=== PATIENT | male | born 1955 | race American Indian/Alaskan Native ===

== ENCOUNTER 2016-11-17 08:31 | Inpatient (IN) | payer OTHER ==
[2016-11-17 09:08] LABS: Basophils % (Auto) 0.5 % (0.0-1.8); Eosinophils % (Auto) 1.9 % (0.0-4.3); Mean Corpuscular HGB Conc 31 % (32-34); Mean Corpuscular Hemoglobin 26 pg (28-32); Mean Corpuscular Volume 85 fl (84-94); Platelet Count 153 K/mm3 (140-440); Red Blood Count 5.27 M/mm3 (3.65-5.03); Red Cell Distribution Width 13.5 % (13.2-15.2); White Blood Count 7.1 K/mm3 (4.5-11.0)
[2016-11-17 09:17] LABS: Anion Gap 19 mmol/L; BUN/Creatinine Ratio 13.33; Blood Urea Nitrogen 8 mg/dL (9-20); Calcium 9.2 mg/dL (8.4-10.2); Carbon Dioxide 21 mmol/L (22-30); Chloride 98.5 mmol/L (98-107); Glucose 400 mg/dL (75-100); Potassium 4.4 mmol/L (3.6-5.0); Sodium 134 mmol/L (137-145)
[2016-11-17 09:28] LABS: Hematocrit 44.8 % (35.5-45.6); Hemoglobin 13.9 gm/dl (11.8-15.2)
[2016-11-17 10:39] LABS: Bilirubin,Urine NEG (Negative); Blood,Urine NEG (Negative); Ketones,Urine NEG (Negative); Leukocyte Esterase,Urine NEG (Negative); Nitrite,Urine NEG (Negative); Protein,Urine <15 mg/dL mg/dL (Negative); Urobilinogen,Urine < 2.0 mg/dL (<2.0)
[2016-11-17] MEDS ORDERED: NACL 0.9% 1000 ML 1,000 ML IV ONE (17:30)
--- NOTE | 2016-11-17 17:34 | Emergency Department Report ---
ED Headache HPI - General Chief Complaint: Headache Stated Complaint: HEADACHE Time Seen by Provider: 11/17/16 15:53 Source: patient - History of Present Illness Initial Comments: Pt is a 61 yr old male with a h/o DM who presents to the ED with a headache. Pt reports the headache is all over but worse at the R [place] and R side of his head. Pt has had this headache for 7 days and has tried OTC analgesics, goody powders with minor relief. Associated photophobia. Headache has been gradually worsening over the week, not thunderclap in nature. Pt reports he has no history of migraines. Otherwise no fevesr, chills, dizziness, double vision, hearing changes, gait issues, SOB, CP, NVD, abd pain, travel, or sick contacts. Allergies/Adverse Reactions: Allergies No Known Allergies Allergy (Unverified 11/17/16 08:36) ED Review of Systems ROS: Stated complaint: HEADACHE Other details as noted in HPI Comment: All other systems reviewed and negative ED Past Medical Hx - Past Medical History Previous Medical History?: Yes Hx Diabetes: Yes - Surgical History Past Surgical History?: No - Social History Smoking Status: Current Every Day Smoker Substance Use Type: Non Opiate Pain ED Physical Exam - General Limitations: No Limitations General appearance: alert, in no apparent distress - Head Head exam: Present: atraumatic, normocephalic - Eye Eye exam: Present: normal appearance, PERRL, EOMI. Absent: scleral icterus, nystagmus Pupils: Present: normal accommodation. Absent: irregular, unequal - ENT ENT exam: Present: normal exam, mucous membranes moist - Neck Neck exam: Present: normal inspection, full ROM. Absent: tenderness, meningismus, lymphadenopathy - Respiratory Respiratory exam: Present: normal lung sounds bilaterally. Absent: respiratory distress, wheezes, rales, rhonchi, stridor - Cardiovascular Cardiovascular Exam: Present: regular rate, normal rhythm. Absent: systolic murmur, diastolic murmur, rubs, gallop - GI/Abdominal GI/Abdominal exam: Present: soft, normal bowel sounds. Absent: distended, tenderness, guarding, rebound, rigid - Rectal Rectal exam: Present: deferred - Extremities Exam Extremities exam: Present: normal inspection - Back Exam Back exam: Present: normal inspection - Neurological Exam Neurological exam: Present: alert, oriented X3, CN II-XII intact, normal gait, other (Strength 5/5 upper and lower bilaterally, sensation intact bilaterally). Absent: motor sensory deficit - Psychiatric Psychiatric exam: Present: normal affect, normal mood - Skin Skin exam: Present: warm, dry, intact, normal color. Absent: rash ED Course Vital Signs 11/17/16 11/17/16 11/17/16 08:36 17:07 17:09 Temperature 98.4 F 100.3 F H Pulse Rate 74 97 H Respiratory 20 18 Rate Blood Pressure 120/76 Blood Pressure 112/76 [Right] O2 Sat by Pulse 100 98 98 Oximetry ED Medical Decision Making - Lab Data Result diagrams: 11/17/16 08:51 11/17/16 08:51 - Radiology Data Radiology results: report reviewed, image reviewed Case discussed with radiologist at [address] Subacute vs chronic vs mass on the R side of the brain. Pt to be admitted, MRI recs passed to hospitalist - Medical Decision Making After initial evaluation, this has been a 7 day long course of ROPER's. Placed patient on 6L NC to see if this will give him some relief. Critical care attestation.: If time is entered above; I have spent that time in minutes in the direct care of this critically ill patient, excluding procedure time. ED Disposition Clinical Impression: Headache, CVA (cerebral vascular accident) Disposition: OP ADMIT IP TO THIS HOSP Is pt being admited?: Yes Condition: Stable
--- NOTE | 2016-11-17 18:41 | Cat Scan Report ---
FINAL REPORT PROCEDURE: CT HEAD/BRAIN WO CON TECHNIQUE: Computerized tomography of the head was performed without contrast material. HISTORY: headache COMPARISON: No prior studies are available for comparison. FINDINGS: There is low-attenuation in the medial superior right occipital lobe, suggesting ischemia of uncertain chronicity. No evidence of acute intracranial hemorrhage or obvious mass. No evidence of hydrocephalus. Intracranial arteries are symmetric in density. Calvarium is intact. There is trace bilateral ethmoid sinus mucosal thickening. IMPRESSION: Findings suggest ischemic changes in the superior medial right occipital lobe, which may be subacute to chronic. Recommend further evaluation with MRI to evaluate chronicity and exclude any underlying parenchymal lesions. Findings were discussed with Dr. Dill by telephone at 5:33 p.m. central standard time on 11/17/2016.
[2016-11-17] MEDS ORDERED: REGLAN IV ONE (18:42)
[2016-11-17] MEDS ORDERED: BENADRYL IV ONE (18:42)
[2016-11-17] MEDS ORDERED: MORPHINE IV ONE (18:42)
--- NOTE | 2016-11-17 18:48 | History and Physical Report ---
History of Present Illness Chief complaint: My head hurts, Im dizzy History of present illness: 61 YO Male with DM, Nicotine Dependence presents to ED for evaluation. Pt states that he has experienced a severe right sided headache for the past week. Pain is 10/10, and is associated with blurred vision. Pt has tried OTC analgesics, goody powders with minor relief. Pt headache has been gradually worsening over the week. Pt denies fever, chills, CP, palpitations, NVD, syncope , dizziness, double vision, hearing changes, gait instability, SOB, recent foreign travel, or sick contacts. Past History Past Medical History: diabetes, hypertension Past Surgical History: No surgical history, Other (reviewed) Social history: , smoking. denies: alcohol abuse, prescription drug abuse Family history: hypertension Medications and Allergies Allergies Allergy/AdvReac Type Severity Reaction Status Date / Time No Known Allergies Allergy Unverified 11/17/16 08:36 Review of Systems All systems: negative Constitutional: other (headache) Exam - Constitutional Vitals: Temp Pulse Resp BP Pulse Ox 100.3 F H 97 H 18 112/76 98 11/17/16 17:07 11/17/16 17:07 11/17/16 17:07 11/17/16 17:07 11/17/16 17:09 General appearance: Present: mild distress - EENT Eyes: Present: PERRL ENT: hearing intact, clear oral mucosa - Neck Neck: Present: supple, normal ROM - Respiratory Respiratory effort: normal Respiratory: bilateral: CTA - Cardiovascular Heart Sounds: Present: S1 & S2. Absent: rub, click - Extremities Extremities: pulses symmetrical, No edema Peripheral Pulses: within normal limits - Abdominal General gastrointestinal: Present: soft, non-tender, non-distended, normal bowel sounds Male genitourinary: Present: normal - Integumentary Integumentary: Present: clear, warm, dry - Musculoskeletal Musculoskeletal: gait normal, strength equal bilaterally - Psychiatric Psychiatric: appropriate mood/affect, intact judgment & insight - Neurologic Neurologic: CNII-XII intact, moves all extremities, no gait normal Results - Labs CBC & Chem 7: 11/17/16 08:51 11/17/16 08:51 Labs: Abnormal lab results 11/17/16 11/17/16 11/17/16 Range/Units 08:39 08:51 08:51 RBC 5.27 H (3.65-5.03) M/mm3 MCH 26 L (28-32) pg MCHC 31 L (32-34) % [place] % (Auto) 7.5 H (0.0-7.3) % VBG pH (7.320-7.420) Sodium 134 L (137-145) mmol/L Carbon Dioxide 21 L (22-30) mmol/L BUN 8 L (9-20) mg/dL Creatinine 0.6 L (0.8-1.5) mg/dL Glucose 400 H (75-100) mg/dL POC Glucose 360 H (70-105) /11/28 Range/Units 08:51 RBC (3.65-5.03) M/mm3 MCH (28-32) pg MCHC (32-34) % [place] % (Auto) (0.0-7.3) % VBG pH 7.301 L (7.320-7.420) Sodium (137-145) mmol/L Carbon Dioxide (22-30) mmol/L BUN (9-20) mg/dL Creatinine (0.8-1.5) mg/dL Glucose (75-100) mg/dL POC Glucose (70-105) Assessment and Plan - Patient Problems (1) CVA (cerebral vascular accident) Current Visit: Yes Status: Acute Qualifiers: CVA mechanism: C Precerebral and cerebral artery: P Laterality of affected vessel: L Plan to address problem: R MCA CVA: Stroke protocol, MRI, MRA, Anitplatelet therapy, supportive care. (2) Diabetes Current Visit: Yes Status: Acute Qualifiers: Diabetes mellitus type: D Diabetes mellitus complication status: D Diabetes mellitus complication detail: D Diabetic retinopathy severity: D Proliferative retinopathy type: P Diabetes mellitus macular edema: D Diabetes mellitus intermediate insulin use: D Laterality: L Chronic kidney disease stage: C Plan to address problem: ADA diet, insulin, Accuc check (3) Nicotine dependence with withdrawal Current Visit: Yes Status: Acute Qualifiers: Nicotine product type: N Plan to address problem: Continue current care, Pt declines to pick quit date. (4) Metabolic acidosis Current Visit: Yes Status: Acute Plan to address problem: IVF, supportive care, repeat bmp in am. (5) DVT prophylaxis Current Visit: Yes Status: Acute
[2016-11-17] MEDS ORDERED: SODIUM CHLORIDE FLUSH SYRINGE 10 ML IV PRN (18:54)
[2016-11-17] MEDS ORDERED: ZOFRAN IV PRN (18:54)
[2016-11-17] MEDS ORDERED: REGLAN PO PRN (18:54)
[2016-11-17] MEDS ORDERED: MILK OF MAGNESIA PO PRN (18:54)
[2016-11-17] MEDS ORDERED: PHENERGAN PR PRN (18:54)
[2016-11-17] MEDS ORDERED: DULCOLAX PR PRN (18:54)
--- NOTE | 2016-11-17 18:55 | Admit Criteria Form ---
Admission Criteria Documentation: HEADACHES Clinical Indications for Admission to Inpatient Care (Place 'X' for any and all applicable criteria): Admission is indicated for ANY ONE of the following(1)(2)(3)(4): [X ]I. Inpatient admission required rather than observational care (Also use Headaches: Observation Care as appropriate) because of ANY ONE of the following: [ ]a) Severe pain requiring acute inpatient management [ ]b) Altered mental status that is severe or persistent [ ]c) Vomiting or dehydration that is severe or persistent [ ]d) New-onset focal neurologic deficit that is severe or persistent [ ]e) Hypertension requiring inpatient treatment [ X]f) Severe (new) neurologic findings requiring inpatient care as indicated by ANY ONE of following(9)(10): [ ]1) Papilledema [ ]2) Cerebral edema [ ]3) Mass effect on CT scan [ X]4) Cerebral bleeding, ischemia, or vasospasm(16) [ ]5) Hydrocephalus(17) [ ]6) Uncontrolled seizures [ ]g) IV infusion of anticoagulation, platelet inhibitors vasoactive, or antiarrhythmic medication. [ ]h) Cerebral bleeding, hydrocephalus, or vasospasm monitoring (16) [ ]i) Increased intracranial pressure or cerebral edema monitoring (17) [ ]j) Other condition, treatment or monitoring requiring inpatient admission [ ]II. Unruptured but threatening aneurysm or vascular malformation [ ]III. Venous sinus thrombosis [ ]IV. Increased intracranial pressure [ ]V. Cerebral spinal fluid leak with decreased intracranial pressure [ ]. Medication-overuse headache that has failed all outpatient management options [ ]VII. Vasculitis (eg, giant cell (temporal) arteritis, central nervous system vasculitis) requiring IV corticosteroids, IV antithrombotic therapy, or inpatient monitoring (eg, visual symptoms or findings, other ischemic manifestations)[A](10)(11) Extended stay beyond goal length of stay may be needed for (27): [ ]a) Intractable migraine [ ]b) Subarachnoid or intracranial hemorrhage [ ]c) Malignant hypertension [ ]d) Detoxification from drug withdrawal in medication-overuse headache (29) The original [facility] content created by [employer] has been revised. The portions of the content which have been revised are identified through the use of italic text or in bold, and [employer] has neither reviewed nor approved the modified material.All other unmodified content is copyright [facility]. Please see references footnoted in the original [facility] edition 2016 Admission Criteria Met: Yes
[2016-11-17 20:45] LABS: HIV-1 Antigen p24 Non React (Non React); HIVR-1/2 Ab Non React (Non React)
[2016-11-17] MEDS ORDERED: ZOCOR PO SCH (22:00)
[2016-11-17] MEDS: NACL 0.45% 500 ML IV SCH (23:49)
[2016-11-18] MEDS: PERCOCET 5/325 PO PRN ×2 (01:30→21:37)
[2016-11-18] MEDS: ASPIRIN PO SCH (10:08)
[2016-11-18] MEDS: TYLENOL PO PRN ×2 (10:08→17:15)
--- NOTE | 2016-11-18 11:37 | Progress Note ---
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] Not a candidate for TPA, , Continue aspirin, statin CT head and MRI findings noted and reviewed, Check carotid Doppler, echocardiogram, Physical therapy occupational therapy, acute rehabilitation eval per stroke protocol Neuro consultation , closely monitor the patient and adjust management as needed --Type 2 diabetes mellitus[probably new onset] Accu-Chek sliding scale coverage and ADA diet and add long-acting insulin Novolin 10 units subcutaneous twice a day Check hemoglobin A1c, diabetic education, nutrition consult --Hypertension; Closely monitor blood pressures, permissive hypertension per stroke protocol When necessary hydralazine --Dyslipidemia; patient is started on Lipitor, low-cholesterol diet --Ongoing tobacco use; Smoking cessation counseling done, strongly advised to quit tobacco use, descendent complications of Long-term tobacco use discussed with the patient verbalized understanding, advised nicotine patch Spent 10 minutes counseling the patient --DVT prophylaxis with Lovenox -- physical therapy, occupational therapy, acute rehabilitation eval, possible home with home health and stable --DC planning to case management Patient's condition treatment plan discussed in detail with the patient and at the bedside I also discussed this extensively with daughter Ms Jyothi Mariano, all her questions and concerns were explained She will verbalized understanding Follow neurology consultation and recommendations History Interval history: Patient seen and evaluated in his room this morning medical records reviewed Patient's is at the bedside Patient complaints of headache, denies nausea vomiting Admitted with acute CVA, neuro workup is in progress Alert awake oriented 3 in mild distress secondary to headache Vital signs reviewed . Hospitalist Physical - Constitutional Vitals: Temp Pulse Resp BP Pulse Ox 98.7 F 72 18 129/64 98 11/18/16 07:10 11/18/16 11:12 11/18/16 11:12 11/18/16 07:10 11/18/16 11:12 General appearance: Present: mild distress (secondary to headache), well- nourished - EENT Eyes: Present: PERRL, EOM intact - Neck Neck: Present: supple, normal ROM - Respiratory Respiratory effort: normal Respiratory: negative: rales, rhonchi, wheezing - Cardiovascular Rhythm: regular Heart Sounds: Present: S1 & S2 - Extremities Extremities: no ischemia, pulses intact, pulses symmetrical Peripheral Pulses: within normal limits - Abdominal General gastrointestinal: soft, non-tender, non-distended, normal bowel sounds - Integumentary Integumentary: Present: clear, warm - Psychiatric Psychiatric: appropriate mood/affect, cooperative - Neurologic Neurologic: CNII-XII intact, moves all extremities Results - Labs CBC & Chem 7: 11/17/16 08:51 11/17/16 08:51 Labs: Laboratory Last Values WBC 7.1 K/mm3 (4.5-11.0) 11/17/16 08:51 RBC 5.27 M/mm3 (3.65-5.03) H 11/17/16 08:51 Hgb 13.9 gm/dl (11.8-15.2) 11/17/16 08:51 Hct 44.8 % (35.5-45.6) 11/17/16 08:51 MCV 85 fl (84-94) 11/17/16 08:51 MCH 26 pg (28-32) L 11/17/16 08:51 MCHC 31 % (32-34) L 11/17/16 08:51 RDW 13.5 % (13.2-15.2) 11/17/16 08:51 Plt Count 153 K/mm3 (140-440) 11/17/16 08:51 Lymph % (Auto) 30.0 % (13.4-35.0) 11/17/16 08:51 [place] % (Auto) 7.5 % (0.0-7.3) H 11/17/16 08:51 Eos % (Auto) 1.9 % (0.0-4.3) 11/17/16 08:51 Baso % (Auto) 0.5 % (0.0-1.8) 11/17/16 08:51 Lymph # 2.1 K/mm3 (1.2-5.4) 11/17/16 08:51 [place] # 0.5 K/mm3 (0.0-0.8) 11/17/16 08:51 Eos # 0.1 K/mm3 (0.0-0.4) 11/17/16 08:51 Baso # 0.0 K/mm3 (0.0-0.1) 11/17/16 08:51 Seg Neutrophils % 60.1 % (40.0-70.0) 11/17/16 08:51 Seg Neutrophils # 4.3 K/mm3 (1.8-7.7) 11/17/16 08:51 VBG pH 7.301 (7.320-7.420) L 11/17/16 08:51 Sodium 134 mmol/L (137-145) L 11/17/16 08:51 Potassium 4.4 mmol/L (3.6-5.0) 11/17/16 08:51 Chloride 98.5 mmol/L (98-107) 11/17/16 08:51 Carbon Dioxide 21 mmol/L (22-30) L 11/17/16 08:51 Anion Gap 19 mmol/L 11/17/16 08:51 BUN 8 mg/dL (9-20) L 11/17/16 08:51 Creatinine 0.6 mg/dL (0.8-1.5) L 11/17/16 08:51 Estimated GFR > 60 ml/min 11/17/16 08:51 BUN/Creatinine Ratio 13.33 % 11/17/16 08:51 Glucose 400 mg/dL (75-100) H 11/17/16 08:51 POC Glucose 360 (70-105) H 11/17/16 08:39 Calcium 9.2 mg/dL (8.4-10.2) 11/17/16 08:51 Triglycerides 280 mg/dL (2-149) H 11/18/16 06:10 Cholesterol 208 mg/dL (50-199) H 11/18/16 06:10 LDL Cholesterol Direct 128 mg/dL (50-130) 11/18/16 06:10 HDL Cholesterol 24 mg/dL (40-59) L 11/18/16 06:10 Cholesterol/HDL Ratio 8.66 % 11/18/16 06:10 Urine Color Yellow (Yellow) 11/17/16 Unknown Urine Turbidity Clear (Clear) 11/17/16 Unknown Urine pH 6.0 (5.0-7.0) 11/17/16 Unknown Ur Specific [place] 1.029 (1.003-1.030) 11/17/16 Unknown Urine Protein <15 mg/dl mg/dL (Negative) 11/17/16 Unknown Urine Glucose (UA) >=500 mg/dL (Negative) 11/17/16 Unknown Urine Ketones Neg mg/dL (Negative) 11/17/16 Unknown Urine Blood Neg (Negative) 11/17/16 Unknown Urine Nitrite Neg (Negative) 11/17/16 Unknown Urine Bilirubin Neg (Negative) 11/17/16 Unknown Urine Urobilinogen < 2.0 mg/dL (<2.0) 11/17/16 Unknown Ur Leukocyte Esterase Neg (Negative) 11/17/16 Unknown Urine WBC (Auto) 1.0 /HPF (0.0-6.0) 11/17/16 Unknown Urine RBC (Auto) 3.0 /HPF (0.0-6.0) 11/17/16 Unknown HIV 1&2 Antibody Rapid Non react (Non React) 11/17/16 19:17 HIV P24 Antigen Non react (Non React) 11/17/16 19:17
--- NOTE | 2016-11-18 11:57 | Magnetic Resonance Report ---
MRI of the brain without contrast. History: Stroke. Procedure: Routine brain protocol without contrast. Findings: There are several areas of restricted diffusion in the right occipital lobe the most prominent of which is superior in location. There is associated edema/hyperintense T2 signal in these regions. There is no mass effect. No additional areas of restricted diffusion are seen. The ventricles are normal in size and contour. There are no masses or extra-axial collections. There are areas of hyperintense T2 signal in the periventricular white matter and in the chiang radiata. The pituitary gland appears normal. The remaining visualized extra cranial structures are unremarkable. Impression: Acute infarcts in the right occipital lobe. Chronic microangiopathic ischemic changes are also described.
--- NOTE | 2016-11-18 12:31 | Magnetic Resonance Report ---
MRA of the [place]. History: Stroke. Procedure: 3-D [id number] technique. Findings: The distal internal carotid arteries appear normal. The anterior and middle cerebral arteries appear normal. The vertebral and basilar arteries are normal. Posterior circulation is unremarkable. Impression: Normal study.
--- NOTE | 2016-11-18 15:05 | Consultation ---
History of Present Illness - Reason for Consult Consult date: 11/18/16 Evaluate for Acute IRU - History of Present Illness 61 y.o. male who presented to [facility] ED secondary to intermittent headaches, altered mental status, dizziness, blurry vision. CT Brain showed subacute to chronic ischemic changes in the right occipital lobe. Brain MRI notes acute infarcts in right occipital lobe. On today, pt reports improved headache and blurry vision; no complaint of weakness. Consult requested for post acute placement recommendations. Past History Past Medical History: diabetes, hypertension Past Surgical History: No surgical history (pt denies) Social history: , smoking. denies: alcohol abuse Family history: diabetes, hypertension, stroke Medications and Allergies Allergies Allergy/AdvReac Type Severity Reaction Status Date / Time No Known Allergies Allergy Unverified 11/17/16 08:36 Home Medications Medication Instructions Recorded Confirmed Last Taken Type No Known Home Medications [No 11/17/16 11/17/16 Unknown History Reported Home Medications] Active Meds: Active Medications Acetaminophen (Tylenol) 650 mg PO Q4H PRN PRN Reason: Pain, Mild (1-3) Last Admin: 11/18/16 10:08 Dose: 650 mg Aspirin (Aspirin) 325 mg PO QDAY GRACIE Last Admin: 11/18/16 10:08 Dose: 325 mg Atorvastatin Calcium (Lipitor) 40 mg PO QHS GRACIE Bisacodyl (Dulcolax) 10 mg FL QDAY PRN PRN Reason: Constipation Sodium Chloride (Nacl 0.45%) 500 mls @ 50 mls/hr IV DIRECT GRACIE Last Admin: 11/17/16 23:49 Dose: 50 mls/hr Insulin Aspart (Novolog) 0 units SUB-Q ACHS GRACIE PRN Reason: Protocol Insulin Human Isoph/Insulin Regular (Novolin 70/30) 10 unit SUB-Q BIDDIAB GRACIE Magnesium Hydroxide (Milk Of Magnesia) 30 ml PO Q4H PRN PRN Reason: Constipation Metoclopramide HCl (Reglan) 10 mg PO Q6H PRN PRN Reason: Nausea And Vomiting Nicotine (Habitrol) 14 mg TD QDAY GRACIE Ondansetron HCl (Zofran) 4 mg IV Q8H PRN PRN Reason: N/V unrelieved by Reglan Oxycodone/Acetaminophen (Percocet 5/325) 1 tab PO Q6H PRN PRN Reason: Pain, Moderate (4-6) Last Admin: 11/18/16 01:30 Dose: 1 tab Promethazine HCl (Phenergan) 25 mg FL Q6H PRN PRN Reason: Nausea And Vomiting Sodium Chloride (Sodium Chloride Flush Syringe 10 Ml) 10 ml IV PRN PRN PRN Reason: LINE FLUSH Review of Systems All systems: negative Ears, nose, mouth and throat: no dysphagia, no headache (currently resolved) Exam - Constitutional Vitals: Vital Signs - 12hr 11/18/16 11/18/16 11/18/16 04:00 07:10 11:12 Temperature 98.2 F 98.7 F Pulse Rate Pulse Rate [ 72 72 72 Right Radial] Respiratory 20 16 18 Rate Blood Pressure 123/82 129/64 [Right Radial Artery] O2 Sat by Pulse 98 98 98 Oximetry 11/18/16 11/18/16 11:39 14:40 Temperature 98.7 F Pulse Rate 76 Pulse Rate [ 70 Right Radial] Respiratory Rate Blood Pressure 121/78 [Right Radial Artery] O2 Sat by Pulse Oximetry General appearance: no acute distress, other (sitting up on edge of bed) - EENT Eyes: EOM intact ENT: hearing intact - Neck Neck: supple, normal ROM - Respiratory Respiratory effort: normal Respiratory: bilateral: CTA - Cardiovascular Rhythm: regular Heart Sounds: Present: S1 & S2 - Extremities Extremities: No edema - Integumentary Integumentary: Present: clear - Musculoskeletal Musculoskeletal: strength equal bilaterally - Neurologic Neurologic: CNII-XII intact, moves all extremities - Psychiatric Psychiatric: appropriate mood/affect, intact judgment & insight, memory intact, cooperative - Allied health notes Allied health notes reviewed: PT (Yashira for bed mobility, transfers; independent with gait), OT (Independent to s/u for ADLs) - Labs CBC & Chem 7: 11/17/16 08:51 11/17/16 08:51 Labs: Laboratory Results - last 72 hr 11/17/16 11/17/16 11/18/16 19:17 Unknown 06:10 Triglycerides 280 H Cholesterol 208 H LDL Cholesterol Direct 128 HDL Cholesterol 24 L Cholesterol/HDL Ratio 8.66 Urine Color Yellow Urine Turbidity Clear Urine pH 6.0 Ur Specific [place] 1.029 Urine Protein <15 mg/dl Urine Glucose (UA) >=500 Urine Ketones Neg Urine Blood Neg Urine Nitrite Neg Urine Bilirubin Neg Urine Urobilinogen < 2.0 Ur Leukocyte Esterase Neg Urine WBC (Auto) 1.0 Urine RBC (Auto) 3.0 HIV 1&2 Antibody Rapid Non react HIV P24 Antigen Non react Assessment and Plan Patient was assessed and evaluated for Acute Inpatient Rehab Unit. 61 y.o. male with acute right occipital CVA; no weakness or functional deficits noted on therapy evaluations. Pt educated on need to seek F/U with PCP after discharge for management of HTN, DM; will not require therapies after discharge. Will sign off as pt has no rehab needs. Thank you for consultation. - Patient Problems (1) CVA (cerebral vascular accident) Current Visit: Yes Status: Acute Qualifiers: CVA mechanism: C Precerebral and cerebral artery: P Laterality of affected vessel: L (2) Hypertension Current Visit: Yes Status: Acute Qualifiers: Hypertension type: H (3) Diabetes Current Visit: Yes Status: Acute Qualifiers: Diabetes mellitus type: type 2 Diabetes mellitus complication status: with hyperglycemia Diabetes mellitus complication detail: D Diabetic retinopathy severity: D Proliferative retinopathy type: P Diabetes mellitus macular edema: D Diabetes mellitus watermaster insulin use: without mcfp use Laterality: L Chronic kidney disease stage: C Qualified Code(s): E11.65 - Type 2 diabetes mellitus with hyperglycemia
[2016-11-18] MEDS: NOVOLOG SUB-Q SCH ×2 (16:34→23:05)
[2016-11-18] MEDS: NACL 0.45% 500 ML IV SCH (16:47)
[2016-11-19] MEDS: TYLENOL PO PRN (04:07)
[2016-11-19] MEDS: NACL 0.45% 500 ML IV SCH (04:10)
[2016-11-19 07:11] LABS: Basophils % (Auto) 0.6 % (0.0-1.8); Eosinophils % (Auto) 3.2 % (0.0-4.3); Hematocrit 39.3 % (35.5-45.6); Hemoglobin 12.7 gm/dl (11.8-15.2); Mean Corpuscular HGB Conc 32 % (32-34); Mean Corpuscular Hemoglobin 26 pg (28-32); Mean Corpuscular Volume 81 fl (84-94); Platelet Count 155 K/mm3 (140-440); Red Blood Count 4.83 M/mm3 (3.65-5.03); Red Cell Distribution Width 12.8 % (13.2-15.2)
[2016-11-19 07:28] LABS: Anion Gap 17 mmol/L; Blood Urea Nitrogen 9 mg/dL (9-20); Calcium 8.8 mg/dL (8.4-10.2); Carbon Dioxide 25 mmol/L (22-30); Chloride 96.2 mmol/L (98-107); Glucose 210 mg/dL (75-100); Potassium 3.6 mmol/L (3.6-5.0); Sodium 135 mmol/L (137-145)
[2016-11-19] MEDS: NOVOLOG SUB-Q SCH ×4 (07:30→22:45)
[2016-11-19] MEDS: PERCOCET 5/325 PO PRN ×3 (08:28→23:11)
[2016-11-19] MEDS ORDERED: MAGNESIUM SULFATE 2GM/50ML 2 GM/50 ML BAG IV ONE (10:00)
--- NOTE | 2016-11-19 11:38 | Consultation ---
History of Present Illness Consult date: 11/19/16 Requesting physician: PHANI ROSARIO Reason for Consult: stroke Chief complaint: headache and vision change History of present illness: 61 YO M Hx HTN/DM2/Tob abuse p/w 8-9 days of bifrontal headache and some vague vision change described as blurriness but not clearly worse in any field. Sx are constant. There are no clear aggravating, relieving or temporal factors. Severity was enough to cause inability to effectively read. Past History Past Medical History: diabetes, hypertension Past Surgical History: No surgical history (pt denies) Social history: , smoking. denies: alcohol abuse Family history: diabetes, hypertension, stroke Medications and Allergies Allergies Allergy/AdvReac Type Severity Reaction Status Date / Time No Known Allergies Allergy Unverified 11/17/16 08:36 Home Medications Medication Instructions Recorded Confirmed Last Taken Type No Known Home Medications [No 11/17/16 11/17/16 Unknown History Reported Home Medications] Active Meds: Active Medications Acetaminophen (Tylenol) 650 mg PO Q4H PRN PRN Reason: Pain, Mild (1-3) Last Admin: 11/19/16 04:07 Dose: 650 mg Aspirin (Aspirin) 325 mg PO QDAY [facility] Last Admin: 11/18/16 10:08 Dose: 325 mg Atorvastatin Calcium (Lipitor) 40 mg PO QHS [facility] Last Admin: 11/18/16 21:36 Dose: 40 mg Bisacodyl (Dulcolax) 10 mg WV QDAY PRN PRN Reason: Constipation Sodium Chloride (Nacl 0.45%) 500 mls @ 50 mls/hr IV DIRECT [facility] Last Admin: 11/19/16 04:10 Dose: 50 mls/hr Magnesium Sulfate (Magnesium Sulfate 2gm/50ml) 2 gm in 50 mls @ 25 mls/hr IV ONCE ONE Stop: 11/19/16 11:59 Insulin Aspart (Novolog) 0 units SUB-Q ACHS GRACIE PRN Reason: Protocol Last Admin: 11/18/16 23:05 Dose: 3 units Insulin Human Isoph/Insulin Regular (Novolin 70/30) 10 unit SUB-Q BIDDIAB [facility] Last Admin: 11/18/16 18:40 Dose: 10 unit Magnesium Hydroxide (Milk Of Magnesia) 30 ml PO Q4H PRN PRN Reason: Constipation Metoclopramide HCl (Reglan) 10 mg PO Q6H PRN PRN Reason: Nausea And Vomiting Nicotine (Habitrol) 14 mg TD QDAY GRACIE Ondansetron HCl (Zofran) 4 mg IV Q8H PRN PRN Reason: N/V unrelieved by Reglan Oxycodone/Acetaminophen (Percocet 5/325) 1 tab PO Q6H PRN PRN Reason: Pain, Moderate (4-6) Last Admin: 11/19/16 08:28 Dose: 1 tab Promethazine HCl (Phenergan) 25 mg WV Q6H PRN PRN Reason: Nausea And Vomiting Sodium Chloride (Sodium Chloride Flush Syringe 10 Ml) 10 ml IV PRN PRN PRN Reason: LINE FLUSH Review of Systems All systems: negative Constitutional: fatigue Neurological: headaches, loss of vision, no weakness, no parathesias, no numbness, no tingling, no gait dysfunction, no motor disturbance, no sensory deficit, no double vision Physical Examination - Vital Signs Vital Signs: Vital Signs Temp Pulse Resp BP Pulse Ox 98.4 F 74 20 120/76 100 11/17/16 08:36 11/17/16 08:36 11/17/16 08:36 11/17/16 08:36 11/17/16 08:36 - Constitutional General appearance: comfortable - EENT EENT: Present: ATNC, PERRL, mucous membranes moist, hearing intact, vision intact - Respiratory Respiratory: Present: chest non-tender, normal breath sounds, no respiratory distress - Cardiovascular Cardiovascular: Present: regular rate Extremities: Present: no peripheral edema bilatateraly, no clubbing, cyanosis, no inflammation, no ischemia or petechiae - Gastrointestinal Gastrointestinal: Present: normoactive bowel sounds, soft, non-distended - Integumentary Integumentary: Present: normal - Neurologic Cranial nerve examination: PERRL, EOMI, V1/V2/V3 grossly intact, face symmetric , tongue midline, intact, Intact Vestibulo-ocular r, intact corneal reflex, normal palatal elevation, other (L inferior quadrantopsia) Speech examination: intact Sensorimotor examination: intact Detailed motor examination: full strength in all ulisses Motor examination - right side: 5/5: biceps, triceps, wrist flexion, wrist extension, product blending supervisor, hip flexors, knee extensors, dorsiflexion, toe extension (EHL) , plantarflexion Motor examination - left side: 5/5: biceps, triceps, wrist flexion, wrist extension, product blending supervisor, hip flexors, knee extensors, dorsiflexion, toe extension (EHL) , plantarflexion Detailed sensory examination: intact, light touch, temperature Reflex and gait examination: intact Reflexes: 0: ankle, 2+: bicep, knee, tricep - Musculoskeletal Musculoskeletal: Present: no fluid collection, no pain, normal range of motion - Psychiatric Psychiatric: Present: mood/affect appropriate, cooperative Results - Laboratory Findings CBC and BMP: 11/19/16 06:26 11/19/16 06:26 Abnormal Lab Findings: Abnormal Labs 11/18/16 11/18/16 11/18/16 06:10 07:57 12:03 MCV MCH RDW Lymph % (Auto) [place] % (Auto) Sodium Chloride Creatinine Glucose POC Glucose 277 H 276 H Hemoglobin A1c Magnesium Triglycerides 280 H Cholesterol 208 H HDL Cholesterol 24 L 11/18/16 11/18/16 11/18/16 16:17 16:20 22:02 MCV MCH RDW Lymph % (Auto) [place] % (Auto) Sodium Chloride Creatinine Glucose POC Glucose > 500 H > 500 H 185 H Hemoglobin A1c Magnesium Triglycerides Cholesterol HDL Cholesterol 11/19/16 11/19/16 11/19/16 06:26 06:26 06:26 MCV 81 L D MCH 26 L RDW 12.8 L Lymph % (Auto) 37.1 H [place] % (Auto) 9.1 H Sodium 135 L Chloride 96.2 L Creatinine 0.5 L Glucose 210 H POC Glucose Hemoglobin A1c 14.4 H Magnesium 1.50 L Triglycerides Cholesterol HDL Cholesterol 11/19/16 07:42 MCV MCH RDW Lymph % (Auto) [place] % (Auto) Sodium Chloride Creatinine Glucose POC Glucose 254 H Hemoglobin A1c Magnesium Triglycerides Cholesterol HDL Cholesterol Assessment and Plan 61 YO M Hx HTN/DM2/Tob abuse p/w 8-9 days of bifrontal headache vaguely described vision change. On exam there is L inferior quadrantopsia. 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 MRA Head neg. LDL 128. CDs neg. Plan and Recommendation: 1. No indication for pharmacologic thrombolysis with IV tPA or mechanical thrombectomy due to last known normal > 6 hrs from presentation. Current NIHSS 1. 2. Telemetry bed w/ Q4 hour neuro checks 3. TTE to eval for possible cardiac source of embolism 4. Autoregulate SBP to goal 120-160 as pt is outside permissive HTN window. 5. Secondary stroke prevention: ASA 325mg Daily x 1 then 81mg QDay & upgrade to full dose statin therapy (Crestor 20mg or 40mg OR Lipitor 40mg or 80mg Daily OR Zocor 40mg QDay) for goal LDL < 70. No firm indication at this point for therapeutic anticoagulation as pt has not had AFib captured on telemetry monitoring. 6. F/E/N: isotonic IVF prn, prn replete, bedside speech/swallow eval prior to PO intake. 7. DVT Prophylaxis 8. Stroke education, PT/OT/Speech Therapy consults, CM evaluation 9. For any changes in neurologic status, pls obtain STAT CTH w/o contrast and call neurology 10. If pt remains stable and TTE w/o thrombus, no neurologic contraindication to discharge w/ outpt neuro follow up.
[2016-11-19] MEDS: HABITROL TD SCH (12:15)
[2016-11-19] MEDS: ASPIRIN PO SCH (12:15)
--- NOTE | 2016-11-19 15:46 | Progress Note ---
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];Not a candidate for TPA, , Continue aspirin, statin Residual visual symptoms, neuro evaluation noted and appreciated Neuro workup is reviewed, follow echocardiogram --Type 2 diabetes mellitus[probably new onset]; Accu-Chek sliding scale coverage and ADA diet and add long-acting insulin Novolin 10 units subcutaneous twice a day, A1c 14.4 --Hypertension; When necessary hydralazine --Dyslipidemia; on Lipitor, low-cholesterol diet --Ongoing tobacco use; Smoking cessation counseling done, strongly advised to quit tobacco use, descendent complications of --DVT prophylaxis with Lovenox -- physical therapy, occupational therapy, --DC planning to case management Possible discharge home tomorrow with outpatient physical therapy History Interval history: Patient seen and evaluated medical records reviewed Patient frequently leaves the floor Neuro evaluation and recommendations noted Neuro workup reviewed Vital Signs stable Hospitalist Physical - Constitutional Vitals: Temp Pulse Resp BP Pulse Ox 98.1 F 65 20 126/76 98 11/19/16 04:00 11/19/16 04:00 11/19/16 04:00 11/19/16 04:00 11/19/16 04:00 General appearance: Present: no acute distress, well-nourished, other (sitting up on edge of bed) - EENT Eyes: Present: PERRL, EOM intact - Neck Neck: Present: supple, normal ROM - Respiratory Respiratory effort: normal Respiratory: negative: rales, rhonchi, wheezing - Cardiovascular Rhythm: regular Heart Sounds: Present: S1 & S2 - Extremities Extremities: no ischemia, pulses intact, pulses symmetrical Peripheral Pulses: within normal limits - Abdominal General gastrointestinal: soft, non-tender, non-distended, normal bowel sounds - Integumentary Integumentary: Present: clear, warm - Psychiatric Psychiatric: appropriate mood/affect - Neurologic Neurologic: CNII-XII intact, moves all extremities Results - Labs CBC & Chem 7: 11/19/16 06:26 11/19/16 06:26 Labs: Laboratory Last Values WBC 6.0 K/mm3 (4.5-11.0) 11/19/16 06:26 RBC 4.83 M/mm3 (3.65-5.03) 11/19/16 06:26 Hgb 12.7 gm/dl (11.8-15.2) 11/19/16 06:26 Hct 39.3 % (35.5-45.6) 11/19/16 06:26 MCV 81 fl (84-94) L D 11/19/16 06:26 MCH 26 pg (28-32) L 11/19/16 06:26 MCHC 32 % (32-34) 11/19/16 06:26 RDW 12.8 % (13.2-15.2) L 11/19/16 06:26 Plt Count 155 K/mm3 (140-440) 11/19/16 06:26 Lymph % (Auto) 37.1 % (13.4-35.0) H 11/19/16 06:26 [place] % (Auto) 9.1 % (0.0-7.3) H 11/19/16 06:26 Eos % (Auto) 3.2 % (0.0-4.3) 11/19/16 06:26 Baso % (Auto) 0.6 % (0.0-1.8) 11/19/16 06:26 Lymph # 2.2 K/mm3 (1.2-5.4) 11/19/16 06:26 [place] # 0.6 K/mm3 (0.0-0.8) 11/19/16 06:26 Eos # 0.2 K/mm3 (0.0-0.4) 11/19/16 06:26 Baso # 0.0 K/mm3 (0.0-0.1) 11/19/16 06:26 Seg Neutrophils % 50.0 % (40.0-70.0) 11/19/16 06:26 Seg Neutrophils # 3.0 K/mm3 (1.8-7.7) 11/19/16 06:26 VBG pH 7.301 (7.320-7.420) L 11/17/16 08:51 Sodium 135 mmol/L (137-145) L 11/19/16 06:26 Potassium 3.6 mmol/L (3.6-5.0) 11/19/16 06:26 Chloride 96.2 mmol/L (98-107) L 11/19/16 06:26 Carbon Dioxide 25 mmol/L (22-30) 11/19/16 06:26 Anion Gap 17 mmol/L 11/19/16 06:26 BUN 9 mg/dL (9-20) 11/19/16 06:26 Creatinine 0.5 mg/dL (0.8-1.5) L 11/19/16 06:26 Estimated GFR > 60 ml/min 11/19/16 06:26 BUN/Creatinine Ratio 18.00 % 11/19/16 06:26 Glucose 210 mg/dL (75-100) H 11/19/16 06:26 POC Glucose 281 (70-105) H 11/19/16 12:02 Hemoglobin A1c 14.4 % (4-6) H 11/19/16 06:26 Calcium 8.8 mg/dL (8.4-10.2) 11/19/16 06:26 Magnesium 1.50 mg/dL (1.7-2.3) L 11/19/16 06:26 Triglycerides 280 mg/dL (2-149) H 11/18/16 06:10 Cholesterol 208 mg/dL (50-199) H 11/18/16 06:10 LDL Cholesterol Direct 128 mg/dL (50-130) 11/18/16 06:10 HDL Cholesterol 24 mg/dL (40-59) L 11/18/16 06:10 Cholesterol/HDL Ratio 8.66 % 11/18/16 06:10 Urine Color Yellow (Yellow) 11/17/16 Unknown Urine Turbidity Clear (Clear) 11/17/16 Unknown Urine pH 6.0 (5.0-7.0) 11/17/16 Unknown Ur Specific [place]auer 1.029 (1.003-1.030) 11/17/16 Unknown Urine Protein <15 mg/dl mg/dL (Negative) 11/17/16 Unknown Urine Glucose (UA) >=500 mg/dL (Negative) 11/17/16 Unknown Urine Ketones Neg mg/dL (Negative) 11/17/16 Unknown Urine Blood Neg (Negative) 11/17/16 Unknown Urine Nitrite Neg (Negative) 11/17/16 Unknown Urine Bilirubin Neg (Negative) 11/17/16 Unknown Urine Urobilinogen < 2.0 mg/dL (<2.0) 11/17/16 Unknown Ur Leukocyte Esterase Neg (Negative) 11/17/16 Unknown Urine WBC (Auto) 1.0 /HPF (0.0-6.0) 11/17/16 Unknown Urine RBC (Auto) 3.0 /HPF (0.0-6.0) 11/17/16 Unknown HIV 1&2 Antibody Rapid Non react (Non React) 11/17/16 19:17 HIV P24 Antigen Non react (Non React) 11/17/16 19:17
[2016-11-20] MEDS: PERCOCET 5/325 PO PRN ×2 (06:09→13:15)
[2016-11-20] MEDS: NOVOLOG SUB-Q SCH ×2 (09:02→12:17)
[2016-11-20 09:17] VITALS: BP 111/71
[2016-11-20] MEDS: HABITROL TD SCH (10:30)
[2016-11-20] MEDS: ASPIRIN PO SCH (10:30)
--- NOTE | 2016-11-20 11:08 | Discharge Summary ---
Providers - Providers Date of Admission: 11/17/16 18:54 Date of discharge: 11/20/16 Attending physician: DEMETRIA LOWE 11/18/16 13:45 Consult to Physician [CONS] Routine Consulting Provider: MARTIN GARCIA Reason For Exam: acute CVA Place consult to:: Dr. Garcia Notified:: Heather VALIENTE Phone number called:: [phone] Was contact made?: Yes If yes, spoke with:: voicemail with consult info left for Delphine Bravo Time called:: 14:20 11/18/16 13:47 Consult Acute Rehabilitation [CONS] Routine Consulting Provider: RALEIGH DAVEY Reason For Exam: acute CVA Primary care physician: GRAVURE PRESS SET UP OPERATOR Hospitalization Condition: Stable Disposition: DC-01 TO HOME OR SELFCARE Core Measure Documentation - Palliative Care Palliative Care/ Comfort Measures: Not Applicable - Core Measures Any of the following diagnoses?: stroke - Stroke Discharge Requirements Statin for LDL = or >70 mg/dl on DC: Yes Anticoag for atrial fib/atrial flutter: Not Applicable (No fib/flutter) Antithrombotic for ischemic stroke: Yes Exam - Constitutional Vitals: Temp Pulse Resp BP Pulse Ox 98.3 F 76 20 111/71 97 11/20/16 08:00 11/20/16 09:49 11/20/16 08:00 11/20/16 08:00 11/20/16 08:00 General appearance: Present: no acute distress, well-nourished - EENT Eyes: Present: PERRL, EOM intact - Neck Neck: Present: supple, normal ROM - Respiratory Respiratory effort: normal Respiratory: negative: rales, rhonchi, wheezing - Cardiovascular Rhythm: regular Heart Sounds: Present: S1 & S2 - Extremities Extremities: no ischemia, pulses intact Peripheral Pulses: within normal limits - Abdominal General gastrointestinal: Present: soft, non-tender, non-distended, normal bowel sounds - Integumentary Integumentary: Present: clear, warm - Musculoskeletal Musculoskeletal: strength equal bilaterally - Psychiatric Psychiatric: appropriate mood/affect, cooperative - Neurologic Neurologic: CNII-XII intact, moves all extremities Plan Activity: no restrictions Diet: low cholesterol, low salt, diabetic Special Instructions: smoking cessation Additional Instructions: advised to comply with medications and diet. smoking cessation Follow up with: PRIMARY CARE,MD [Primary Care Provider] - 7 Days ESTHER MTZ MD [Staff Physician] - 7 Days Prescriptions: Aspirin [Aspirin TAB] 325 mg PO QDAY #30 tablet AtorvaSTATin [Lipitor] 40 mg PO QHS #30 tablet Insulin NPH/Regular [NovoLIN 70/30] 20 unit SUB-Q BIDDIAB 30 Days Nicotine [Habitrol] 14 mg TD QDAY #30 patch oxyCODONE /ACETAMINOPHEN [Percocet 5/325 mg] 1 tab PO BID PRN #20 tablet PRN Reason: Pain, Moderate (4-6)
--- NOTE | 2016-11-23 07:42 | Vascular Lab Report ---
CAROTID DUPLEX STUDY: RIGHT PSVEDV CCA PROX: [id number] CCA DIST: 7420 ICA PROX: 7720 ICA MID:[id number] ICA DIST: 7520 ECA: 62 9 VERT: 71 26 LEFT PSVEDV CCA PROX:[id number] CCA DIST:[id number] ICA PROX: 7216 ICA MID: 7728 ICA DIST: 7928 ECA: 6611 VERT: 58 19 REASON FOR EXAM: CVA. COMMENTS ON THE RIGHT: Doppler frequency analysis is consistent with 16 to 49 percent diameter reduction of the internal carotid artery. Minimal amount of plaque is seen. The common carotid artery is patent. The external carotid artery is patent. The vertebral artery has antegrade flow. COMMENTS ON THE LEFT: Doppler frequency analysis is consistent with 16 to 49 percent diameter reduction of the internal carotid artery. Minimal amount of plaque is seen. The common carotid artery is patent. The external carotid artery is patent. The vertebral artery has antegrade flow. IMPRESSION: Less than 50% diameter reduction in the internal carotid arteries bilaterally. Consider repeat carotid artery duplex in 12 months. 92
== END 2016-11-20 16:11 | disposition home or self-care (01) | DRG 65 ==
LOC: ED 08:31 → 4A 18:54
PROVIDERS: ADMIT Internal Medicine; ATTEND Internal Medicine
DX: I63.9 Cerebral infarction, unspecified (principal); E87.2 Acidosis; F17.213 Nicotine dependence, cigarettes, with withdrawal; E11.9 Type 2 diabetes mellitus without complications; I10 Essential (primary) hypertension; E78.5 Hyperlipidemia, unspecified; H53.8 Other visual disturbances; Z71.6 Tobacco abuse counseling; Z83.3 Family history of diabetes mellitus; Z82.3 Family history of stroke; Z82.49 Family history of ischemic heart disease and other diseases of the circulatory system
CPT/HCPCS: 36415; 70450; 70544; 70551; 80048; 80061; 81001; 82805; 82962; 83036; 83735; 85025; 87806; 93306; 93880; 96361; 96374; 96375; 99285; 99406; A9270-GY; J1200; J1815; J2270; J2765; J3475; J7030

== ENCOUNTER 2018-08-30 13:48 | Inpatient (IN) | payer OTHER, SELFPAY ==
--- NOTE | 2018-08-30 14:14 | Emergency Department Report ---
Chief Complaint: Fall Stated Complaint: FELL/HIT HEAD TWICE/SHAKING/ UNABLE TO FOCUS Time Seen by Provider: 08/30/18 14:09 - HPI History of Present Illness: This is a 62 y.o. male that presents with dizziness and recent fall. Patient states he was at home and felt lightheaded, causing him to fall. PMH DM and HTN. - Exam Vital Signs: Vital Signs 08/30/18 14:09 Temperature 98 F Pulse Rate 83 Respiratory 18 Rate Blood Pressure 153/87 O2 Sat by Pulse 98 Oximetry MSE screening note: Focused history and physical exam performed. Due to findings the following was ordered: labs, ekg, & poc glucose 91 ED Disposition for MSE Condition: Stable
[2018-08-30 14:56] LABS: Basophils # (Auto) 0.1 K/mm3 (0.0-0.1); Basophils % (Auto) 0.9 % (0.0-1.8); Eosinophils # (Auto) 0.1 K/mm3 (0.0-0.4); Eosinophils % (Auto) 1.6 % (0.0-4.3); Hematocrit 38.2 % (35.5-45.6); Hemoglobin 12.9 gm/dl (11.8-15.2); Lymphocytes # (Auto) 2.1 K/mm3 (1.2-5.4); Mean Corpuscular HGB Conc 34 % (32-34); Mean Corpuscular Volume 91 fl (84-94); Monocytes # (Auto) 0.5 K/mm3 (0.0-0.8); Monocytes % (Auto) 6.9 % (0.0-7.3); Platelet Count 182 K/mm3 (140-440); Red Blood Count 4.21 M/mm3 (3.65-5.03); Red Cell Distribution Width 13.2 % (13.2-15.2)
[2018-08-30 15:11] LABS: Alanine Aminotransferase 21 units/L (7-56); BUN/Creatinine Ratio 10; Blood Urea Nitrogen 8 mg/dL (9-20); Calcium 8.9 mg/dL (8.4-10.2); Hemolysis Index 10
--- NOTE | 2018-08-30 15:37 | Cat Scan Report ---
CT HEAD WITHOUT CONTRAST: HISTORY: Syncope, dizziness. TECHNIQUE: Sequential 2.5mm CT images. COMPARISON: 01/17/17. FINDINGS: Cerebral Parenchyma: Chronic cortical infarct in the right occipital lobe and chronic focal infarct measuring up to 1.5 cm in the right anterior basal ganglia are identified. The remaining brain parenchyma demonstrates normal attenuation. Subtle basal ganglia calcifications are again noted. Cerebellum: Within normal limits. Brainstem: Within normal limits. Ventricles: Normal. Sella: Normal. Extra-axial spaces: Normal. Basal Cisterns: Normal. Intracranial Hemorrhage: None. Midline Shift: None. Calvarium: Normal. Sinuses: Normal. Mastoid Air Cells: Normal. Visualized Orbits: Normal. IMPRESSION: Chronic infarcts as described. No acute cranial process is identified.
[2018-08-30] MEDS ORDERED: NACL 0.9% 1000 ML 1,000 ML IV ONE (22:40)
[2018-08-30 23:27] LABS: Bilirubin,Urine NEG (Negative); Blood,Urine NEG (Negative); Color,Urine Yellow (Yellow); Mucus,Urine FEW /HPF; Urobilinogen,Urine < 2.0 mg/dL (<2.0)
--- NOTE | 2018-08-30 23:27 | Emergency Department Report ---
ED Syncope HPI - General Chief Complaint: Fall Stated Complaint: FELL/HIT HEAD TWICE/SHAKING/ UNABLE TO FOCUS Time Seen by Provider: 08/30/18 14:09 - History of Present Illness Initial Comments: 8-year-old male presents to ED with 3 syncopal episodes in the last 4 days. states 4 days ago patient fell from scaffold and was unresponsive for a moment. EMS was called, however patient refused transport. Patient then passed out again 2 days ago. Patient had near syncopal episode today, so brought patient to the ER. Patient requires feeling dizzy and lightheaded prior to these episodes. Denies headache, chest pain, shortness of breath. Patient reports tobacco and ETOH use. Denies having a PCP - Related Data Allergies/Adverse Reactions: Allergies No Known Allergies Allergy (Unverified 11/17/16 08:36) Home Medications: Ambulatory Orders Aspirin [Aspirin TAB] 325 mg PO QDAY #30 tablet 11/20/16 AtorvaSTATin [Lipitor] 40 mg PO QHS #30 tablet 11/20/16 Insulin NPH/Regular [NovoLIN 70/30] 20 unit SUB-Q BIDDIAB 30 Days units 11/20/16 Insulin Regular, Human [HumuLIN R] 5 unit SQ ACHS 30 Days ml 11/20/16 Nicotine [Habitrol] 14 mg TD QDAY #30 patch 11/20/16 oxyCODONE /ACETAMINOPHEN [Percocet 5/325 mg] 1 tab PO BID PRN #20 tablet 02/28 ED Review of Systems ROS: Stated complaint: FELL/HIT HEAD TWICE/SHAKING/ UNABLE TO FOCUS Other details as noted in HPI ED Past Medical Hx - Past Medical History Previous Medical History?: Yes Hx Hypertension: Yes Hx Congestive Heart Failure: No Hx Diabetes: Yes Hx Asthma: No Hx COPD: No - Surgical History Past Surgical History?: No - Social History Smoking Status: Never Smoker Substance Use Type: Alcohol - Medications Home Medications: Home Medications Medication Instructions Recorded Confirmed Last Taken Type Aspirin [Aspirin TAB] 325 mg PO QDAY #30 tablet 11/20/16 Unknown Rx AtorvaSTATin [Lipitor] 40 mg PO QHS #30 tablet 11/20/16 Unknown Rx Insulin NPH/Regular [NovoLIN 70/30] 20 unit SUB-Q BIDDIAB 30 Days 11/20/16 Unknown Rx units Insulin Regular, Human [HumuLIN R] 5 unit SQ ACHS 30 Days ml 11/20/16 Unknown Rx Nicotine [Habitrol] 14 mg TD QDAY #30 patch 11/20/16 Unknown Rx oxyCODONE /ACETAMINOPHEN [Percocet 1 tab PO BID PRN #20 tablet 11/20/16 Unknown Rx 5/325 mg] ED Physical Exam - General Limitations: No Limitations ED Course Vital Signs 08/30/18 08/30/18 08/30/18 13:53 14:09 20:38 Temperature 98 F Pulse Rate 83 76 Pulse Rate [ 74 Lying] Pulse Rate [ 74 Sitting] Pulse Rate [ 84 Standing] Respiratory 18 17 Rate Blood Pressure 153/87 Blood Pressure 144/74 [Lying] Blood Pressure 136/82 [Sitting] Blood Pressure 123/75 [Standing] O2 Sat by Pulse 98 97 Oximetry 08/30/18 08/30/18 08/30/18 20:46 21:00 21:16 Temperature Pulse Rate 73 74 77 Pulse Rate [ Lying] Pulse Rate [ Sitting] Pulse Rate [ Standing] Respiratory 14 15 11 L Rate Blood Pressure Blood Pressure [Lying] Blood Pressure [Sitting] Blood Pressure [Standing] O2 Sat by Pulse 99 99 98 Oximetry 08/30/18 08/30/18 08/30/18 21:30 21:46 22:00 Temperature Pulse Rate 85 80 71 Pulse Rate [ Lying] Pulse Rate [ Sitting] Pulse Rate [ Standing] Respiratory 13 23 15 Rate Blood Pressure Blood Pressure [Lying] Blood Pressure [Sitting] Blood Pressure [Standing] O2 Sat by Pulse 100 98 99 Oximetry 08/30/18 08/30/18 08/30/18 22:14 22:15 22:30 Temperature Pulse Rate 70 72 71 Pulse Rate [ Lying] Pulse Rate [ Sitting] Pulse Rate [ Standing] Respiratory 17 14 13 Rate Blood Pressure 136/82 131/85 143/80 Blood Pressure [Lying] Blood Pressure [Sitting] Blood Pressure [Standing] O2 Sat by Pulse 97 97 95 Oximetry 08/30/18 08/30/18 08/30/18 22:45 23:00 23:15 Temperature Pulse Rate 75 70 70 Pulse Rate [ Lying] Pulse Rate [ Sitting] Pulse Rate [ Standing] Respiratory 14 14 10 L Rate Blood Pressure 129/66 129/66 134/79 Blood Pressure [Lying] Blood Pressure [Sitting] Blood Pressure [Standing] O2 Sat by Pulse 97 97 96 Oximetry 03/19/19 03/19/19 03/20/19 23:30 23:45 00:00 Temperature Pulse Rate 71 67 67 Pulse Rate [ Lying] Pulse Rate [ Sitting] Pulse Rate [ Standing] Respiratory 17 11 L 14 Rate Blood Pressure 138/79 143/85 148/79 Blood Pressure [Lying] Blood Pressure [Sitting] Blood Pressure [Standing] O2 Sat by Pulse 98 96 95 Oximetry 08/31/18 08/31/18 08/31/18 00:15 00:30 00:46 Temperature Pulse Rate 68 68 69 Pulse Rate [ Lying] Pulse Rate [ Sitting] Pulse Rate [ Standing] Respiratory 10 L 12 10 L Rate Blood Pressure 145/88 143/89 145/84 Blood Pressure [Lying] Blood Pressure [Sitting] Blood Pressure [Standing] O2 Sat by Pulse 96 98 96 Oximetry ED Medical Decision Making - Lab Data Result diagrams: 08/30/18 14:35 08/30/18 14:35 - EKG Data -: EKG Interpreted by Me EKG shows normal: sinus rhythm, axis, intervals, QRS complexes, ST-T waves Rate: normal - EKG Data Interpretation: no acute changes - Radiology Data Radiology results: report reviewed, image reviewed - Differential Diagnosis dehydration, intracranial bleed, CVA, PE Critical care attestation.: If time is entered above; I have spent that time in minutes in the direct care of this critically ill patient, excluding procedure time. ED Disposition Clinical Impression: Syncope Disposition: OP ADMIT IP TO THIS HOSP Is pt being admited?: Yes Condition: Stable Time of Disposition: 00:06
[2018-08-31] MEDS ORDERED: ZOFRAN IV PRN (01:14)
[2018-08-31] MEDS ORDERED: SODIUM CHLORIDE FLUSH SYRINGE 10 ML IV PRN (01:14)
[2018-08-31] MEDS ORDERED: TYLENOL PO PRN (01:14)
[2018-08-31] MEDS ORDERED: PERCOCET 5/325 PO PRN (01:21)
--- NOTE | 2018-08-31 01:56 | History and Physical Report ---
<CONRAD SAMAYOA - Last Filed: 08/31/18 05:06> History of Present Illness Date of examination: 08/31/18 Date of admission: 08/31/18 00:41 Chief complaint: Syncope History of present illness: Patient is a 62-year-old male with PMHx of DM type II, hypertension, EtOH use disorder, cigarette smoking disorder who presents to the ER with complaints of multiple episodes of syncope for the past 4 days. Patient states that the first episode happened 4 days ago, when he fell from scaffold and lose consciousness for a brief moment. Patient states that EMS was called but he refused transport at that time. Patient states that 2 days ago the same thing happened while he was home, patient states that he almost passed out again today which prompted him and his to come to the ER for evaluation. Patient states that he starts to feel lightheadedness and becomes very dizzy before each episodes, pt admits to a history of diabetes, he takes insulin at home before meals but he admits to never checked his blood glucose. Patient denies headache, denies chest pain, denies shortness of breath, denies nausea denies vomiting. Patient's states that he had not seen a doctor for many years, he admits to smoke half pack cigarettes per day, drinks half bottle of liquor almost daily. Patient was evaluated in the ER he CT scan of the brain was negative, he was admitted for further evaluation of his syncopal episodes. Past History Past Medical History: diabetes, hypertension Social history: smoking, alcohol abuse Family history: no significant family history Medications and Allergies Allergies Allergy/AdvReac Type Severity Reaction Status Date / Time No Known Allergies Allergy Unverified 11/17/16 08:36 Home Medications Medication Instructions Recorded Confirmed Last Taken Type Aspirin [Aspirin TAB] 325 mg PO QDAY #30 tablet 11/20/16 08/31/18 Unknown Rx AtorvaSTATin [Lipitor] 40 mg PO QHS #30 tablet 11/20/16 08/31/18 Unknown Rx Insulin Regular, Human [HumuLIN R] 5 unit SQ ACHS 30 Days ml 11/20/16 08/31/18 Unknown Rx Insulin NPH/Regular [NovoLIN 70/30] 30 unit SUB-Q BIDDIAB 08/31/18 08/31/18 Unknown History Active Meds: Active Medications Acetaminophen (Tylenol) 650 mg PO Q4H PRN PRN Reason: Pain MILD(1-3)/Fever >100.5/ROPER Enoxaparin Sodium (Lovenox) 40 mg SUB-Q QDAY@1000 GR[facility]IE Ondansetron HCl (Zofran) 4 mg IV Q8H PRN PRN Reason: Nausea And Vomiting Oxycodone/Acetaminophen (Percocet 5/325) 1 tab PO Q6H PRN PRN Reason: Pain, Moderate (4-6) Sodium Chloride (Sodium Chloride Flush Syringe 10 Ml) 10 ml IV BID GRACIE Sodium Chloride (Sodium Chloride Flush Syringe 10 Ml) 10 ml IV PRN PRN PRN Reason: LINE FLUSH Review of Systems Neurological: weakness, syncope Exam - Constitutional Vitals: Temp Pulse Resp BP Pulse Ox 98 F 65 10 L 145/84 96 08/31/18 01:34 08/31/18 01:42 08/31/18 01:34 08/31/18 00:46 08/31/18 01:34 General appearance: Present: no acute distress - EENT Eyes: Present: EOM intact ENT: hearing intact - Neck Neck: Present: normal ROM - Respiratory Respiratory effort: normal Respiratory: bilateral: diminished - Cardiovascular Rhythm: regular - Extremities Extremities: no ischemia Peripheral Pulses: within normal limits - Abdominal General gastrointestinal: Present: deferred Male genitourinary: Present: normal - Rectal Rectal Exam: deferred - Integumentary Integumentary: Present: warm - Musculoskeletal Musculoskeletal: strength equal bilaterally - Psychiatric Psychiatric: appropriate mood/affect - Neurologic Neurologic: moves all extremities Results - Labs CBC & Chem 7: 08/30/18 14:35 08/30/18 14:35 Labs: Laboratory Last Values WBC 7.2 K/mm3 (4.5-11.0) 08/30/18 14:35 RBC 4.21 M/mm3 (3.65-5.03) 08/30/18 14:35 Hgb 12.9 gm/dl (11.8-15.2) 08/30/18 14:35 Hct 38.2 % (35.5-45.6) 08/30/18 14:35 MCV 91 fl (84-94) 08/30/18 14:35 MCH 31 pg (28-32) 08/30/18 14:35 MCHC 34 % (32-34) 08/30/18 14:35 RDW 13.2 % (13.2-15.2) 08/30/18 14:35 Plt Count 182 K/mm3 (140-440) 08/30/18 14:35 Lymph % (Auto) 29.0 % (13.4-35.0) 08/30/18 14:35 [place] % (Auto) 6.9 % (0.0-7.3) 08/30/18 14:35 Eos % (Auto) 1.6 % (0.0-4.3) 08/30/18 14:35 Baso % (Auto) 0.9 % (0.0-1.8) 08/30/18 14:35 Lymph # 2.1 K/mm3 (1.2-5.4) 08/30/18 14:35 [place] # 0.5 K/mm3 (0.0-0.8) 08/30/18 14:35 Eos # 0.1 K/mm3 (0.0-0.4) 08/30/18 14:35 Baso # 0.1 K/mm3 (0.0-0.1) 08/30/18 14:35 Seg Neutrophils % 61.6 % (40.0-70.0) 08/30/18 14:35 Seg Neutrophils # 4.5 K/mm3 (1.8-7.7) 08/30/18 14:35 D-Dimer 176.57 ng/mlDDU (0-234) 08/30/18 23:33 Sodium 141 mmol/L (137-145) 08/30/18 14:35 Potassium 3.4 mmol/L (3.6-5.0) L 08/30/18 14:35 Chloride 101.7 mmol/L (98-107) 08/30/18 14:35 Carbon Dioxide 28 mmol/L (22-30) 08/30/18 14:35 Anion Gap 15 mmol/L 08/30/18 14:35 BUN 8 mg/dL (9-20) L 08/30/18 14:35 Creatinine 0.8 mg/dL (0.8-1.5) 08/30/18 14:35 Estimated GFR > 60 ml/min 08/30/18 14:35 BUN/Creatinine Ratio 10 % 08/30/18 14:35 Glucose 90 mg/dL (75-100) 08/30/18 14:35 POC Glucose 91 (70-105) 08/30/18 14:01 Calcium 8.9 mg/dL (8.4-10.2) 08/30/18 14:35 Total Bilirubin 0.20 mg/dL (0.1-1.2) 08/30/18 14:35 AST 38 units/L (5-40) 08/30/18 14:35 ALT 21 units/L (7-56) 08/30/18 14:35 Alkaline Phosphatase 61 units/L (35-129) 08/30/18 14:35 Total Protein 7.4 g/dL (6.3-8.2) 08/30/18 14:35 Albumin 4.0 g/dL (3.9-5) 08/30/18 14:35 Albumin/Globulin Ratio 1.2 % 08/30/18 14:35 Urine Color Yellow (Yellow) 08/30/18 13:53 Urine Turbidity Clear (Clear) 08/30/18 13:53 Urine pH 6.0 (5.0-7.0) 08/30/18 13:53 Ur Specific [place] 1.025 (1.003-1.030) 08/30/18 13:53 Urine Protein 30 mg/dl mg/dL (Negative) 08/30/18 13:53 Urine Glucose (UA) >=500 mg/dL (Negative) 08/30/18 13:53 Urine Ketones Neg mg/dL (Negative) 08/30/18 13:53 Urine Blood Neg (Negative) 08/30/18 13:53 Urine Nitrite Neg (Negative) 08/30/18 13:53 Urine Bilirubin Neg (Negative) 08/30/18 13:53 Urine Urobilinogen < 2.0 mg/dL (<2.0) 08/30/18 13:53 Ur Leukocyte Esterase Neg (Negative) 08/30/18 13:53 Urine WBC (Auto) 1.0 /HPF (0.0-6.0) 08/30/18 13:53 Urine RBC (Auto) 1.0 /HPF (0.0-6.0) 08/30/18 13:53 U Epithel Cells (Auto) < 1.0 /HPF (0-13.0) 08/30/18 13:53 Urine Mucus Few /HPF 08/30/18 13:53 Plasma/Serum Alcohol < 0.01 % (0-0.07) 08/30/18 21:17 Assessment and Plan Assessment and plan: 1. Acute syncopal episodes (likely to to hypoglycemia) 2. DM type II (on insulin) 3. Hypertension 4. Hypokalemia 5. EtOH abuse disorder 6. Cigarette smoking disorder Plan: Patient is admitted for syncope Continue annual check Monitor blood glucose before meals and at bedtime Consult neurology for evaluation Cardiac monitoring Neuro check every 4 hours Replace potassium Alcohol withdrawal protocol Plan of care discussed with patient voiced understanding Patient's condition and plan of care discussed with Dr. Fregoso Advance Directives: Yes VTE prophylaxis?: Chemical Plan of care discussed with patient/family: Yes <ELOISA FREGOSO - Last Filed: 08/31/18 06:18> History of Present Illness Date of admission: 08/31/18 00:41 Medications and Allergies Active Meds: Active Medications Acetaminophen (Tylenol) 650 mg PO Q4H PRN PRN Reason: Pain MILD(1-3)/Fever >100.5/ROPER Aspirin (Aspirin) 325 mg PO QDAY [facility] Atorvastatin Calcium (Lipitor) 40 mg PO QHS [facility] Enoxaparin Sodium (Lovenox) 40 mg SUB-Q QDAY@1000 GRACIE Insulin Human Isoph/Insulin Regular (Humulin 70/30) 30 unit SUB-Q BIDDIAB [facility] Ondansetron HCl (Zofran) 4 mg IV Q8H PRN PRN Reason: Nausea And Vomiting Oxycodone/Acetaminophen (Percocet 5/325) 1 tab PO Q6H PRN PRN Reason: Pain, Moderate (4-6) Sodium Chloride (Sodium Chloride Flush Syringe 10 Ml) 10 ml IV BID GRACIE Sodium Chloride (Sodium Chloride Flush Syringe 10 Ml) 10 ml IV PRN PRN PRN Reason: LINE FLUSH Exam - Constitutional Vitals: Temp Pulse Resp BP Pulse Ox 98.2 F 68 13 139/78 95 08/31/18 03:47 08/31/18 03:47 08/31/18 03:47 08/31/18 03:47 08/31/18 03:47 Results - Labs CBC & Chem 7: 08/30/18 14:35 08/30/18 14:35 Labs: Laboratory Last Values WBC 7.2 K/mm3 (4.5-11.0) 08/30/18 14:35 RBC 4.21 M/mm3 (3.65-5.03) 08/30/18 14:35 Hgb 12.9 gm/dl (11.8-15.2) 08/30/18 14:35 Hct 38.2 % (35.5-45.6) 08/30/18 14:35 MCV 91 fl (84-94) 08/30/18 14:35 MCH 31 pg (28-32) 08/30/18 14:35 MCHC 34 % (32-34) 08/30/18 14:35 RDW 13.2 % (13.2-15.2) 08/30/18 14:35 Plt Count 182 K/mm3 (140-440) 08/30/18 14:35 Lymph % (Auto) 29.0 % (13.4-35.0) 08/30/18 14:35 [place] % (Auto) 6.9 % (0.0-7.3) 08/30/18 14:35 Eos % (Auto) 1.6 % (0.0-4.3) 08/30/18 14:35 Baso % (Auto) 0.9 % (0.0-1.8) 08/30/18 14:35 Lymph # 2.1 K/mm3 (1.2-5.4) 08/30/18 14:35 [place] # 0.5 K/mm3 (0.0-0.8) 08/30/18 14:35 Eos # 0.1 K/mm3 (0.0-0.4) 08/30/18 14:35 Baso # 0.1 K/mm3 (0.0-0.1) 08/30/18 14:35 Seg Neutrophils % 61.6 % (40.0-70.0) 08/30/18 14:35 Seg Neutrophils # 4.5 K/mm3 (1.8-7.7) 08/30/18 14:35 D-Dimer 176.57 ng/mlDDU (0-234) 08/30/18 23:33 Sodium 141 mmol/L (137-145) 08/30/18 14:35 Potassium 3.4 mmol/L (3.6-5.0) L 08/30/18 14:35 Chloride 101.7 mmol/L (98-107) 08/30/18 14:35 Carbon Dioxide 28 mmol/L (22-30) 08/30/18 14:35 Anion Gap 15 mmol/L 08/30/18 14:35 BUN 8 mg/dL (9-20) L 08/30/18 14:35 Creatinine 0.8 mg/dL (0.8-1.5) 08/30/18 14:35 Estimated GFR > 60 ml/min 08/30/18 14:35 BUN/Creatinine Ratio 10 % 08/30/18 14:35 Glucose 90 mg/dL (75-100) 08/30/18 14:35 POC Glucose 91 (70-105) 08/30/18 14:01 Calcium 8.9 mg/dL (8.4-10.2) 08/30/18 14:35 Total Bilirubin 0.20 mg/dL (0.1-1.2) 08/30/18 14:35 AST 38 units/L (5-40) 08/30/18 14:35 ALT 21 units/L (7-56) 08/30/18 14:35 Alkaline Phosphatase 61 units/L (35-129) 08/30/18 14:35 Total Protein 7.4 g/dL (6.3-8.2) 08/30/18 14:35 Albumin 4.0 g/dL (3.9-5) 08/30/18 14:35 Albumin/Globulin Ratio 1.2 % 08/30/18 14:35 Urine Color Yellow (Yellow) 08/30/18 13:53 Urine Turbidity Clear (Clear) 08/30/18 13:53 Urine pH 6.0 (5.0-7.0) 08/30/18 13:53 Ur Specific [place] 1.025 (1.003-1.030) 08/30/18 13:53 Urine Protein 30 mg/dl mg/dL (Negative) 08/30/18 13:53 Urine Glucose (UA) >=500 mg/dL (Negative) 08/30/18 13:53 Urine Ketones Neg mg/dL (Negative) 08/30/18 13:53 Urine Blood Neg (Negative) 08/30/18 13:53 Urine Nitrite Neg (Negative) 08/30/18 13:53 Urine Bilirubin Neg (Negative) 08/30/18 13:53 Urine Urobilinogen < 2.0 mg/dL (<2.0) 08/30/18 13:53 Ur Leukocyte Esterase Neg (Negative) 08/30/18 13:53 Urine WBC (Auto) 1.0 /HPF (0.0-6.0) 08/30/18 13:53 Urine RBC (Auto) 1.0 /HPF (0.0-6.0) 08/30/18 13:53 U Epithel Cells (Auto) < 1.0 /HPF (0-13.0) 08/30/18 13:53 Urine Mucus Few /HPF 08/30/18 13:53 Plasma/Serum Alcohol < 0.01 % (0-0.07) 08/30/18 21:17 Assessment and Plan Assessment and plan: 62-year-old woman with a history of hypertension, diabetes, CVA, hyperlipidemia comes emergency room disease had a total of 3 syncopal episode, first one started on Wednesday, he fell and hit his head. He stated during these episodes he was shaking, and was confused, admits to urinary incontinence. Physical exam is benign. Syncope versus seizure, agree with plan as discussed above, in addition, check carotid Doppler, echo, orthostatics
[2018-08-31] MEDS ORDERED: LOVENOX SUB-Q SCH (10:00)
[2018-08-31] MEDS: ASPIRIN PO SCH (11:12)
[2018-08-31] MEDS: LOVENOX SUB-Q SCH (11:12)
[2018-08-31] MEDS: SODIUM CHLORIDE FLUSH SYRINGE 10 ML IV SCH ×2 (11:13→21:32)
--- NOTE | 2018-08-31 12:10 | Consultation ---
History of Present Illness Consult date: 08/31/18 Requesting physician: ELOISA MULLIGAN Reason for Consult: syncope vs seizure Chief complaint: syncope vs seizure History of present illness: This 62-year-old male according to his complained of feeling nauseated and dizzy this past Wednesday (he later says nervous and jittery lightheaded)and had shaking with his hands clenched and fell hitting his head in the kitchen and was unresponsive for 5 minutes after which he was back to normal with no tiredness or sleepiness. He had incontinence of urine either that time or the other time the same day with his second episode and did bite his lip one of those times but he says later that that was just due to the fall when he hit his head. Lips were held inverted without lip smacking or chewing motions. He had another episode Wednesday falling. He nearly fell off a scaffold both Wednesday and yesterday at work with similar blackouts. Fingerstick glucoses were not done since he does not like needles although he does give himself insulin each day. He has been on 325 mg aspirin since a stroke for which he was admitted here in 2016 at which time he was given atorvastatin but has not been taking it regularly despite his giving him her supply which she no longer needed, because he cannot afford it since she no longer has any. CT scan shows old bilateral lateral hemisphere cerebellar infarcts, newer right lateral caudate lucency suggestive of infarct perhaps connecting to the ventricle but not seen on the 2017 scans and old right occipitoparietal cortical infarct seen as a new infarct on MRI of November 2016. Glucose here was 91 on admission and 182 this morning on fingerstick. He was orthostatic by blood pressure change on admission and received a liter of saline. Specific gravity was 1.025 suggesting he might have been a little dehydrated. Has occipital headache today without nausea or photophobia. He hit his head on one or more of the blackouts. Echocardiogram is pending. 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 denies: prescription drug abuse, IV drug use (marijuana in the 1970s only) Family history: no significant family history, diabetes (mother and her side of the family), hypertension (both parents), stroke (father), other (no history of epilepsy or brain aneurysms. Father had bilateral leg amputations due to poor circulation, not diabetes.) Medications and Allergies Allergies Allergy/AdvReac Type Severity Reaction Status Date / Time No Known Allergies Allergy Unverified 11/17/16 08:36 Home Medications Medication Instructions Recorded Confirmed Last Taken Type Aspirin [Aspirin TAB] 325 mg PO QDAY #30 tablet 11/20/16 08/31/18 Unknown Rx AtorvaSTATin [Lipitor] 40 mg PO QHS #30 tablet 11/20/16 08/31/18 Unknown Rx Insulin Regular, Human [HumuLIN R] 5 unit SQ ACHS 30 Days ml 11/20/16 08/31/18 Unknown Rx Insulin NPH/Regular [NovoLIN 70/30] 30 unit SUB-Q BIDDIAB 08/31/18 08/31/18 Unknown History Active Meds: Active Medications Acetaminophen (Tylenol) 650 mg PO Q4H PRN PRN Reason: Pain MILD(1-3)/Fever >100.5/ROPER Aspirin (Aspirin) 325 mg PO QDAY [facility] Last Admin: 08/31/18 11:12 Dose: 325 mg Documented by: Atorvastatin Calcium (Lipitor) 40 mg PO QHS [facility] Enoxaparin Sodium (Lovenox) 40 mg SUB-Q QDAY@1000 [facility] Last Admin: 08/31/18 11:12 Dose: 40 mg Documented by: Insulin Human Isoph/Insulin Regular (Humulin 70/30) 30 unit SUB-Q BIDDIAB [facility] Last Admin: 08/31/18 11:30 Dose: 30 unit Documented by: Ondansetron HCl (Zofran) 4 mg IV Q8H PRN PRN Reason: Nausea And Vomiting Oxycodone/Acetaminophen (Percocet 5/325) 1 tab PO Q6H PRN PRN Reason: Pain, Moderate (4-6) Sodium Chloride (Sodium Chloride Flush Syringe 10 Ml) 10 ml IV BID [facility] Last Admin: 08/31/18 11:13 Dose: 10 ml Documented by: Sodium Chloride (Sodium Chloride Flush Syringe 10 Ml) 10 ml IV PRN PRN PRN Reason: LINE FLUSH Review of Systems All systems: negative (some headaches according to his which he says were occasional prior to these episodes, but not dizziness prior to these episodes, loud snoring with long pauses for which she has to shake him (has had these for 17 years), naps for 15-20 minutes but not dozing off otherwise, not sleepy driving, sleeps for 7 hours then rested, and decreased short-term memory for 4 years, tingling and numbness in fingers and hands starting 3 years ago that then went away but came back this past Wednesday) Physical Examination - Vital Signs Vital Signs: Vital Signs Pulse BP 74 144/74 08/30/18 13:53 08/30/18 13:53 - Physical Exam Narrative exam: General Appearance: well developed well nourished (per BMI) early 60s - [place] male in NAD, seen with his . HEENT: atraumatic, normocephalic; no bruits, 2+ Julita without soreness or induration or enlargement, sclerae nonicteric. Oropharynx pink and moist. No TMJ click, no TMJ or sinus soreness to pressure or percussion. Neck: supple, no bruits. Heart: no murmur or extra sounds. Extremities: no clubbing, cyanosis or edema. 2+ dorsalis pedis pulses bilaterally. Neurologic Exam: Mental Status: Awake, alert, oriented X 3, speech is clear, names pen and ballpoint of pen, and abstracts well. 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 Cranial Nerves: crisostomo full, no papilledema, SVPs present, PERRLA, EOMs full without nystagmus or diplopia, facial sensation intact to pinprick and light touch, no facial weakness, Gates is midline, palate rises symmetrically to phonation but crowded, shoulder shrug is 5 X 2, tongue protrudes midline. Cerebellar: finger to nose and tandem are normal. Sensory: intact to light touch, pinprick, and vibrations. Double simultaneous stimulation is intact. Motor Exam Upper Extremities: no drift or pronation, Melvina intact. Negotiator are 5 X 2, tone is normal. No atrophy or fasciculations are noted visually. Motor Exam Lower Extremities: walks well on heels and toes but did not have him hop due to orthostasis. Melvina intact. Tone is normal. No atrophy or fasciculations are noted visually. Reflexes: Palmomental, snout and jaw jerk are negative. Triceps are trace to 1 right and 0 left becoming trace with reinforcement, biceps are 1 and brachioradialis are trace bilaterally. Monalisa's is negative bilaterally. Knee jerks are 2 and ankle jerks are 2+ to 3 bilaterally without clonus. Toes are upgoing right and downgoing left to Babinski testing. Results - Laboratory Findings CBC and BMP: 08/30/18 14:35 08/30/18 14:35 Abnormal Lab Findings: Abnormal Labs 08/30/18 14:35 Potassium 3.4 L BUN 8 L Assessment and Plan Impression: 1. Syncope vs seizure 2. Diabetes Plan: 1. EEG ordered. Will provide additional report. 2. Should have 30 day event monitoring but cannot afford. 3. Told him he needs to check his fingerstick glucose if he has a syncope or any sweating other than exertion, since this may be due to low glucose. Should probably be instructed as to when to check his fasting glucose routinely, since on insulin. 4. Cannot drive till 6 months of no blackouts. 5. Probably needs sleep apnea testing but no insurance. Could try dental device via [email or web address] which is fairly inexpensive and could work for sleep apnea. 6. Needs to be taught the following: Before standing up from bed or after prolonged sitting, tense up your calf muscles as if pushing off with your feet to jump, hold them tight for one whole second, relax, then repeat 9 more times. This helps pump the blood from your legs past one-way valves in your legs to get the blood to your heart and head to prevent dizziness and fainting. Blood tends to pool in your legs overnight. 60 min spent including review of multiple current CT and prior MRI images. Thanks for an interesting consultation on this pleasant early 's male. Being back to normal quickly is against these episodes being seizures. Signing off, call for any questions. Should check fingerstick glucoses here to see if suspected hypoglycemia is occurring.
--- NOTE | 2018-08-31 15:52 | Vascular Lab Report ---
PROCEDURE: VL CAROTID DUPLEX BILAT TECHNIQUE: Ultrasound duplex Doppler evaluation of the carotid arteries bilaterally Note: Measurement of carotid stenosis is based on flow velocity values that correlate with the [place] Symptomatic Carotid Endarterectomy Trial (NASCET) based stenosis criteria using the internal carotid artery diameter as the denominator for stenosis calculation. HISTORY: syncope , previous CVA COMPARISONS: 11/19/2016 FINDINGS: Echogenic plaque is present in the carotid bifurcation bilaterally without evidence of ulceration in the carotid artery system. Peak systolic CCA and ICA velocities are within normal limits bilaterally corresponding to estimated diameter stenosis of 0 to 49 %. ICA/CCA peak systolic ratios are within normal limits: Right: 0.82 Left: 0.84 Flow is antegrade in both vertebral arteries. No evidence of aneurysm or occlusion. IMPRESSION: Bilateral carotid artery atherosclerotic change No hemodynamically significant stenosis (<50% diameter) based on ratios, velocities, and color Dopple r images. This document is electronically signed by Mika Soto MD., August 31 2018 03:50:06 PM ET
--- NOTE | 2018-08-31 17:57 | Event Note ---
Date: 08/31/18 Pt seen and examined. Carotid doppler unremakable. Blood sugar improved. CT head - NL 1. Acute syncopal episodes (likely to to hypoglycemia) 2. DM type II (on insulin) 3. Hypertension 4. Hypokalemia 5. EtOH abuse disorder 6. Cigarette smoking disorder Plan: Monitor blood glucose before meals and at bedtime Consult neurology for evaluation Cardiac monitoring Neuro check every 4 hours Replace potassium Alcohol withdrawal protocol Plan of care discussed with patient voiced understanding Patient's condition and plan of care discussed with Dr. Fregoso Advance Directives: Yes VTE prophylaxis?: Chemical Plan of care discussed with patient/family: Yes
[2018-09-01] MEDS: ASPIRIN PO SCH (10:32)
[2018-09-01] MEDS: LOVENOX SUB-Q SCH (10:32)
[2018-09-01] MEDS: SODIUM CHLORIDE FLUSH SYRINGE 10 ML IV SCH (10:34)
--- NOTE | 2018-09-01 11:22 | Discharge Summary ---
Providers - Providers Date of Admission: 08/31/18 00:41 Date of discharge: 09/01/18 Attending physician: JUANA VILLANUEVA 08/31/18 05:19 Consult to Physician [CONS] Routine Comment: Consulting Provider: DANNY BLOOM Physician Instructions: Reason For Exam: syncope vs sz 08/31/18 16:54 Physical Therapy Evaluation and Treat [CONS] Routine Comment: Reason For Exam: weakness 08/31/18 16:55 Occupational Therapy Evaluate and Treat [CONS] Routine Comment: Reason For Exam: weakness [facility] Reason for admission: recurrent syncope Condition: Stable Pertinent studies: CT scan of the brain that was remarkable for any acute infection. No hem orrhages. Procedures: None Hospital course: Patient is a 62-year-old male with PMHx of DM type II, hypertension, ETOH use disorder, cigarette smoking disorder who presents to the ER with complaints of multiple episodes of syncope for the past 4 days. Patient states that the first episode happened 4 days ago, when he fell from scaffold and lose consciousness for a brief moment. Patient states that EMS was called but he refused transport at that time. Patient states that 2 days ago the same thing happened while he was home, patient states that he almost passed out again today which prompted him and his to come to the ER for evaluation. Patient states that he starts to feel lightheadedness and becomes very dizzy before each episodes, pt admits to a history of diabetes, he takes insulin at home before meals but he admits to never checked his blood glucose. Patient denies headache, denies chest pain, denies shortness of breath, denies nausea denies vomiting. Patient's states that he had not seen a doctor for many years, he admits to smoke half pack cigarettes per day, drinks half bottle of liquor almost daily. Patient was evaluated in the ER he CT scan of the brain was negative for any acute infarction. Bilateral carotid Doppler showed no significant stenosis. Echo was done. Report pending. He was admitted for further evaluation of his syncopal episodes. Neurology consult was obtained. After further evaluation and discussion with the neurologist, Dr. Bloom, he was of the view that patient who had a history of stroke in the past (2016) may have had new ones but nothing acute. He syncope most likely was from hypoglycemia he concluded. Patient will be placed on oral anti diabetic medications. Blood sugar had been to admission has been in the 120s to 170s. Patient had been noncompliant with blood sugar monitoring and full up with primary care physician. He was advised of importance of this. Patient was also a smoker was advised to cease tobacco use. He is therefore being discharged with her primary care physician in 5 days Disposition: [id number] TO HOME OR SELFCARE Time spent for discharge: 40 mins - Discharge Diagnoses (1) Syncope Status: Acute (2) Diabetes Status: Acute Qualifiers: Diabetes mellitus type: type 2 Diabetes mellitus termite inspector insulin use: without termite inspector use Diabetes mellitus complication status: with hyperglycemia Qualified Code(s): E11.65 - Type 2 diabetes mellitus with hyperglycemia (3) Headache Status: Acute (4) Hypertension Status: Acute (5) Metabolic acidosis Status: Acute Core Measure Documentation - Palliative Care Palliative Care/ Comfort Measures: Not Applicable - Core Measures Any of the following diagnoses?: none Exam - Physical Exam Narrative exam: Constitutional: Well-nourished well-developed. In no distress Head: Normocephalic atraumatic Eyes: Pupils are equal round and reactive to light Nose: No enlarged turbinates, no septal deviation. Mouth: Moist mucous membranes. Neck: Supple no thyromegaly. No bruit. No JVD Heart: Regular rate and rhythm, S1-S2 normal. No rubs murmurs or gallop Lungs: Clear to auscultation bilaterally. no rales or rhonchi Abdomen: Soft, nontender. Bowel sound are present. Extremities: No edema, no cyanosis, no clubbing. Neuro: Alert oriented Oriented x3. No focal sensory or motor deficit. Skin: No rashes or hyperpigmented spots Musculoskeletal system: No joint pain or swelling Hematological: No petechia or subcutanous hemorrhages. Immunological: No multiple septic spots on the skin Lymphatic: No generalized lymphadenopathy Psychiatry: Euthymic. Calm. - Constitutional Vitals: Temp Pulse Resp BP Pulse Ox 97.5 F L 62 20 163/77 99 09/01/18 08:20 09/01/18 09:07 09/01/18 09:03 09/01/18 08:20 09/01/18 04:15 Plan Activity: fall precautions Diet: diabetic Follow up with: CARLOS ALBERTO LANGLEY MD [Primary Care Provider] - 10 Days OBIEKWE,ONWURA, MD [Staff Physician] - 09/06/18 Prescriptions: Glimepiride [Amaryl] 4 mg PO BID #60 tablet Losartan [Cozaar] 100 mg PO QDAY #30 tablet metFORMIN [Glucophage] 500 mg PO BID #60 tablet AtorvaSTATin [Lipitor] 20 mg PO QHS #30 tab amLODIPine [Norvasc] 10 mg PO DAILY #30 tab
[2018-09-01 12:58] VITALS: BP 174/83
--- NOTE | 2018-09-02 19:36 | Electroencephalogram Report ---
Electroencephalogram EEG Date of exam: 08/31/18 History: Episodes of blackout with shaking and at least once incontinence of urine, possibly related to low blood sugar Description: Findings: This 21 minute digital electroencephalogram was performed during wakefulness and brief sleep using the international 10/20 montage. There are 19 channels of which one is EKG. There is 9 Hz alpha activity in the posterior leads and some anterior beta activity. Sharp transient at C3 phase reverses at times than 13:14: 02.7 which in itself is not significant. There is intermittent slowing at O1 at times such as at timestamp 13:15:36.2 for example. With drowsiness and brief sleep there is theta activity followed by sleep spindles and K complexes. No epileptiform activity was seen. Interpretation: Interpretation: Mildly abnormal waking and brief sleep electroencephalogram due to slowing in the occipital region. 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 This EEG does not exclude epilepsy of partial onset. Up to 4 EEGs over several months may be needed to capture interictal epileptiform activity.
== END 2018-09-01 15:35 | disposition home or self-care (01) | DRG 638 ==
LOC: ED 13:48 → 4A 08-31 00:41
PROVIDERS: ADMIT Internal Medicine; ATTEND Family Medicine
DX: E11.649 Type 2 diabetes mellitus with hypoglycemia without coma (principal); E87.2 Acidosis; I10 Essential (primary) hypertension; F17.210 Nicotine dependence, cigarettes, uncomplicated; E87.6 Hypokalemia; F10.10 Alcohol abuse, uncomplicated; W18.39XA Other fall on same level, initial encounter; Z86.73 Personal history of transient ischemic attack (TIA), and cerebral infarction without residual deficits; Z79.82 Long term (current) use of aspirin; Z79.899 Other long term (current) drug therapy; Z83.3 Family history of diabetes mellitus; Z82.49 Family history of ischemic heart disease and other diseases of the circulatory system; Z82.3 Family history of stroke; Z79.4 Long term (current) use of insulin; Y93.89 Activity, other specified; Y92.098 Other place in other non-institutional residence as the place of occurrence of the external cause
CPT/HCPCS: 36415; 70450; 80053; 80320; 81001; 82962; 85025; 85379; 93005; 93010; 93306; 93880; 95819; G0378; A9270-GY; G0480; J1650; J1815; J7030

== ENCOUNTER 2020-11-11 20:17 | Emergency (ER) | payer OTHER ==
[2020-11-11] MEDS ORDERED: SODIUM CHLORIDE 0.9% 1000 ML 1,000 ML IV ONE (20:40)
--- NOTE | 2020-11-11 20:45 | Emergency Department Report ---
ED General Adult HPI - General Chief complaint: Altered Mental Status Stated complaint: AMS Time Seen by Provider: 11/11/20 20:36 Source: EMS Mode of arrival: Stretcher Limitations: Altered Mental Status - History of Present Illness Initial comments: 65-year-old male, history of alcohol abuse, CVA, hypertension, presents to ED via EMS for evaluation. Per EMS, stated that patient was discharged from [facility] at 5 PM. She reports that patient is disoriented, which is why she called 911. EMS reports patient has also been drinking tonight. I spoke with patient's , Sarahi, over the phone ([phone]). Patient's states that the patient was discharged from [facility] today following a 2- week stay for alcohol withdrawal seizures. Patient was discharged with a prescription for thiamine. states prior to this [facility] admission, patient was disoriented. Patient states when she picked patient up today he was disoriented. states she told the nurse that he was still disoriented, however the nurse told her that the physician was aware and that it would likely not get better. states patient thinks he is still working, however he has not worked in several years. Patient thinks that he spoke to the landlord today, but he did not. says this disorientation has been ongoing for approximately 7 to 8 months, but states it seems a bit worse right now. She states the [facility] has diagnosed him with dementia, however, states that she does not know exactly what dementia is. She does report patient drank half of a beer tonight. Patient has no complaints. He states the year is 1957 and the president is Sidney Jacob. -: month(s) (8) Severity scale (0 -10): 0 Consistency: constant Improves with: none Worsens with: none Associated Symptoms: confusion - Related Data Previous Rx's Medication Instructions Recorded Last Taken Type AtorvaSTATin [Lipitor] 20 mg PO QHS #30 tab 09/01/18 Unknown Rx Glimepiride [Amaryl] 4 mg PO BID #60 tablet 09/01/18 Unknown Rx Losartan [Cozaar] 100 mg PO QDAY #30 tablet 09/01/18 Unknown Rx amLODIPine 10 mg PO DAILY #30 tab 09/01/18 Unknown Rx metFORMIN [Glucophage] 500 mg PO BID #60 tablet 09/01/18 Unknown Rx Aspirin [Adult Aspirin] 81 mg PO DAILY #30 tablet. 02/10/20 Unknown Rx Nitrofurantoin [place]/M-Cryst 100 mg PO Q12HR #14 capsule 11/11/20 Unknown Rx [Macrobid CAP] Allergies Allergy/AdvReac Type Severity Reaction Status Date / Time No Known Allergies Allergy Verified 02/06/20 15:31 ED Review of Systems ROS: Stated complaint: AMS Other details as noted in HPI Comment: Unobtainable due to pts medical conditions (Patient is confused) ED Past Medical Hx - Past Medical History Hx Hypertension: Yes Hx Congestive Heart Failure: No Hx Diabetes: Yes Hx Asthma: No Hx COPD: No - Social History Smoking Status: Former Smoker - Medications Home Medications: Home Medications Medication Instructions Recorded Confirmed Last Taken Type AtorvaSTATin [Lipitor] 20 mg PO QHS #30 tab 09/01/18 Unknown Rx Glimepiride [Amaryl] 4 mg PO BID #60 tablet 09/01/18 Unknown Rx Losartan [Cozaar] 100 mg PO QDAY #30 tablet 09/01/18 Unknown Rx amLODIPine 10 mg PO DAILY #30 tab 09/01/18 Unknown Rx metFORMIN [Glucophage] 500 mg PO BID #60 tablet 09/01/18 Unknown Rx Aspirin [Adult Aspirin] 81 mg PO DAILY #30 tablet. 02/10/20 Unknown Rx Nitrofurantoin [place]/M-Cryst 100 mg PO Q12HR #14 capsule 11/11/20 Unknown Rx [Macrobid CAP] ED Physical Exam - General Limitations: Altered Mental Status General appearance: alert, in no apparent distress - Head Head exam: Present: atraumatic, normocephalic - Eye Eye exam: Present: normal appearance, EOMI - ENT ENT exam: Present: mucous membranes moist - Neck Neck exam: Present: normal inspection - Respiratory Respiratory exam: Present: normal lung sounds bilaterally. Absent: respiratory distress - Cardiovascular Cardiovascular Exam: Present: normal rhythm, tachycardia - GI/Abdominal GI/Abdominal exam: Present: soft. Absent: distended, tenderness - Extremities Exam Extremities exam: Present: normal inspection - Neurological Exam Neurological exam: Present: alert, CN II-XII intact. Absent: oriented X3 (Patient is oriented to self), motor sensory deficit - Psychiatric Psychiatric exam: Present: normal affect, normal mood - Skin Skin exam: Present: warm, dry, intact, normal color ED Course Vital Signs 11/11/20 11/11/20 11/11/20 20:26 20:30 20:46 Temperature 97.5 F L Pulse Rate 114 H 111 H 106 H Respiratory 18 13 18 Rate Blood Pressure 133/87 124/83 Blood Pressure 133/87 [Right] O2 Sat by Pulse 97 99 98 Oximetry 11/11/20 11/11/20 11/11/20 21:00 21:16 23:50 Temperature 98.1 F Pulse Rate 110 H 104 H 77 Respiratory 15 18 Rate Blood Pressure 124/83 128/59 Blood Pressure 132/78 [Right] O2 Sat by Pulse 99 99 100 Oximetry ED Medical Decision Making - Lab Data Result diagrams: 11/11/20 20:46 11/11/20 20:46 - Medical Decision Making 65-year-old male sent to ED by because patient is disoriented. However, patient has apparently been disoriented for the last 8 months. Patient is a chronic alcohol abuser. Discharged from [facility] a couple hours before presentation here following admission for alcohol withdrawal seizures. He was discharged with prescription for thiamine. Patient's disorientation is chronic. reports previous diagnosis of dementia at the [facility]. 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 He does appear to have a UTI, so this may be worsening his symptoms. Patient given Rocephin here in the ED and will be discharged with prescription for antibiotics. Remainder of labs show mild hyperglycemia without evidence of DKA. Patient will be discharged at this time. Outpatient follow-up advised, return precautions given. - Differential Diagnosis Dementia, infection Critical care attestation.: If time is entered above; I have spent that time in minutes in the direct care of this critically ill patient, excluding procedure time. ED Disposition Clinical Impression: Dementia, UTI (urinary tract infection), Chronic alcohol abuse, Thiamine deficiency Disposition: -01 TO HOME OR SELFCARE Is pt being admited?: No Condition: Stable Instructions: Urinary Tract Infection, Adult, [id number], Dementia Caregiver Guide, Dementia, [id number] Prescriptions: Nitrofurantoin [place]/M-Cryst [Macrobid CAP] 100 mg PO Q12HR #14 capsule Referrals: PRIMARY CARE, [Primary Care Provider] - 3-5 Days Time of Disposition: 22:41
[2020-11-11 21:02] LABS: Basophils # (Auto) 0.1 K/mm3 (0.0-0.1); Basophils % (Auto) 1.2 % (0.0-1.8); Eosinophils # (Auto) 0.1 K/mm3 (0.0-0.4); Eosinophils % (Auto) 1.3 % (0.0-4.3); Hematocrit 34.8 % (35.5-45.6); Hemoglobin 11.7 gm/dl (11.8-15.2); Lymphocytes # (Auto) 1.6 K/mm3 (1.2-5.4); Lymphocytes % (Auto) 25.7 % (13.4-35.0); Mean Corpuscular HGB Conc 34 % (32-34); Mean Corpuscular Volume 95 fl (84-94); Monocytes # (Auto) 0.7 K/mm3 (0.0-0.8); Monocytes % (Auto) 11.7 % (0.0-7.3); Platelet Count 214 K/mm3 (140-440); Red Blood Count 3.66 M/mm3 (3.65-5.03); Red Cell Distribution Width 13.8 % (13.2-15.2)
[2020-11-11 21:13] LABS: BUN/Creatinine Ratio 16; Blood Urea Nitrogen 13 mg/dL (9-20); Calcium 9.2 mg/dL (8.4-10.2); Hemolysis Index 3
[2020-11-11 21:38] LABS: Bacteria,Urine 4+ /HPF (Negative); Bilirubin,Urine NEG (Negative); Blood,Urine NEG (Negative); Color,Urine Yellow (Yellow); Mucus,Urine 1+ /HPF; Protein,Urine <15 mg/dL mg/dL (Negative); Urobilinogen,Urine < 2.0 mg/dL (<2.0)
[2020-11-11 21:41] LABS: RBC,Urine < 1.0 /HPF (0.0-6.0)
--- NOTE | 2020-11-11 21:58 | Cat Scan Report ---
CT head without contrast HISTORY: MAIN. Altered mental status TECHNIQUE: Axial imaging performed from the skull apex through the skull base without the use of con trast. All CT scans at this location are performed using CT dose reduction for ALARA by means of aut omated exposure control. COMPARISON: CT head from 02/08/2020 FINDINGS: Parenchyma: No acute intracranial hemorrhage. There is an area of well-defined encephalomalacia in t he posterior right parieto-occipital region suggesting old ischemic change. Another similar area is s een near the right caudate head. No acute parenchymal abnormality identified. Bilateral basal ganglia calcifications are present. Ventricles: There is mild diffuse brain atrophy with commensurate ventricular enlargement which is l ikely age appropriate. Soft tissues: Soft tissues including the orbits appear normal. Bones: No acute osseous abnormality. Sinuses: Sinuses and mastoid air cells are clear. IMPRESSION: No acute abnormality. Chronic-appearing changes. Signer Name: Fidel Little MD Signed: 11/11/2020 9:54 PM Workstation Name: [id number]
[2020-11-11] MEDS ORDERED: cefTRIAXone/NS 1 GM/50 ML 1 GM/50 ML BAG IV ONE (22:00)
[2020-11-11 23:51] VITALS: BP 132/78
== END 2020-11-11 23:51 | disposition home or self-care (01) ==
LOC: ED 20:17
DX: N39.0 Urinary tract infection, site not specified (principal); E51.9 Thiamine deficiency, unspecified; F03.90 Unspecified dementia, unspecified severity, without behavioral disturbance, psychotic disturbance, mood disturbance, and anxiety; F10.10 Alcohol abuse, uncomplicated; I10 Essential (primary) hypertension; E11.9 Type 2 diabetes mellitus without complications; Z87.891 Personal history of nicotine dependence; Z79.84 Long term (current) use of oral hypoglycemic drugs; Z79.899 Other long term (current) drug therapy
CPT/HCPCS: 36415; 70450; 80048; 81001; 85025; 87086; 96361; 96365; 99284; J0696; J7030; 80320; G0480

== ENCOUNTER 2021-01-01 11:16 | Inpatient (IN) | payer OTHER ==
[2021-01-01] MEDS ORDERED: LORazepam 2 MG/ML VIAL IV ONE (12:00)
[2021-01-01] MEDS ORDERED: LORazepam 2 MG/ML VIAL ONE (12:01)
[2021-01-01] MEDS ORDERED: SODIUM CHLORIDE 0.9% 1000 ML 1,000 ML IV ONE (12:02)
--- NOTE | 2021-01-01 12:03 | Emergency Department Report ---
HPI - General Chief Complaint: Seizure Time Seen by Provider: 01/01/21 11:22 - HPI HPI: 65-year-old male with history of hypertension, DM2, and alcohol use disorder brought in by EMS after he had a witnessed seizure at home. Apparently his witnessed him have a seizure today and he had urinary incontinence. It was of unknown duration. His stated to EMS that he has been drinking alcohol constantly and has not stopped. While in route to the emergency room the patient had 2 more witnessed seizures in the ambulance and was given 5 mg of Jahaira sed. The patient was strongly confused when I went to interview him and is seen picking at his leads. He intermittently follows commands but does not answer my questions appropriately and is essentially nonverbal. Therefore further details of the HPI are limited by his current clinical condition. Will attempt to contact the patient's for further information. ED Past Medical Hx - Past Medical History Previous Medical History?: Yes Hx Hypertension: Yes Hx Congestive Heart Failure: No Hx Diabetes: Yes Hx Asthma: No Hx COPD: No - Social History Smoking Status: Unknown if ever smoked - Medications Home Medications: Home Medications Medication Instructions Recorded Confirmed Last Taken Type AtorvaSTATin [Lipitor] 20 mg PO QHS #30 tab 09/01/18 Unknown Rx Glimepiride [Amaryl] 4 mg PO BID #60 tablet 09/01/18 Unknown Rx Losartan [Cozaar] 100 mg PO QDAY #30 tablet 09/01/18 Unknown Rx amLODIPine 10 mg PO DAILY #30 tab 09/01/18 Unknown Rx metFORMIN [Glucophage] 500 mg PO BID #60 tablet 09/01/18 Unknown Rx Aspirin [Adult Aspirin] 81 mg PO DAILY #30 tablet. 02/10/[address] [place]/M-Cryst 100 mg PO Q12HR #14 capsule 11/11/20 Unknown Rx [Macrobid CAP] ED Review of Systems ROS: Stated complaint: SEIZURE Other details as noted in HPI Comment: Unobtainable due to pts medical conditions Physical Exam - Physical Exam Vital Signs: Vital Signs 01/01/21 01/01/21 01/01/21 11:18 11:22 11:31 Temperature 97.1 F L Pulse Rate 126 H 127 H Respiratory 17 13 Rate Blood Pressure 151/90 O2 Sat by Pulse 95 99 Oximetry 01/01/21 11:45 Temperature Pulse Rate 106 H Respiratory 25 H Rate Blood Pressure 151/90 O2 Sat by Pulse 99 Oximetry Physical Exam: GENERAL: Well developed and well nourished. Appears confused, nonverbal. Follows some commands only HEAD: Normocephalic. No obvious signs of trauma. ENT: Slightly dry mucous membranes. EYES: Extraocular movements are intact. Pupils are equal round and reactive to light bilaterally NECK: Supple. Full ROM is intact. Trachea is midline. LUNGS: Nonlabored breathing. Equal chest rise bilaterally. Clear to auscultation bilaterally. CARDIOVASCULAR: Tachycardic but with regular rhythm. No murmurs or rubs. VASCULAR: Cap refill < 2 seconds ABDOMEN: Abdomen is soft and nondistended. There is no significant tenderness, guarding or rebound. SKIN: Skin is warm and dry NEURO: Patient is awake and alert but extremely confused. He is uncooperative with a neurologic exam, although intermittently follows some commands including to smile and raise his eyebrows.. gym attendant II-XII grossly intact. No focal deficits. Moving all 4 extremities with grossly normal strength for his age. Seen picking at leads on his chest. MUSCULOSKELETAL: No obvious deformities. No significant tenderness. BACK/SPINE: No midline tenderness or step-offs of the C/T/L spine. No costovertebral angle tenderness. ED Course Vital Signs 01/01/21 01/01/21 01/01/21 11:18 11:22 11:31 Temperature 97.1 F L Pulse Rate 126 H 127 H Respiratory 17 13 Rate Blood Pressure 151/90 O2 Sat by Pulse 95 99 Oximetry 01/01/21 11:45 Temperature Pulse Rate 106 H Respiratory 25 H Rate Blood Pressure 151/90 O2 Sat by Pulse 99 Oximetry ED Medical Decision Making - Lab Data Result diagrams: 01/01/21 14:16 01/01/21 14:16 Labs 01/01/21 01/01/21 01/01/21 14:16 14:16 14:16 WBC 6.3 RBC 3.20 L Hgb 9.9 L Hct 29.3 L MCV 92 MCH 31 MCHC 34 RDW 13.5 Plt Count 74 L Lymph % (Auto) 13.5 [place] % (Auto) 7.9 H Eos % (Auto) 0.1 Baso % (Auto) 0.4 Lymph # (Auto) 0.[address] [place] # (Auto) 0.5 Eos # (Auto) 0.0 Baso # (Auto) 0.0 Seg Neutrophils % 78.1 H Seg Neutrophils # 4.9 PT 13.9 INR 1.02 APTT 24.1 L Sodium 135 L Potassium 4.3 Chloride 93.1 L Carbon Dioxide 27 Anion Gap 19 BUN 8 L Creatinine 0.6 L Estimated GFR > 60 BUN/Creatinine Ratio 13 Glucose 106 H Calcium 9.4 Phosphorus Magnesium 1.40 L Total Bilirubin 1.40 H Direct Bilirubin 0.4 H Indirect Bilirubin 1.0 AST 230 H ALT 95 H Alkaline Phosphatase 85 Ammonia Troponin T < 0.010 Total Protein 7.7 Albumin 4.3 Albumin/Globulin Ratio 1.3 Lipase TSH Salicylates Acetaminophen Plasma/Serum Alcohol 01/01/21 01/01/21 01/01/21 14:16 14:16 14:16 WBC RBC Hgb Hct MCV MCH MCHC RDW Plt Count Lymph % (Auto) [place] % (Auto) Eos % (Auto) Baso % (Auto) Lymph # (Auto) [place] # (Auto) Eos # (Auto) Baso # (Auto) Seg Neutrophils % Seg Neutrophils # PT INR APTT Sodium Potassium Chloride Carbon Dioxide Anion Gap BUN Creatinine Estimated GFR BUN/Creatinine Ratio Glucose Calcium Phosphorus Magnesium Total Bilirubin Direct Bilirubin Indirect Bilirubin AST ALT Alkaline Phosphatase Ammonia 46.0 Troponin T Total Protein Albumin Albumin/Globulin Ratio Lipase TSH 2.040 Salicylates < 0.3 L Acetaminophen Plasma/Serum Alcohol 01/01/21 01/01/21 01/01/21 14:16 14:16 14:16 WBC RBC Hgb Hct MCV MCH MCHC RDW Plt Count Lymph % (Auto) [place] % (Auto) Eos % (Auto) Baso % (Auto) Lymph # (Auto) [place] # (Auto) Eos # (Auto) Baso # (Auto) Seg Neutrophils % Seg Neutrophils # PT INR APTT Sodium Potassium Chloride Carbon Dioxide Anion Gap BUN Creatinine Estimated GFR BUN/Creatinine Ratio Glucose Calcium Phosphorus 2.00 L Magnesium Total Bilirubin Direct Bilirubin Indirect Bilirubin AST ALT Alkaline Phosphatase Ammonia Troponin T Total Protein Albumin Albumin/Globulin Ratio Lipase 279 H TSH Salicylates Acetaminophen 5.0 L Plasma/Serum Alcohol 01/01/21 14:16 WBC RBC Hgb Hct MCV MCH MCHC RDW Plt Count Lymph % (Auto) [place] % (Auto) Eos % (Auto) Baso % (Auto) Lymph # (Auto) [place] # (Auto) Eos # (Auto) Baso # (Auto) Seg Neutrophils % Seg Neutrophils # PT INR APTT Sodium Potassium Chloride Carbon Dioxide Anion Gap BUN Creatinine Estimated GFR BUN/Creatinine Ratio Glucose Calcium Phosphorus Magnesium Total Bilirubin Direct Bilirubin Indirect Bilirubin AST ALT Alkaline Phosphatase Ammonia Troponin T Total Protein Albumin Albumin/Globulin Ratio Lipase TSH Salicylates Acetaminophen Plasma/Serum Alcohol < 0.01 - EKG Data -: EKG Interpreted by Me - EKG Data 01/01/21 13:48 Sinus tachycardia. Normal axis. Normal intervals. No significant ST segment or T wave abnormalities. - Radiology Data CHEST 1 VIEW 01/01/2021 12:31 PM INDICATION / CLINICAL INFORMATION: Seizure. COMPARISON: None available. FINDINGS: SUPPORT DEVICES: None. HEART / MEDIASTINUM: The heart size and pulmonary vasculature are normal. LUNGS / PLEURA: No significant pulmonary or pleural abnormality. No pneumothorax. ADDITIONAL FINDINGS: No significant additional findings. IMPRESSION: No acute findings. Signer Name: Tj Eckert MD Signed: 01/01/2021 12:39 PM Workstation Name: [id number] CT HEAD WITHOUT CONTRAST INDICATION : first time seizure. TECHNIQUE: Axial imaging performed from the skull apex through the skull base without the use of contrast. Sagittal and coronal reformatted images. All CT scans at this location are performed using CT dose reduction for ALARA by means of automated exposure control. COMPARISON: None FINDINGS: Parenchyma: No acute intracranial hemorrhage or parenchymal abnormality. Mild volume loss and chronic microangiopathy in the white matter are again noted and unchanged. Chronic focal infarcts in the right basal ganglia, right occipital lobe and left cerebellar hemisphere are unchanged. No extra-axial fluid collection. Ventricles: Ventricles are normal in size and appear symmetric. Bones: No acute osseous abnormality. Sinuses: Sinuses and mastoid air cells are clear. Soft tissues: Soft tissues including the orbits appear normal. IMPRESSION: No acute abnormality. No change since 11/11/2020. Signer Name: Morgan Snell Jr, MD Signed: 01/01/2021 3:14 PM Workstation Name: [id number] CT cervical spine wo con INDICATION / CLINICAL INFORMATION: 65 years Male; seizure. TECHNIQUE: Axial CT images of the cervical spine were obtained. Sagittal and coronal reformatted images were produced. All CT scans at this location are performed using CT dose reduction for ALARA by means of automated exposure control. COMPARISON: None available. FINDINGS: POST-SURGICAL MISHRA ES: None. ALIGNMENT: No significant abnormality. VERTEBRAE: No signs of fracture. Vertebral bodies are grossly normal in height throughout. No significant facet joint disease or osseous foraminal narrowing appreciated. INTRAVERTEBRAL DISCS: Disc spaces are fairly well-maintained throughout without significant canal stenosis. Minimal disc disease seen at various levels. PARASPINAL SOFT TISSUES: No significant abnormality. ADDITIONAL FINDINGS: Mild atherosclerotic disease noted, with most prevalent findings suggested on the left carotid bifurcation region. Scarring type changes seen along apices. IMPRESSION: 1. No signs of acute bony trauma to the cervical spine. Signer Name: Salty Meyer MD, III Signed: 01/01/2021 3:15 PM Workstation Name: [id number] - Medical Decision Making 65-year-old male with history of hypertension, diabetes mellitus, and heavy alcohol use presents after a witnessed seizure at home. Apparently has no history of seizures. He also had 2 witnessed seizures in the ambulance and was given 5 mg of Versed. On my assessment, the patient is extremely confused. He is tachycardic in the 110s. He only intermittently follows my commands and is mostly nonverbal. Based on the limited neurologic exam he has no focal deficits. He is seen picking at his leads. Given his history, presentation is most consistent with delirium tremens. Nonetheless we will still perform broad work-up with a full set of labs, EKG, chest x-ray and CT of the head. We will give 1 L of IV fluids and initiate CIWA protocol. Multiple attempts were made to contact the patient's but the call to go unanswered. Voicemails were left. Shortly after my assessment, the patient became extremely agitated and was seen trying to eat and swallow his cardiac leads. The patient was placed in soft wrist restraints for his safety. At 1:40 PM, the nurse informed me that the patient has now received 10 mg of Ativan just in the past hour or so. Given very high requirements of benzos and suspicion for delirium tremens we will consult the station baggage agent. Labs are still all pending. At 2:30 PM I spoke over the phone with Dr. Victor, the on-call hospitalist regarding the case. He agreed that in the face of very high Ativan requirements the patient should be started on a low-dose Precedex drip. I have placed a consult for the station baggage agent. At approximately 3 PM, the patient's labs have resulted revealing several abnormalities. There is no leukocytosis and hemoglobin is 9.9 from unknown baseline. Creatinine is within normal limits but there is hypophosphatemia and hypomagnesemia which I have repleted. The patient's T bili is 1.4 but the majority of this is indirect. His AST is elevated at 230 and ALT of 95 consistent with the patient's history of heavy alcohol use. Ammonia level is normal. Lipase is elevated to 279 which is consistent with pancreatitis. We will continue IV fluids and follow-up the results of the patient's CT scans. CT of the head and C-spine revealed no acute abnormalities. Repeat assessment at 3:45 PM, the patient's agitation has been somewhat controlled with Ativan. His tachycardia is improved. At 3:50 PM I spoke with Dr. Chowdhury, the on-call hospitalist regarding the case and he accepts the patient for admission and will assume care. Critical Care Time: Yes Critical care time in (mins) excluding proc time.: 80 Critical care attestation.: If time is entered above; I have spent that time in minutes in the direct care of this critically ill patient, excluding procedure time. Critical care time was spent in the evaluation/assessment, work-up, and management of new onset seizure and alcohol withdrawal with critical life- threatening delirium tremens requiring multiple doses of IV Ativan, consultation with an station baggage agent, and frequent reevaluation and reassessment as well as IV electrolyte replacement ED Disposition Clinical Impression: Alcohol withdrawal seizure with delirium, Delirium tremens, Pancreatitis, Transaminitis, Hypomagnesemia, Hypophosphatemia, Thrombocytopenia, Anemia Disposition: 09 OP ADMIT IP TO THIS HOSP Is pt being admited?: Yes Condition: Serious Referrals: PRIMARY CARE, [Primary Care Provider] - 3-5 Days
[2021-01-01] MEDS: LORazepam 2 MG/ML VIAL IV PRN ×3 (12:20→20:10)
--- NOTE | 2021-01-01 13:43 | XRay Report ---
CHEST 1 VIEW 01/01/2021 12:31 PM INDICATION / CLINICAL INFORMATION: Seizure. COMPARISON: None available. FINDINGS: SUPPORT DEVICES: None. HEART / MEDIASTINUM: The heart size and pulmonary vasculature are normal. LUNGS / PLEURA: No significant pulmonary or pleural abnormality. No pneumothorax. ADDITIONAL FINDINGS: No significant additional findings. IMPRESSION: No acute findings. Signer Name: Tj Eckert MD Signed: 01/01/2021 1:39 PM Workstation Name: [id number]
[2021-01-01] MEDS ORDERED: THIAMINE 100 MG, FOLIC ACID 1 MG, MULTIPLE VITAMIN INJ, ADULT 10 ML in SODIUM CHLORIDE ... IV ONE (14:00)
[2021-01-01 14:50] LABS: Alanine Aminotransferase 95 units/L (7-56); Albumin 4.3 g/dL (3.9-5); Bilirubin,Direct 0.4 mg/dL (0-0.2); Blood Urea Nitrogen 8 mg/dL (9-20); Calcium 9.4 mg/dL (8.4-10.2); Hemolysis Index 6
[2021-01-01 14:51] LABS: BUN/Creatinine Ratio 13
[2021-01-01 14:52] LABS: Basophils % (Auto) 0.4 % (0.0-1.8); Eosinophils % (Auto) 0.1 % (0.0-4.3); Hematocrit 29.3 % (35.5-45.6); Hemoglobin 9.9 gm/dl (11.8-15.2); Lymphocytes # (Auto) 0.8 K/mm3 (1.2-5.4); Lymphocytes % (Auto) 13.5 % (13.4-35.0); Mean Corpuscular HGB Conc 34 % (32-34); Mean Corpuscular Volume 92 fl (84-94); Monocytes # (Auto) 0.5 K/mm3 (0.0-0.8); Monocytes % (Auto) 7.9 % (0.0-7.3); Red Cell Distribution Width 13.5 % (13.2-15.2)
[2021-01-01 15:02] LABS: Platelet Count 74 K/mm3 (140-440)
[2021-01-01 15:06] LABS: INR 1.02 (0.87-1.13)
[2021-01-01 15:07] LABS: Partial Thromboplastin Time 24.1 Sec. (24.2-36.6)
[2021-01-01] MEDS ORDERED: MAGNESIUM SULFATE 2 GM/50 ML BAG IV ONE (15:16)
--- NOTE | 2021-01-01 15:55 | History and Physical Report ---
History of Present Illness Chief complaint: Confused History of present illness: 65 YO Male with DM, Nicotine Dependence, ETOH Dependence, HTN, Vascular Dementia, Cerebral Atherosclerosis, Malnutrition presents to ED for evaluation. Patient is confused with diminished cognition at the time of my evaluation is unable to provide history. The patient "had a seizure". EMS was notified and upon arrival the patient was found to be in distress and subsequently transported to [facility] for further care and evaluation of the aforementioned symptoms. The patient was seen and evaluated in the emergency department and was observed to have multiple witnessed seizures. Patient treated with benzodiazepine therapy with recurrent seizures. Patient found to have alcohol withdrawal syndrome complicated by delirium, acute pancreatitis, malnutrition, hypomagnesemia. Patient admitted to ICU and initiated on Precedex as well as IV fluid resuscitation therapy. Patient treated in accordance with alcohol withdrawal protocol. No further history is obtainable. No reports of fever, chills, chest pain, palpitation, productive cough, skin rash, recent ill contacts, trauma, or known exposure to COVID-19. Prior admission on 02/06/2020 reviewed. All medication listed at time of admission has been reconciled. Advanced care planning conducted in ED. Past History Past Medical History: diabetes, hypertension, other (See HPI) Past Surgical History: No surgical history, Other (Reviewed) Social history: , lives with family, smoking, alcohol abuse Family history: diabetes, hypertension Medications and Allergies Allergies Allergy/AdvReac Type Severity Reaction Status Date / Time No Known Allergies Allergy Verified 02/06/20 15:31 Home Medications Medication Instructions Recorded Confirmed Last Taken Type AtorvaSTATin [Lipitor] 20 mg PO QHS #30 tab 09/01/18 Unknown Rx Glimepiride [Amaryl] 4 mg PO BID #60 tablet 09/01/18 Unknown Rx Losartan [Cozaar] 100 mg PO QDAY #30 tablet 09/01/18 Unknown Rx amLODIPine 10 mg PO DAILY #30 tab 09/01/18 Unknown Rx metFORMIN [Glucophage] 500 mg PO BID #60 tablet 09/01/18 Unknown Rx Aspirin [Adult Aspirin] 81 mg PO DAILY #30 tablet 02/10/20 Unknown Rx Nitrofurantoin [place]/M-Cryst 100 mg PO Q12HR #14 capsule 11/11/20 Unknown Rx [Macrobid CAP] Active Meds: Active Medications Thiamine HCl 100 mg/ Folic Acid 1 mg/ Multivitamins/Minerals 10 ml/ Sodium Chloride 1,011.2 mls @ 250 mls/hr IV ONCE ONE Stop: 01/01/21 18:02 Last Admin: 01/01/21 15:24 Dose: 250 mls/hr Documented by: Dexmedetomidine HCl 200 mcg/ (Sodium Chloride) 50 mls @ 8.221 mls/hr IV TITRATE GRACIE; Protocol Sodium Phosphate 30 mmol/ (Sodium Chloride) 510 mls @ 125 mls/hr IV ONCE ONE Stop: 01/01/21 20:04 Lorazepam (Lorazepam 2 Mg/Ml Vial) 2 mg IV Q1HR PRN PRN Reason: CIWA-Ar 8-15 Last Admin: 01/01/21 12:20 Dose: 2 mg Documented by: Lorazepam (Lorazepam 2 Mg/Ml Vial) 4 mg IV Q1HR PRN PRN Reason: CIWA-Ar 16-25 Last Admin: 01/01/21 13:24 Dose: 4 mg Documented by: Lorazepam (Lorazepam 2 Mg/Ml Vial) 4 mg IV Q15MIN PRN PRN Reason: CIWA-Ar >25 Review of Systems ROS unobtainable: due to mental status Exam - Constitutional Vitals: Temp Pulse Resp BP Pulse Ox 97.1 F L 103 H 15 139/76 97 01/01/21 11:22 01/01/21 12:15 01/01/21 12:15 01/01/21 14:01 01/01/21 14:01 General appearance: Present: mild distress - EENT Eyes: Present: miosis ENT: hearing decreased - Neck Neck: Present: supple, normal ROM - Respiratory Respiratory effort: normal Respiratory: bilateral: CTA - Cardiovascular Rhythm: other (Tachycardia) - Extremities Extremities: pulses symmetrical, No edema Peripheral Pulses: within normal limits - Abdominal General gastrointestinal: Present: soft, non-tender, non-distended, normal bowel sounds Male genitourinary: Present: normal - Integumentary Integumentary: Present: clear, dry - Musculoskeletal Musculoskeletal: generalized weakness - Psychiatric Psychiatric: no appropriate mood/affect, no intact judgment & insight, no memory intact, no cooperative, agitated - Neurologic Neurologic: CNII-XII intact, focal deficits, moves all extremities, no gait normal HEART Score - HEART Score Troponin: Troponin T < 0.010 ng/mL (0.00-0.029) 01/01/21 14:16 Results - Labs CBC & Chem 7: 01/01/21 14:16 01/01/21 14:16 Labs: Abnormal lab results 01/01/21 01/01/21 01/01/21 Range/Units 14:16 14:16 14:16 RBC 3.20 L (3.65-5.03) M/mm3 Hgb 9.9 L (11.8-15.2) gm/dl Hct 29.3 L (35.5-45.6) % Plt Count 74 L (140-440) K/mm3 [place] % (Auto) 7.9 H (0.0-7.3) % Lymph # (Auto) 0.8 L (1.2-5.4) K/mm3 Seg Neutrophils % 78.1 H (40.0-70.0) % APTT 24.1 L (24.2-36.6) Sec. Sodium 135 L (137-145) mmol/L Chloride 93.1 L (98-107) mmol/L BUN 8 L (9-20) mg/dL Creatinine 0.6 L (0.8-1.3) mg/dL Glucose 106 H (75-100) mg/dL Phosphorus (2.5-4.5) mg/dL Magnesium 1.40 L (1.7-2.3) mg/dL Total Bilirubin 1.40 H (0.1-1.2) mg/dL Direct Bilirubin 0.4 H (0-0.2) mg/dL AST 230 H (5-40) units/L ALT 95 H (7-56) units/L Lipase (13-60) units/L Salicylates (2.8-20.0) mg/dL Acetaminophen (10.0-30.0) ug/mL 01/01/21 01/01/21 01/01/21 Range/Units 14:16 14:16 14:16 RBC (3.65-5.03) M/mm3 Hgb (11.8-15.2) gm/dl Hct (35.5-45.6) % Plt Count (140-440) K/mm3 [place] % (Auto) (0.0-7.3) % Lymph # (Auto) (1.2-5.4) K/mm3 Seg Neutrophils % (40.0-70.0) % APTT (24.2-36.6) Sec. Sodium (137-145) mmol/L Chloride (98-107) mmol/L BUN (9-20) mg/dL Creatinine (0.8-1.3) mg/dL Glucose (75-100) mg/dL Phosphorus (2.5-4.5) mg/dL Magnesium (1.7-2.3) mg/dL Total Bilirubin (0.1-1.2) mg/dL Direct Bilirubin (0-0.2) mg/dL AST (5-40) units/L ALT (7-56) units/L Lipase 279 H (13-60) units/L Salicylates < 0.3 L (2.8-20.0) mg/dL Acetaminophen 5.0 L (10.0-30.0) ug/mL 01/01/21 Range/Units 14:16 RBC (3.65-5.03) M/mm3 Hgb (11.8-15.2) gm/dl Hct (35.5-45.6) % Plt Count (140-440) K/mm3 [place] % (Auto) (0.0-7.3) % Lymph # (Auto) (1.2-5.4) K/mm3 Seg Neutrophils % (40.0-70.0) % APTT (24.2-36.6) Sec. Sodium (137-145) mmol/L Chloride (98-107) mmol/L BUN (9-20) mg/dL Creatinine (0.8-1.3) mg/dL Glucose (75-100) mg/dL Phosphorus 2.00 L (2.5-4.5) mg/dL Magnesium (1.7-2.3) mg/dL Total Bilirubin (0.1-1.2) mg/dL Direct Bilirubin (0-0.2) mg/dL AST (5-40) units/L ALT (7-56) units/L Lipase (13-60) units/L Salicylates (2.8-20.0) mg/dL Acetaminophen (10.0-30.0) ug/mL Assessment and Plan - Patient Problems (1) Alcohol withdrawal delirium Current Visit: Yes Status: Acute Plan to address problem: Alcohol withdrawal protocol, patient treated with Precedex drip, critical care care team consulted, benzodiazepine therapy as clinically indicated, IV fluid resuscitation therapy, The high probability of a clinically significant, sudden or life threatening deterioration of the [neuro, renal, pulmonary, endocrine] system(s) required my full and direct attention, intervention and personal management. The aggregate critical care time was [95] minutes. This time is in addition to time spent performing reported procedures but includes the following: [x] Data Review and interpretation [x] Patient assessment and monitoring of vital signs [x] Documentation [x] Medication orders and management (2) Malnutrition Current Visit: Yes Status: Acute Qualifiers: Malnutrition type: protein-calorie malnutrition Plan to address problem: Increase protein intake, dietary supplementation when awake and alert only (3) Pancreatitis Current Visit: Yes Status: Acute Qualifiers: Chronicity: acute Pancreatitis type: alcohol induced Plan to address problem: Lipase level, repeat lipase level in a.m., bowel rest, IV fluid resuscitation therapy, supportive care, pain control. (4) Nicotine dependence Current Visit: Yes Status: Acute Qualifiers: Nicotine product type: cigarettes Substance use status: in withdrawal Qualified Code(s): F17.213 - Nicotine dependence, cigarettes, with withdrawal Plan to address problem: Smoking cessation, supportive care. (5) DVT prophylaxis Current Visit: Yes Status: Acute Plan to address problem: SCD to bilateral lower extremities while in bed, prophylactic anticoagulation (6) Advance care planning Current Visit: Yes Status: Acute Plan to address problem: Disease education conducted, care plan discussed, diagnosis discussed, prognosis discussed, patient acknowledges understanding and agreement with current care plan, +30 minutes.
[2021-01-01] MEDS ORDERED: SODIUM PHOSPHATE 30 MMOL in SODIUM CHLORIDE 0.9% 500 ML 500 ML IV ONE (16:00)
[2021-01-01] MEDS ORDERED: ALBUTEROL 2.5 MG/3 ML NEBU IH PRN (16:19)
[2021-01-01] MEDS ORDERED: MORPHINE 4 MG/1 ML INJ IV PRN (16:19)
[2021-01-01] MEDS ORDERED: oxyCODONE /ACETAMINOPHEN 5-325MG TAB PO PRN (16:19)
[2021-01-01] MEDS ORDERED: IBUPROFEN 600 MG TAB PO PRN (16:19)
--- NOTE | 2021-01-01 16:19 | Cat Scan Report ---
CT cervical spine wo con INDICATION / CLINICAL INFORMATION: 65 years Male; seizure. TECHNIQUE: Axial CT images of the cervical spine were obtained. Sagittal and coronal reformatted images were pr oduced. All CT scans at this location are performed using CT dose reduction for ALARA by means of aut omated exposure control. COMPARISON: None available. FINDINGS: POST-SURGICAL CHANGES: None. ALIGNMENT: No significant abnormality. VERTEBRAE: No signs of fracture. Vertebral bodies are grossly normal in height throughout. No signif icant facet joint disease or osseous foraminal narrowing appreciated. INTRAVERTEBRAL DISCS: Disc spaces are fairly well-maintained throughout without significant canal tri nosis. Minimal disc disease seen at various levels. PARASPINAL SOFT TISSUES: No significant abnormality. ADDITIONAL FINDINGS: Mild atherosclerotic disease noted, with most prevalent findings suggested on th e left carotid bifurcation region. Scarring type changes seen along apices. IMPRESSION: 1. No signs of acute bony trauma to the cervical spine. Signer Name: Salty Meyer MD, III Signed: 01/01/2021 4:15 PM Workstation Name: [id number]
--- NOTE | 2021-01-01 16:19 | Cat Scan Report ---
CT HEAD WITHOUT CONTRAST INDICATION : first time seizure. TECHNIQUE: Axial imaging performed from the skull apex through the skull base without the use of con trast. Sagittal and coronal reformatted images. All CT scans at this location are performed using C T dose reduction for ALARA by means of automated exposure control. COMPARISON: None FINDINGS: Parenchyma: No acute intracranial hemorrhage or parenchymal abnormality. Mild volume loss and chroni c microangiopathy in the white matter are again noted and unchanged. Chronic focal infarcts in the ri ght basal ganglia, right occipital lobe and left cerebellar hemisphere are unchanged. No extra-axial fluid collection. Ventricles: Ventricles are normal in size and appear symmetric. Bones: No acute osseous abnormality. Sinuses: Sinuses and mastoid air cells are clear. Soft tissues: Soft tissues including the orbits appear normal. IMPRESSION: No acute abnormality. No change since 11/11/2020. Signer Name: Morgan Snell Jr, MD Signed: 01/01/2021 4:14 PM Workstation Name: [id number]
[2021-01-01] MEDS ORDERED: hydrALAZINE 20 MG/1 ML INJ IV PRN (16:31)
[2021-01-01] MEDS ORDERED: DEXTROSE 50% IN WATER (25GM) 50 ML SYRINGE IV PRN (16:33)
[2021-01-01] MEDS: INSULIN LISPRO 100 UNIT/ML SUB-Q SCH (18:13)
[2021-01-01 21:06] LABS: Bilirubin,Urine NEG (Negative); Blood,Urine SM (Negative); Color,Urine Yellow (Yellow); Hyaline Casts,Urine 1 /LPF; Mucus,Urine FEW /HPF; Urobilinogen,Urine < 2.0 mg/dL (<2.0)
[2021-01-01 21:10] LABS: Amphetamine Screen,Urine Negative; Cannabinoid Screen,Urine Negative; Cocaine Screen,Urine Negative; Methadone Screen,Urine Negative; Opiate Screen,Urine Negative
[2021-01-01 21:23] LABS: Benzodiazepines Screen,Urine Positive
[2021-01-01] MEDS: HEPARIN 5,000 UNIT/1 ML VIAL SUB-Q SCH (22:09)
[2021-01-02] MEDS: INSULIN LISPRO 100 UNIT/ML SUB-Q SCH ×4 (05:55→17:42)
[2021-01-02 07:52] LABS: Basophils % (Auto) 0.4 % (0.0-1.8); Eosinophils % (Auto) 1.2 % (0.0-4.3); Hematocrit 32.7 % (35.5-45.6); Hemoglobin 11.1 gm/dl (11.8-15.2); Lymphocytes # (Auto) 1.5 K/mm3 (1.2-5.4); Mean Corpuscular HGB Conc 34 % (32-34); Mean Corpuscular Volume 90 fl (84-94); Monocytes # (Auto) 0.2 K/mm3 (0.0-0.8); Monocytes % (Auto) 6.3 % (0.0-7.3); Red Blood Count 3.65 M/mm3 (3.65-5.03); Red Cell Distribution Width 13.7 % (13.2-15.2)
[2021-01-02] MEDS: SODIUM CHLORIDE 0.9% 1000 ML 1,000 ML IV SCH ×2 (08:00→22:44)
[2021-01-02 08:10] LABS: Platelet Count 69 K/mm3 (140-440)
[2021-01-02 08:13] LABS: Alanine Aminotransferase 73 units/L (7-56); Albumin 3.5 g/dL (3.9-5); Blood Urea Nitrogen 4 mg/dL (9-20); Calcium 8.7 mg/dL (8.4-10.2); Hemolysis Index 9
[2021-01-02 08:15] LABS: BUN/Creatinine Ratio 10
[2021-01-02] MEDS ORDERED: MAGNESIUM SULFATE 4 GM/100 ML BAG IV ONE (10:00)
[2021-01-02] MEDS ORDERED: POTASSIUM PHOSPHATE 30 MMOL in SODIUM CHLORIDE 0.9% 500 ML 500 ML IV ONE (10:00)
[2021-01-02] MEDS: ASPIRIN EC 81 MG TAB PO SCH (10:54)
[2021-01-02] MEDS: HEPARIN 5,000 UNIT/1 ML VIAL SUB-Q SCH ×2 (10:54→21:52)
[2021-01-02] MEDS: chlordiazePOXIDE 25 MG CAP PO SCH (10:54)
--- NOTE | 2021-01-02 12:25 | Electrocardiograph Report ---
[facility] Test Date: 2021-01-01 Test Time: 11:25:42 Pat Name: NATHANIEL ANTONIO Department: Room: A259 1 Gender: M Blockers Skiver: ALEJA : 1955 Requested By: GHULAM FARMER Order Number: [id number] Reading MD: Laxmi Gray Measurements Intervals [place] Rate: 117 P: 89 MN: 175 QRS: 84 QRSD: 91 T: 64 QT: 330 QTc: 459 Interpretive Statements Sinus tachycardia Nonspecific ST abnormality No previous ECG available for comparison Electronically Signed On 01-02-2021 12:25:11 EDT by Laxmi Gray
--- NOTE | 2021-01-02 12:46 | Progress Note ---
Assessment and Plan Assessment and plan: 65 YO Male with DM, Nicotine Dependence, ETOH Dependence, HTN, Vascular Dementia, Cerebral Atherosclerosis, Malnutrition presents to ED for evaluation. Patient is confused with diminished cognition at the time of my evaluation is unable to provide history. The patient "had a seizure". EMS was notified and upon arrival the patient was found to be in distress and subsequently transported to [facility] for further care and evaluation of the aforementioned symptoms. The patient was seen and evaluated in the emergency department and was observed to have multiple witnessed seizures. Patient treated with be nzodiazepine therapy with recurrent seizures. Patient found to have alcohol withdrawal syndrome complicated by delirium, acute pancreatitis, malnutrition, hypomagnesemia. Patient admitted to ICU and initiated on Precedex as well as IV fluid resuscitation therapy. Patient treated in accordance with alcohol withdrawal protocol. No further history is obtainable. No reports of fever, chills, chest pain, palpitation, productive cough, skin rash, recent ill contacts, trauma, or known exposure to COVID-19. Prior admission on 02/06/2020 reviewed. All medication listed at time of admission has been reconciled. Advanced care planning conducted in ED. 01/02: Imaging studies including CT head, chest x-ray and cervical spine x-ray reviewed no acute pathology noted. Patient clinically stable for downgrade will start on Librium scheduled and try to wean off Precedex. Will transfer to [facility] at this time. When he is more awake we will do counseling on EtOH cessation. Will give additional magnesium due to hypomagnesemia (1) Alcohol withdrawal delirium Current Visit: Yes Status: Acute Plan to address problem: Alcohol withdrawal protocol, patient treated with Precedex drip, critical care care team consulted, benzodiazepine therapy as clinically indicated, IV fluid resuscitation therapy, (2) Malnutrition Current Visit: Yes Status: Acute Qualifiers: Malnutrition type: protein-calorie malnutrition Plan to address problem: Increase protein intake, dietary supplementation when awake and alert only (3) Pancreatitis Current Visit: Yes Status: Acute Qualifiers: Chronicity: acute Pancreatitis type: alcohol induced Plan to address problem: Lipase level, repeat lipase level in a.m., bowel rest, IV fluid resuscitation therapy, supportive care, pain control. (4) Nicotine dependence Current Visit: Yes Status: Acute Qualifiers: Nicotine product type: cigarettes Substance use status: in withdrawal Qualified Code(s): F17.213 - Nicotine dependence, cigarettes, with withdrawal Plan to address problem: Smoking cessation, supportive care. (5) DVT prophylaxis Current Visit: Yes Status: Acute Plan to address problem: SCD to bilateral lower extremities while in bed, prophylactic anticoagulation (6) Advance care planning Current Visit: Yes Status: Acute Plan to address problem: Disease education conducted, care plan discussed, diagnosis discussed, prognosis discussed, patient acknowledges understanding and agreement with current care plan, +30 minutes. History Interval history: Patient seen and examined this morning remains confused although awake answering some questions. No seizure-like activity witnessed at this time. No other adverse event reported by nursing staff at bedside Hospitalist Physical - Physical exam Narrative exam: VITAL SIGNS: Reviewed. GENERAL: The patient appears normally developed, sedated vital signs as documented. HEAD: No signs of head trauma. EYES: Pupils are equal. Extraocular motions intact. EARS: Hearing grossly intact. MOUTH: Oropharynx is normal. NECK: No adenopathy, no JVD. CHEST: Chest with clear breath sounds bilaterally. No wheezes, rales, or rhonchi. CARDIAC: Regular rate and rhythm. S1 and S2, without murmurs, gallops, or rubs. VASCULAR: No Edema. Peripheral pulses normal and equal in all extremities. ABDOMEN: Soft, non tender and non distended. No rebound or guarding, and no masses palpated. Bowel Sounds normal. MUSCULOSKELETAL: Good range of motion of all major joints. Extremities without clubbing, cyanosis or edema. NEUROLOGIC EXAM: Somnolent but arousable no focal sensory or strength deficits. Speech normal. Follows commands. PSYCHIATRIC: Mood normal. SKIN: detail exam as documented in skin assessment - Constitutional Vitals: Temp Pulse Resp BP Pulse Ox 97.9 F 73 11 L 110/62 98 01/02/21 12:39 01/02/21 08:00 01/02/21 08:00 01/02/21 08:00 01/02/21 08:00 General appearance: Present: mild distress HEART Score - HEART Score Troponin: Troponin T < 0.010 ng/mL (0.00-0.029) 01/01/21 14:16 Results - Labs CBC & Chem 7: 01/02/21 07:10 01/02/21 07:10 Labs: Laboratory Last Values WBC 3.9 K/mm3 (4.5-11.0) L 01/02/21 07:10 RBC 3.65 M/mm3 (3.65-5.03) 01/02/21 07:10 Hgb 11.1 gm/dl (11.8-15.2) L 01/02/21 07:10 Hct 32.7 % (35.5-45.6) L 01/02/21 07:10 MCV 90 fl (84-94) 01/02/21 07:10 MCH 30 pg (28-32) 01/02/21 07:10 MCHC 34 % (32-34) 01/02/21 07:10 RDW 13.7 % (13.2-15.2) 01/02/21 07:10 Plt Count 69 K/mm3 (140-440) L 01/02/21 07:10 Lymph % (Auto) 38.0 % (13.4-35.0) H 01/02/21 07:10 [place] % (Auto) 6.3 % (0.0-7.3) 01/02/21 07:10 Eos % (Auto) 1.2 % (0.0-4.3) 01/02/21 07:10 Baso % (Auto) 0.4 % (0.0-1.8) 01/02/21 07:10 Lymph # (Auto) 1.5 K/mm3 (1.2-5.4) 01/02/21 07:10 [place] # (Auto) 0.2 K/mm3 (0.0-0.8) 01/02/21 07:10 Eos # (Auto) 0.0 K/mm3 (0.0-0.4) 01/02/21 07:10 Baso # (Auto) 0.0 K/mm3 (0.0-0.1) 01/02/21 07:10 Seg Neutrophils % 54.1 % (40.0-70.0) 01/02/21 07:10 Seg Neutrophils # 2.1 K/mm3 (1.8-7.7) 01/02/21 07:10 PT 13.9 Sec. (12.2-14.9) 01/01/21 14:16 INR 1.02 (0.87-1.13) 01/01/21 14:16 APTT 24.1 Sec. (24.2-36.6) L 01/01/21 14:16 Sodium 138 mmol/L (137-145) 01/02/21 07:10 Potassium 3.3 mmol/L (3.6-5.0) L D 01/02/21 07:10 Chloride 99.8 mmol/L (98-107) 01/02/21 07:10 Carbon Dioxide 24 mmol/L (22-30) 01/02/21 07:10 Anion Gap 18 mmol/L 01/02/21 07:10 BUN 4 mg/dL (9-20) L 01/02/21 07:10 Creatinine 0.4 mg/dL (0.8-1.3) L 01/02/21 07:10 Estimated GFR > 60 ml/min 01/02/21 07:10 BUN/Creatinine Ratio 10 % 01/02/21 07:10 Glucose 92 mg/dL (75-100) 01/02/21 07:10 POC Glucose 116 mg/dL (70-105) H 01/02/21 11:53 Calcium 8.7 mg/dL (8.4-10.2) 01/02/21 07:10 Phosphorus 2.40 mg/dL (2.5-4.5) L 01/02/21 07:10 Magnesium 1.70 mg/dL (1.7-2.3) 01/02/21 07:10 Total Bilirubin 1.30 mg/dL (0.1-1.2) H 01/02/21 07:10 Direct Bilirubin 0.4 mg/dL (0-0.2) H 01/01/21 14:16 Indirect Bilirubin 1.0 mg/dL 01/01/21 14:16 AST 145 units/L (5-40) H 01/02/21 07:10 ALT 73 units/L (7-56) H 01/02/21 07:10 Alkaline Phosphatase 78 units/L (35-129) 01/02/21 07:10 Ammonia 46.0 umol/L (25-60) 01/01/21 14:16 Troponin T < 0.010 ng/mL (0.00-0.029) 01/01/21 14:16 Total Protein 6.6 g/dL (6.3-8.2) 01/02/21 07:10 Albumin 3.5 g/dL (3.9-5) L 01/02/21 07:10 Albumin/Globulin Ratio 1.1 % 01/02/21 07:10 Lipase 213 units/L (13-60) H 01/02/21 07:10 TSH 2.040 mlU/mL (0.270-4.200) 01/01/21 14:16 Urine Color Yellow (Yellow) 01/01/21 20:37 Urine Turbidity Hazy (Clear) 01/01/21 20:37 Urine pH 6.0 (5.0-7.0) 01/01/21 20:37 Ur Specific [place] 1.014 (1.003-1.030) 01/01/21 20:37 Urine Protein 30 mg/dl mg/dL (Negative) 01/01/21 20:37 Urine Glucose (UA) Neg mg/dL (Negative) 01/01/21 20:37 Urine Ketones 80 mg/dL (Negative) 01/01/21 20:37 Urine Blood Sm (Negative) 01/01/21 20:37 Urine Nitrite Neg (Negative) 01/01/21 20:37 Urine Bilirubin Neg (Negative) 01/01/21 20:37 Urine Urobilinogen < 2.0 mg/dL (<2.0) 01/01/21 20:37 Ur Leukocyte Esterase Tr (Negative) 01/01/21 20:37 Urine WBC (Auto) 8.0 /HPF (0.0-6.0) H 01/01/21 20:37 Urine RBC (Auto) 2.0 /HPF (0.0-6.0) 01/01/21 20:37 U Epithel Cells (Auto) 1.0 /HPF (0-13.0) 01/01/21 20:37 Hyaline Casts 1 /LPF 01/01/21 20:37 Urine Mucus Few /HPF 01/01/21 20:37 Salicylates < 0.3 mg/dL (2.8-20.0) L 01/01/21 14:16 Urine Opiates Screen Negative 01/01/21 20:37 Urine Methadone Screen Negative 01/01/21 20:37 Acetaminophen 5.0 ug/mL (10.0-30.0) L 01/01/21 14:16 Ur Barbiturates Screen Negative 01/01/21 20:37 Ur Phencyclidine Scrn Negative 01/01/21 20:37 Ur Amphetamines Screen Negative 01/01/21 20:37 U Benzodiazepines Scrn Positive 01/01/21 20:37 Urine Cocaine Screen Negative 01/01/21 20:37 U Marijuana (THC) Screen Negative 01/01/21 20:37 Drugs of Abuse Note Disclamer 01/01/21 20:37 Plasma/Serum Alcohol < 0.01 % (0-0.07) 01/01/21 16:10 Russell/IV: Voiding Method Condom Catheter Active Medications - Current Medications Current Medications: Generic Name Dose Route Start Last Admin Trade Name Freq PRN Reason Stop Dose Admin Albuterol 2.5 mg 01/01/21 16:19 Albuterol 2.5 Mg/3 Ml Nebu IH Q3HRT PRN Shortness Of Breath Aspirin 81 mg 01/02/21 10:00 01/02/21 10:54 Aspirin Ec 81 Mg Tab PO 81 mg DAILY GRACIE Administration Chlordiazepoxide HCl 25 mg 01/02/21 10:00 01/02/21 10:54 Chlordiazepoxide 25 Mg Cap PO 25 mg Q8H GRACIE Administration Dextrose 50 ml 01/01/21 16:33 Dextrose 50% In Water (25gm) 50 Ml Syringe IV Q30MIN PRN Hypoglycemia Protocol Heparin Sodium (Porcine) 5,000 unit 01/01/21 22:00 01/02/21 10:54 Heparin 5,000 Unit/1 Ml Vial SUB-Q 5,000 unit Q12HR GRACIE Administration Hydralazine HCl 10 mg 01/01/21 16:31 Hydralazine 20 Mg/1 Ml Inj IV Q6HR PRN Hypertension Dexmedetomidine HCl 200 mcg/ 50 mls @ 8.221 mls/hr 01/01/21 15:00 01/02/21 10:53 Sodium Chloride IV 0.2 mcg/kg/hr TITRATE GRACIE 3.289 mls/hr Administration Protocol 0.5 MCG/KG/HR Sodium Chloride 1,000 mls @ 125 mls/hr 01/01/21 16:30 01/02/21 08:00 Nacl 0.9% 1000 Ml IV 125 mls/hr DIRECT GRACIE Administration Potassium Phosphate 30 mmol/ 510 mls @ 85 mls/hr 01/02/21 10:00 01/02/21 10:55 Sodium Chloride IV 01/02/21 15:59 85 mls/hr ONCE ONE Administration Magnesium Sulfate 4 gm in 100 mls @ 25 mls/hr 01/02/21 10:00 01/02/21 10:50 Magnesium Sulfate 4gm/100ml IV 01/02/21 13:59 25 mls/hr ONCE ONE Administration Ibuprofen 600 mg 01/01/21 16:19 Ibuprofen 600 Mg Tab PO Q6H PRN Pain, Mild (1-3) Insulin Human Lispro 0 unit 01/01/21 18:00 01/02/21 05:55 Insulin Lispro 100 Unit/Ml SUB-Q Not Given Q6HR [facility] Protocol Lorazepam 2 mg 01/01/21 12:01 01/01/21 12:20 Lorazepam 2 Mg/Ml Vial IV 2 mg Q1HR PRN Administration CIWA-Ar 8-15 Lorazepam 4 mg 01/01/21 12:01 01/01/21 20:10 Lorazepam 2 Mg/Ml Vial IV 4 mg Q1HR PRN Administration CIWA-Ar 16-25 Lorazepam 4 mg 01/01/21 12:01 Lorazepam 2 Mg/Ml Vial IV Q15MIN PRN CIWA-Ar >25 Morphine Sulfate 2 mg 01/01/21 16:19 Morphine 4 Mg/1 Ml Inj IV Q6H PRN Pain , Severe (7-10) Oxycodone/Acetaminophen 1 tab 01/01/21 16:19 Oxycodone /Acetaminophen 5-325mg Tab PO Q12H PRN Pain, Moderate (4-6) Sodium Chloride 10 ml 01/01/21 22:00 01/01/21 22:02 Sodium Chloride 0.9% 10 Ml Flush Syringe IV 10 ml BID GRACIE Administration Sodium Chloride 10 ml 01/01/21 16:19 Sodium Chloride 0.9% 10 Ml Flush Syringe IV PRN PRN LINE FLUSH
[2021-01-02] MEDS: LORazepam 2 MG/ML VIAL IV PRN ×5 (13:18→23:40)
--- NOTE | 2021-01-02 13:37 | Consultation ---
History of Present Illness Consult date: 01/01/21 Requesting physician: GHULAM FARMER Reason for consult: other (Delirium Tremens) History of present illness: LATE ENTRY NOTE FOR DOS 01/01/21 PULMONARY/CCM CONSULT NOTE (Full dictation # [id number]) Please see dictated notes for full details Past History Past Medical History: diabetes, hypertension, other (See HPI) Past Surgical History: No surgical history, Other (Reviewed) Social history: , lives with family, smoking, alcohol abuse Family history: diabetes, hypertension Medications and Allergies Allergies Allergy/AdvReac Type Severity Reaction Status Date / Time No Known Allergies Allergy Verified 02/06/20 15:31 Home Medications Medication Instructions Recorded Confirmed Last Taken Type AtorvaSTATin [Lipitor] 20 mg PO QHS #30 tab 09/01/18 Unknown Rx Glimepiride [Amaryl] 4 mg PO BID #60 tablet 09/01/18 Unknown Rx Losartan [Cozaar] 100 mg PO QDAY #30 tablet 09/01/18 Unknown Rx amLODIPine 10 mg PO DAILY #30 tab 09/01/18 Unknown Rx metFORMIN [Glucophage] 500 mg PO BID #60 tablet 09/01/18 Unknown Rx Aspirin [Adult Aspirin] 81 mg PO DAILY #30 tablet. 02/10/20 Unknown Rx Nitrofurantoin [place]/M-Cryst 100 mg PO Q12HR #14 capsule 11/11/20 Unknown Rx [Macrobid CAP] Active Meds: Active Medications Albuterol (Albuterol 2.5 Mg/3 Ml Nebu) 2.5 mg IH Q3HRT PRN PRN Reason: Shortness Of Breath Aspirin (Aspirin Ec 81 Mg Tab) 81 mg PO DAILY [facility] Last Admin: 01/02/21 10:54 Dose: 81 mg Documented by: Chlordiazepoxide HCl (Chlordiazepoxide 25 Mg Cap) 25 mg PO Q8H [facility] Last Admin: 01/02/21 10:54 Dose: 25 mg Documented by: Dextrose (Dextrose 50% In Water (25gm) 50 Ml Syringe) 50 ml IV Q30MIN PRN; Pro tocol PRN Reason: Hypoglycemia Heparin Sodium (Porcine) (Heparin 5,000 Unit/1 Ml Vial) 5,000 unit SUB-Q Q12HR [facility] Last Admin: 01/02/21 10:54 Dose: 5,000 unit Documented by: Hydralazine HCl (Hydralazine 20 Mg/1 Ml Inj) 10 mg IV Q6HR PRN PRN Reason: Hypertension Dexmedetomidine HCl 200 mcg/ (Sodium Chloride) 50 mls @ 8.221 mls/hr IV TITRATE GRACIE; Protocol Last Titration: 01/02/21 13:18 Dose: 0.3 mcg/kg/hr, 4.933 mls/hr Documented by: Sodium Chloride (Nacl 0.9% 1000 Ml) 1,000 mls @ 125 mls/hr IV DIRECT GRACIE Last Admin: 01/02/21 08:00 Dose: 125 mls/hr Documented by: Potassium Phosphate 30 mmol/ (Sodium Chloride) 510 mls @ 85 mls/hr IV ONCE ONE Stop: 01/02/21 15:59 Last Admin: 01/02/21 10:55 Dose: 85 mls/hr Documented by: Magnesium Sulfate (Magnesium Sulfate 4gm/100ml) 4 gm in 100 mls @ 25 mls/hr IV ONCE ONE Stop: 01/02/21 13:59 Last Admin: 01/02/21 10:50 Dose: 25 mls/hr Documented by: Ibuprofen (Ibuprofen 600 Mg Tab) 600 mg PO Q6H PRN PRN Reason: Pain, Mild (1-3) Insulin Human Lispro (Insulin Lispro 100 Unit/Ml) 0 unit SUB-Q Q6HR GRACIE; Protocol Last Admin: 01/02/21 05:55 Dose: Not Given Documented by: Lorazepam (Lorazepam 2 Mg/Ml Vial) 2 mg IV Q1HR PRN PRN Reason: CIWA-Ar 8-15 Last Admin: 01/01/21 12:20 Dose: 2 mg Documented by: Lorazepam (Lorazepam 2 Mg/Ml Vial) 4 mg IV Q1HR PRN PRN Reason: CIWA-Ar 16-25 Last Admin: 01/01/21 20:10 Dose: 4 mg Documented by: Lorazepam (Lorazepam 2 Mg/Ml Vial) 4 mg IV Q15MIN PRN PRN Reason: CIWA-Ar >25 Last Admin: 01/02/21 13:18 Dose: 4 mg Documented by: Morphine Sulfate (Morphine 4 Mg/1 Ml Inj) 2 mg IV Q6H PRN PRN Reason: Pain , Severe (7-10) Oxycodone/Acetaminophen (Oxycodone /Acetaminophen 5-325mg Tab) 1 tab PO Q12H PRN PRN Reason: Pain, Moderate (4-6) Sodium Chloride (Sodium Chloride 0.9% 10 Ml Flush Syringe) 10 ml IV BID GRACIE Last Admin: 01/01/21 22:02 Dose: 10 ml Documented by: Sodium Chloride (Sodium Chloride 0.9% 10 Ml Flush Syringe) 10 ml IV PRN PRN PRN Reason: LINE FLUSH Physical Examination Vital signs: Vital Signs Pulse Resp Pulse Ox 126 H 17 95 01/01/21 11:18 01/01/21 11:18 01/01/21 11:18 Results - Laboratory Findings CBC and BMP: 01/02/21 07:10 01/02/21 07:10 PT/INR, D-dimer PT 13.9 Sec. (12.2-14.9) 01/01/21 14:16 INR 1.02 (0.87-1.13) 01/01/21 14:16 Abnormal lab findings: Abnormal Labs 01/01/21 01/01/21 01/01/21 14:16 14:16 14:16 WBC RBC 3.20 L Hgb 9.9 L Hct 29.3 L Plt Count 74 L Lymph % (Auto) [place] % (Auto) 7.9 H Lymph # (Auto) 0.8 L Seg Neutrophils % 78.1 H APTT 24.1 L Sodium 135 L Potassium Chloride 93.1 L BUN 8 L Creatinine 0.6 L Glucose 106 H POC Glucose Phosphorus Magnesium 1.40 L Total Bilirubin 1.40 H Direct Bilirubin 0.4 H AST 230 H ALT 95 H Albumin Lipase Urine WBC (Auto) Salicylates Acetaminophen 01/01/21 01/01/21 01/01/21 14:16 14:16 14:16 WBC RBC Hgb Hct Plt Count Lymph % (Auto) [place] % (Auto) Lymph # (Auto) Seg Neutrophils % APTT Sodium Potassium Chloride BUN Creatinine Glucose POC Glucose Phosphorus Magnesium Total Bilirubin Direct Bilirubin AST ALT Albumin Lipase 279 H Urine WBC (Auto) Salicylates < 0.3 L Acetaminophen 5.0 L 01/01/21 01/01/21 01/02/21 14:16 20:37 07:10 WBC 3.9 L RBC Hgb 11.1 L Hct 32.7 L Plt Count 69 L Lymph % (Auto) 38.0 H [place] % (Auto) Lymph # (Auto) Seg Neutrophils % APTT Sodium Potassium Chloride BUN Creatinine Glucose POC Glucose Phosphorus 2.00 L Magnesium Total Bilirubin Direct Bilirubin AST ALT Albumin Lipase Urine WBC (Auto) 8.0 H Salicylates Acetaminophen 01/02/21 01/02/21 01/02/21 07:10 07:10 11:53 WBC RBC Hgb Hct Plt Count Lymph % (Auto) [place] % (Auto) Lymph # (Auto) Seg Neutrophils % APTT Sodium Potassium 3.3 L D Chloride BUN 4 L Creatinine 0.4 L Glucose POC Glucose 116 H Phosphorus 2.40 L Magnesium Total Bilirubin 1.30 H Direct Bilirubin AST 145 H ALT 73 H Albumin 3.5 L Lipase 213 H Urine WBC (Auto) Salicylates Acetaminophen
--- NOTE | 2021-01-02 13:38 | Progress Note ---
Assessment and Plan Alcohol withdrawal with delirium tremens Seizures Acute PancreatitisNicotine dependence Dementia DM II Anemia Hypomagnesemia Hypophosphatemia Elevated serum transaminases - continue CIWA ? EtOH withdrawal protocol - Wean off Precedex drip - supplemental oxygen to keep O2 sats > 90% - prn bronchodilators (KATE) with pulm hygiene per RT - avoid nephrotoxins, renally dose all medications - mobility protocols to prevent pressure ulcers - PT/OT as tolerated - Wound care per RN/WCT - accuchecks with glycemic control per SSI for target blood glucose < 180 mg/dL - tobacco & EtOH abstinence strongly counseled at the bedside - home oxygen evaluation at discharge - GI & VTE prophylaxis - Flu & pneumovax per protocol - Pulmonary out patient follow up for PFTs and optimization of respiratory status - prn analgesia per pain score - continue other care per attending / other consultants ... re-evaluate in am & prn Subjective Date of service: 01/02/21 Principal diagnosis: Alcohol withdrawal; Seizures; Acute Pancreatitis; DM II Interval history: Patient is seen today for: Alcohol withdrawal; Seizures; Acute Pancreatitis; DM II; Anemia; Elevated serum transaminases Seen and examined at bedside; 24hour events reviewed; nursing and respiratory care staff consulted; no adverse overnight events reported to me; resting peacefully in bed; on Precedex drip; agitated when held; no emesis or overt aspiration Objective Vital Signs - 12hr 01/02/21 01/02/21 01/02/21 02:00 02:24 03:01 Temperature Pulse Rate 87 80 Pulse Rate [ 81 None] Respiratory 16 16 15 Rate Blood Pressure 111/55 100/48 O2 Sat by Pulse 98 97 98 Oximetry 01/02/21 01/02/21 01/02/21 03:43 04:00 05:00 Temperature 98.3 F Pulse Rate 78 78 Pulse Rate [ None] Respiratory 12 12 Rate Blood Pressure 123/70 124/71 O2 Sat by Pulse 98 97 Oximetry 01/02/21 01/02/21 01/02/21 06:00 07:01 07:13 Temperature 97.4 F L Pulse Rate 76 70 Pulse Rate [ None] Respiratory 15 15 Rate Blood Pressure 116/69 91/44 O2 Sat by Pulse 98 98 Oximetry 01/02/21 01/02/21 08:00 12:39 Temperature 97.9 F Pulse Rate 73 Pulse Rate [ None] Respiratory 11 L Rate Blood Pressure 110/62 O2 Sat by Pulse 98 Oximetry Constitutional: no acute distress, other (sedated) Eyes: non-icteric ENT: oropharynx moist Neck: supple, no lymphadenopathy, no JVD Effort: normal Ascultation: Bilateral: clear Percussion: Bilateral: not dull Cardiovascular: regular rate and rhythm Gastrointestinal: normoactive bowel sounds, soft, non-tender, non-distended Integumentary: normal Extremities: no cyanosis, no edema, pulses normal, no ischemia or petechiae Neurologic: pupils equal and round, other (sedated) Psychiatric: other (delirious) CBC and BMP: 01/02/21 07:10 01/03/21 05:43 ABG, PT/INR, D-dimer: PT/INR, D-dimer PT 13.9 Sec. (12.2-14.9) 01/01/21 14:16 INR 1.02 (0.87-1.13) 01/01/21 14:16 Abnormal lab findings: Abnormal Labs 01/01/21 01/01/21 01/01/21 14:16 14:16 14:16 WBC RBC 3.20 L Hgb 9.9 L Hct 29.3 L Plt Count 74 L Lymph % (Auto) [place] % (Auto) 7.9 H Lymph # (Auto) 0.8 L Seg Neutrophils % 78.1 H APTT 24.1 L Sodium 135 L Potassium Chloride 93.1 L BUN 8 L Creatinine 0.6 L Glucose 106 H POC Glucose Phosphorus Magnesium 1.40 L Total Bilirubin 1.40 H Direct Bilirubin 0.4 H AST 230 H ALT 95 H Albumin Lipase Urine WBC (Auto) Salicylates Acetaminophen 01/01/21 01/01/21 01/01/21 14:16 14:16 14:16 WBC RBC Hgb Hct Plt Count Lymph % (Auto) [place] % (Auto) Lymph # (Auto) Seg Neutrophils % APTT Sodium Potassium Chloride BUN Creatinine Glucose POC Glucose Phosphorus Magnesium Total Bilirubin Direct Bilirubin AST ALT Albumin Lipase 279 H Urine WBC (Auto) Salicylates < 0.3 L Acetaminophen 5.0 L 01/01/21 01/01/21 01/02/21 14:16 20:37 07:10 WBC 3.9 L RBC Hgb 11.1 L Hct 32.7 L Plt Count 69 L Lymph % (Auto) 38.0 H [place] % (Auto) Lymph # (Auto) Seg Neutrophils % APTT Sodium Potassium Chloride BUN Creatinine Glucose POC Glucose Phosphorus 2.00 L Magnesium Total Bilirubin Direct Bilirubin AST ALT Albumin Lipase Urine WBC (Auto) 8.0 H Salicylates Acetaminophen 01/02/21 01/02/21 01/02/21 07:10 07:10 11:53 WBC RBC Hgb Hct Plt Count Lymph % (Auto) [place] % (Auto) Lymph # (Auto) Seg Neutrophils % APTT Sodium Potassium 3.3 L D Chloride BUN 4 L Creatinine 0.4 L Glucose POC Glucose 116 H Phosphorus 2.40 L Magnesium Total Bilirubin 1.30 H Direct Bilirubin AST 145 H ALT 73 H Albumin 3.5 L Lipase 213 H Urine WBC (Auto) Salicylates Acetaminophen Allied health notes reviewed: nursing
[2021-01-02] MEDS ORDERED: levoFLOXacin 500 MG TAB PO SCH (14:00)
[2021-01-02] MEDS ORDERED: POTASSIUM CHLORIDE ER 20 MEQ TAB PO ONE (19:00)
[2021-01-02] MEDS ORDERED: MAGNESIUM SULFATE 1 GM in SODIUM CHLORIDE 0.9% 50 ML IV ONE (19:00)
--- NOTE | 2021-01-02 21:28 | Consultation ---
DATE OF CONSULTATION: 01/01/2021 PULMONARY CRITICAL CARE CONSULT NOTE CONSULTING PHYSICIAN: Dr. Muller, Emergency Room physician. REASON FOR CONSULTATION: Alcohol withdrawal symptoms with severe delirium tremens. CHIEF COMPLAINT AND HISTORY OF PRESENT ILLNESS: The patient is a now 65-year-old male with past medical history significant amongst other things both for a diagnosis of diabetes, but also alcohol dependence and vascular dementia, came into the Emergency Room, he was confused with diminished cognition. He reportedly had had a seizure at his place of a board presumably and emergency medical services were notified. When they got there, they found him in distress. He was brought into the Emergency Room, he was given multiple doses of Ativan to control witnessed seizures. I received a call from the emergency room doctor for fear of respiratory depression with an iatrogenic Ativan overdose. After discussion, we decided to put the patient on Precedex. When I stopped by to see him, the patient was at that time well sedated, lethargic, unable to give much of a history. He do not have any history of vomiting or overt aspiration. The patient is reported tobacco abuser. It is unclear when his last drink was. The above is as much of the history of presentation as I have. PAST MEDICAL HISTORY: Diabetes, hypertension, vascular dementia, alcohol abuse, tobacco use disorder. PAST SURGICAL HISTORY: Unknown. MEDICATIONS: He was on at the time I stopped by to see him, according to the medication administration record included the following: A banana bag essentially with thiamine, folic acid, multivitamins, ____ 250 mL per hour for a 1 time dose. He was on a Precedex drip just about to begin, I believe it was at 0.02 mcg. Sodium phosphate replacement 30 millimoles IV and Ativan via the alcohol withdrawal protocol 2 mg IV p.r.n. based on the CIWA score. ALLERGIES: No known drug allergies. DIET: Thin gentleman, acute weight loss or gain history is unknown. FAMILY AND SOCIAL HISTORY: Apparently lives in the community. He is and lives with his family, has a history of alcohol and tobacco abuse. There is a family history of diabetes and hypertension. Family history is otherwise unobtainable. REVIEW OF SYSTEMS: Unobtainable secondary to the patient's medical and mental condition. Since he has been in the Emergency Room, no gross hematochezia or melena, no gross hematuria, no hematemesis, no hemoptysis. He has had some witnessed seizures. Review of systems otherwise unobtainable or as in the body of history above. PHYSICAL EXAMINATION: At presentation: VITAL SIGNS: Temperature 97.1 degrees Fahrenheit, pulse of 126, respiratory rate as low as 13, blood pressure 151/90, O2 sats were 99%, inspired oxygen concentration at that time, I believe, was on room air. GENERAL: He is an elderly looking and thin male. Normocephalic, atraumatic. Resting in bed without increased respiratory effort at rest. HEAD, EYES, EARS, NOSE AND THROAT: Anicteric. No conjunctival erythema. Oropharynx was dry. NECK: No gross jugular venous distention, no thyromegaly. Grossly, there were no palpable lymph nodes in the supraclavicular or submandibular lymph node chains. LUNGS: Auscultation of both lung crisostomo were unremarkable. Good bilateral breath sounds, some mild element of hypoventilation intermittently. No rales or wheezing. HEART: Sounds 1 and 2 are heard. Regular tachycardia at the time of my evaluation without overt rubs or murmurs. ABDOMEN: Soft, flat, bowel sounds are positive, nontender, no palpable hepatosplenomegaly. EXTREMITIES: Without overt digital clubbing or cyanosis. No pedal edema. Pedal pulses are 2+ bilaterally. NEUROLOGIC: Pupils were equal, round, about 2 mm, sluggishly reactive to light. No nystagmus. Extraocular muscle movements otherwise could not be assessed. He had spontaneous movements to all extremities, but was lethargic/sedated. SKIN: Poor turgor; however, without overt cellulitis or rash in the areas examined. Please see the wound care nurses' notes for full description of his skin. PSYCHIATRIC: Mood and affect could not be assessed. He was sedated. LABORATORY DATA: From my review, labs are just coming back, white cell count 6300, hemoglobin 9.9, hematocrit 29.3, platelet count of 74. No manual differential. INR was 1.02. Serum sodium 135, potassium 4.3, chloride 93, bicarbonate 27, BUN 8, creatinine 0.6, glucose 106. Phosphorus was low at 2.0. Magnesium low at 1.4. Total bilirubin 1.4. AST 230, ALT 95. Otherwise, liver function test within normal limits. TSH was within normal limits. Urinalysis, trace leukocyte esterase, 8 white cells per high power field. Aspirin, Tylenol, alcohol levels were nondetectable. Urine drug screen was presumptive positive for benzodiazepines, negative otherwise. No microbiology studies. Chest x-ray has been reviewed, essentially is normal. Chest x-ray, no acute findings. CT scan of the head is read as no acute abnormality and no change since 10/2020. CT scan of the neck was also done, no signs of acute bony trauma to the cervical spine. ASSESSMENT: 1. Alcohol withdrawal with delirium tremens. 2. Seizures, presumably alcohol withdrawal seizures. 3. Pancreatitis, acute, probably alcoholic with a serum lipase of 291. 4. Nicotine dependence. 5. History of dementia. 6. History of diabetes. 7. Anemia that is normocytic. 8. Hypomagnesemia. 9. Hypophosphatemia. 10. Elevated serum transaminases. PLAN: We will continue the current alcohol withdrawal protocol. We will continue with p.r.n. Ativan; however, he has been started on a Precedex drip and hopefully if he does that should control the delirium better. He will be transitioned to oral agents to include Librium or other benzodiazepines. Oxygen as necessary will be given to keep sats greater than or equal to about 90%. Aspiration precautions will be maintained. Chronic disease medications will be resumed per the attending. He will be placed on GI and DVT prophylaxis. No evidence of pneumonia aspiration. He may have a urinary tract infection, improving. I will defer to the attending physician in terms of anti-infective therapy. He should be able to be downgraded to the step-down unit. I do not think he will need ICU admission. Electrolytes are appropriately being replaced. For now, he will remain n.p.o. overnight. Ultimately, oral nutrition will be the feeding modality of choice. If, however, his mental status has not improved, a feeding tube will be placed. Again, he is going to be on GI and DVT prophylaxis. Flu and pneumonia vaccination will be addressed per protocol. I do not see an immediate need to begin antiepileptic drugs. This probably are alcohol-related seizures. Neurology evaluation will, however, be in order and will be deferred to the attending physician. Flu and pneumonia vaccination will be addressed per protocol. Thank you very much for the consult. We will follow along and make further recommendations as picture progresses/becomes clearer. Once he is doing better, tobacco abstinence and alcohol abstinence counseling will be done plus or minus psychiatric evaluation. TID: [id number] RECEIPT: [id number] PANCHITO/MARQUEZ
[2021-01-03] MEDS: INSULIN LISPRO 100 UNIT/ML SUB-Q SCH ×3 (00:21→13:04)
[2021-01-03] MEDS: POTASSIUM CHLORIDE 10 MEQ 10 MEQ/100 ML BAG IV SCH ×4 (00:25→03:41)
[2021-01-03] MEDS: LORazepam 2 MG/ML VIAL IV PRN ×6 (01:33→15:00)
[2021-01-03] MEDS: chlordiazePOXIDE 25 MG CAP PO SCH ×3 (02:00→21:45)
[2021-01-03] MEDS: SODIUM CHLORIDE 0.9% 1000 ML 1,000 ML IV SCH (05:46)
[2021-01-03 06:38] LABS: Blood Urea Nitrogen 3 mg/dL (9-20); Calcium 8.9 mg/dL (8.4-10.2); Hemolysis Index 9
[2021-01-03 06:41] LABS: BUN/Creatinine Ratio 8
--- NOTE | 2021-01-03 07:32 | Progress Note ---
Assessment and Plan Assessment and plan: 65 YO Male with DM, Nicotine Dependence, ETOH Dependence, HTN, Vascular Dementia, Cerebral Atherosclerosis, Malnutrition presents to ED for evaluation. Patient is confused with diminished cognition at the time of my evaluation is unable to provide history. The patient "had a seizure". EMS was notified and upon arrival the patient was found to be in distress and subsequently transported to [facility] for further care and evaluation of the aforementioned symptoms. The patient was seen and evaluated in the emergency department and was observed to have multiple witnessed seizures. Patient treated with be nzodiazepine therapy with recurrent seizures. Patient found to have alcohol withdrawal syndrome complicated by delirium, acute pancreatitis, malnutrition, hypomagnesemia. Patient admitted to ICU and initiated on Precedex as well as IV fluid resuscitation therapy. Patient treated in accordance with alcohol withdrawal protocol. No further history is obtainable. No reports of fever, chills, chest pain, palpitation, productive cough, skin rash, recent ill contacts, trauma, or known exposure to COVID-19. Prior admission on 02/06/2020 reviewed. All medication listed at time of admission has been reconciled. Advanced care planning conducted in ED. 01/02: Imaging studies including CT head, chest x-ray and cervical spine x-ray reviewed no acute pathology noted. Patient clinically stable for downgrade will start on Librium scheduled and try to wean off Precedex. Will transfer to IMCU at this time. When he is more awake we will do counseling on EtOH cessation. Will give additional magnesium due to hypomagnesemia 01/03: Continue management for EtOH withdrawal patient in DTs at this time. Also having hallucination. Continue CIWA protocol. Replace electrolytes as needed. Patient will continue taking IMCU care since level of CIWA scores is significantly high. (1) Alcohol withdrawal delirium tremens Current Visit: Yes Status: Acute Plan to address problem: Alcohol withdrawal protocol, patient treated with Precedex drip, critical care care team consulted, benzodiazepine therapy as clinically indicated, IV fluid resuscitation therapy, (2) Malnutrition Current Visit: Yes Status: Acute Qualifiers: Malnutrition type: protein-calorie malnutrition Plan to address problem: Increase protein intake, dietary supplementation when awake and alert only (3) Pancreatitis Current Visit: Yes Status: Acute Qualifiers: Chronicity: acute Pancreatitis type: alcohol induced Plan to address problem: Lipase level, repeat lipase level in a.m., bowel rest, IV fluid resuscitation therapy, supportive care, pain control. (4) Nicotine dependence Current Visit: Yes Status: Acute Qualifiers: Nicotine product type: cigarettes Substance use status: in withdrawal Qualified Code(s): F17.213 - Nicotine dependence, cigarettes, with withdrawal Plan to address problem: Smoking cessation, supportive care. (5) DVT prophylaxis Current Visit: Yes Status: Acute Plan to address problem: SCD to bilateral lower extremities while in bed, prophylactic anticoagulation (6) Advance care planning Current Visit: Yes Status: Acute Plan to address problem: Disease education conducted, care plan discussed, diagnosis discussed, prognosis discussed, patient acknowledges understanding and agreement with current care plan, +30 minutes. History Interval history: Patient seen and examined this morning remains confused, continues on restraints for safety. Still still with confabulation and hallucination Hospitalist Physical - Physical exam Narrative exam: VITAL SIGNS: Reviewed. GENERAL: The patient appears normally developed, sedated vital signs as documented. HEAD: No signs of head trauma. EYES: Pupils are equal. Extraocular motions intact. EARS: Hearing grossly intact. MOUTH: Oropharynx is normal. NECK: No adenopathy, no JVD. CHEST: Chest with clear breath sounds bilaterally. No wheezes, rales, or rhonchi. CARDIAC: Regular rate and rhythm. S1 and S2, without murmurs, gallops, or rubs. VASCULAR: No Edema. Peripheral pulses normal and equal in all extremities. ABDOMEN: Soft, non tender and non distended. No rebound or guarding, and no masses palpated. Bowel Sounds normal. MUSCULOSKELETAL: Good range of motion of all major joints. Extremities without clubbing, cyanosis or edema. NEUROLOGIC EXAM: Somnolent but arousable no focal sensory or strength deficits. Follows some commands confabulating. PSYCHIATRIC: Agitated SKIN: detail exam as documented in skin assessment - Constitutional Vitals: Temp Pulse Resp BP Pulse Ox 97.4 F L 61 9 L 145/80 99 01/03/21 03:38 01/03/21 06:00 01/03/21 06:00 01/03/21 06:00 01/03/21 06:00 General appearance: Present: mild distress HEART Score - HEART Score Troponin: Troponin T < 0.010 ng/mL (0.00-0.029) 01/01/21 14:16 Results - Labs CBC & Chem 7: 01/02/21 07:10 01/03/21 05:43 Labs: Laboratory Last Values WBC 3.9 K/mm3 (4.5-11.0) L 01/02/21 07:10 RBC 3.65 M/mm3 (3.65-5.03) 01/02/21 07:10 Hgb 11.1 gm/dl (11.8-15.2) L 01/02/21 07:10 Hct 32.7 % (35.5-45.6) L 01/02/21 07:10 MCV 90 fl (84-94) 01/02/21 07:10 MCH 30 pg (28-32) 01/02/21 07:10 MCHC 34 % (32-34) 01/02/21 07:10 RDW 13.7 % (13.2-15.2) 01/02/21 07:10 Plt Count 69 K/mm3 (140-440) L 01/02/21 07:10 Lymph % (Auto) 38.0 % (13.4-35.0) H 01/02/21 07:10 [place] % (Auto) 6.3 % (0.0-7.3) 01/02/21 07:10 Eos % (Auto) 1.2 % (0.0-4.3) 01/02/21 07:10 Baso % (Auto) 0.4 % (0.0-1.8) 01/02/21 07:10 Lymph # (Auto) 1.5 K/mm3 (1.2-5.4) 01/02/21 07:10 [place] # (Auto) 0.2 K/mm3 (0.0-0.8) 01/02/21 07:10 Eos # (Auto) 0.0 K/mm3 (0.0-0.4) 01/02/21 07:10 Baso # (Auto) 0.0 K/mm3 (0.0-0.1) 01/02/21 07:10 Seg Neutrophils % 54.1 % (40.0-70.0) 01/02/21 07:10 Seg Neutrophils # 2.1 K/mm3 (1.8-7.7) 01/02/21 07:10 PT 13.9 Sec. (12.2-14.9) 01/01/21 14:16 INR 1.02 (0.87-1.13) 01/01/21 14:16 APTT 24.1 Sec. (24.2-36.6) L 01/01/21 14:16 Sodium 141 mmol/L (137-145) 01/03/21 05:43 Potassium 4.0 mmol/L (3.6-5.0) D 01/03/21 05:43 Chloride 104.5 mmol/L (98-107) 01/03/21 05:43 Carbon Dioxide 22 mmol/L (22-30) 01/03/21 05:43 Anion Gap 19 mmol/L 01/03/21 05:43 BUN 3 mg/dL (9-20) L 01/03/21 05:43 Creatinine 0.4 mg/dL (0.8-1.3) L 01/03/21 05:43 Estimated GFR > 60 ml/min 01/03/21 05:43 BUN/Creatinine Ratio 8 % 01/03/21 05:43 Glucose 85 mg/dL (75-100) 01/03/21 05:43 POC Glucose 89 mg/dL (70-105) 01/03/21 05:42 Calcium 8.9 mg/dL (8.4-10.2) 01/03/21 05:43 Phosphorus 2.20 mg/dL (2.5-4.5) L 01/03/21 05:43 Magnesium 1.80 mg/dL (1.7-2.3) 01/03/21 05:43 Total Bilirubin 1.30 mg/dL (0.1-1.2) H 01/02/21 07:10 Direct Bilirubin 0.4 mg/dL (0-0.2) H 01/01/21 14:16 Indirect Bilirubin 1.0 mg/dL 01/01/21 14:16 AST 145 units/L (5-40) H 01/02/21 07:10 ALT 73 units/L (7-56) H 01/02/21 07:10 Alkaline Phosphatase 78 units/L (35-129) 01/02/21 07:10 Ammonia 46.0 umol/L (25-60) 01/01/21 14:16 Troponin T < 0.010 ng/mL (0.00-0.029) 01/01/21 14:16 Total Protein 6.6 g/dL (6.3-8.2) 01/02/21 07:10 Albumin 3.5 g/dL (3.9-5) L 01/02/21 07:10 Albumin/Globulin Ratio 1.1 % 01/02/21 07:10 Lipase 213 units/L (13-60) H 01/02/21 07:10 TSH 2.040 mlU/mL (0.270-4.200) 01/01/21 14:16 Urine Color Yellow (Yellow) 01/01/21 20:37 Urine Turbidity Hazy (Clear) 01/01/21 20:37 Urine pH 6.0 (5.0-7.0) 01/01/21 20:37 Ur Specific [place] 1.014 (1.003-1.030) 01/01/21 20:37 Urine Protein 30 mg/dl mg/dL (Negative) 01/01/21 20:37 Urine Glucose (UA) Neg mg/dL (Negative) 01/01/21 20:37 Urine Ketones 80 mg/dL (Negative) 01/01/21 20:37 Urine Blood Sm (Negative) 01/01/21 20:37 Urine Nitrite Neg (Negative) 01/01/21 20:37 Urine Bilirubin Neg (Negative) 01/01/21 20:37 Urine Urobilinogen < 2.0 mg/dL (<2.0) 01/01/21 20:37 Ur Leukocyte Esterase Tr (Negative) 01/01/21 20:37 Urine WBC (Auto) 8.0 /HPF (0.0-6.0) H 01/01/21 20:37 Urine RBC (Auto) 2.0 /HPF (0.0-6.0) 01/01/21 20:37 U Epithel Cells (Auto) 1.0 /HPF (0-13.0) 01/01/21 20:37 Hyaline Casts 1 /LPF 01/01/21 20:37 Urine Mucus Few /HPF 01/01/21 20:37 Salicylates < 0.3 mg/dL (2.8-20.0) L 01/01/21 14:16 Urine Opiates Screen Negative 01/01/21 20:37 Urine Methadone Screen Negative 01/01/21 20:37 Acetaminophen 5.0 ug/mL (10.0-30.0) L 01/01/21 14:16 Ur Barbiturates Screen Negative 01/01/21 20:37 Ur Phencyclidine Scrn Negative 01/01/21 20:37 Ur Amphetamines Screen Negative 01/01/21 20:37 U Benzodiazepines Scrn Positive 01/01/21 20:37 Urine Cocaine Screen Negative 01/01/21 20:37 U Marijuana (THC) Screen Negative 01/01/21 20:37 Drugs of Abuse Note Disclamer 01/01/21 20:37 Plasma/Serum Alcohol < 0.01 % (0-0.07) 01/01/21 16:10 Russell/IV: Voiding Method Condom Catheter Active Medications - Current Medications Current Medications: Generic Name Dose Route Start Last Admin Trade Name Freq PRN Reason Stop Dose Admin Albuterol 2.5 mg 01/01/21 16:19 Albuterol 2.5 Mg/3 Ml Nebu IH Q3HRT PRN Shortness Of Breath Aspirin 81 mg 01/02/21 10:00 01/02/21 10:54 Aspirin Ec 81 Mg Tab PO 81 mg DAILY GRACIE Administration Chlordiazepoxide HCl 25 mg 01/02/21 10:00 01/03/21 02:00 Chlordiazepoxide 25 Mg Cap PO Not Given Q8H GRACIE Dextrose 50 ml 01/01/21 16:33 Dextrose 50% In Water (25gm) 50 Ml Syringe IV Q30MIN PRN Hypoglycemia Protocol Heparin Sodium (Porcine) 5,000 unit 01/01/21 22:00 01/02/21 21:52 Heparin 5,000 Unit/1 Ml Vial SUB-Q 5,000 unit Q12HR GRACIE Administration Hydralazine HCl 10 mg 01/01/21 16:31 Hydralazine 20 Mg/1 Ml Inj IV Q6HR PRN Hypertension Dexmedetomidine HCl 200 mcg/ 50 mls @ 8.221 mls/hr 01/01/21 15:00 01/03/21 02:14 Sodium Chloride IV 0 mcg/kg/hr TITRATE GRACIE 0 mls/hr Titration Protocol 0.5 MCG/KG/HR Sodium Chloride 1,000 mls @ 125 mls/hr 01/01/21 16:30 01/03/21 05:46 Nacl 0.9% 1000 Ml IV 125 mls/hr DIRECT GRACIE Administration Ibuprofen 600 mg 01/01/21 16:19 Ibuprofen 600 Mg Tab PO Q6H PRN Pain, Mild (1-3) Insulin Human Lispro 0 unit 01/01/21 18:00 01/03/21 00:21 Insulin Lispro 100 Unit/Ml SUB-Q Not Given Q6HR [facility] Protocol Levofloxacin 500 mg 01/02/21 14:00 01/02/21 16:55 Levofloxacin 500 Mg Tab PO 01/06/21 10:01 500 mg Q24HR GRACIE Administration Protocol Lorazepam 2 mg 01/01/21 12:01 01/03/21 06:44 Lorazepam 2 Mg/Ml Vial IV 2 mg Q1HR PRN Administration CIWA-Ar 8-15 Lorazepam 4 mg 01/01/21 12:01 01/03/21 05:45 Lorazepam 2 Mg/Ml Vial IV 4 mg Q1HR PRN Administration CIWA-Ar 16-25 Lorazepam 4 mg 01/01/21 12:01 01/02/21 13:18 Lorazepam 2 Mg/Ml Vial IV 4 mg Q15MIN PRN Administration CIWA-Ar >25 Morphine Sulfate 2 mg 01/01/21 16:19 Morphine 4 Mg/1 Ml Inj IV Q6H PRN Pain , Severe (7-10) Oxycodone/Acetaminophen 1 tab 01/01/21 16:19 Oxycodone /Acetaminophen 5-325mg Tab PO Q12H PRN Pain, Moderate (4-6) Sodium Chloride 10 ml 01/01/21 22:00 01/02/21 21:55 Sodium Chloride 0.9% 10 Ml Flush Syringe IV 10 ml BID GRACIE Administration Sodium Chloride 10 ml 01/01/21 16:19 Sodium Chloride 0.9% 10 Ml Flush Syringe IV PRN PRN LINE FLUSH
[2021-01-03] MEDS ORDERED: ZIPRASIDONE MESYLATE 20 MG VIAL IM ONE (08:00)
[2021-01-03] MEDS ORDERED: MAGNESIUM SULFATE 2 GM/50 ML BAG IV ONE (08:00)
[2021-01-03] MEDS: cefTRIAXone/NS 1 GM/50 ML 1 GM/50 ML BAG IV SCH (08:12)
[2021-01-03] MEDS: PHOS-NAK POWDER PACKET PO SCH ×3 (08:12→21:45)
[2021-01-03] MEDS: ASPIRIN EC 81 MG TAB PO SCH (09:25)
[2021-01-03] MEDS: HEPARIN 5,000 UNIT/1 ML VIAL SUB-Q SCH ×2 (09:25→21:45)
[2021-01-03] MEDS: THIAMINE 100 MG in SODIUM CHLORIDE 0.9% 50 ML IV SCH (15:00)
--- NOTE | 2021-01-03 15:18 | Progress Note ---
Assessment and Plan Alcohol withdrawal with delirium tremens Seizures Acute PancreatitisNicotine dependence Dementia DM II Anemia Hypomagnesemia Hypophosphatemia Elevated serum transaminases - lipase trending down, will repeat level in am - continue CIWA ? EtOH withdrawal protocol - Wean off Precedex drip - supplemental oxygen to keep O2 sats > 90% - prn bronchodilators (KATE) with pulm hygiene per RT - avoid nephrotoxins, renally dose all medications - mobility protocols to prevent pressure ulcers - PT/OT as tolerated - Wound care per RN/WCT - accuchecks with glycemic control per SSI for target blood glucose < 180 mg/dL - tobacco & EtOH abstinence strongly counseled at the bedside - home oxygen evaluation at discharge - GI & VTE prophylaxis - Flu & pneumovax per protocol - Pulmonary out patient follow up for PFTs and optimization of respiratory status - prn analgesia per pain score - continue other care per attending / other consultants ... re-evaluate in am & prn Subjective Date of service: 01/03/21 Principal diagnosis: Alcohol withdrawal; Seizures; Acute Pancreatitis; DM II Interval history: Patient is seen today for: Alcohol withdrawal; Seizures; Acute Pancreatitis; DM II; Anemia; Elevated serum transaminases Seen and examined at bedside; 24hour events reviewed; nursing and respiratory care staff consulted; no adverse overnight events reported to me; resting peacefully in bed; remains on Precedex drip; Objective Vital Signs - 12hr 01/03/21 01/03/21 01/03/21 03:38 04:00 05:00 Temperature 97.4 F L Pulse Rate 64 58 L Pulse Rate [ 59 L From Monitor] Respiratory 11 L 27 H Rate Blood Pressure 122/78 129/76 O2 Sat by Pulse 100 100 Oximetry 01/03/21 01/03/21 01/03/21 06:00 07:00 07:40 Temperature 97.9 F Pulse Rate 61 96 H Pulse Rate [ From Monitor] Respiratory 9 L 14 Rate Blood Pressure 145/80 145/80 O2 Sat by Pulse 99 100 Oximetry 01/03/21 01/03/21 01/03/21 08:00 09:00 10:00 Temperature Pulse Rate 80 89 81 Pulse Rate [ 59 L From Monitor] Respiratory 15 11 L 12 Rate Blood Pressure 144/85 150/78 143/80 O2 Sat by Pulse 99 99 98 Oximetry 01/03/21 01/03/21 01/03/21 11:00 12:00 12:04 Temperature 98.1 F Pulse Rate 87 69 Pulse Rate [ 59 L From Monitor] Respiratory 13 11 L Rate Blood Pressure 140/90 140/90 O2 Sat by Pulse 100 100 Oximetry 01/03/21 13:00 Temperature Pulse Rate 85 Pulse Rate [ From Monitor] Respiratory 11 L Rate Blood Pressure 154/73 O2 Sat by Pulse 99 Oximetry Constitutional: no acute distress, other (sedated) Eyes: non-icteric ENT: oropharynx moist Neck: supple, no lymphadenopathy, no JVD Effort: normal Ascultation: Bilateral: clear Percussion: Bilateral: not dull Cardiovascular: regular rate and rhythm Gastrointestinal: normoactive bowel sounds, soft, non-tender, non-distended Integumentary: normal Extremities: no cyanosis, no edema, pulses normal, no ischemia or petechiae Neurologic: pupils equal and round, other (sedated) Psychiatric: other (delirious) CBC and BMP: 01/02/21 07:10 01/03/21 05:43 ABG, PT/INR, D-dimer: PT/INR, D-dimer PT 13.9 Sec. (12.2-14.9) 01/01/21 14:16 INR 1.02 (0.87-1.13) 01/01/21 14:16 Abnormal lab findings: Abnormal Labs 01/01/21 01/01/21 01/01/21 14:16 14:16 14:16 WBC RBC 3.20 L Hgb 9.9 L Hct 29.3 L Plt Count 74 L Lymph % (Auto) [place] % (Auto) 7.9 H Lymph # (Auto) 0.8 L Seg Neutrophils % 78.1 H APTT 24.1 L Sodium 135 L Potassium Chloride 93.1 L BUN 8 L Creatinine 0.6 L Glucose 106 H POC Glucose Phosphorus Magnesium 1.40 L Total Bilirubin 1.40 H Direct Bilirubin 0.4 H AST 230 H ALT 95 H Albumin Lipase Urine WBC (Auto) Salicylates Acetaminophen 01/01/21 01/01/21 01/01/21 14:16 14:16 14:16 WBC RBC Hgb Hct Plt Count Lymph % (Auto) [place] % (Auto) Lymph # (Auto) Seg Neutrophils % APTT Sodium Potassium Chloride BUN Creatinine Glucose POC Glucose Phosphorus Magnesium Total Bilirubin Direct Bilirubin AST ALT Albumin Lipase 279 H Urine WBC (Auto) Salicylates < 0.3 L Acetaminophen 5.0 L 01/01/21 01/01/21 01/02/21 14:16 20:37 07:10 WBC 3.9 L RBC Hgb 11.1 L Hct 32.7 L Plt Count 69 L Lymph % (Auto) 38.0 H [place] % (Auto) Lymph # (Auto) Seg Neutrophils % APTT Sodium Potassium Chloride BUN Creatinine Glucose POC Glucose Phosphorus 2.00 L Magnesium Total Bilirubin Direct Bilirubin AST ALT Albumin Lipase Urine WBC (Auto) 8.0 H Salicylates Acetaminophen 01/02/21 01/02/21 01/02/21 07:10 07:10 11:53 WBC RBC Hgb Hct Plt Count Lymph % (Auto) [place] % (Auto) Lymph # (Auto) Seg Neutrophils % APTT Sodium Potassium 3.3 L D Chloride BUN 4 L Creatinine 0.4 L Glucose POC Glucose 116 H Phosphorus 2.40 L Magnesium Total Bilirubin 1.30 H Direct Bilirubin AST 145 H ALT 73 H Albumin 3.5 L Lipase 213 H Urine WBC (Auto) Salicylates Acetaminophen 01/02/21 01/02/21 01/03/21 17:24 23:26 05:43 WBC RBC Hgb Hct Plt Count Lymph % (Auto) [place] % (Auto) Lymph # (Auto) Seg Neutrophils % APTT Sodium Potassium Chloride BUN 3 L Creatinine 0.4 L Glucose POC Glucose 126 H 108 H Phosphorus 2.20 L Magnesium Total Bilirubin Direct Bilirubin AST ALT Albumin Lipase Urine WBC (Auto) Salicylates Acetaminophen 01/03/21 12:52 WBC RBC Hgb Hct Plt Count Lymph % (Auto) [place] % (Auto) Lymph # (Auto) Seg Neutrophils % APTT Sodium Potassium Chloride BUN Creatinine Glucose POC Glucose 114 H Phosphorus Magnesium Total Bilirubin Direct Bilirubin AST ALT Albumin Lipase Urine WBC (Auto) Salicylates Acetaminophen Allied health notes reviewed: nursing
[2021-01-04] MEDS: LORazepam 2 MG/ML VIAL IV PRN ×5 (00:25→21:32)
[2021-01-04] MEDS: INSULIN LISPRO 100 UNIT/ML SUB-Q SCH ×4 (02:23→18:24)
[2021-01-04] MEDS: PHOS-NAK POWDER PACKET PO SCH (02:25)
[2021-01-04] MEDS: chlordiazePOXIDE 25 MG CAP PO SCH ×3 (02:26→18:25)
[2021-01-04] MEDS: SODIUM CHLORIDE 0.9% 1000 ML 1,000 ML IV SCH (06:51)
[2021-01-04] MEDS: cefTRIAXone/NS 1 GM/50 ML 1 GM/50 ML BAG IV SCH (08:58)
[2021-01-04] MEDS: ASPIRIN EC 81 MG TAB PO SCH (09:03)
[2021-01-04] MEDS: HEPARIN 5,000 UNIT/1 ML VIAL SUB-Q SCH ×2 (09:03→21:30)
[2021-01-04] MEDS: THIAMINE 100 MG in SODIUM CHLORIDE 0.9% 50 ML IV SCH (09:03)
--- NOTE | 2021-01-04 09:04 | Progress Note ---
Assessment and Plan Assessment and plan: 65 YO Male with DM, Nicotine Dependence, ETOH Dependence, HTN, Vascular Dementia, Cerebral Atherosclerosis, Malnutrition presents to ED for evaluation. Patient is confused with diminished cognition at the time of my evaluation is unable to provide history. The patient "had a seizure". EMS was notified and upon arrival the patient was found to be in distress and subsequently transported to [facility] for further care and evaluation of the aforementioned symptoms. The patient was seen and evaluated in the emergency department and was observed to have multiple witnessed seizures. Patient treated with be nzodiazepine therapy with recurrent seizures. Patient found to have alcohol withdrawal syndrome complicated by delirium, acute pancreatitis, malnutrition, hypomagnesemia. Patient admitted to ICU and initiated on Precedex as well as IV fluid resuscitation therapy. Patient treated in accordance with alcohol withdrawal protocol. No further history is obtainable. No reports of fever, chills, chest pain, palpitation, productive cough, skin rash, recent ill contacts, trauma, or known exposure to COVID-19. Prior admission on 02/06/2020 reviewed. All medication listed at time of admission has been reconciled. Advanced care planning conducted in ED. 01/02: Imaging studies including CT head, chest x-ray and cervical spine x-ray reviewed no acute pathology noted. Patient clinically stable for downgrade will start on Librium scheduled and try to wean off Precedex. Will transfer to IMCU at this time. When he is more awake we will do counseling on EtOH cessation. Will give additional magnesium due to hypomagnesemia 01/03: Continue management for EtOH withdrawal patient in DTs at this time. Also having hallucination. Continue CIWA protocol. Replace electrolytes as needed. Patient will continue taking IMCU care since level of CIWA scores is significantly high. 01/04: Discussed with nursing staff there is been documentation of taking oral intake so we will start patient on full liquid diet if his mental status is still precluding him taking p.o. we will tolerate NG tube and start him on some tube feeds. Otherwise continue current management continue thiamine. May start him on a banana bag to ensure adequate nutritional intake all vitamins and anti cipate improvement. We will renew restraints for safety. Repeat magnesium level to see if it has corrected. Also will plan to wean off Precedex and lieu of clonidine for agitation. (1) Alcohol withdrawal delirium tremens Current Visit: Yes Status: Acute Plan to address problem: Alcohol withdrawal protocol, patient treated with Precedex drip, critical care care team consulted, benzodiazepine therapy as clinically indicated, IV fluid resuscitation therapy, (2) Malnutrition Current Visit: Yes Status: Acute Qualifiers: Malnutrition type: protein-calorie malnutrition Plan to address problem: Increase protein intake, dietary supplementation when awake and alert only (3) Pancreatitis Current Visit: Yes Status: Acute Qualifiers: Chronicity: acute Pancreatitis type: alcohol induced Plan to address problem: Lipase level, repeat lipase level in a.m., bowel rest, IV fluid resuscitation therapy, supportive care, pain control. (4) Nicotine dependence Current Visit: Yes Status: Acute Qualifiers: Nicotine product type: cigarettes Substance use status: in withdrawal Qualified Code(s): F17.213 - Nicotine dependence, cigarettes, with withdrawal Plan to address problem: Smoking cessation, supportive care. (5) DVT prophylaxis Current Visit: Yes Status: Acute Plan to address problem: SCD to bilateral lower extremities while in bed, prophylactic anticoagulation (6) Advance care planning Current Visit: Yes Status: Acute Plan to address problem: Disease education conducted, care plan discussed, diagnosis discussed, prognosis discussed, patient acknowledges understanding and agreement with current care plan, +30 minutes. History Interval history: Patient seen and examined this morning remains confused, continues on restraints for safety. Still still with confabulation and hallucination Hospitalist Physical - Physical exam Narrative exam: VITAL SIGNS: Reviewed. GENERAL: The patient appears normally developed, sedated vital signs as documented. HEAD: No signs of head trauma. EYES: Pupils are equal. Extraocular motions intact. EARS: Hearing grossly intact. MOUTH: Oropharynx is normal. NECK: No adenopathy, no JVD. CHEST: Chest with clear breath sounds bilaterally. No wheezes, rales, or rhonchi. CARDIAC: Regular rate and rhythm. S1 and S2, without murmurs, gallops, or rubs. VASCULAR: No Edema. Peripheral pulses normal and equal in all extremities. ABDOMEN: Soft, non tender and non distended. No rebound or guarding, and no masses palpated. Bowel Sounds normal. MUSCULOSKELETAL: Good range of motion of all major joints. Extremities without clubbing, cyanosis or edema. NEUROLOGIC EXAM: Somnolent but arousable no focal sensory or strength deficits. Follows some commands confabulating. PSYCHIATRIC: Agitated SKIN: detail exam as documented in skin assessment - Constitutional Vitals: Temp Pulse Resp BP Pulse Ox 97.9 F 71 11 L 116/82 100 01/04/21 07:00 01/04/21 07:00 01/04/21 07:00 01/04/21 07:00 01/04/21 07:00 General appearance: Present: mild distress HEART Score - HEART Score Troponin: Troponin T < 0.010 ng/mL (0.00-0.029) 01/01/21 14:16 Results - Labs CBC & Chem 7: 01/02/21 07:10 01/03/21 05:43 Labs: Laboratory Last Values WBC 3.9 K/mm3 (4.5-11.0) L 01/02/21 07:10 RBC 3.65 M/mm3 (3.65-5.03) 01/02/21 07:10 Hgb 11.1 gm/dl (11.8-15.2) L 01/02/21 07:10 Hct 32.7 % (35.5-45.6) L 01/02/21 07:10 MCV 90 fl (84-94) 01/02/21 07:10 MCH 30 pg (28-32) 01/02/21 07:10 MCHC 34 % (32-34) 01/02/21 07:10 RDW 13.7 % (13.2-15.2) 01/02/21 07:10 Plt Count 69 K/mm3 (140-440) L 01/02/21 07:10 Lymph % (Auto) 38.0 % (13.4-35.0) H 01/02/21 07:10 [place] % (Auto) 6.3 % (0.0-7.3) 01/02/21 07:10 Eos % (Auto) 1.2 % (0.0-4.3) 01/02/21 07:10 Baso % (Auto) 0.4 % (0.0-1.8) 01/02/21 07:10 Lymph # (Auto) 1.5 K/mm3 (1.2-5.4) 01/02/21 07:10 [place] # (Auto) 0.2 K/mm3 (0.0-0.8) 01/02/21 07:10 Eos # (Auto) 0.0 K/mm3 (0.0-0.4) 01/02/21 07:10 Baso # (Auto) 0.0 K/mm3 (0.0-0.1) 01/02/21 07:10 Seg Neutrophils % 54.1 % (40.0-70.0) 01/02/21 07:10 Seg Neutrophils # 2.1 K/mm3 (1.8-7.7) 01/02/21 07:10 PT 13.9 Sec. (12.2-14.9) 01/01/21 14:16 INR 1.02 (0.87-1.13) 01/01/21 14:16 APTT 24.1 Sec. (24.2-36.6) L 01/01/21 14:16 Sodium 141 mmol/L (137-145) 01/03/21 05:43 Potassium 4.0 mmol/L (3.6-5.0) D 01/03/21 05:43 Chloride 104.5 mmol/L (98-107) 01/03/21 05:43 Carbon Dioxide 22 mmol/L (22-30) 01/03/21 05:43 Anion Gap 19 mmol/L 01/03/21 05:43 BUN 3 mg/dL (9-20) L 01/03/21 05:43 Creatinine 0.4 mg/dL (0.8-1.3) L 01/03/21 05:43 Estimated GFR > 60 ml/min 01/03/21 05:43 BUN/Creatinine Ratio 8 % 01/03/21 05:43 Glucose 85 mg/dL (75-100) 01/03/21 05:43 POC Glucose 92 mg/dL (70-105) 01/04/21 05:26 Calcium 8.9 mg/dL (8.4-10.2) 01/03/21 05:43 Phosphorus 2.20 mg/dL (2.5-4.5) L 01/03/21 05:43 Magnesium 1.80 mg/dL (1.7-2.3) 01/03/21 05:43 Total Bilirubin 1.30 mg/dL (0.1-1.2) H 01/02/21 07:10 Direct Bilirubin 0.4 mg/dL (0-0.2) H 01/01/21 14:16 Indirect Bilirubin 1.0 mg/dL 01/01/21 14:16 AST 145 units/L (5-40) H 01/02/21 07:10 ALT 73 units/L (7-56) H 01/02/21 07:10 Alkaline Phosphatase 78 units/L (35-129) 01/02/21 07:10 Ammonia 46.0 umol/L (25-60) 01/01/21 14:16 Troponin T < 0.010 ng/mL (0.00-0.029) 01/01/21 14:16 Total Protein 6.6 g/dL (6.3-8.2) 01/02/21 07:10 Albumin 3.5 g/dL (3.9-5) L 01/02/21 07:10 Albumin/Globulin Ratio 1.1 % 01/02/21 07:10 Lipase 213 units/L (13-60) H 01/02/21 07:10 TSH 2.040 mlU/mL (0.270-4.200) 01/01/21 14:16 Urine Color Yellow (Yellow) 01/01/21 20:37 Urine Turbidity Hazy (Clear) 01/01/21 20:37 Urine pH 6.0 (5.0-7.0) 01/01/21 20:37 Ur Specific [place] 1.014 (1.003-1.030) 01/01/21 20:37 Urine Protein 30 mg/dl mg/dL (Negative) 01/01/21 20:37 Urine Glucose (UA) Neg mg/dL (Negative) 01/01/21 20:37 Urine Ketones 80 mg/dL (Negative) 01/01/21 20:37 Urine Blood Sm (Negative) 01/01/21 20:37 Urine Nitrite Neg (Negative) 01/01/21 20:37 Urine Bilirubin Neg (Negative) 01/01/21 20:37 Urine Urobilinogen < 2.0 mg/dL (<2.0) 01/01/21 20:37 Ur Leukocyte Esterase Tr (Negative) 01/01/21 20:37 Urine WBC (Auto) 8.0 /HPF (0.0-6.0) H 01/01/21 20:37 Urine RBC (Auto) 2.0 /HPF (0.0-6.0) 01/01/21 20:37 U Epithel Cells (Auto) 1.0 /HPF (0-13.0) 01/01/21 20:37 Hyaline Casts 1 /LPF 01/01/21 20:37 Urine Mucus Few /HPF 01/01/21 20:37 Salicylates < 0.3 mg/dL (2.8-20.0) L 01/01/21 14:16 Urine Opiates Screen Negative 01/01/21 20:37 Urine Methadone Screen Negative 01/01/21 20:37 Acetaminophen 5.0 ug/mL (10.0-30.0) L 01/01/21 14:16 Ur Barbiturates Screen Negative 01/01/21 20:37 Ur Phencyclidine Scrn Negative 01/01/21 20:37 Ur Amphetamines Screen Negative 01/01/21 20:37 U Benzodiazepines Scrn Positive 01/01/21 20:37 Urine Cocaine Screen Negative 01/01/21 20:37 U Marijuana (THC) Screen Negative 01/01/21 20:37 Drugs of Abuse Note Disclamer 01/01/21 20:37 Plasma/Serum Alcohol < 0.01 % (0-0.07) 01/01/21 16:10 Russell/IV: Voiding Method Condom Catheter Active Medications - Current Medications Current Medications: Generic Name Dose Route Start Last Admin Trade Name Freq PRN Reason Stop Dose Admin Albuterol 2.5 mg 01/01/21 16:19 Albuterol 2.5 Mg/3 Ml Nebu IH Q3HRT PRN Shortness Of Breath Aspirin 81 mg 01/02/21 10:00 01/03/21 09:25 Aspirin Ec 81 Mg Tab PO 81 mg DAILY GRACIE Administration Chlordiazepoxide HCl 25 mg 01/02/21 10:00 01/04/21 02:26 Chlordiazepoxide 25 Mg Cap PO 25 mg Q8H GRACIE Administration Clonidine HCl 0.1 mg 01/04/21 08:58 Clonidine 0.1 Mg Tab PO Q4H PRN Agitation Dextrose 50 ml 01/01/21 16:33 Dextrose 50% In Water (25gm) 50 Ml Syringe IV Q30MIN PRN Hypoglycemia Protocol Heparin Sodium (Porcine) 5,000 unit 01/01/21 22:00 01/03/21 21:45 Heparin 5,000 Unit/1 Ml Vial SUB-Q 5,000 unit Q12HR GRACIE Administration Hydralazine HCl 10 mg 01/01/21 16:31 Hydralazine 20 Mg/1 Ml Inj IV Q6HR PRN Hypertension Dexmedetomidine HCl 200 mcg/ 50 mls @ 8.221 mls/hr 01/01/21 15:00 01/04/21 00:27 Sodium Chloride IV 0.2 mcg/kg/hr TITRATE GRACIE 3.28 mls/hr Administration Protocol 0.5 MCG/KG/HR Sodium Chloride 1,000 mls @ 125 mls/hr 01/01/21 16:30 01/04/21 06:51 Nacl 0.9% 1000 Ml IV 125 mls/hr DIRECT GRACIE Administration Ceftriaxone Sodium 1 gm in 50 mls @ 100 mls/hr 01/03/21 08:00 01/03/21 08:12 Rocephin/Ns 1 Gm/50 Ml IV 01/09/21 08:29 100 mls/hr Q24H GRACIE Administration Protocol Thiamine HCl 100 mg/ Sodium 51 mls @ 100 mls/hr 01/03/21 14:00 01/03/21 15:00 Chloride IV 01/05/21 10:31 100 mls/hr QDAY GRACIE Administration Ibuprofen 600 mg 01/01/21 16:19 Ibuprofen 600 Mg Tab PO Q6H PRN Pain, Mild (1-3) Insulin Human Lispro 0 unit 01/01/21 18:00 01/04/21 08:18 Insulin Lispro 100 Unit/Ml SUB-Q Not Given Q6HR GRACIE Protocol Lorazepam 2 mg 01/01/21 12:01 01/04/21 00:25 Lorazepam 2 Mg/Ml Vial IV 2 mg Q1HR PRN Administration CIWA-Ar 8-15 Lorazepam 4 mg 01/01/21 12:01 01/03/21 15:00 Lorazepam 2 Mg/Ml Vial IV 4 mg Q1HR PRN Administration CIWA-Ar 16-25 Lorazepam 4 mg 01/01/21 12:01 01/02/21 13:18 Lorazepam 2 Mg/Ml Vial IV 4 mg Q15MIN PRN Administration CIWA-Ar >25 Morphine Sulfate 2 mg 01/01/21 16:19 Morphine 4 Mg/1 Ml Inj IV Q6H PRN Pain , Severe (7-10) Oxycodone/Acetaminophen 1 tab 01/01/21 16:19 Oxycodone /Acetaminophen 5-325mg Tab PO Q12H PRN Pain, Moderate (4-6) Sodium Chloride 10 ml 01/01/21 22:00 01/03/21 21:46 Sodium Chloride 0.9% 10 Ml Flush Syringe IV 10 ml BID GRACIE Administration Sodium Chloride 10 ml 01/01/21 16:19 Sodium Chloride 0.9% 10 Ml Flush Syringe IV PRN PRN LINE FLUSH
[2021-01-04] MEDS: cloNIDine 0.1 MG TAB PO PRN (11:55)
--- NOTE | 2021-01-04 18:05 | Progress Note ---
Assessment and Plan Alcohol withdrawal with delirium tremens Seizures Acute Pancreatitis Nicotine dependence Dementia DM II Anemia Hypomagnesemia Hypophosphatemia Elevated serum transaminases - continue CIWA / EtOH withdrawal protocol - Wean off Precedex drip - continue care as below otherwise; - supplemental oxygen to keep O2 sats > 90% - prn bronchodilators (KATE) with pulm hygiene per RT - avoid nephrotoxins, renally dose all medications - mobility protocols to prevent pressure ulcers - PT/OT as tolerated - Wound care per RN/WCT - accuchecks with glycemic control per SSI for target blood glucose < 180 mg/dL - tobacco & EtOH abstinence strongly counseled at the bedside - home oxygen evaluation at discharge - GI & VTE prophylaxis - Flu & pneumovax per protocol - Pulmonary out patient follow up for PFTs and optimization of respiratory status - prn analgesia per pain score - continue other care per attending / other consultants ... re-evaluate in am & prn Subjective Date of service: 01/03/21 Principal diagnosis: Alcohol withdrawal; Seizures; Acute Pancreatitis; DM II Interval history: LATE ENTRY NOTE FOR DOS 01/03/21 Patient is seen today for: Alcohol withdrawal; Seizures; Acute Pancreatitis; DM II; Anemia; Elevated serum transaminases Seen and examined at bedside; 24hour events reviewed; nursing and respiratory care staff consulted; no adverse overnight events reported to me; resting peacefully in bed; on Precedex drip; still with delirium and moving all over bed; denies acute chest pain; No N/V/F/C Objective Vital Signs - 12hr 01/04/21 01/04/21 01/04/21 07:00 08:00 09:00 Temperature 97.9 F Pulse Rate 71 67 67 Pulse Rate [ 65 From Monitor] Respiratory 11 L 10 L 11 L Rate Blood Pressure 116/82 114/75 134/77 O2 Sat by Pulse 100 99 100 Oximetry 01/04/21 01/04/21 01/04/21 10:00 11:00 11:55 Temperature Pulse Rate 65 64 69 Pulse Rate [ From Monitor] Respiratory 10 L 10 L Rate Blood Pressure 115/67 115/67 140/78 O2 Sat by Pulse 98 100 Oximetry 01/04/21 01/04/21 01/04/21 12:00 13:00 14:29 Temperature Pulse Rate 79 68 Pulse Rate [ 68 From Monitor] Respiratory 10 L 13 Rate Blood Pressure 145/86 132/77 132/77 O2 Sat by Pulse 100 Oximetry 01/04/21 01/04/21 01/04/21 15:21 15:44 16:00 Temperature Pulse Rate Pulse Rate [ 123 H From Monitor] Respiratory 17 Rate Blood Pressure 132/77 132/77 155/90 O2 Sat by Pulse 93 100 Oximetry 01/04/21 01/04/21 16:30 17:00 Temperature Pulse Rate 74 Pulse Rate [ From Monitor] Respiratory 20 22 Rate Blood Pressure 75/46 128/75 O2 Sat by Pulse Oximetry Constitutional: no acute distress, other (sedated) Eyes: non-icteric ENT: oropharynx moist Neck: supple, no lymphadenopathy, no JVD Effort: mildly labored Ascultation: Bilateral: clear Percussion: Bilateral: not dull Cardiovascular: regular rate and rhythm Gastrointestinal: normoactive bowel sounds, soft, non-tender, non-distended Integumentary: normal Extremities: no cyanosis, no edema, pulses normal, no ischemia or petechiae Neurologic: pupils equal and round, other (sedated) Psychiatric: other (delirious) CBC and BMP: 01/02/21 07:10 01/03/21 05:43 ABG, PT/INR, D-dimer: PT/INR, D-dimer PT 13.9 Sec. (12.2-14.9) 01/01/21 14:16 INR 1.02 (0.87-1.13) 01/01/21 14:16 Abnormal lab findings: Abnormal Labs 01/01/21 01/01/21 01/01/21 14:16 14:16 14:16 WBC RBC 3.20 L Hgb 9.9 L Hct 29.3 L Plt Count 74 L Lymph % (Auto) [place] % (Auto) 7.9 H Lymph # (Auto) 0.8 L Seg Neutrophils % 78.1 H APTT 24.1 L Sodium 135 L Potassium Chloride 93.1 L BUN 8 L Creatinine 0.6 L Glucose 106 H POC Glucose Phosphorus Magnesium 1.40 L Total Bilirubin 1.40 H Direct Bilirubin 0.4 H AST 230 H ALT 95 H Albumin Lipase Urine WBC (Auto) Salicylates Acetaminophen 01/01/21 01/01/21 01/01/21 14:16 14:16 14:16 WBC RBC Hgb Hct Plt Count Lymph % (Auto) [place] % (Auto) Lymph # (Auto) Seg Neutrophils % APTT Sodium Potassium Chloride BUN Creatinine Glucose POC Glucose Phosphorus Magnesium Total Bilirubin Direct Bilirubin AST ALT Albumin Lipase 279 H Urine WBC (Auto) Salicylates < 0.3 L Acetaminophen 5.0 L 01/01/21 01/01/21 01/02/21 14:16 20:37 07:10 WBC 3.9 L RBC Hgb 11.1 L Hct 32.7 L Plt Count 69 L Lymph % (Auto) 38.0 H [place] % (Auto) Lymph # (Auto) Seg Neutrophils % APTT Sodium Potassium Chloride BUN Creatinine Glucose POC Glucose Phosphorus 2.00 L Magnesium Total Bilirubin Direct Bilirubin AST ALT Albumin Lipase Urine WBC (Auto) 8.0 H Salicylates Acetaminophen 01/02/21 01/02/21 01/02/21 07:10 07:10 11:53 WBC RBC Hgb Hct Plt Count Lymph % (Auto) [place] % (Auto) Lymph # (Auto) Seg Neutrophils % APTT Sodium Potassium 3.3 L D Chloride BUN 4 L Creatinine 0.4 L Glucose POC Glucose 116 H Phosphorus 2.40 L Magnesium Total Bilirubin 1.30 H Direct Bilirubin AST 145 H ALT 73 H Albumin 3.5 L Lipase 213 H Urine WBC (Auto) Salicylates Acetaminophen 01/02/21 01/02/21 01/03/21 17:24 23:26 05:43 WBC RBC Hgb Hct Plt Count Lymph % (Auto) [place] % (Auto) Lymph # (Auto) Seg Neutrophils % APTT Sodium Potassium Chloride BUN 3 L Creatinine 0.4 L Glucose POC Glucose 126 H 108 H Phosphorus 2.20 L Magnesium Total Bilirubin Direct Bilirubin AST ALT Albumin Lipase Urine WBC (Auto) Salicylates Acetaminophen 01/03/21 12:52 WBC RBC Hgb Hct Plt Count Lymph % (Auto) [place] % (Auto) Lymph # (Auto) Seg Neutrophils % APTT Sodium Potassium Chloride BUN Creatinine Glucose POC Glucose 114 H Phosphorus Magnesium Total Bilirubin Direct Bilirubin AST ALT Albumin Lipase Urine WBC (Auto) Salicylates Acetaminophen Chest x-ray: pending Allied health notes reviewed: nursing
--- NOTE | 2021-01-04 18:05 | Progress Note ---
Assessment and Plan Alcohol withdrawal with delirium tremens Seizures Acute Pancreatitis Nicotine dependence Dementia DM II Anemia Hypomagnesemia Hypophosphatemia Elevated serum transaminases - continue CIWA / EtOH withdrawal protocol - ok to transfer to medical floor - continue care as below otherwise; - supplemental oxygen to keep O2 sats > 90% - prn bronchodilators (KATE) with pulm hygiene per RT - avoid nephrotoxins, renally dose all medications - mobility protocols to prevent pressure ulcers - PT/OT as tolerated - Wound care per RN/WCT - accuchecks with glycemic control per SSI for target blood glucose < 180 mg/dL - tobacco & EtOH abstinence strongly counseled at the bedside - home oxygen evaluation at discharge - GI & VTE prophylaxis - Flu & pneumovax per protocol - Pulmonary out patient follow up for PFTs and optimization of respiratory status - prn analgesia per pain score - continue other care per attending / other consultants ... re-evaluate in am & prn Subjective Date of service: 01/04/21 Principal diagnosis: Alcohol withdrawal; Seizures; Acute Pancreatitis; DM II Interval history: Patient is seen today for: Alcohol withdrawal; Seizures; Acute Pancreatitis; DM II; Anemia; Elevated serum transaminases Seen and examined at bedside; 24hour events reviewed; nursing and respiratory care staff consulted; no adverse overnight events reported to me; resting peacefully in bed; now off Precedex but still with delirium; No N/V/F/C Objective Vital Signs - 12hr 01/04/21 01/04/21 01/04/21 07:00 08:00 09:00 Temperature 97.9 F Pulse Rate 71 67 67 Pulse Rate [ 65 From Monitor] Respiratory 11 L 10 L 11 L Rate Blood Pressure 116/82 114/75 134/77 O2 Sat by Pulse 100 99 100 Oximetry 01/04/21 01/04/21 01/04/21 10:00 11:00 11:55 Temperature Pulse Rate 65 64 69 Pulse Rate [ From Monitor] Respiratory 10 L 10 L Rate Blood Pressure 115/67 115/67 140/78 O2 Sat by Pulse 98 100 Oximetry 01/04/21 01/04/21 01/04/21 12:00 13:00 14:29 Temperature Pulse Rate 79 68 Pulse Rate [ 68 From Monitor] Respiratory 10 L 13 Rate Blood Pressure 145/86 132/77 132/77 O2 Sat by Pulse 100 Oximetry 01/04/21 01/04/2121 15:21 15:44 16:00 Temperature Pulse Rate Pulse Rate [ 123 H From Monitor] Respiratory 17 Rate Blood Pressure 132/77 132/77 155/90 O2 Sat by Pulse 93 100 Oximetry 01/04/21 01/04/21 16:30 17:00 Temperature Pulse Rate 74 Pulse Rate [ From Monitor] Respiratory 20 22 Rate Blood Pressure 75/46 128/75 O2 Sat by Pulse Oximetry Constitutional: no acute distress Eyes: non-icteric ENT: oropharynx moist Neck: supple, no lymphadenopathy, no JVD Effort: mildly labored Ascultation: Bilateral: clear Percussion: Bilateral: not dull Cardiovascular: regular rate and rhythm Gastrointestinal: normoactive bowel sounds, soft, non-tender, non-distended Integumentary: normal Extremities: no cyanosis, no edema, pulses normal, no ischemia or petechiae Neurologic: non-focal exam (grossly), pupils equal and round, motor strength normal and, other (delirious) Psychiatric: other (delirious) CBC and BMP: 01/02/21 07:10 01/05/21 04:31 ABG, PT/INR, D-dimer: PT/INR, D-dimer PT 13.9 Sec. (12.2-14.9) 01/01/21 14:16 INR 1.02 (0.87-1.13) 01/01/21 14:16 Abnormal lab findings: Abnormal Labs 01/01/21 01/01/21 01/01/21 14:16 14:16 14:16 WBC RBC 3.20 L Hgb 9.9 L Hct 29.3 L Plt Count 74 L Lymph % (Auto) [place] % (Auto) 7.9 H Lymph # (Auto) 0.8 L Seg Neutrophils % 78.1 H APTT 24.1 L Sodium 135 L Potassium Chloride 93.1 L BUN 8 L Creatinine 0.6 L Glucose 106 H POC Glucose Phosphorus Magnesium 1.40 L Total Bilirubin 1.40 H Direct Bilirubin 0.4 H AST 230 H ALT 95 H Albumin Lipase Urine WBC (Auto) Salicylates Acetaminophen 01/01/21 01/01/21 01/01/21 14:16 14:16 14:16 WBC RBC Hgb Hct Plt Count Lymph % (Auto) [place] % (Auto) Lymph # (Auto) Seg Neutrophils % APTT Sodium Potassium Chloride BUN Creatinine Glucose POC Glucose Phosphorus Magnesium Total Bilirubin Direct Bilirubin AST ALT Albumin Lipase 279 H Urine WBC (Auto) Salicylates < 0.3 L Acetaminophen 5.0 L 01/01/21 01/01/21 01/02/21 14:16 20:37 07:10 WBC 3.9 L RBC Hgb 11.1 L Hct 32.7 L Plt Count 69 L Lymph % (Auto) 38.0 H [place] % (Auto) Lymph # (Auto) Seg Neutrophils % APTT Sodium Potassium Chloride BUN Creatinine Glucose POC Glucose Phosphorus 2.00 L Magnesium Total Bilirubin Direct Bilirubin AST ALT Albumin Lipase Urine WBC (Auto) 8.0 H Salicylates Acetaminophen 01/02/21 01/02/21 01/02/21 07:10 07:10 11:53 WBC RBC Hgb Hct Plt Count Lymph % (Auto) [place] % (Auto) Lymph # (Auto) Seg Neutrophils % APTT Sodium Potassium 3.3 L D Chloride BUN 4 L Creatinine 0.4 L Glucose POC Glucose 116 H Phosphorus 2.40 L Magnesium Total Bilirubin 1.30 H Direct Bilirubin AST 145 H ALT 73 H Albumin 3.5 L Lipase 213 H Urine WBC (Auto) Salicylates Acetaminophen 01/02/21 01/02/21 01/03/21 17:24 23:26 05:43 WBC RBC Hgb Hct Plt Count Lymph % (Auto) [place] % (Auto) Lymph # (Auto) Seg Neutrophils % APTT Sodium Potassium Chloride BUN 3 L Creatinine 0.4 L Glucose POC Glucose 126 H 108 H Phosphorus 2.20 L Magnesium Total Bilirubin Direct Bilirubin AST ALT Albumin Lipase Urine WBC (Auto) Salicylates Acetaminophen 01/03/21 12:52 WBC RBC Hgb Hct Plt Count Lymph % (Auto) [place] % (Auto) Lymph # (Auto) Seg Neutrophils % APTT Sodium Potassium Chloride BUN Creatinine Glucose POC Glucose 114 H Phosphorus Magnesium Total Bilirubin Direct Bilirubin AST ALT Albumin Lipase Urine WBC (Auto) Salicylates Acetaminophen Allied health notes reviewed: nursing
[2021-01-05] MEDS: LORazepam 2 MG/ML VIAL IV PRN ×7 (00:21→22:46)
[2021-01-05] MEDS: INSULIN LISPRO 100 UNIT/ML SUB-Q SCH ×4 (00:53→18:49)
[2021-01-05 05:29] LABS: Alanine Aminotransferase 59 units/L (7-56); Albumin 3.8 g/dL (3.9-5); Blood Urea Nitrogen 2 mg/dL (9-20); Calcium 8.9 mg/dL (8.4-10.2); Hemolysis Index 13
[2021-01-05 05:47] LABS: BUN/Creatinine Ratio 4
[2021-01-05] MEDS: chlordiazePOXIDE 25 MG CAP PO SCH ×3 (06:53→18:08)
[2021-01-05] MEDS: ASPIRIN EC 81 MG TAB PO SCH (09:41)
[2021-01-05] MEDS: HEPARIN 5,000 UNIT/1 ML VIAL SUB-Q SCH ×2 (09:42→20:35)
[2021-01-05] MEDS ORDERED: MAGNESIUM SULFATE 1 GM in SODIUM CHLORIDE 0.9% 50 ML IV ONE (10:42)
--- NOTE | 2021-01-05 10:54 | Progress Note ---
Assessment and Plan Assessment and plan: 65 YO Male with DM, Nicotine Dependence, ETOH Dependence, HTN, Vascular Dementia, Cerebral Atherosclerosis, Malnutrition presents to ED for evaluation. Patient is confused with diminished cognition at the time of my evaluation is unable to provide history. The patient "had a seizure". EMS was notified and upon arrival the patient was found to be in distress and subsequently transported to [facility] for further care and evaluation of the aforementioned symptoms. The patient was seen and evaluated in the emergency department and was observed to have multiple witnessed seizures. Patient treated with be nzodiazepine therapy with recurrent seizures. Patient found to have alcohol withdrawal syndrome complicated by delirium, acute pancreatitis, malnutrition, hypomagnesemia. Patient admitted to ICU and initiated on Precedex as well as IV fluid resuscitation therapy. Patient treated in accordance with alcohol withdrawal protocol. No further history is obtainable. No reports of fever, chills, chest pain, palpitation, productive cough, skin rash, recent ill contacts, trauma, or known exposure to COVID-19. Prior admission on 02/06/2020 reviewed. All medication listed at time of admission has been reconciled. Advanced care planning conducted in ED. 01/02: Imaging studies including CT head, chest x-ray and cervical spine x-ray reviewed no acute pathology noted. Patient clinically stable for downgrade will start on Librium scheduled and try to wean off Precedex. Will transfer to [facility] at this time. When he is more awake we will do counseling on EtOH cessation. Will give additional magnesium due to hypomagnesemia 01/03: Continue management for EtOH withdrawal patient in DTs at this time. Also having hallucination. Continue CIWA protocol. Replace electrolytes as needed. Patient will continue taking IMCU care since level of CIWA scores is significantly high. 01/04: Discussed with nursing staff there is been documentation of taking oral intake so we will start patient on full liquid diet if his mental status is still precluding him taking p.o. we will tolerate NG tube and start him on some tube feeds. Otherwise continue current management continue thiamine. May start him on a banana bag to ensure adequate nutritional intake all vitamins and anti cipate improvement. We will renew restraints for safety. Repeat magnesium level to see if it has corrected. Also will plan to wean off Precedex and lieu of clonidine for agitation. 01/05: Wean off precedex, improving clinically, will transfer to [facility], continue restraints for Safety, Replace Electrolytes-Magnesium - Hypomagnesiemia. Continue re-orientation. Patient with mild hypoglycemia. Start D5NS at 75cc/hr. Monitor Blood glucose. Also able to start clear liquids as his orientation is improving some. (1) Alcohol withdrawal delirium tremens Current Visit: Yes Status: Acute Plan to address problem: Alcohol withdrawal protocol, patient treated with Precedex drip, critical care care team consulted, benzodiazepine therapy as clinically indicated, IV fluid resuscitation therapy, (2) Malnutrition Current Visit: Yes Status: Acute Qualifiers: Malnutrition type: protein-calorie malnutrition Plan to address problem: Increase protein intake, dietary supplementation when awake and alert only (3) Pancreatitis Current Visit: Yes Status: Acute Qualifiers: Chronicity: acute Pancreatitis type: alcohol induced Plan to address problem: Lipase level, repeat lipase level in a.m., bowel rest, IV fluid resuscitation therapy, supportive care, pain control. (4) Nicotine dependence Current Visit: Yes Status: Acute Qualifiers: Nicotine product type: cigarettes Substance use status: in withdrawal Qualified Code(s): F17.213 - Nicotine dependence, cigarettes, with withdrawal Plan to address problem: Smoking cessation, supportive care. (5) DVT prophylaxis Current Visit: Yes Status: Acute Plan to address problem: SCD to bilateral lower extremities while in bed, prophylactic anticoagulation (6) Advance care planning Current Visit: Yes Status: Acute Plan to address problem: Disease education conducted, care plan discussed, diagnosis discussed, prognosis discussed, patient acknowledges understanding and agreement with current care plan, +30 minutes. History Interval history: Patient seen and examined this morning remains confused, continues on restraints for safety, some mild improvement. Hospitalist Physical - Physical exam Narrative exam: VITAL SIGNS: Reviewed. GENERAL: The patient appears normally developed, vital signs as documented. HEAD: No signs of head trauma. EYES: Pupils are equal. Extraocular motions intact. EARS: Hearing grossly intact. MOUTH: Oropharynx is normal. NECK: No adenopathy, no JVD. CHEST: Chest with clear breath sounds bilaterally. No wheezes, rales, or rhonchi. CARDIAC: Regular rate and rhythm. S1 and S2, without murmurs, gallops, or rubs. VASCULAR: No Edema. Peripheral pulses normal and equal in all extremities. ABDOMEN: Soft, non tender and non distended. No rebound or guarding, and no masses palpated. Bowel Sounds normal. MUSCULOSKELETAL: Good range of motion of all major joints. Extremities without clubbing, cyanosis or edema. NEUROLOGIC EXAM: Awake, oriented to person only, no focal sensory or strength deficits. Follows some commands confabulating. PSYCHIATRIC: Mood SKIN: Detail exam as documented in skin assessment - Constitutional Vitals: Temp Pulse Resp BP Pulse Ox 98.3 F 97 H 13 150/87 100 01/05/21 04:00 01/05/21 07:30 01/05/21 08:00 01/05/21 08:00 01/05/21 08:00 General appearance: Present: mild distress HEART Score - HEART Score Troponin: Troponin T < 0.010 ng/mL (0.00-0.029) 01/01/21 14:16 Results - Labs CBC & Chem 7: 01/02/21 07:10 01/05/21 04:31 Labs: Laboratory Last Values WBC 3.9 K/mm3 (4.5-11.0) L 01/02/21 07:10 RBC 3.65 M/mm3 (3.65-5.03) 01/02/21 07:10 Hgb 11.1 gm/dl (11.8-15.2) L 01/02/21 07:10 Hct 32.7 % (35.5-45.6) L 01/02/21 07:10 MCV 90 fl (84-94) 01/02/21 07:10 MCH 30 pg (28-32) 01/02/21 07:10 MCHC 34 % (32-34) 01/02/21 07:10 RDW 13.7 % (13.2-15.2) 01/02/21 07:10 Plt Count 69 K/mm3 (140-440) L 01/02/21 07:10 Lymph % (Auto) 38.0 % (13.4-35.0) H 01/02/21 07:10 [place] % (Auto) 6.3 % (0.0-7.3) 01/02/21 07:10 Eos % (Auto) 1.2 % (0.0-4.3) 01/02/21 07:10 Baso % (Auto) 0.4 % (0.0-1.8) 01/02/21 07:10 Lymph # (Auto) 1.5 K/mm3 (1.2-5.4) 01/02/21 07:10 [place] # (Auto) 0.2 K/mm3 (0.0-0.8) 01/02/21 07:10 Eos # (Auto) 0.0 K/mm3 (0.0-0.4) 01/02/21 07:10 Baso # (Auto) 0.0 K/mm3 (0.0-0.1) 01/02/21 07:10 Seg Neutrophils % 54.1 % (40.0-70.0) 01/02/21 07:10 Seg Neutrophils # 2.1 K/mm3 (1.8-7.7) 01/02/21 07:10 PT 13.9 Sec. (12.2-14.9) 01/01/21 14:16 INR 1.02 (0.87-1.13) 01/01/21 14:16 APTT 24.1 Sec. (24.2-36.6) L 01/01/21 14:16 Sodium 139 mmol/L (137-145) 01/05/21 04:31 Potassium 3.7 mmol/L (3.6-5.0) 01/05/21 04:31 Chloride 97.2 mmol/L (98-107) L 01/05/21 04:31 Carbon Dioxide 22 mmol/L (22-30) 01/05/21 04:31 Anion Gap 24 mmol/L 01/05/21 04:31 BUN 2 mg/dL (9-20) L 01/05/21 04:31 Creatinine 0.5 mg/dL (0.8-1.3) L 01/05/21 04:31 Estimated GFR > 60 ml/min 01/05/21 04:31 BUN/Creatinine Ratio 4 % 01/05/21 04:31 Glucose 73 mg/dL (75-100) L 01/05/21 04:31 POC Glucose 76 mg/dL (70-105) 01/05/21 06:28 Calcium 8.9 mg/dL (8.4-10.2) 01/05/21 04:31 Phosphorus 2.20 mg/dL (2.5-4.5) L 01/03/21 05:43 Magnesium 1.00 mg/dL (1.7-2.3) L 01/05/21 04:31 Total Bilirubin 0.50 mg/dL (0.1-1.2) 01/05/21 04:31 Direct Bilirubin 0.4 mg/dL (0-0.2) H 01/01/21 14:16 Indirect Bilirubin 1.0 mg/dL 01/01/21 14:16 AST 68 units/L (5-40) H 01/05/21 04:31 ALT 59 units/L (7-56) H 01/05/21 04:31 Alkaline Phosphatase 76 units/L (35-129) 01/05/21 04:31 Ammonia 46.0 umol/L (25-60) 01/01/21 14:16 Troponin T < 0.010 ng/mL (0.00-0.029) 01/01/21 14:16 Total Protein 7.7 g/dL (6.3-8.2) 01/05/21 04:31 Albumin 3.8 g/dL (3.9-5) L 01/05/21 04:31 Albumin/Globulin Ratio 1.0 % 01/05/21 04:31 Lipase 213 units/L (13-60) H 01/02/21 07:10 TSH 2.040 mlU/mL (0.270-4.200) 01/01/21 14:16 Urine Color Yellow (Yellow) 01/01/21 20:37 Urine Turbidity Hazy (Clear) 01/01/21 20:37 Urine pH 6.0 (5.0-7.0) 01/01/21 20:37 Ur Specific [place] 1.014 (1.003-1.030) 01/01/21 20:37 Urine Protein 30 mg/dl mg/dL (Negative) 01/01/21 20:37 Urine Glucose (UA) Neg mg/dL (Negative) 01/01/21 20:37 Urine Ketones 80 mg/dL (Negative) 01/01/21 20:37 Urine Blood Sm (Negative) 01/01/21 20:37 Urine Nitrite Neg (Negative) 01/01/21 20:37 Urine Bilirubin Neg (Negative) 01/01/21 20:37 Urine Urobilinogen < 2.0 mg/dL (<2.0) 01/01/21 20:37 Ur Leukocyte Esterase Tr (Negative) 01/01/21 20:37 Urine WBC (Auto) 8.0 /HPF (0.0-6.0) H 01/01/21 20:37 Urine RBC (Auto) 2.0 /HPF (0.0-6.0) 01/01/21 20:37 U Epithel Cells (Auto) 1.0 /HPF (0-13.0) 01/01/21 20:37 Hyaline Casts 1 /LPF 01/01/21 20:37 Urine Mucus Few /HPF 01/01/21 20:37 Salicylates < 0.3 mg/dL (2.8-20.0) L 01/01/21 14:16 Urine Opiates Screen Negative 01/01/21 20:37 Urine Methadone Screen Negative 01/01/21 20:37 Acetaminophen 5.0 ug/mL (10.0-30.0) L 01/01/21 14:16 Ur Barbiturates Screen Negative 01/01/21 20:37 Ur Phencyclidine Scrn Negative 01/01/21 20:37 Ur Amphetamines Screen Negative 01/01/21 20:37 U Benzodiazepines Scrn Positive 01/01/21 20:37 Urine Cocaine Screen Negative 01/01/21 20:37 U Marijuana (THC) Screen Negative 01/01/21 20:37 Drugs of Abuse Note Disclamer 01/01/21 20:37 Plasma/Serum Alcohol < 0.01 % (0-0.07) 01/01/21 16:10 Russell/IV: Voiding Method Condom Catheter Active Medications - Current Medications Current Medications: Generic Name Dose Route Start Last Admin Trade Name Freq PRN Reason Stop Dose Admin Albuterol 2.5 mg 01/01/21 16:19 Albuterol 2.5 Mg/3 Ml Nebu IH Q3HRT PRN Shortness Of Breath Aspirin 81 mg 01/02/21 10:00 01/05/21 09:41 Aspirin Ec 81 Mg Tab PO 81 mg DAILY GRACIE Administration Chlordiazepoxide HCl 25 mg 01/02/21 10:00 01/05/21 09:42 Chlordiazepoxide 25 Mg Cap PO 25 mg Q8H GRACIE Administration Clonidine HCl 0.1 mg 01/04/21 10:00 01/04/21 11:55 Clonidine 0.1 Mg Tab PO 0.1 mg Q4HR PRN Administration Agitation Dextrose 50 ml 01/01/21 16:33 Dextrose 50% In Water (25gm) 50 Ml Syringe IV Q30MIN PRN Hypoglycemia Protocol Heparin Sodium (Porcine) 5,000 unit 01/01/21 22:00 01/05/21 09:42 Heparin 5,000 Unit/1 Ml Vial SUB-Q 5,000 unit Q12HR GRACIE Administration Hydralazine HCl 10 mg 01/01/21 16:31 Hydralazine 20 Mg/1 Ml Inj IV Q6HR PRN Hypertension Sodium Chloride 1,000 mls @ 125 mls/hr 01/01/21 16:30 01/05/21 00:20 Nacl 0.9% 1000 Ml IV Infused DIRECT GRACIE Infusion Magnesium Sulfate 2 gm/ Sodium 54 mls @ 52 mls/hr 01/05/21 10:43 Chloride IV 01/05/21 11:44 ONCE ONE Ibuprofen 600 mg 01/01/21 16:19 Ibuprofen 600 Mg Tab PO Q6H PRN Pain, Mild (1-3) Insulin Human Lispro 0 unit 01/01/21 18:00 01/05/21 06:53 Insulin Lispro 100 Unit/Ml SUB-Q Not Given Q6HR [facility] Protocol Lorazepam 2 mg 01/01/21 12:01 01/04/21 00:25 Lorazepam 2 Mg/Ml Vial IV 2 mg Q1HR PRN Administration CIWA-Ar 8-15 Lorazepam 4 mg 01/01/21 12:01 01/05/21 03:00 Lorazepam 2 Mg/Ml Vial IV 4 mg Q1HR PRN Administration CIWA-Ar 16-25 Lorazepam 4 mg 01/01/21 12:01 01/05/21 09:42 Lorazepam 2 Mg/Ml Vial IV 4 mg Q15MIN PRN Administration CIWA-Ar >25 Morphine Sulfate 2 mg 01/01/21 16:19 Morphine 4 Mg/1 Ml Inj IV Q6H PRN Pain , Severe (7-10) Oxycodone/Acetaminophen 1 tab 01/01/21 16:19 Oxycodone /Acetaminophen 5-325mg Tab PO Q12H PRN Pain, Moderate (4-6) Sodium Chloride 10 ml 01/01/21 22:00 01/05/21 09:42 Sodium Chloride 0.9% 10 Ml Flush Syringe IV 10 ml BID GRACIE Administration Sodium Chloride 10 ml 01/01/21 16:19 Sodium Chloride 0.9% 10 Ml Flush Syringe IV PRN PRN LINE FLUSH
[2021-01-05] MEDS ORDERED: MAGNESIUM SULFATE 2 GM in SODIUM CHLORIDE 0.9% 50 ML IV ONE (12:00)
--- NOTE | 2021-01-05 15:12 | Progress Note ---
Assessment and Plan Alcohol withdrawal with delirium tremens Seizures Acute Pancreatitis Nicotine dependence Dementia DM II Anemia Hypomagnesemia Hypophosphatemia Elevated serum transaminases - started on D5 drip - continue CIWA / EtOH withdrawal protocol - continue fall precautions - continue care as below otherwise; - supplemental oxygen to keep O2 sats > 90% - prn bronchodilators (KATE) with pulm hygiene per RT - avoid nephrotoxins, renally dose all medications - mobility protocols to prevent pressure ulcers - PT/OT as tolerated - Wound care per RN/WCT - accuchecks with glycemic control per SSI for target blood glucose < 180 mg/dL - tobacco & EtOH abstinence strongly counseled at the bedside - home oxygen evaluation at discharge - GI & VTE prophylaxis - Flu & pneumovax per protocol - Pulmonary out patient follow up for PFTs and optimization of respiratory status - prn analgesia per pain score - continue other care per attending / other consultants ... re-evaluate in am & prn Subjective Date of service: 01/05/21 Principal diagnosis: Alcohol withdrawal; Seizures; Acute Pancreatitis; DM II Interval history: Patient is seen today for: Alcohol withdrawal; Seizures; Acute Pancreatitis; DM II; Anemia; Elevated serum transaminases Seen and examined at bedside; 24hour events reviewed; nursing and respiratory care staff consulted; no adverse overnight events reported to me; resting peacefully in bed; no N/V/F/C; still with DT's; + hypoglycemic episode Objective Vital Signs - 12hr 01/05/21 01/05/21 01/05/21 03:30 04:00 04:15 Temperature 98.3 F Pulse Rate 119 H 89 90 Pulse Rate [ 123 H From Monitor] Respiratory 24 15 Rate Blood Pressure 160/81 148/79 O2 Sat by Pulse 94 99 Oximetry 01/05/21 01/05/21 01/05/21 04:30 05:00 05:30 Temperature Pulse Rate 103 H 86 84 Pulse Rate [ From Monitor] Respiratory 16 13 12 Rate Blood Pressure 148/79 153/81 153/81 O2 Sat by Pulse 100 100 100 Oximetry 01/05/21 01/05/21 01/05/21 06:00 06:30 07:00 Temperature Pulse Rate 91 H 109 H Pulse Rate [ From Monitor] Respiratory 13 15 17 Rate Blood Pressure 153/81 156/73 156/73 O2 Sat by Pulse 99 97 86 Oximetry 01/05/21 01/05/21 07:30 08:00 Temperature Pulse Rate 97 H Pulse Rate [ From Monitor] Respiratory 15 13 Rate Blood Pressure 156/83 150/87 O2 Sat by Pulse 100 100 Oximetry Constitutional: no acute distress Eyes: non-icteric ENT: oropharynx moist Neck: supple, no lymphadenopathy, no JVD Effort: mildly labored Ascultation: Bilateral: clear Percussion: Bilateral: not dull Cardiovascular: regular rate and rhythm Gastrointestinal: normoactive bowel sounds, soft, non-tender, non-distended Integumentary: normal Extremities: no cyanosis, no edema, pulses normal, no ischemia or petechiae Neurologic: non-focal exam (grossly), pupils equal and round, motor strength normal and, other (delirious) Psychiatric: other (delirious) CBC and BMP: 01/07/21 11:45 01/09/21 07:08 ABG, PT/INR, D-dimer: PT/INR, D-dimer PT 13.9 Sec. (12.2-14.9) 01/01/21 14:16 INR 1.02 (0.87-1.13) 01/01/21 14:16 Abnormal lab findings: Abnormal Labs 01/01/21 01/01/21 01/01/21 14:16 14:16 14:16 WBC RBC 3.20 L Hgb 9.9 L Hct 29.3 L Plt Count 74 L Lymph % (Auto) [place] % (Auto) 7.9 H Lymph # (Auto) 0.8 L Seg Neutrophils % 78.1 H APTT 24.1 L Sodium 135 L Potassium Chloride 93.1 L BUN 8 L Creatinine 0.6 L Glucose 106 H POC Glucose Phosphorus Magnesium 1.40 L Total Bilirubin 1.40 H Direct Bilirubin 0.4 H AST 230 H ALT 95 H Albumin Lipase Urine WBC (Auto) Salicylates Acetaminophen 01/01/21 01/01/21 01/01/21 14:16 14:16 14:16 WBC RBC Hgb Hct Plt Count Lymph % (Auto) [place] % (Auto) Lymph # (Auto) Seg Neutrophils % APTT Sodium Potassium Chloride BUN Creatinine Glucose POC Glucose Phosphorus Magnesium Total Bilirubin Direct Bilirubin AST ALT Albumin Lipase 279 H Urine WBC (Auto) Salicylates < 0.3 L Acetaminophen 5.0 L 01/01/21 01/01/21 01/02/21 14:16 20:37 07:10 WBC 3.9 L RBC Hgb 11.1 L Hct 32.7 L Plt Count 69 L Lymph % (Auto) 38.0 H [place] % (Auto) Lymph # (Auto) Seg Neutrophils % APTT Sodium Potassium Chloride BUN Creatinine Glucose POC Glucose Phosphorus 2.00 L Magnesium Total Bilirubin Direct Bilirubin AST ALT Albumin Lipase Urine WBC (Auto) 8.0 H Salicylates Acetaminophen 01/02/21 01/02/21 01/02/21 07:10 07:10 11:53 WBC RBC Hgb Hct Plt Count Lymph % (Auto) [place] % (Auto) Lymph # (Auto) Seg Neutrophils % APTT Sodium Potassium 3.3 L D Chloride BUN 4 L Creatinine 0.4 L Glucose POC Glucose 116 H Phosphorus 2.40 L Magnesium Total Bilirubin 1.30 H Direct Bilirubin AST 145 H ALT 73 H Albumin 3.5 L Lipase 213 H Urine WBC (Auto) Salicylates Acetaminophen 01/02/21 01/02/21 01/03/21 17:24 23:26 05:43 WBC RBC Hgb Hct Plt Count Lymph % (Auto) [place] % (Auto) Lymph # (Auto) Seg Neutrophils % APTT Sodium Potassium Chloride BUN 3 L Creatinine 0.4 L Glucose POC Glucose 126 H 108 H Phosphorus 2.20 L Magnesium Total Bilirubin Direct Bilirubin AST ALT Albumin Lipase Urine WBC (Auto) Salicylates Acetaminophen 01/03/21 01/05/21 12:52 04:31 WBC RBC Hgb Hct Plt Count Lymph % (Auto) [place] % (Auto) Lymph # (Auto) Seg Neutrophils % APTT Sodium Potassium Chloride 97.2 L BUN 2 L Creatinine 0.5 L Glucose 73 L POC Glucose 114 H Phosphorus Magnesium 1.00 L Total Bilirubin Direct Bilirubin AST 68 H ALT 59 H Albumin 3.8 L Lipase Urine WBC (Auto) Salicylates Acetaminophen Allied health notes reviewed: nursing
[2021-01-05] MEDS: THIAMINE 100 MG in SODIUM CHLORIDE 0.9% 50 ML IV SCH (15:29)
[2021-01-05] MEDS: D5W/0.9% NACL 1,000 ML IV SCH (20:36)
[2021-01-06] MEDS: HEPARIN 5,000 UNIT/1 ML VIAL SUB-Q SCH ×4 (00:48→22:10)
[2021-01-06] MEDS: INSULIN LISPRO 100 UNIT/ML SUB-Q SCH ×4 (01:05→18:52)
[2021-01-06] MEDS ORDERED: WATER FOR INJ Sterile (PF) 10 ML ONE (01:08)
[2021-01-06] MEDS ORDERED: ZIPRASIDONE MESYLATE 20 MG VIAL IM ONE (01:42)
[2021-01-06] MEDS: chlordiazePOXIDE 25 MG CAP PO SCH ×3 (02:20→18:24)
[2021-01-06] MEDS: LORazepam 2 MG/ML VIAL IV PRN ×3 (05:06→22:09)
[2021-01-06 07:16] LABS: Hematocrit 34.6 % (35.5-45.6); Hemoglobin 11.9 gm/dl (11.8-15.2); Mean Corpuscular HGB Conc 34 % (32-34); Mean Corpuscular Volume 90 fl (84-94); Red Blood Count 3.83 M/mm3 (3.65-5.03); Red Cell Distribution Width 13.5 % (13.2-15.2)
[2021-01-06 07:40] LABS: Blood Urea Nitrogen 2 mg/dL (9-20); Calcium 9.5 mg/dL (8.4-10.2); Hemolysis Index 9
[2021-01-06 07:45] LABS: BUN/Creatinine Ratio 5
[2021-01-06 08:04] LABS: Platelet Count 71 K/mm3 (140-440)
[2021-01-06] MEDS ORDERED: MAGNESIUM SULFATE 2 GM in SODIUM CHLORIDE 0.9% 50 ML IV ONE (08:28)
[2021-01-06] MEDS: ASPIRIN EC 81 MG TAB PO SCH (09:43)
[2021-01-06] MEDS ORDERED: MAGNESIUM SULFATE 2 GM/50 ML BAG IV ONE (10:00)
[2021-01-06] MEDS: POTASSIUM CHLORIDE 10 MEQ 10 MEQ/100 ML BAG IV SCH ×4 (11:58→18:47)
--- NOTE | 2021-01-06 12:24 | Progress Note ---
Assessment and Plan Assessment and plan: 65 YO Male with DM, Nicotine Dependence, ETOH Dependence, HTN, Vascular Dementia, Cerebral Atherosclerosis, Malnutrition presents to ED for evaluation. Patient is confused with diminished cognition at the time of my evaluation is unable to provide history. The patient "had a seizure". EMS was notified and upon arrival the patient was found to be in distress and subsequently transported to [facility] for further care and evaluation of the aforementioned symptoms. The patient was seen and evaluated in the emergency department and was observed to have multiple witnessed seizures. Patient treated with be nzodiazepine therapy with recurrent seizures. Patient found to have alcohol withdrawal syndrome complicated by delirium, acute pancreatitis, malnutrition, hypomagnesemia. Patient admitted to ICU and initiated on Precedex as well as IV fluid resuscitation therapy. Patient treated in accordance with alcohol withdrawal protocol. No further history is obtainable. No reports of fever, chills, chest pain, palpitation, productive cough, skin rash, recent ill contacts, trauma, or known exposure to COVID-19. Prior admission on 02/06/2020 reviewed. All medication listed at time of admission has been reconciled. Advanced care planning conducted in ED. 01/02: Imaging studies including CT head, chest x-ray and cervical spine x-ray reviewed no acute pathology noted. Patient clinically stable for downgrade will start on Librium scheduled and try to wean off Precedex. Will transfer to [facility] at this time. When he is more awake we will do counseling on EtOH cessation. Will give additional magnesium due to hypomagnesemia 01/03: Continue management for EtOH withdrawal patient in DTs at this time. Also having hallucination. Continue CIWA protocol. Replace electrolytes as needed. Patient will continue taking IMCU care since level of CIWA scores is significantly high. 01/04: Discussed with nursing staff there is been documentation of taking oral intake so we will start patient on full liquid diet if his mental status is still precluding him taking p.o. we will tolerate NG tube and start him on some tube feeds. Otherwise continue current management continue thiamine. May start him on a banana bag to ensure adequate nutritional intake all vitamins and anti cipate improvement. We will renew restraints for safety. Repeat magnesium level to see if it has corrected. Also will plan to wean off Precedex and lieu of clonidine for agitation. 01/05: Wean off precedex, improving clinically, will transfer to [facility], continue restraints for Safety, Replace Electrolytes-Magnesium - Hypomagnesiemia. Continue re-orientation. Patient with mild hypoglycemia. Start D5NS at 75cc/hr. Monitor Blood glucose. Also able to start clear liquids as his orientation is improving some. 01/06: Patient still with alcohol induced encephalopathy. Continue current management for delirium tremens. Replace electrolytes including hypomagnesemia and hypokalemia. Reevaluate in a.m. for possible discharge. Rehab placement may be beneficial (1) Alcohol withdrawal delirium tremens Current Visit: Yes Status: Acute Plan to address problem: Alcohol withdrawal protocol, patient treated with Precedex drip, critical care care team consulted, benzodiazepine therapy as clinically indicated, IV fluid resuscitation therapy, (2) Malnutrition Current Visit: Yes Status: Acute Qualifiers: Malnutrition type: protein-calorie malnutrition Plan to address problem: Increase protein intake, dietary supplementation when awake and alert only (3) Pancreatitis Current Visit: Yes Status: Acute Qualifiers: Chronicity: acute Pancreatitis type: alcohol induced Plan to address problem: Lipase level, repeat lipase level in a.m., bowel rest, IV fluid resuscitation therapy, supportive care, pain control. (4) Nicotine dependence Current Visit: Yes Status: Acute Qualifiers: Nicotine product type: cigarettes Substance use status: in withdrawal Qualified Code(s): F17.213 - Nicotine dependence, cigarettes, with withdrawal Plan to address problem: Smoking cessation, supportive care. (5) hypokalemia/hypomagnesemia (6) DVT prophylaxis Current Visit: Yes Status: Acute Plan to address problem: SCD to bilateral lower extremities while in bed, prophylactic anticoagulation (7) Advance care planning Current Visit: Yes Status: Acute Plan to address problem: Disease education conducted, care plan discussed, diagnosis discussed, prognosis discussed, patient acknowledges understanding and agreement with current care plan, +30 minutes. History Interval history: Patient seen and examined this morning remains confused, continues on restraints for safety, some mild improvement. Hospitalist Physical - Physical exam Narrative exam: VITAL SIGNS: Reviewed. GENERAL: The patient appears normally developed, vital signs as documented. HEAD: No signs of head trauma. EYES: Pupils are equal. Extraocular motions intact. EARS: Hearing grossly intact. MOUTH: Oropharynx is normal. NECK: No adenopathy, no JVD. CHEST: Chest with clear breath sounds bilaterally. No wheezes, rales, or rhonchi. CARDIAC: Regular rate and rhythm. S1 and S2, without murmurs, gallops, or rubs. VASCULAR: No Edema. Peripheral pulses normal and equal in all extremities. ABDOMEN: Soft, non tender and non distended. No rebound or guarding, and no masses palpated. Bowel Sounds normal. MUSCULOSKELETAL: Good range of motion of all major joints. Extremities without clubbing, cyanosis or edema. NEUROLOGIC EXAM: Awake, oriented to person only, no focal sensory or strength deficits. Follows some commands confabulating. PSYCHIATRIC: Mood SKIN: Detail exam as documented in skin assessment - Constitutional Vitals: Temp Pulse Resp BP Pulse Ox 98.6 F 91 H 20 161/81 100 01/06/21 05:19 01/06/21 05:19 01/06/21 05:19 01/06/21 05:19 01/06/21 05:19 General appearance: Present: mild distress HEART Score - HEART Score Troponin: Troponin T < 0.010 ng/mL (0.00-0.029) 01/01/21 14:16 Results - Labs CBC & Chem 7: 01/06/21 06:36 01/06/21 06:36 Labs: Laboratory Last Values WBC 6.6 K/mm3 (4.5-11.0) 01/06/21 06:36 RBC 3.83 M/mm3 (3.65-5.03) 01/06/21 06:36 Hgb 11.9 gm/dl (11.8-15.2) 01/06/21 06:36 Hct 34.6 % (35.5-45.6) L 01/06/21 06:36 MCV 90 fl (84-94) 01/06/21 06:36 MCH 31 pg (28-32) 01/06/21 06:36 MCHC 34 % (32-34) 01/06/21 06:36 RDW 13.5 % (13.2-15.2) 01/06/21 06:36 Plt Count 71 K/mm3 (140-440) L 01/06/21 06:36 Lymph % (Auto) 38.0 % (13.4-35.0) H 01/02/21 07:10 [place] % (Auto) 6.3 % (0.0-7.3) 01/02/21 07:10 Eos % (Auto) 1.2 % (0.0-4.3) 01/02/21 07:10 Baso % (Auto) 0.4 % (0.0-1.8) 01/02/21 07:10 Lymph # (Auto) 1.5 K/mm3 (1.2-5.4) 01/02/21 07:10 [place] # (Auto) 0.2 K/mm3 (0.0-0.8) 01/02/21 07:10 Eos # (Auto) 0.0 K/mm3 (0.0-0.4) 01/02/21 07:10 Baso # (Auto) 0.0 K/mm3 (0.0-0.1) 01/02/21 07:10 Seg Neutrophils % 54.1 % (40.0-70.0) 01/02/21 07:10 Seg Neutrophils # 2.1 K/mm3 (1.8-7.7) 01/02/21 07:10 PT 13.9 Sec. (12.2-14.9) 01/01/21 14:16 INR 1.02 (0.87-1.13) 01/01/21 14:16 APTT 24.1 Sec. (24.2-36.6) L 01/01/21 14:16 Sodium 138 mmol/L (137-145) 01/06/21 06:36 Potassium 2.6 mmol/L (3.6-5.0) L* D 01/06/21 06:36 Chloride 98.0 mmol/L (98-107) 01/06/21 06:36 Carbon Dioxide 23 mmol/L (22-30) 01/06/21 06:36 Anion Gap 20 mmol/L 01/06/21 06:36 BUN 2 mg/dL (9-20) L 01/06/21 06:36 Creatinine 0.4 mg/dL (0.8-1.3) L 01/06/21 06:36 Estimated GFR > 60 ml/min 01/06/21 06:36 BUN/Creatinine Ratio 5 % 01/06/21 06:36 Glucose 187 mg/dL (75-100) H 01/06/21 06:36 POC Glucose 157 mg/dL (70-105) H 01/06/21 11:20 Calcium 9.5 mg/dL (8.4-10.2) 01/06/21 06:36 Phosphorus 2.20 mg/dL (2.5-4.5) L 01/03/21 05:43 Magnesium 1.40 mg/dL (1.7-2.3) L 01/06/21 06:36 Total Bilirubin 0.50 mg/dL (0.1-1.2) 01/05/21 04:31 Direct Bilirubin 0.4 mg/dL (0-0.2) H 01/01/21 14:16 Indirect Bilirubin 1.0 mg/dL 01/01/21 14:16 AST 68 units/L (5-40) H 01/05/21 04:31 ALT 59 units/L (7-56) H 01/05/21 04:31 Alkaline Phosphatase 76 units/L (35-129) 01/05/21 04:31 Ammonia 46.0 umol/L (25-60) 01/01/21 14:16 Troponin T < 0.010 ng/mL (0.00-0.029) 01/01/21 14:16 Total Protein 7.7 g/dL (6.3-8.2) 01/05/21 04:31 Albumin 3.8 g/dL (3.9-5) L 01/05/21 04:31 Albumin/Globulin Ratio 1.0 % 01/05/21 04:31 Lipase 213 units/L (13-60) H 01/02/21 07:10 TSH 2.040 mlU/mL (0.270-4.200) 01/01/21 14:16 Urine Color Yellow (Yellow) 01/01/21 20:37 Urine Turbidity Hazy (Clear) 01/01/21 20:37 Urine pH 6.0 (5.0-7.0) 01/01/21 20:37 Ur Specific [place] 1.014 (1.003-1.030) 01/01/21 20:37 Urine Protein 30 mg/dl mg/dL (Negative) 01/01/21 20:37 Urine Glucose (UA) Neg mg/dL (Negative) 01/01/21 20:37 Urine Ketones 80 mg/dL (Negative) 01/01/21 20:37 Urine Blood Sm (Negative) 01/01/21 20:37 Urine Nitrite Neg (Negative) 01/01/21 20:37 Urine Bilirubin Neg (Negative) 01/01/21 20:37 Urine Urobilinogen < 2.0 mg/dL (<2.0) 01/01/21 20:37 Ur Leukocyte Esterase Tr (Negative) 01/01/21 20:37 Urine WBC (Auto) 8.0 /HPF (0.0-6.0) H 01/01/21 20:37 Urine RBC (Auto) 2.0 /HPF (0.0-6.0) 01/01/21 20:37 U Epithel Cells (Auto) 1.0 /HPF (0-13.0) 01/01/21 20:37 Hyaline Casts 1 /LPF 01/01/21 20:37 Urine Mucus Few /HPF 01/01/21 20:37 Salicylates < 0.3 mg/dL (2.8-20.0) L 01/01/21 14:16 Urine Opiates Screen Negative 01/01/21 20:37 Urine Methadone Screen Negative 01/01/21 20:37 Acetaminophen 5.0 ug/mL (10.0-30.0) L 01/01/21 14:16 Ur Barbiturates Screen Negative 01/01/21 20:37 Ur Phencyclidine Scrn Negative 01/01/21 20:37 Ur Amphetamines Screen Negative 01/01/21 20:37 U Benzodiazepines Scrn Positive 01/01/21 20:37 Urine Cocaine Screen Negative 01/01/21 20:37 U Marijuana (THC) Screen Negative 01/01/21 20:37 Drugs of Abuse Note Disclamer 01/01/21 20:37 Plasma/Serum Alcohol < 0.01 % (0-0.07) 01/01/21 16:10 Russell/IV: Voiding Method Condom Catheter Active Medications - Current Medications Current Medications: Generic Name Dose Route Start Last Admin Trade Name Freq PRN Reason Stop Dose Admin Albuterol 2.5 mg 01/01/21 16:19 Albuterol 2.5 Mg/3 Ml Nebu IH Q3HRT PRN Shortness Of Breath Aspirin 81 mg 01/02/21 10:00 01/06/21 09:43 Aspirin Ec 81 Mg Tab PO 81 mg DAILY GRACIE Administration Chlordiazepoxide HCl 25 mg 01/02/21 10:00 01/06/21 10:00 Chlordiazepoxide 25 Mg Cap PO Not Given Q8H GRACIE Clonidine HCl 0.1 mg 01/04/21 10:00 01/04/21 11:55 Clonidine 0.1 Mg Tab PO 0.1 mg Q4HR PRN Administration Agitation Dextrose 50 ml 01/01/21 16:33 Dextrose 50% In Water (25gm) 50 Ml Syringe IV Q30MIN PRN Hypoglycemia Protocol Heparin Sodium (Porcine) 5,000 unit 01/01/21 22:00 01/06/21 09:43 Heparin 5,000 Unit/1 Ml Vial SUB-Q 5,000 unit Q12HR GRACIE Administration Hydralazine HCl 10 mg 01/01/21 16:31 01/06/21 05:23 Hydralazine 20 Mg/1 Ml Inj IV 10 mg Q6HR PRN Administration Hypertension Dextrose/Sodium Chloride 1,000 mls @ 75 mls/hr 01/05/21 11:00 01/05/21 20:36 D5ns IV 75 mls/hr DIRECT GRACIE Administration Potassium Chloride 10 meq in 100 mls @ 100 mls/hr 01/06/21 10:00 01/06/21 11:58 Kcl 10meq/100ml IV 01/06/21 13:59 100 mls/hr Q1H GRACIE Administration Ibuprofen 600 mg 01/01/21 16:19 Ibuprofen 600 Mg Tab PO Q6H PRN Pain, Mild (1-3) Insulin Human Lispro 0 unit 01/01/21 18:00 01/06/21 12:05 Insulin Lispro 100 Unit/Ml SUB-Q Not Given Q6HR GRACIE Protocol Lorazepam 2 mg 01/01/21 12:01 01/06/21 05:06 Lorazepam 2 Mg/Ml Vial IV 2 mg Q1HR PRN Administration CIWA-Ar 8-15 Lorazepam 4 mg 01/01/21 12:01 01/05/21 22:46 Lorazepam 2 Mg/Ml Vial IV 4 mg Q1HR PRN Administration CIWA-Ar 16-25 Lorazepam 4 mg 01/01/21 12:01 01/05/21 09:42 Lorazepam 2 Mg/Ml Vial IV 4 mg Q15MIN PRN Administration CIWA-Ar >25 Morphine Sulfate 2 mg 01/01/21 16:19 Morphine 4 Mg/1 Ml Inj IV Q6H PRN Pain , Severe (7-10) Oxycodone/Acetaminophen 1 tab 01/01/21 16:19 Oxycodone /Acetaminophen 5-325mg Tab PO Q12H PRN Pain, Moderate (4-6) Sodium Chloride 10 ml 01/01/21 22:00 01/06/21 09:44 Sodium Chloride 0.9% 10 Ml Flush Syringe IV 10 ml BID GRACIE Administration Sodium Chloride 10 ml 01/01/21 16:19 Sodium Chloride 0.9% 10 Ml Flush Syringe IV PRN PRN LINE FLUSH
--- NOTE | 2021-01-06 14:53 | Progress Note ---
Assessment and Plan 65 YO Male with DM, Nicotine Dependence, ETOH Dependence, HTN, Vascular Dementia, Cerebral Atherosclerosis, Malnutrition presents to ED for evaluation. Patient is confused with diminished cognition at the time of my evaluation is unable to provide history. The patient "had a seizure". EMS was notified and upon arrival the patient was found to be in distress and subsequently transported to [facility] for further care and evaluation of the aforementioned symptoms. The patient was seen and evaluated in the emergency department and was observed to have multiple witnessed seizures. Patient treated with benzodiazepine therapy with recurrent seizures. Patient found to have alcohol withdrawal syndrome complicated by delirium, acute pancreatitis, malnutrition, hypomagnesemia. Patient admitted to ICU and initiated on Precedex as well as IV fluid resuscitation therapy. Patient treated in accordance with alcohol withdrawal protocol. No further history is obtainable. No reports of fever, chills, chest pain, palpitation, productive cough, skin rash, recent ill contacts, trauma, or known exposure to COVID-19. Prior admission on 02/06/2020. Patient presently sleeping. Not responding to verbal stimuli. On 1 litres O2. O2 saturation 96%. Patient weak. No acute respiratory distress. Patient afebrile. No leukocytosis. Chest xray done 01/01/21 reported No acute findings. Patient is on Albuterol inhaler and S/C Heparin. - Patient Problems (1) Alcohol withdrawal seizure with delirium Current Visit: Yes Status: Acute Plan to address problem: Management as per primary care and neurology. (2) Hypomagnesemia Current Visit: Yes Status: Acute Plan to address problem: Supplemented magnesium. Recheck magnesium level. (3) Nicotine dependence Current Visit: Yes Status: Acute Qualifiers: Nicotine product type: cigarettes Substance use status: in withdrawal Qualified Code(s): F17.213 - Nicotine dependence, cigarettes, with withdrawal Plan to address problem: Counseled to stop smoking. (4) Pancreatitis Current Visit: Yes Status: Acute Qualifiers: Chronicity: acute Pancreatitis type: alcohol induced Plan to address problem: Management as primary care. (5) CVA (cerebral vascular accident) Current Visit: No Status: Acute Plan to address problem: Management as per neurology. (6) Syncope Current Visit: No Status: Acute Plan to address problem: Management as per neulogy. 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 (8) Hypertension Current Visit: No Status: Chronic Plan to address problem: Management as per primary care. (9) Hypokalemia Current Visit: Yes Status: Acute Plan to address problem: Supplemented K+. Repeat K+ level. Subjective Date of service: 01/06/21 Principal diagnosis: Alcohol withdrawal; Seizures; Acute Pancreatitis; DM II Interval history: 65 YO Male with DM, Nicotine Dependence, ETOH Dependence, HTN, Vascular Dementia, Cerebral Atherosclerosis, Malnutrition presents to ED for evaluation. Patient is confused with diminished cognition at the time of my evaluation is unable to provide history. The patient "had a seizure". EMS was notified and upon arrival the patient was found to be in distress and subsequently transported to [facility] for further care and evaluation of the aforementioned symptoms. The patient was seen and evaluated in the emergency department and was observed to have multiple witnessed seizures. Patient treated with benzodiazepine therapy with recurrent seizures. Patient found to have alcohol withdrawal syndrome complicated by delirium, acute pancreatitis, malnutrition, hypomagnesemia. Patient admitted to ICU and initiated on Precedex as well as IV fluid resuscitation therapy. Patient treated in accordance with alcohol withdrawal protocol. No further history is obtainable. No reports of fever, chills, chest pain, palpitation, productive cough, skin rash, recent ill contacts, trauma, or known exposure to COVID-19. Prior admission on 02/06/2020. Patient presently sleeping. Not responding to verbal stimuli. On 1 litres O2. O2 saturation 96%. Patient weak. No acute respiratory distress. Patient afebrile. No leukocytosis. Chest xray done 01/01/21 reported No acute findings. Patient is on Albuterol inhaler and S/C Heparin. Objective Vital Signs - 12hr 01/06/21 05:19 Temperature 98.6 F Pulse Rate 91 H Respiratory 20 Rate Blood Pressure 161/81 O2 Sat by Pulse 100 Oximetry Constitutional: no acute distress, asleep Eyes: non-icteric ENT: oropharynx moist Neck: supple, no lymphadenopathy, no JVD Effort: mildly labored Ascultation: Bilateral: diminished breath sounds Percussion: Bilateral: not dull Cardiovascular: regular rate and rhythm Gastrointestinal: normoactive bowel sounds, soft, non-tender, non-distended Integumentary: normal Extremities: no cyanosis, no edema, pulses normal, no ischemia or petechiae Neurologic: non-focal exam (grossly), pupils equal and round, motor strength normal and, other (delirious) Psychiatric: other (delirious) CBC and BMP: 01/06/21 06:36 01/06/21 06:36 ABG, PT/INR, D-dimer: PT/INR, D-dimer PT 13.9 Sec. (12.2-14.9) 01/01/21 14:16 INR 1.02 (0.87-1.13) 01/01/21 14:16 Abnormal lab findings: Abnormal Labs 01/01/21 01/01/21 01/01/21 14:16 14:16 14:16 WBC RBC 3.20 L Hgb 9.9 L Hct 29.3 L Plt Count 74 L Lymph % (Auto) [place] % (Auto) 7.9 H Lymph # (Auto) 0.8 L Seg Neutrophils % 78.1 H APTT 24.1 L Sodium 135 L Potassium Chloride 93.1 L BUN 8 L Creatinine 0.6 L Glucose 106 H POC Glucose Phosphorus Magnesium 1.40 L Total Bilirubin 1.40 H Direct Bilirubin 0.4 H AST 230 H ALT 95 H Albumin Lipase Urine WBC (Auto) Salicylates Acetaminophen 01/01/21 01/01/21 01/01/21 14:16 14:16 14:16 WBC RBC Hgb Hct Plt Count Lymph % (Auto) [place] % (Auto) Lymph # (Auto) Seg Neutrophils % APTT Sodium Potassium Chloride BUN Creatinine Glucose POC Glucose Phosphorus Magnesium Total Bilirubin Direct Bilirubin AST ALT Albumin Lipase 279 H Urine WBC (Auto) Salicylates < 0.3 L Acetaminophen 5.0 L 01/01/21 01/01/21 01/02/21 14:16 20:37 07:10 WBC 3.9 L RBC Hgb 11.1 L Hct 32.7 L Plt Count 69 L Lymph % (Auto) 38.0 H [place] % (Auto) Lymph # (Auto) Seg Neutrophils % APTT Sodium Potassium Chloride BUN Creatinine Glucose POC Glucose Phosphorus 2.00 L Magnesium Total Bilirubin Direct Bilirubin AST ALT Albumin Lipase Urine WBC (Auto) 8.0 H Salicylates Acetaminophen 01/02/21 01/02/21 01/02/21 07:10 07:10 11:53 WBC RBC Hgb Hct Plt Count Lymph % (Auto) [place] % (Auto) Lymph # (Auto) Seg Neutrophils % APTT Sodium Potassium 3.3 L D Chloride BUN 4 L Creatinine 0.4 L Glucose POC Glucose 116 H Phosphorus 2.40 L Magnesium Total Bilirubin 1.30 H Direct Bilirubin AST 145 H ALT 73 H Albumin 3.5 L Lipase 213 H Urine WBC (Auto) Salicylates Acetaminophen 01/02/21 01/02/21 01/03/21 17:24 23:26 05:43 WBC RBC Hgb Hct Plt Count Lymph % (Auto) [place] % (Auto) Lymph # (Auto) Seg Neutrophils % APTT Sodium Potassium Chloride BUN 3 L Creatinine 0.4 L Glucose POC Glucose 126 H 108 H Phosphorus 2.20 L Magnesium Total Bilirubin Direct Bilirubin AST ALT Albumin Lipase Urine WBC (Auto) Salicylates Acetaminophen 01/03/21 01/05/21 01/05/21 12:52 04:31 17:48 WBC RBC Hgb Hct Plt Count Lymph % (Auto) [place] % (Auto) Lymph # (Auto) Seg Neutrophils % APTT Sodium Potassium Chloride 97.2 L BUN 2 L Creatinine 0.5 L Glucose 73 L POC Glucose 114 H 141 H Phosphorus Magnesium 1.00 L Total Bilirubin Direct Bilirubin AST 68 H ALT 59 H Albumin 3.8 L Lipase Urine WBC (Auto) Salicylates Acetaminophen 01/05/21 01/06/21 01/06/21 21:25 05:30 06:36 WBC RBC Hgb Hct 34.6 L Plt Count 71 L Lymph % (Auto) [place] % (Auto) Lymph # (Auto) Seg Neutrophils % APTT Sodium Potassium Chloride BUN Creatinine Glucose POC Glucose 108 H 188 H Phosphorus Magnesium Total Bilirubin Direct Bilirubin AST ALT Albumin Lipase Urine WBC (Auto) Salicylates Acetaminophen 01/06/21 01/06/21 06:36 11:20 WBC RBC Hgb Hct Plt Count Lymph % (Auto) [place] % (Auto) Lymph # (Auto) Seg Neutrophils % APTT Sodium Potassium 2.6 L* D Chloride BUN 2 L Creatinine 0.4 L Glucose 187 H POC Glucose 157 H Phosphorus Magnesium 1.40 L Total Bilirubin Direct Bilirubin AST ALT Albumin Lipase Urine WBC (Auto) Salicylates Acetaminophen Chest x-ray: report reviewed, image reviewed Additional Studies: CHEST 1 VIEW 01/01/2021 12:31 PM INDICATION / CLINICAL INFORMATION: Seizure. COMPARISON: None available. FINDINGS: SUPPORT DEVICES: None. HEART / MEDIASTINUM: The heart size and pulmonary vasculature are normal. LUNGS / PLEURA: No significant pulmonary or pleural abnormality. No pneumothorax. ADDITIONAL FINDINGS: No significant additional findings. IMPRESSION: No acute findings. Allied health notes reviewed: nursing
[2021-01-06] MEDS: D5W/0.9% NACL 1,000 ML IV SCH (18:48)
[2021-01-07] MEDS: INSULIN LISPRO 100 UNIT/ML SUB-Q SCH ×4 (03:02→18:24)
[2021-01-07] MEDS: chlordiazePOXIDE 25 MG CAP PO SCH ×3 (03:02→18:12)
--- NOTE | 2021-01-07 09:00 | Progress Note ---
Assessment and Plan Assessment and plan: 65 YO Male with DM, Nicotine Dependence, ETOH Dependence, HTN, Vascular Dementia, Cerebral Atherosclerosis, Malnutrition presents to ED for evaluation. Patient is confused with diminished cognition at the time of my evaluation is unable to provide history. The patient "had a seizure". EMS was notified and upon arrival the patient was found to be in distress and subsequently transported to [facility] for further care and evaluation of the aforementioned symptoms. The patient was seen and evaluated in the emergency department and was observed to have multiple witnessed seizures. Patient treated with b enzodiazepine therapy with recurrent seizures. Patient found to have alcohol withdrawal syndrome complicated by delirium, acute pancreatitis, malnutrition, hypomagnesemia. Patient admitted to ICU and initiated on Precedex as well as IV fluid resuscitation therapy. Patient treated in accordance with alcohol withdrawal protocol. No further history is obtainable. No reports of fever, chills, chest pain, palpitation, productive cough, skin rash, recent ill contacts, trauma, or known exposure to COVID-19. Prior admission on 02/06/2020 reviewed. All medication listed at time of admission has been reconciled. Advanced care planning conducted in ED. 01/02: Imaging studies including CT head, chest x-ray and cervical spine x-ray reviewed no acute pathology noted. Patient clinically stable for downgrade will start on Librium scheduled and try to wean off Precedex. Will transfer to [facility] at this time. When he is more awake we will do counseling on EtOH cessation. Will give additional magnesium due to hypomagnesemia 01/03: Continue management for EtOH withdrawal patient in DTs at this time. Also having hallucination. Continue CIWA protocol. Replace electrolytes as needed. Patient will continue taking IMCU care since level of CIWA scores is significantly high. 01/04: Discussed with nursing staff there is been documentation of taking oral intake so we will start patient on full liquid diet if his mental status is still precluding him taking p.o. we will tolerate NG tube and start him on some tube feeds. Otherwise continue current management continue thiamine. May start him on a banana bag to ensure adequate nutritional intake all vitamins and ant icipate improvement. We will renew restraints for safety. Repeat magnesium level to see if it has corrected. Also will plan to wean off Precedex and lieu of clonidine for agitation. 01/05: Wean off precedex, improving clinically, will transfer to [facility], continue restraints for Safety, Replace Electrolytes-Magnesium - Hypomagnesiemia. Continue re-orientation. Patient with mild hypoglycemia. Start D5NS at 75cc/hr. Monitor Blood glucose. Also able to start clear liquids as his orientation is improving some. 01/06: Patient still with alcohol induced encephalopathy. Continue current management for delirium tremens. Replace electrolytes including hypomagnesemia and hypokalemia. Reevaluate in a.m. for possible discharge. Rehab placement may be beneficial 01/07; patient was on restraints this morning. Patient was somnolent but was able to state his name and the year, his potassium was corrected this morning. We will continue inpatient care. (1) Alcohol withdrawal delirium tremens Current Visit: Yes Status: Acute Plan to address problem: Alcohol withdrawal protocol, patient treated with Precedex drip, critical care care team consulted, benzodiazepine therapy as clinically indicated, IV fluid resuscitation therapy, (2) Malnutrition Current Visit: Yes Status: Acute Qualifiers: Malnutrition type: protein-calorie malnutrition Plan to address problem: Increase protein intake, dietary supplementation when awake and alert only (3) Pancreatitis Current Visit: Yes Status: Acute Qualifiers: Chronicity: acute Pancreatitis type: alcohol induced Plan to address problem: Lipase level, repeat lipase level in a.m., bowel rest, IV fluid resuscitation therapy, supportive care, pain control. (4) Nicotine dependence Current Visit: Yes Status: Acute Qualifiers: Nicotine product type: cigarettes Substance use status: in withdrawal Qualified Code(s): F17.213 - Nicotine dependence, cigarettes, with withdrawal Plan to address problem: Smoking cessation, supportive care. (5) hypokalemia/hypomagnesemia (6) DVT prophylaxis Current Visit: Yes Status: Acute Plan to address problem: SCD to bilateral lower extremities while in bed, prophylactic anticoagulation (7) Advance care planning Current Visit: Yes Status: Acute Plan to address problem: Disease education conducted, care plan discussed, diagnosis discussed, prognosis discussed, patient acknowledges understanding and agreement with current care plan, +30 minutes. History Interval history: Patient was seen and evaluated this morning Patient was somnolent, but was able to wake up and answer simple questions Follow simple commands On restraints Hospitalist Physical - Physical exam Narrative exam: Not in cardiopulmonary distress. The patient appeared well nourished and normally developed. Vital signs as documented. Head exam is unremarkable. No scleral icterus . Neck is without jugular venous distension, thyromegaly, or carotid bruits. Lungs are clear to auscultation. Cardiac exam reveals regular rate and Rhythm. Abdominal exam reveals normal bowel sounds, nontender, no organomegaly. Extremities are nonedematous and both femoral and pedal pulses are normal. 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 When I awake he was oriented to self and able to say the year. His speech was abnormal. - Constitutional Vitals: Temp Pulse Resp BP Pulse Ox 97.9 F 93 H 18 116/70 98 01/07/21 04:50 01/07/21 04:50 01/07/21 04:50 01/07/21 04:50 01/07/21 04:50 General appearance: Present: mild distress HEART Score - HEART Score Troponin: Troponin T < 0.010 ng/mL (0.00-0.029) 01/01/21 14:16 Results - Labs CBC & Chem 7: 01/07/21 11:45 01/07/21 11:45 Labs: Laboratory Last Values WBC 6.6 K/mm3 (4.5-11.0) 01/06/21 06:36 RBC 3.83 M/mm3 (3.65-5.03) 01/06/21 06:36 Hgb 11.9 gm/dl (11.8-15.2) 01/06/21 06:36 Hct 34.6 % (35.5-45.6) L 01/06/21 06:36 MCV 90 fl (84-94) 01/06/21 06:36 MCH 31 pg (28-32) 01/06/21 06:36 MCHC 34 % (32-34) 01/06/21 06:36 RDW 13.5 % (13.2-15.2) 01/06/21 06:36 Plt Count 71 K/mm3 (140-440) L 01/06/21 06:36 Lymph % (Auto) 38.0 % (13.4-35.0) H 01/02/21 07:10 O'Brien % (Auto) 6.3 % (0.0-7.3) 01/02/21 07:10 Eos % (Auto) 1.2 % (0.0-4.3) 01/02/21 07:10 Baso % (Auto) 0.4 % (0.0-1.8) 01/02/21 07:10 Lymph # (Auto) 1.5 K/mm3 (1.2-5.4) 01/02/21 07:10 O'Brien # (Auto) 0.2 K/mm3 (0.0-0.8) 01/02/21 07:10 Eos # (Auto) 0.0 K/mm3 (0.0-0.4) 01/02/21 07:10 Baso # (Auto) 0.0 K/mm3 (0.0-0.1) 01/02/21 07:10 Seg Neutrophils % 54.1 % (40.0-70.0) 01/02/21 07:10 Seg Neutrophils # 2.1 K/mm3 (1.8-7.7) 01/02/21 07:10 PT 13.9 Sec. (12.2-14.9) 01/01/21 14:16 INR 1.02 (0.87-1.13) 01/01/21 14:16 APTT 24.1 Sec. (24.2-36.6) L 01/01/21 14:16 Sodium 138 mmol/L (137-145) 01/06/21 06:36 Potassium 2.6 mmol/L (3.6-5.0) L* D 01/06/21 06:36 Chloride 98.0 mmol/L (98-107) 01/06/21 06:36 Carbon Dioxide 23 mmol/L (22-30) 01/06/21 06:36 Anion Gap 20 mmol/L 01/06/21 06:36 BUN 2 mg/dL (9-20) L 01/06/21 06:36 Creatinine 0.4 mg/dL (0.8-1.3) L 01/06/21 06:36 Estimated GFR > 60 ml/min 01/06/21 06:36 BUN/Creatinine Ratio 5 % 01/06/21 06:36 Glucose 187 mg/dL (75-100) H 01/06/21 06:36 POC Glucose 152 mg/dL (70-105) H 01/07/21 06:07 Calcium 9.5 mg/dL (8.4-10.2) 01/06/21 06:36 Phosphorus 2.20 mg/dL (2.5-4.5) L 01/03/21 05:43 Magnesium 1.40 mg/dL (1.7-2.3) L 01/06/21 06:36 Total Bilirubin 0.50 mg/dL (0.1-1.2) 01/05/21 04:31 Direct Bilirubin 0.4 mg/dL (0-0.2) H 01/01/21 14:16 Indirect Bilirubin 1.0 mg/dL 01/01/21 14:16 AST 68 units/L (5-40) H 01/05/21 04:31 ALT 59 units/L (7-56) H 01/05/21 04:31 Alkaline Phosphatase 76 units/L (35-129) 01/05/21 04:31 Ammonia 46.0 umol/L (25-60) 01/01/21 14:16 Troponin T < 0.010 ng/mL (0.00-0.029) 01/01/21 14:16 Total Protein 7.7 g/dL (6.3-8.2) 01/05/21 04:31 Albumin 3.8 g/dL (3.9-5) L 01/05/21 04:31 Albumin/Globulin Ratio 1.0 % 01/05/21 04:31 Lipase 213 units/L (13-60) H 01/02/21 07:10 TSH 2.040 mlU/mL (0.270-4.200) 01/01/21 14:16 Urine Color Yellow (Yellow) 01/01/21 20:37 Urine Turbidity Hazy (Clear) 01/01/21 20:37 Urine pH 6.0 (5.0-7.0) 01/01/21 20:37 Ur Specific [place] 1.014 (1.003-1.030) 01/01/21 20:37 Urine Protein 30 mg/dl mg/dL (Negative) 01/01/21 20:37 Urine Glucose (UA) Neg mg/dL (Negative) 01/01/21 20:37 Urine Ketones 80 mg/dL (Negative) 01/01/21 20:37 Urine Blood Sm (Negative) 01/01/21 20:37 Urine Nitrite Neg (Negative) 01/01/21 20:37 Urine Bilirubin Neg (Negative) 01/01/21 20:37 Urine Urobilinogen < 2.0 mg/dL (<2.0) 01/01/21 20:37 Ur Leukocyte Esterase Tr (Negative) 01/01/21 20:37 Urine WBC (Auto) 8.0 /HPF (0.0-6.0) H 01/01/21 20:37 Urine RBC (Auto) 2.0 /HPF (0.0-6.0) 01/01/21 20:37 U Epithel Cells (Auto) 1.0 /HPF (0-13.0) 01/01/21 20:37 Hyaline Casts 1 /LPF 01/01/21 20:37 Urine Mucus Few /HPF 01/01/21 20:37 Salicylates < 0.3 mg/dL (2.8-20.0) L 01/01/21 14:16 Urine Opiates Screen Negative 01/01/21 20:37 Urine Methadone Screen Negative 01/01/21 20:37 Acetaminophen 5.0 ug/mL (10.0-30.0) L 01/01/21 14:16 Ur Barbiturates Screen Negative 01/01/21 20:37 Ur Phencyclidine Scrn Negative 01/01/21 20:37 Ur Amphetamines Screen Negative 01/01/21 20:37 U Benzodiazepines Scrn Positive 01/01/21 20:37 Urine Cocaine Screen Negative 01/01/21 20:37 U Marijuana (THC) Screen Negative 01/01/21 20:37 Drugs of Abuse Note Disclamer 01/01/21 20:37 Plasma/Serum Alcohol < 0.01 % (0-0.07) 01/01/21 16:10 Russell/IV: Voiding Method Condom Catheter Active Medications - Current Medications Current Medications: Generic Name Dose Route Start Last Admin Trade Name Freq PRN Reason Stop Dose Admin Albuterol 2.5 mg 01/01/21 16:19 Albuterol 2.5 Mg/3 Ml Nebu IH Q3HRT PRN Shortness Of Breath Aspirin 81 mg 01/02/21 10:00 01/06/21 09:43 Aspirin Ec 81 Mg Tab PO 81 mg DAILY GRACIE Administration Chlordiazepoxide HCl 25 mg 01/02/21 10:00 01/07/21 03:02 Chlordiazepoxide 25 Mg Cap PO Not Given Q8H GRACIE Clonidine HCl 0.1 mg 01/04/21 10:00 01/04/21 11:55 Clonidine 0.1 Mg Tab PO 0.1 mg Q4HR PRN Administration Agitation Dextrose 50 ml 01/01/21 16:33 Dextrose 50% In Water (25gm) 50 Ml Syringe IV Q30MIN PRN Hypoglycemia Protocol Heparin Sodium (Porcine) 5,000 unit 01/01/21 22:00 01/06/21 22:10 Heparin 5,000 Unit/1 Ml Vial SUB-Q 5,000 unit Q12HR GRACIE Administration Hydralazine HCl 10 mg 01/01/21 16:31 01/06/21 05:23 Hydralazine 20 Mg/1 Ml Inj IV 10 mg Q6HR PRN Administration Hypertension Dextrose/Sodium Chloride 1,000 mls @ 75 mls/hr 01/05/21 11:00 01/06/21 18:48 D5ns IV 75 mls/hr DIRECT GRACIE Administration Ibuprofen 600 mg 01/01/21 16:19 Ibuprofen 600 Mg Tab PO Q6H PRN Pain, Mild (1-3) Insulin Human Lispro 0 unit 01/01/21 18:00 01/07/21 06:35 Insulin Lispro 100 Unit/Ml SUB-Q 2 unit Q6HR GRACIE Administration Protocol Lorazepam 2 mg 01/01/21 12:01 01/06/21 19:52 Lorazepam 2 Mg/Ml Vial IV 2 mg Q1HR PRN Administration CIWA-Ar 8-15 Lorazepam 4 mg 01/01/21 12:01 01/06/21 22:09 Lorazepam 2 Mg/Ml Vial IV 4 mg Q1HR PRN Administration CIWA-Ar 16-25 Lorazepam 4 mg 01/01/21 12:01 01/05/21 09:42 Lorazepam 2 Mg/Ml Vial IV 4 mg Q15MIN PRN Administration CIWA-Ar >25 Morphine Sulfate 2 mg 01/01/21 16:19 Morphine 4 Mg/1 Ml Inj IV Q6H PRN Pain , Severe (7-10) Oxycodone/Acetaminophen 1 tab 01/01/21 16:19 Oxycodone /Acetaminophen 5-325mg Tab PO Q12H PRN Pain, Moderate (4-6) Sodium Chloride 10 ml 01/01/21 22:00 01/06/21 22:10 Sodium Chloride 0.9% 10 Ml Flush Syringe IV 10 ml BID GRACIE Administration Sodium Chloride 10 ml 01/01/21 16:19 Sodium Chloride 0.9% 10 Ml Flush Syringe IV PRN PRN LINE FLUSH
[2021-01-07] MEDS: ASPIRIN EC 81 MG TAB PO SCH (10:05)
[2021-01-07] MEDS: HEPARIN 5,000 UNIT/1 ML VIAL SUB-Q SCH (10:05)
--- NOTE | 2021-01-07 12:09 | Progress Note ---
Assessment and Plan 65 YO Male with DM, Nicotine Dependence, ETOH Dependence, HTN, Vascular Dementia, Cerebral Atherosclerosis, Malnutrition presents to ED for evaluation. Patient is confused with diminished cognition at the time of my evaluation is unable to provide history. The patient "had a seizure". EMS was notified and upon arrival the patient was found to be in distress and subsequently transported to [facility] for further care and evaluation of the aforementioned symptoms. The patient was seen and evaluated in the emergency department and was observed to have multiple witnessed seizures. Patient treated with benzodiazepine therapy with recurrent seizures. Patient found to have alcohol withdrawal syndrome complicated by delirium, acute pancreatitis, malnutrition, hypomagnesemia. Patient admitted to ICU and initiated on Precedex as well as IV fluid resuscitation therapy. Patient treated in accordance with alcohol withdrawal protocol. No further history is obtainable. No reports of fever, chills, chest pain, palpitation, productive cough, skin rash, recent ill contacts, trauma, or known exposure to COVID-19. Prior admission on 02/06/2020. Patient presently sleeping.Loud snoring. Not responding to verbal stimuli. On 2 litres O2. O2 saturation 100%. Patient weak. No acute respiratory distress. Patient afebrile. No leukocytosis. Chest xray done 01/01/21 reported No acute findings. Patient is on Albuterol inhaler and S/C Heparin. - Patient Problems (1) Alcohol withdrawal seizure with delirium Current Visit: Yes Status: Acute Plan to address problem: Management as per primary care and neurology. (2) Hypomagnesemia Current Visit: Yes Status: Acute Plan to address problem: Magnesium level 1.4. Supplementing magnesium. (3) Nicotine dependence Current Visit: Yes Status: Acute Qualifiers: Nicotine product type: cigarettes Substance use status: in withdrawal Qualified Code(s): F17.213 - Nicotine dependence, cigarettes, with withdrawal Plan to address problem: Counseled to stop smoking. (4) Pancreatitis Current Visit: Yes Status: Acute Qualifiers: Chronicity: acute Pancreatitis type: alcohol induced Plan to address problem: Management as primary care. (5) CVA (cerebral vascular accident) Current Visit: No Status: Acute Plan to address problem: Management as per neurology. (6) Syncope Current Visit: No Status: Acute Plan to address problem: Management as per neulogy. (7) Diabetes Current Visit: No Status: Chronic Qualifiers: Diabetes mellitus type: type 2 Diabetes mellitus half-way insulin use: without half-way use Diabetes mellitus complication status: with hyperglycemia Qualified Code(s): E11.65 - Type 2 diabetes mellitus with hyperglycemia Plan to address problem: Management as per primary care. (8) Hypertension Current Visit: No Status: Chronic Plan to address problem: Management as per primary care. (9) Hypokalemia Current Visit: Yes Status: Acute Plan to address problem: Supplemented K+. Repeat K+ level 3.6. Subjective Date of service: 01/07/21 Principal diagnosis: Alcohol withdrawal; Seizures; Acute Pancreatitis; DM II Interval history: 65 YO Male with DM, Nicotine Dependence, ETOH Dependence, HTN, Vascular Dementia, Cerebral Atherosclerosis, Malnutrition presents to ED for evaluation. Patient is confused with diminished cognition at the time of my evaluation is unable to provide history. The patient "had a seizure". EMS was notified and upon arrival the patient was found to be in distress and subsequently transported to [facility] for further care and evaluation of the aforementioned symptoms. The patient was seen and evaluated in the emergency department and was observed to have multiple witnessed seizures. Patient treated with benzodiazepine therapy with recurrent seizures. Patient found to have alcohol withdrawal syndrome complicated by delirium, acute pancreatitis, malnutrition, hypomagnesemia. Patient admitted to ICU and initiated on Precedex as well as IV fluid resuscitation therapy. Patient treated in accordance with alcohol withdrawal protocol. No further history is obtainable. No reports of fever, chills, chest pain, palpitation, productive cough, skin rash, recent ill contacts, trauma, or known exposure to COVID-19. Prior admission on 02/06/2020. Patient presently sleeping.Loud snoring. Not responding to verbal stimuli. On 2 litres O2. O2 saturation 100%. Patient weak. No acute respiratory distress. Patient afebrile. No leukocytosis. Chest xray done 01/01/21 reported No acute findings. Patient is on Albuterol inhaler and S/C Heparin. Objective Vital Signs - 12hr 01/07/21 04:50 Temperature 97.9 F Pulse Rate 93 H Respiratory 18 Rate Blood Pressure 116/70 O2 Sat by Pulse 98 Oximetry Constitutional: no acute distress, asleep Eyes: non-icteric ENT: oropharynx moist Neck: supple, no lymphadenopathy, no JVD Effort: mildly labored Ascultation: Bilateral: diminished breath sounds Percussion: Bilateral: not dull Cardiovascular: regular rate and rhythm Gastrointestinal: normoactive bowel sounds, soft, non-tender, non-distended Integumentary: normal Extremities: no cyanosis, no edema, pulses normal, no ischemia or petechiae Neurologic: non-focal exam (grossly), pupils equal and round, motor strength normal and, other (delirious) Psychiatric: other (delirious) CBC and BMP: 01/07/21 11:45 01/08/21 07:10 ABG, PT/INR, D-dimer: PT/INR, D-dimer PT 13.9 Sec. (12.2-14.9) 01/01/21 14:16 INR 1.02 (0.87-1.13) 01/01/21 14:16 Abnormal lab findings: Abnormal Labs 01/01/21 01/01/21 01/01/21 14:16 14:16 14:16 WBC RBC 3.20 L Hgb 9.9 L Hct 29.3 L Plt Count 74 L Lymph % (Auto) Harris % (Auto) 7.9 H Lymph # (Auto) 0.8 L Seg Neutrophils % 78.1 H APTT 24.1 L Sodium 135 L Potassium Chloride 93.1 L BUN 8 L Creatinine 0.6 L Glucose 106 H POC Glucose Phosphorus Magnesium 1.40 L Total Bilirubin 1.40 H Direct Bilirubin 0.4 H AST 230 H ALT 95 H Albumin Lipase Urine WBC (Auto) Salicylates Acetaminophen 01/01/21 01/01/21 01/01/21 14:16 14:16 14:16 WBC RBC Hgb Hct Plt Count Lymph % (Auto) Harris % (Auto) Lymph # (Auto) Seg Neutrophils % APTT Sodium Potassium Chloride BUN Creatinine Glucose POC Glucose Phosphorus Magnesium Total Bilirubin Direct Bilirubin AST ALT Albumin Lipase 279 H Urine WBC (Auto) Salicylates < 0.3 L Acetaminophen 5.0 L 01/01/21 01/01/21 01/02/21 14:16 20:37 07:10 WBC 3.9 L RBC Hgb 11.1 L Hct 32.7 L Plt Count 69 L Lymph % (Auto) 38.0 H Harris % (Auto) Lymph # (Auto) Seg Neutrophils % APTT Sodium Potassium Chloride BUN Creatinine Glucose POC Glucose Phosphorus 2.00 L Magnesium Total Bilirubin Direct Bilirubin AST ALT Albumin Lipase Urine WBC (Auto) 8.0 H Salicylates Acetaminophen 07/01/02/21 01/02/21 07:10 07:10 11:53 WBC RBC Hgb Hct Plt Count Lymph % (Auto) Harris % (Auto) Lymph # (Auto) Seg Neutrophils % APTT Sodium Potassium 3.3 L D Chloride BUN 4 L Creatinine 0.4 L Glucose POC Glucose 116 H Phosphorus 2.40 L Magnesium Total Bilirubin 1.30 H Direct Bilirubin AST 145 H ALT 73 H Albumin 3.5 L Lipase 213 H Urine WBC (Auto) Salicylates Acetaminophen 01/02/21 01/02/21 01/03/21 17:24 23:26 05:43 WBC RBC Hgb Hct Plt Count Lymph % (Auto) Harris % (Auto) Lymph # (Auto) Seg Neutrophils % APTT Sodium Potassium Chloride BUN 3 L Creatinine 0.4 L Glucose POC Glucose 126 H 108 H Phosphorus 2.20 L Magnesium Total Bilirubin Direct Bilirubin AST ALT Albumin Lipase Urine WBC (Auto) Salicylates Acetaminophen 01/03/21 01/05/21 01/05/21 12:52 04:31 17:48 WBC RBC Hgb Hct Plt Count Lymph % (Auto) Harris % (Auto) Lymph # (Auto) Seg Neutrophils % APTT Sodium Potassium Chloride 97.2 L BUN 2 L Creatinine 0.5 L Glucose 73 L POC Glucose 114 H 141 H Phosphorus Magnesium 1.00 L Total Bilirubin Direct Bilirubin AST 68 H ALT 59 H Albumin 3.8 L Lipase Urine WBC (Auto) Salicylates Acetaminophen 01/05/21 01/06/21 01/06/21 21:25 05:30 06:36 WBC RBC Hgb Hct 34.6 L Plt Count 71 L Lymph % (Auto) Harris % (Auto) Lymph # (Auto) Seg Neutrophils % APTT Sodium Potassium Chloride BUN Creatinine Glucose POC Glucose 108 H 188 H Phosphorus Magnesium Total Bilirubin Direct Bilirubin AST ALT Albumin Lipase Urine WBC (Auto) Salicylates Acetaminophen 01/06/21 01/06/21 01/06/21 06:36 11:20 16:25 WBC RBC Hgb Hct Plt Count Lymph % (Auto) Harris % (Auto) Lymph # (Auto) Seg Neutrophils % APTT Sodium Potassium 2.6 L* D Chloride BUN 2 L Creatinine 0.4 L Glucose 187 H POC Glucose 157 H 126 H Phosphorus Magnesium 1.40 L Total Bilirubin Direct Bilirubin AST ALT Albumin Lipase Urine WBC (Auto) Salicylates Acetaminophen 01/06/21 01/07/21 22:25 06:07 WBC RBC Hgb Hct Plt Count Lymph % (Auto) Harris % (Auto) Lymph # (Auto) Seg Neutrophils % APTT Sodium Potassium Chloride BUN Creatinine Glucose POC Glucose 116 H 152 H Phosphorus Magnesium Total Bilirubin Direct Bilirubin AST ALT Albumin Lipase Urine WBC (Auto) Salicylates Acetaminophen Allied health notes reviewed: nursing
[2021-01-07 12:17] LABS: Hematocrit 35.9 % (35.5-45.6); Hemoglobin 12.3 gm/dl (11.8-15.2); Mean Corpuscular HGB Conc 34 % (32-34); Mean Corpuscular Volume 90 fl (84-94); Red Cell Distribution Width 13.6 % (13.2-15.2)
[2021-01-07 12:22] LABS: Blood Urea Nitrogen 2 mg/dL (9-20); Calcium 8.9 mg/dL (8.4-10.2); Hemolysis Index 11
[2021-01-07 12:23] LABS: BUN/Creatinine Ratio 5
[2021-01-07 13:24] LABS: Platelet Count 72 K/mm3 (140-440)
[2021-01-08] MEDS: HEPARIN 5,000 UNIT/1 ML VIAL SUB-Q SCH ×2 (00:44→09:01)
[2021-01-08] MEDS: INSULIN LISPRO 100 UNIT/ML SUB-Q SCH ×3 (00:50→11:50)
[2021-01-08] MEDS: chlordiazePOXIDE 25 MG CAP PO SCH ×3 (02:19→17:46)
[2021-01-08] MEDS: ASPIRIN EC 81 MG TAB PO SCH (09:01)
[2021-01-08 09:08] LABS: Blood Urea Nitrogen 2 mg/dL (9-20); Hemolysis Index 7
[2021-01-08 09:38] LABS: BUN/Creatinine Ratio 4
[2021-01-08] MEDS: LORazepam 2 MG/ML VIAL IV PRN ×2 (12:42→13:48)
--- NOTE | 2021-01-08 13:42 | Progress Note ---
Assessment and Plan 65 YO Male with DM, Nicotine Dependence, ETOH Dependence, HTN, Vascular Dementia, Cerebral Atherosclerosis, Malnutrition presents to ED for evaluation. Patient is confused with diminished cognition at the time of my evaluation is unable to provide history. The patient "had a seizure". EMS was notified and upon arrival the patient was found to be in distress and subsequently transported to [facility] for further care and evaluation of the aforementioned symptoms. The patient was seen and evaluated in the emergency department and was observed to have multiple witnessed seizures. Patient treated with benzodiazepine therapy with recurrent seizures. Patient found to have alcohol withdrawal syndrome complicated by delirium, acute pancreatitis, malnutrition, hypomagnesemia. Patient admitted to ICU and initiated on Precedex as well as IV fluid resuscitation therapy. Patient treated in accordance with alcohol withdrawal protocol. No further history is obtainable. No reports of fever, chills, chest pain, palpitation, productive cough, skin rash, recent ill contacts, trauma, or known exposure to COVID-19. Prior admission on 02/06/2020. Patient presently awake. Not using his o2. Confused. Patient weak. No acute respiratory distress. Placed oxygen Back. O2 saturation 97%. Patient afebrile. No leukocytosis. Chest xray done 01/01/21 reported No acute findings. Patient is on Albuterol inhaler and S/C Heparin. - Patient Problems (1) Alcohol withdrawal seizure with delirium Current Visit: Yes Status: Acute Plan to address problem: Management as per primary care and neurology. (2) Hypomagnesemia Current Visit: Yes Status: Acute Plan to address problem: Magnesium level 1.4. Supplementing magnesium. Recommend to recheck Magnesium. (3) Nicotine dependence Current Visit: Yes Status: Acute Qualifiers: Nicotine product type: cigarettes Substance use status: in withdrawal Qualified Code(s): F17.213 - Nicotine dependence, cigarettes, with withdrawal Plan to address problem: Counseled to stop smoking. (4) Pancreatitis Current Visit: Yes Status: Acute Qualifiers: Chronicity: acute Pancreatitis type: alcohol induced Plan to address problem: Management as primary care. (5) CVA (cerebral vascular accident) Current Visit: No Status: Acute Plan to address problem: Management as per neurology. (6) Syncope Current Visit: No Status: Acute Plan to address problem: Management as per neulogy. (7) Diabetes Current Visit: No Status: Chronic Qualifiers: Diabetes mellitus type: type 2 Diabetes mellitus assisted insulin use: without rodent exterminator use Diabetes mellitus complication status: with hyperglycemia Qualified Code(s): E11.65 - Type 2 diabetes mellitus with hyperglycemia Plan to address problem: Management as per primary care. (8) Hypertension Current Visit: No Status: Chronic Plan to address problem: Management as per primary care. (9) Hypokalemia Current Visit: Yes Status: Acute Plan to address problem: Repeat K+ level 3.0. Recommend supplement KK+. Subjective Date of service: 01/08/21 Principal diagnosis: Alcohol withdrawal; Seizures; Acute Pancreatitis; DM II Interval history: 65 YO Male with DM, Nicotine Dependence, ETOH Dependence, HTN, Vascular Dementia, Cerebral Atherosclerosis, Malnutrition presents to ED for evaluation. Patient is confused with diminished cognition at the time of my evaluation is unable to provide history. The patient "had a seizure". EMS was notified and upon arrival the patient was found to be in distress and subsequently transported to [facility] for further care and evaluation of the aforementioned symptoms. The patient was seen and evaluated in the emergency department and was observed to have multiple witnessed seizures. Patient treated with benzo diazepine therapy with recurrent seizures. Patient found to have alcohol withdrawal syndrome complicated by delirium, acute pancreatitis, malnutrition, hypomagnesemia. Patient admitted to ICU and initiated on Precedex as well as IV fluid resuscitation therapy. Patient treated in accordance with alcohol withdrawal protocol. No further history is obtainable. No reports of fever, chills, chest pain, palpitation, productive cough, skin rash, recent ill contacts, trauma, or known exposure to COVID-19. Prior admission on 02/06/2020. Patient presently awake. Not using his o2. Confused. Patient weak. No acute respiratory distress. Placed oxygen Back. O2 saturation 97%. Patient afebrile. No leukocytosis. Chest xray done 01/01/21 reported No acute findings. Patient is on Albuterol inhaler and S/C Heparin. Objective Vital Signs - 12hr 01/08/21 01/08/21 04:15 11:16 Temperature 97.6 F 98.0 F Pulse Rate 114 H 124 H Respiratory 16 22 Rate Blood Pressure 136/72 118/82 O2 Sat by Pulse 96 97 Oximetry Constitutional: no acute distress, alert, other (Confused) Eyes: non-icteric ENT: oropharynx moist Neck: supple, no lymphadenopathy, no JVD Effort: mildly labored Ascultation: Bilateral: diminished breath sounds Percussion: Bilateral: not dull Cardiovascular: regular rate and rhythm Gastrointestinal: normoactive bowel sounds, soft, non-tender, non-distended Integumentary: normal Extremities: no cyanosis, no edema, pulses normal, no ischemia or petechiae Neurologic: non-focal exam (grossly), pupils equal and round, motor strength normal and, other (delirious) Psychiatric: other (delirious) CBC and BMP: 01/07/21 11:45 01/08/21 07:10 ABG, PT/INR, D-dimer: PT/INR, D-dimer PT 13.9 Sec. (12.2-14.9) 01/01/21 14:16 INR 1.02 (0.87-1.13) 01/01/21 14:16 Abnormal lab findings: Abnormal Labs 01/01/21 01/01/21 01/01/21 14:16 14:16 14:16 WBC RBC 3.20 L Hgb 9.9 L Hct 29.3 L Plt Count 74 L Lymph % (Auto) [place] % (Auto) 7.9 H Lymph # (Auto) 0.8 L Seg Neutrophils % 78.1 H APTT 24.1 L Sodium 135 L Potassium Chloride 93.1 L BUN 8 L Creatinine 0.6 L Glucose 106 H POC Glucose Phosphorus Magnesium 1.40 L Total Bilirubin 1.40 H Direct Bilirubin 0.4 H AST 230 H ALT 95 H Albumin Lipase Urine WBC (Auto) Salicylates Acetaminophen 01/01/21 01/01/21 01/01/21 14:16 14:16 14:16 WBC RBC Hgb Hct Plt Count Lymph % (Auto) [place] % (Auto) Lymph # (Auto) Seg Neutrophils % APTT Sodium Potassium Chloride BUN Creatinine Glucose POC Glucose Phosphorus Magnesium Total Bilirubin Direct Bilirubin AST ALT Albumin Lipase 279 H Urine WBC (Auto) Salicylates < 0.3 L Acetaminophen 5.0 L 01/01/21 01/01/21 01/02/21 14:16 20:37 07:10 WBC 3.9 L RBC Hgb 11.1 L Hct 32.7 L Plt Count 69 L Lymph % (Auto) 38.0 H [place] % (Auto) Lymph # (Auto) Seg Neutrophils % APTT Sodium Potassium Chloride BUN Creatinine Glucose POC Glucose Phosphorus 2.00 L Magnesium Total Bilirubin Direct Bilirubin AST ALT Albumin Lipase Urine WBC (Auto) 8.0 H Salicylates Acetaminophen 01/02/21 01/02/21 01/02/21 07:10 07:10 11:53 WBC RBC Hgb Hct Plt Count Lymph % (Auto) [place] % (Auto) Lymph # (Auto) Seg Neutrophils % APTT Sodium Potassium 3.3 L D Chloride BUN 4 L Creatinine 0.4 L Glucose POC Glucose 116 H Phosphorus 2.40 L Magnesium Total Bilirubin 1.30 H Direct Bilirubin AST 145 H ALT 73 H Albumin 3.5 L Lipase 213 H Urine WBC (Auto) Salicylates Acetaminophen 01/02/21 01/02/21 01/03/21 17:24 23:26 05:43 WBC RBC Hgb Hct Plt Count Lymph % (Auto) [place] % (Auto) Lymph # (Auto) Seg Neutrophils % APTT Sodium Potassium Chloride BUN 3 L Creatinine 0.4 L Glucose POC Glucose 126 H 108 H Phosphorus 2.20 L Magnesium Total Bilirubin Direct Bilirubin AST ALT Albumin Lipase Urine WBC (Auto) Salicylates Acetaminophen 01/03/21 01/05/21 01/05/21 12:52 04:31 17:48 WBC RBC Hgb Hct Plt Count Lymph % (Auto) [place] % (Auto) Lymph # (Auto) Seg Neutrophils % APTT Sodium Potassium Chloride 97.2 L BUN 2 L Creatinine 0.5 L Glucose 73 L POC Glucose 114 H 141 H Phosphorus Magnesium 1.00 L Total Bilirubin Direct Bilirubin AST 68 H ALT 59 H Albumin 3.8 L Lipase Urine WBC (Auto) Salicylates Acetaminophen 01/05/21 01/06/21 01/06/21 21:25 05:30 06:36 WBC RBC Hgb Hct 34.6 L Plt Count 71 L Lymph % (Auto) [place] % (Auto) Lymph # (Auto) Seg Neutrophils % APTT Sodium Potassium Chloride BUN Creatinine Glucose POC Glucose 108 H 188 H Phosphorus Magnesium Total Bilirubin Direct Bilirubin AST ALT Albumin Lipase Urine WBC (Auto) Salicylates Acetaminophen 01/06/21 01/06/21 01/06/21 06:36 11:20 16:25 WBC RBC Hgb Hct Plt Count Lymph % (Auto) [place] % (Auto) Lymph # (Auto) Seg Neutrophils % APTT Sodium Potassium 2.6 L* D Chloride BUN 2 L Creatinine 0.4 L Glucose 187 H POC Glucose 157 H 126 H Phosphorus Magnesium 1.40 L Total Bilirubin Direct Bilirubin AST ALT Albumin Lipase Urine WBC (Auto) Salicylates Acetaminophen 01/06/21 01/07/21 01/07/21 22:25 06:07 11:45 WBC RBC Hgb Hct Plt Count 72 L Lymph % (Auto) [place] % (Auto) Lymph # (Auto) Seg Neutrophils % APTT Sodium Potassium Chloride BUN Creatinine Glucose POC Glucose 116 H 152 H Phosphorus Magnesium Total Bilirubin Direct Bilirubin AST ALT Albumin Lipase Urine WBC (Auto) Salicylates Acetaminophen 01/07/21 01/07/21 01/07/21 11:45 11:51 16:37 WBC RBC Hgb Hct Plt Count Lymph % (Auto) [place] % (Auto) Lymph # (Auto) Seg Neutrophils % APTT Sodium Potassium Chloride BUN 2 L Creatinine 0.4 L Glucose 151 H POC Glucose 159 H 143 H Phosphorus Magnesium 1.40 L Total Bilirubin Direct Bilirubin AST ALT Albumin Lipase Urine WBC (Auto) Salicylates Acetaminophen 01/08/21 01/08/21 01/08/21 06:16 07:10 11:14 WBC RBC Hgb Hct Plt Count Lymph % (Auto) [place] % (Auto) Lymph # (Auto) Seg Neutrophils % APTT Sodium Potassium 3.0 L Chloride BUN 2 L Creatinine 0.5 L Glucose 121 H POC Glucose 138 H 177 H Phosphorus Magnesium Total Bilirubin Direct Bilirubin AST ALT Albumin Lipase Urine WBC (Auto) Salicylates Acetaminophen Allied health notes reviewed: nursing
[2021-01-08] MEDS ORDERED: POTASSIUM CHLORIDE ER 20 MEQ TAB PO ONE (15:00)
--- NOTE | 2021-01-08 15:29 | Progress Note ---
Assessment and Plan Assessment and plan: 65 YO Male with DM, Nicotine Dependence, ETOH Dependence, HTN, Vascular Dementia, Cerebral Atherosclerosis, Malnutrition presents to ED for evaluation. Patient is confused with diminished cognition at the time of my evaluation is unable to provide history. The patient "had a seizure". EMS was notified and upon arrival the patient was found to be in distress and subsequently transported to [facility] for further care and evaluation of the aforementioned symptoms. The patient was seen and evaluated in the emergency department and was observed to have multiple witnessed seizures. Patient treated with b enzodiazepine therapy with recurrent seizures. Patient found to have alcohol withdrawal syndrome complicated by delirium, acute pancreatitis, malnutrition, hypomagnesemia. Patient admitted to ICU and initiated on Precedex as well as IV fluid resuscitation therapy. Patient treated in accordance with alcohol withdrawal protocol. No further history is obtainable. No reports of fever, chills, chest pain, palpitation, productive cough, skin rash, recent ill contacts, trauma, or known exposure to COVID-19. Prior admission on 02/06/2020 reviewed. All medication listed at time of admission has been reconciled. Advanced care planning conducted in ED. 01/02: Imaging studies including CT head, chest x-ray and cervical spine x-ray reviewed no acute pathology noted. Patient clinically stable for downgrade will start on Librium scheduled and try to wean off Precedex. Will transfer to [facility] at this time. When he is more awake we will do counseling on EtOH cessation. Will give additional magnesium due to hypomagnesemia 01/03: Continue management for EtOH withdrawal patient in DTs at this time. Also having hallucination. Continue CIWA protocol. Replace electrolytes as needed. Patient will continue taking IMCU care since level of CIWA scores is significantly high. 01/04: Discussed with nursing staff there is been documentation of taking oral intake so we will start patient on full liquid diet if his mental status is still precluding him taking p.o. we will tolerate NG tube and start him on some tube feeds. Otherwise continue current management continue thiamine. May start him on a banana bag to ensure adequate nutritional intake all vitamins and ant icipate improvement. We will renew restraints for safety. Repeat magnesium level to see if it has corrected. Also will plan to wean off Precedex and lieu of clonidine for agitation. 01/05: Wean off precedex, improving clinically, will transfer to [facility], continue restraints for Safety, Replace Electrolytes-Magnesium - Hypomagnesiemia. Continue re-orientation. Patient with mild hypoglycemia. Start D5NS at 75cc/hr. Monitor Blood glucose. Also able to start clear liquids as his orientation is improving some. 01/06: Patient still with alcohol induced encephalopathy. Continue current management for delirium tremens. Replace electrolytes including hypomagnesemia and hypokalemia. Reevaluate in a.m. for possible discharge. Rehab placement may be beneficial 01/07; patient was on restraints this morning. Patient was somnolent but was able to state his name and the year, his potassium was corrected this morning. We will continue inpatient care. 01/08; patient was on restraints. He was asking restraints to be taken off. Potassium level is very low and will be replete it. (1) Alcohol withdrawal delirium tremens Current Visit: Yes Status: Acute Plan to address problem: Alcohol withdrawal protocol, patient treated with Precedex drip, critical care care team consulted, benzodiazepine therapy as clinically indicated, IV fluid resuscitation therapy, (2) Malnutrition Current Visit: Yes Status: Acute Qualifiers: Malnutrition type: protein-calorie malnutrition Plan to address problem: Increase protein intake, dietary supplementation when awake and alert only (3) Pancreatitis Current Visit: Yes Status: Acute Qualifiers: Chronicity: acute Pancreatitis type: alcohol induced Plan to address problem: Lipase level, repeat lipase level in a.m., bowel rest, IV fluid resuscitation therapy, supportive care, pain control. (4) Nicotine dependence Current Visit: Yes Status: Acute Qualifiers: Nicotine product type: cigarettes Substance use status: in withdrawal Qualified Code(s): F17.213 - Nicotine dependence, cigarettes, with withdrawal Plan to address problem: Smoking cessation, supportive care. (5) hypokalemia/hypomagnesemia (6) DVT prophylaxis Current Visit: Yes Status: Acute Plan to address problem: SCD to bilateral lower extremities while in bed, prophylactic anticoagulation (7) Advance care planning Current Visit: Yes Status: Acute Plan to address problem: Disease education conducted, care plan discussed, diagnosis discussed, prognosis discussed, patient acknowledges understanding and agreement with current care plan, +30 minutes. History Interval history: Patient was seen and evaluated this morning Patient was alert and awake, he asked the restraints to be taken off On restraints Hospitalist Physical - Physical exam Narrative exam: Not in cardiopulmonary distress. The patient appeared well nourished and normally developed. Vital signs as documented. Head exam is unremarkable. No scleral icterus . Neck is without jugular venous distension, thyromegaly, or carotid bruits. Lungs are clear to auscultation. Cardiac exam reveals regular rate and Rhythm. Abdominal exam reveals normal bowel sounds, nontender, no organomegaly. Extremities are nonedematous and both femoral and pedal pulses are normal. PROTECTION AGENT: Patient was alert and awake - Constitutional Vitals: Temp Pulse Resp BP Pulse Ox 98.0 F 124 H 22 118/82 97 01/08/21 11:16 01/08/21 11:16 01/08/21 11:16 01/08/21 11:16 01/08/21 11:16 General appearance: Present: mild distress HEART Score - HEART Score Troponin: Troponin T < 0.010 ng/mL (0.00-0.029) 01/01/21 14:16 Results - Labs CBC & Chem 7: 01/07/21 11:45 01/08/21 07:10 Labs: Laboratory Last Values WBC 8.8 K/mm3 (4.5-11.0) 01/07/21 11:45 RBC 4.00 M/mm3 (3.65-5.03) 01/07/21 11:45 Hgb 12.3 gm/dl (11.8-15.2) 01/07/21 11:45 Hct 35.9 % (35.5-45.6) 01/07/21 11:45 MCV 90 fl (84-94) 01/07/21 11:45 MCH 31 pg (28-32) 01/07/21 11:45 MCHC 34 % (32-34) 01/07/21 11:45 RDW 13.6 % (13.2-15.2) 01/07/21 11:45 Plt Count 72 K/mm3 (140-440) L 01/07/21 11:45 Lymph % (Auto) 38.0 % (13.4-35.0) H 01/02/21 07:10 [place] % (Auto) 6.3 % (0.0-7.3) 01/02/21 07:10 Eos % (Auto) 1.2 % (0.0-4.3) 01/02/21 07:10 Baso % (Auto) 0.4 % (0.0-1.8) 01/02/21 07:10 Lymph # (Auto) 1.5 K/mm3 (1.2-5.4) 01/02/21 07:10 [place] # (Auto) 0.2 K/mm3 (0.0-0.8) 01/02/21 07:10 Eos # (Auto) 0.0 K/mm3 (0.0-0.4) 01/02/21 07:10 Baso # (Auto) 0.0 K/mm3 (0.0-0.1) 01/02/21 07:10 Seg Neutrophils % 54.1 % (40.0-70.0) 01/02/21 07:10 Seg Neutrophils # 2.1 K/mm3 (1.8-7.7) 01/02/21 07:10 PT 13.9 Sec. (12.2-14.9) 01/01/21 14:16 INR 1.02 (0.87-1.13) 01/01/21 14:16 APTT 24.1 Sec. (24.2-36.6) L 01/01/21 14:16 Sodium 138 mmol/L (137-145) 01/08/21 07:10 Potassium 3.0 mmol/L (3.6-5.0) L 01/08/21 07:10 Chloride 101.5 mmol/L (98-107) 01/08/21 07:10 Carbon Dioxide 22 mmol/L (22-30) 01/08/21 07:10 Anion Gap 18 mmol/L 01/08/21 07:10 BUN 2 mg/dL (9-20) L 01/08/21 07:10 Creatinine 0.5 mg/dL (0.8-1.3) L 01/08/21 07:10 Estimated GFR > 60 ml/min 01/08/21 07:10 BUN/Creatinine Ratio 4 % 01/08/21 07:10 Glucose 121 mg/dL (75-100) H 01/08/21 07:10 POC Glucose 177 mg/dL (70-105) H 01/08/21 11:14 Calcium 9.0 mg/dL (8.4-10.2) 01/08/21 07:10 Phosphorus 2.20 mg/dL (2.5-4.5) L 01/03/21 05:43 Magnesium 1.40 mg/dL (1.7-2.3) L 01/07/21 11:45 Total Bilirubin 0.50 mg/dL (0.1-1.2) 01/05/21 04:31 Direct Bilirubin 0.4 mg/dL (0-0.2) H 01/01/21 14:16 Indirect Bilirubin 1.0 mg/dL 01/01/21 14:16 AST 68 units/L (5-40) H 01/05/21 04:31 ALT 59 units/L (7-56) H 01/05/21 04:31 Alkaline Phosphatase 76 units/L (35-129) 01/05/21 04:31 Ammonia 46.0 umol/L (25-60) 01/01/21 14:16 Troponin T < 0.010 ng/mL (0.00-0.029) 01/01/21 14:16 Total Protein 7.7 g/dL (6.3-8.2) 01/05/21 04:31 Albumin 3.8 g/dL (3.9-5) L 01/05/21 04:31 Albumin/Globulin Ratio 1.0 % 01/05/21 04:31 Lipase 213 units/L (13-60) H 01/02/21 07:10 TSH 2.040 mlU/mL (0.270-4.200) 01/01/21 14:16 Urine Color Yellow (Yellow) 01/01/21 20:37 Urine Turbidity Hazy (Clear) 01/01/21 20:37 Urine pH 6.0 (5.0-7.0) 01/01/21 20:37 Ur Specific [place] 1.014 (1.003-1.030) 01/01/21 20:37 Urine Protein 30 mg/dl mg/dL (Negative) 01/01/21 20:37 Urine Glucose (UA) Neg mg/dL (Negative) 01/01/21 20:37 Urine Ketones 80 mg/dL (Negative) 01/01/21 20:37 Urine Blood Sm (Negative) 01/01/21 20:37 Urine Nitrite Neg (Negative) 01/01/21 20:37 Urine Bilirubin Neg (Negative) 01/01/21 20:37 Urine Urobilinogen < 2.0 mg/dL (<2.0) 01/01/21 20:37 Ur Leukocyte Esterase Tr (Negative) 01/01/21 20:37 Urine WBC (Auto) 8.0 /HPF (0.0-6.0) H 01/01/21 20:37 Urine RBC (Auto) 2.0 /HPF (0.0-6.0) 01/01/21 20:37 U Epithel Cells (Auto) 1.0 /HPF (0-13.0) 01/01/21 20:37 Hyaline Casts 1 /LPF 01/01/21 20:37 Urine Mucus Few /HPF 01/01/21 20:37 Salicylates < 0.3 mg/dL (2.8-20.0) L 01/01/21 14:16 Urine Opiates Screen Negative 01/01/21 20:37 Urine Methadone Screen Negative 01/01/21 20:37 Acetaminophen 5.0 ug/mL (10.0-30.0) L 01/01/21 14:16 Ur Barbiturates Screen Negative 01/01/21 20:37 Ur Phencyclidine Scrn Negative 01/01/21 20:37 Ur Amphetamines Screen Negative 01/01/21 20:37 U Benzodiazepines Scrn Positive 01/01/21 20:37 Urine Cocaine Screen Negative 01/01/21 20:37 U Marijuana (THC) Screen Negative 01/01/21 20:37 Drugs of Abuse Note Disclamer 01/01/21 20:37 Plasma/Serum Alcohol < 0.01 % (0-0.07) 01/01/21 16:10 Russell/IV: Voiding Method Condom Catheter Active Medications - Current Medications Current Medications: Generic Name Dose Route Start Last Admin Trade Name Freq PRN Reason Stop Dose Admin Albuterol 2.5 mg 01/01/21 16:19 Albuterol 2.5 Mg/3 Ml Nebu IH Q3HRT PRN Shortness Of Breath Aspirin 81 mg 01/02/21 10:00 01/08/21 09:01 Aspirin Ec 81 Mg Tab PO 81 mg DAILY GRACIE Administration Chlordiazepoxide HCl 25 mg 01/02/21 10:00 01/08/21 09:01 Chlordiazepoxide 25 Mg Cap PO 25 mg Q8H GRACIE Administration Clonidine HCl 0.1 mg 01/04/21 10:00 01/04/21 11:55 Clonidine 0.1 Mg Tab PO 0.1 mg Q4HR PRN Administration Agitation Dextrose 50 ml 01/01/21 16:33 Dextrose 50% In Water (25gm) 50 Ml Syringe IV Q30MIN PRN Hypoglycemia Protocol Heparin Sodium (Porcine) 5,000 unit 01/01/21 22:00 01/08/21 09:01 Heparin 5,000 Unit/1 Ml Vial SUB-Q 5,000 unit Q12HR GRACIE Administration Hydralazine HCl 10 mg 01/01/21 16:31 01/06/21 05:23 Hydralazine 20 Mg/1 Ml Inj IV 10 mg Q6HR PRN Administration Hypertension Dextrose/Sodium Chloride 1,000 mls @ 75 mls/hr 01/05/21 11:00 01/06/21 18:48 D5ns IV 75 mls/hr DIRECT GRACIE Administration Ibuprofen 600 mg 01/01/21 16:19 Ibuprofen 600 Mg Tab PO Q6H PRN Pain, Mild (1-3) Insulin Human Lispro 0 unit 01/01/21 18:00 01/08/21 11:50 Insulin Lispro 100 Unit/Ml SUB-Q Not Given Q6HR [facility] Protocol Lorazepam 2 mg 01/01/21 12:01 01/08/21 13:48 Lorazepam 2 Mg/Ml Vial IV 2 mg Q1HR PRN Administration CIWA-Ar 8-15 Lorazepam 4 mg 01/01/21 12:01 01/06/21 22:09 Lorazepam 2 Mg/Ml Vial IV 4 mg Q1HR PRN Administration CIWA-Ar 16-25 Lorazepam 4 mg 01/01/21 12:01 01/05/21 09:42 Lorazepam 2 Mg/Ml Vial IV 4 mg Q15MIN PRN Administration CIWA-Ar >25 Morphine Sulfate 2 mg 01/01/21 16:19 Morphine 4 Mg/1 Ml Inj IV Q6H PRN Pain , Severe (7-10) Oxycodone/Acetaminophen 1 tab 01/01/21 16:19 Oxycodone /Acetaminophen 5-325mg Tab PO Q12H PRN Pain, Moderate (4-6) Sodium Chloride 10 ml 01/01/21 22:00 01/08/21 10:00 Sodium Chloride 0.9% 10 Ml Flush Syringe IV Not Given BID GRACIE Sodium Chloride 10 ml 01/01/21 16:19 Sodium Chloride 0.9% 10 Ml Flush Syringe IV PRN PRN LINE FLUSH Nutrition/Malnutrition Assess - Dietary Evaluation Nutrition/Malnutrition Findings: Nutrition Notes Start: 01/08/21 14:04 Freq: Status: Active Protocol: Document 01/08/21 14:04 STAN[place]ORD (Rec: 01/08/21 14:12 STANFORD [email or web address]) Nutrition Notes Need for Assessment generated from: LOS Initial or Follow up Assessment Current Diagnosis Diabetes,Hypertension Other Pertinent Diagnosis etoh dependence, acute pancreatitis Current Diet clear liquids Labs/Tests K 3 Pertinent Medications reviewed Height 6 ft Weight 66.1 kg Usual Body Weight 74.843 kg [place] Body Weight (kg) 80.90 BMI 19.8 Weight change and time frame 12% wt loss in 2 months Weight Status Appropriate Subjective/Other Information Screen for LOS. Pt drinking 75 % of clear liquid diet. Pt reports wt loss but is confused on how much he lost. Pt would like mech soft diet when it advances. Burn Absent Trauma Absent GI Symptoms None Current % PO Fair (50-74%) Minimum of two criteria Yes Energy Intake (non-severe) <75% Estimated Energy Requirement >7 days Interpretation of Weight Loss (severe) >7.5% in 3 months #1 Nutrition Diagnosis Malnutrition Etiology etoh dependence As Evidenced by Signs and Symptoms <75% of EER in >7 days, >7.5% wt loss in 3 months Is patient on ventilator? No Is Patient Ambulatory and/or Out of Bed No REE-([facility]-confined to bed) [phone] Calculation Used for Recommendations [facility] Additional Notes Protein: (1.2-1.5g/kg) 79-99g Fluid: 1 ml/kcal or per MD Nutrition Intervention Change Diet Order: advance as able Add Supplement/Snack (indicate name/kcal Ensure Clear BID /protein ) Provides kCal: 480 Provides Protein (gm) 16 Goal #1 Meet needs as best as possible on clear liquid diet Anticipated Discharge Needs: cardiac, consistent CHO Follow-Up By: 01/10/21 Additional Comments F/u: intakes and ONS tolerance
[2021-01-08] MEDS: D5W/0.9% NACL 1,000 ML IV SCH (18:10)
[2021-01-08] MEDS: cloNIDine 0.1 MG TAB PO PRN (21:29)
[2021-01-09] MEDS: HEPARIN 5,000 UNIT/1 ML VIAL SUB-Q SCH ×3 (00:24→21:31)
[2021-01-09] MEDS: INSULIN LISPRO 100 UNIT/ML SUB-Q SCH ×5 (02:13→17:43)
[2021-01-09] MEDS: chlordiazePOXIDE 25 MG CAP PO SCH ×3 (02:26→17:45)
[2021-01-09 07:51] LABS: Blood Urea Nitrogen 3 mg/dL (9-20); Calcium 8.6 mg/dL (8.4-10.2); Hemolysis Index 2
[2021-01-09 07:54] LABS: BUN/Creatinine Ratio 6
--- NOTE | 2021-01-09 08:41 | Progress Note ---
Assessment and Plan Assessment and plan: 65 YO Male with DM, Nicotine Dependence, ETOH Dependence, HTN, Vascular Dementia, Cerebral Atherosclerosis, Malnutrition presents to ED for evaluation. Patient is confused with diminished cognition at the time of my evaluation is unable to provide history. The patient "had a seizure". EMS was notified and upon arrival the patient was found to be in distress and subsequently transported to [facility] for further care and evaluation of the aforementioned symptoms. The patient was seen and evaluated in the emergency department and was observed to have multiple witnessed seizures. Patient treated with b enzodiazepine therapy with recurrent seizures. Patient found to have alcohol withdrawal syndrome complicated by delirium, acute pancreatitis, malnutrition, hypomagnesemia. Patient admitted to ICU and initiated on Precedex as well as IV fluid resuscitation therapy. Patient treated in accordance with alcohol withdrawal protocol. No further history is obtainable. No reports of fever, chills, chest pain, palpitation, productive cough, skin rash, recent ill contacts, trauma, or known exposure to COVID-19. Prior admission on 02/06/2020 reviewed. All medication listed at time of admission has been reconciled. Advanced care planning conducted in ED. 01/02: Imaging studies including CT head, chest x-ray and cervical spine x-ray reviewed no acute pathology noted. Patient clinically stable for downgrade will start on Librium scheduled and try to wean off Precedex. Will transfer to [facility] at this time. When he is more awake we will do counseling on EtOH cessation. Will give additional magnesium due to hypomagnesemia 01/03: Continue management for EtOH withdrawal patient in DTs at this time. Also having hallucination. Continue CIWA protocol. Replace electrolytes as needed. Patient will continue taking IMCU care since level of CIWA scores is significantly high. 01/04: Discussed with nursing staff there is been documentation of taking oral intake so we will start patient on full liquid diet if his mental status is still precluding him taking p.o. we will tolerate NG tube and start him on some tube feeds. Otherwise continue current management continue thiamine. May start him on a banana bag to ensure adequate nutritional intake all vitamins and ant icipate improvement. We will renew restraints for safety. Repeat magnesium level to see if it has corrected. Also will plan to wean off Precedex and lieu of clonidine for agitation. 01/05: Wean off precedex, improving clinically, will transfer to [facility], continue restraints for Safety, Replace Electrolytes-Magnesium - Hypomagnesiemia. Continue re-orientation. Patient with mild hypoglycemia. Start D5NS at 75cc/hr. Monitor Blood glucose. Also able to start clear liquids as his orientation is improving some. 01/06: Patient still with alcohol induced encephalopathy. Continue current management for delirium tremens. Replace electrolytes including hypomagnesemia and hypokalemia. Reevaluate in a.m. for possible discharge. Rehab placement may be beneficial 01/07; patient was on restraints this morning. Patient was somnolent but was able to state his name and the year, his potassium was corrected this morning. We will continue inpatient care. 01/08; patient was on restraints. He was asking restraints to be taken off. Potassium level is very low and will be replete it. 01/09; patient is on restraints. Continue CIWA protocol. Potassium level is still low 3 this morning and I put 40 mEq of potassium x2 every 4 hours. Will check potassium at 2 PM. I put electrolyte replacement protocol. (1) Alcohol withdrawal delirium tremens Current Visit: Yes Status: Acute Plan to address problem: Alcohol withdrawal protocol, patient treated with Precedex drip, critical care care team consulted, benzodiazepine therapy as clinically indicated, IV fluid resuscitation therapy, (2) Malnutrition Current Visit: Yes Status: Acute Qualifiers: Malnutrition type: protein-calorie malnutrition Plan to address problem: Increase protein intake, dietary supplementation when awake and alert only (3) Pancreatitis Current Visit: Yes Status: Acute Qualifiers: Chronicity: acute Pancreatitis type: alcohol induced Plan to address problem: Lipase level, repeat lipase level in a.m., bowel rest, IV fluid resuscitation therapy, supportive care, pain control. (4) Nicotine dependence Current Visit: Yes Status: Acute Qualifiers: Nicotine product type: cigarettes Substance use status: in withdrawal Qualified Code(s): F17.213 - Nicotine dependence, cigarettes, with withdrawal Plan to address problem: Smoking cessation, supportive care. (5) hypokalemia/hypomagnesemia (6) DVT prophylaxis Current Visit: Yes Status: Acute Plan to address problem: SCD to bilateral lower extremities while in bed, prophylactic anticoagulation (7) Advance care planning Current Visit: Yes Status: Acute Plan to address problem: Disease education conducted, care plan discussed, diagnosis discussed, prognosis discussed, patient acknowledges understanding and agreement with current care plan, +30 minutes. History Interval history: Patient was seen and evaluated this morning Patient was alert and awake, he asked the restraints to be taken off On restraints Hospitalist Physical - Physical exam Narrative exam: Not in cardiopulmonary distress. The patient appeared well nourished and normally developed. Vital signs as documented. Head exam is unremarkable. No scleral icterus . Neck is without jugular venous distension, thyromegaly, or carotid bruits. Lungs are clear to auscultation. Cardiac exam reveals regular rate and Rhythm. Abdominal exam reveals normal bowel sounds, nontender, no organomegaly. Extremities are nonedematous and both femoral and pedal pulses are normal. MANAGER PURCHASING: Patient was alert and awake - Constitutional Vitals: Temp Pulse Resp BP Pulse Ox 97.8 F 87 20 137/80 97 01/09/21 04:37 01/09/21 04:37 01/09/21 04:37 01/09/21 04:37 01/09/21 04:37 General appearance: Present: mild distress HEART Score - HEART Score Troponin: Troponin T < 0.010 ng/mL (0.00-0.029) 01/01/21 14:16 Results - Labs CBC & Chem 7: 01/07/21 11:45 01/09/21 07:08 Labs: Laboratory Last Values WBC 8.8 K/mm3 (4.5-11.0) 01/07/21 11:45 RBC 4.00 M/mm3 (3.65-5.03) 01/07/21 11:45 Hgb 12.3 gm/dl (11.8-15.2) 01/07/21 11:45 Hct 35.9 % (35.5-45.6) 01/07/21 11:45 MCV 90 fl (84-94) 01/07/21 11:45 MCH 31 pg (28-32) 01/07/21 11:45 MCHC 34 % (32-34) 01/07/21 11:45 RDW 13.6 % (13.2-15.2) 01/07/21 11:45 Plt Count 72 K/mm3 (140-440) L 01/07/21 11:45 Lymph % (Auto) 38.0 % (13.4-35.0) H 01/02/21 07:10 [place] % (Auto) 6.3 % (0.0-7.3) 01/02/21 07:10 Eos % (Auto) 1.2 % (0.0-4.3) 01/02/21 07:10 Baso % (Auto) 0.4 % (0.0-1.8) 01/02/21 07:10 Lymph # (Auto) 1.5 K/mm3 (1.2-5.4) 01/02/21 07:10 [place] # (Auto) 0.2 K/mm3 (0.0-0.8) 01/02/21 07:10 Eos # (Auto) 0.0 K/mm3 (0.0-0.4) 01/02/21 07:10 Baso # (Auto) 0.0 K/mm3 (0.0-0.1) 01/02/21 07:10 Seg Neutrophils % 54.1 % (40.0-70.0) 01/02/21 07:10 Seg Neutrophils # 2.1 K/mm3 (1.8-7.7) 01/02/21 07:10 PT 13.9 Sec. (12.2-14.9) 01/01/21 14:16 INR 1.02 (0.87-1.13) 01/01/21 14:16 APTT 24.1 Sec. (24.2-36.6) L 01/01/21 14:16 Sodium 141 mmol/L (137-145) 01/09/21 07:08 Potassium 3.0 mmol/L (3.6-5.0) L 01/09/21 07:08 Chloride 106.1 mmol/L (98-107) 01/09/21 07:08 Carbon Dioxide 24 mmol/L (22-30) 01/09/21 07:08 Anion Gap 14 mmol/L 01/09/21 07:08 BUN 3 mg/dL (9-20) L 01/09/21 07:08 Creatinine 0.5 mg/dL (0.8-1.3) L 01/09/21 07:08 Estimated GFR > 60 ml/min 01/09/21 07:08 BUN/Creatinine Ratio 6 % 01/09/21 07:08 Glucose 101 mg/dL (75-100) H 01/09/21 07:08 POC Glucose 85 mg/dL (70-105) 01/09/21 07:51 Calcium 8.6 mg/dL (8.4-10.2) 01/09/21 07:08 Phosphorus 2.20 mg/dL (2.5-4.5) L 01/03/21 05:43 Magnesium 1.40 mg/dL (1.7-2.3) L 01/07/21 11:45 Total Bilirubin 0.50 mg/dL (0.1-1.2) 01/05/21 04:31 Direct Bilirubin 0.4 mg/dL (0-0.2) H 01/01/21 14:16 Indirect Bilirubin 1.0 mg/dL 01/01/21 14:16 AST 68 units/L (5-40) H 01/05/21 04:31 ALT 59 units/L (7-56) H 01/05/21 04:31 Alkaline Phosphatase 76 units/L (35-129) 01/05/21 04:31 Ammonia 46.0 umol/L (25-60) 01/01/21 14:16 Troponin T < 0.010 ng/mL (0.00-0.029) 01/01/21 14:16 Total Protein 7.7 g/dL (6.3-8.2) 01/05/21 04:31 Albumin 3.8 g/dL (3.9-5) L 01/05/21 04:31 Albumin/Globulin Ratio 1.0 % 01/05/21 04:31 Lipase 213 units/L (13-60) H 01/02/21 07:10 TSH 2.040 mlU/mL (0.270-4.200) 01/01/21 14:16 Urine Color Yellow (Yellow) 01/01/21 20:37 Urine Turbidity Hazy (Clear) 01/01/21 20:37 Urine pH 6.0 (5.0-7.0) 01/01/21 20:37 Ur Specific [place] 1.014 (1.003-1.030) 01/01/21 20:37 Urine Protein 30 mg/dl mg/dL (Negative) 01/01/21 20:37 Urine Glucose (UA) Neg mg/dL (Negative) 01/01/21 20:37 Urine Ketones 80 mg/dL (Negative) 01/01/21 20:37 Urine Blood Sm (Negative) 01/01/21 20:37 Urine Nitrite Neg (Negative) 01/01/21 20:37 Urine Bilirubin Neg (Negative) 01/01/21 20:37 Urine Urobilinogen < 2.0 mg/dL (<2.0) 01/01/21 20:37 Ur Leukocyte Esterase Tr (Negative) 01/01/21 20:37 Urine WBC (Auto) 8.0 /HPF (0.0-6.0) H 01/01/21 20:37 Urine RBC (Auto) 2.0 /HPF (0.0-6.0) 01/01/21 20:37 U Epithel Cells (Auto) 1.0 /HPF (0-13.0) 01/01/21 20:37 Hyaline Casts 1 /LPF 01/01/21 20:37 Urine Mucus Few /HPF 01/01/21 20:37 Salicylates < 0.3 mg/dL (2.8-20.0) L 01/01/21 14:16 Urine Opiates Screen Negative 01/01/21 20:37 Urine Methadone Screen Negative 01/01/21 20:37 Acetaminophen 5.0 ug/mL (10.0-30.0) L 01/01/21 14:16 Ur Barbiturates Screen Negative 01/01/21 20:37 Ur Phencyclidine Scrn Negative 01/01/21 20:37 Ur Amphetamines Screen Negative 01/01/21 20:37 U Benzodiazepines Scrn Positive 01/01/21 20:37 Urine Cocaine Screen Negative 01/01/21 20:37 U Marijuana (THC) Screen Negative 01/01/21 20:37 Drugs of Abuse Note Disclamer 01/01/21 20:37 Plasma/Serum Alcohol < 0.01 % (0-0.07) 01/01/21 16:10 Russell/IV: Voiding Method Condom Catheter Active Medications - Current Medications Current Medications: Generic Name Dose Route Start Last Admin Trade Name Freq PRN Reason Stop Dose Admin Albuterol 2.5 mg 01/01/21 16:19 Albuterol 2.5 Mg/3 Ml Nebu IH Q3HRT PRN Shortness Of Breath Aspirin 81 mg 01/02/21 10:00 01/08/21 09:01 Aspirin Ec 81 Mg Tab PO 81 mg DAILY GARCIE Administration Chlordiazepoxide HCl 25 mg 01/02/21 10:00 01/09/21 02:26 Chlordiazepoxide 25 Mg Cap PO 25 mg Q8H GRACIE Administration Clonidine HCl 0.1 mg 01/04/21 10:00 01/08/21 21:29 Clonidine 0.1 Mg Tab PO 0.1 mg Q4HR PRN Administration Agitation Dextrose 50 ml 01/01/21 16:33 Dextrose 50% In Water (25gm) 50 Ml Syringe IV Q30MIN PRN Hypoglycemia Protocol Heparin Sodium (Porcine) 5,000 unit 01/01/21 22:00 01/09/21 00:24 Heparin 5,000 Unit/1 Ml Vial SUB-Q 5,000 unit Q12HR GRACIE Administration Hydralazine HCl 10 mg 01/01/21 16:31 01/06/21 05:23 Hydralazine 20 Mg/1 Ml Inj IV 10 mg Q6HR PRN Administration Hypertension Dextrose/Sodium Chloride 1,000 mls @ 75 mls/hr 01/05/21 11:00 01/08/21 18:10 D5ns IV 75 mls/hr DIRECT GRACIE Administration Ibuprofen 600 mg 01/01/21 16:19 Ibuprofen 600 Mg Tab PO Q6H PRN Pain, Mild (1-3) Insulin Human Lispro 0 unit 01/01/21 18:00 01/09/21 05:47 Insulin Lispro 100 Unit/Ml SUB-Q Not Given Q6HR [facility] Protocol Lorazepam 2 mg 01/01/21 12:01 01/08/21 13:48 Lorazepam 2 Mg/Ml Vial IV 2 mg Q1HR PRN Administration CIWA-Ar 8-15 Lorazepam 4 mg 01/01/21 12:01 01/06/21 22:09 Lorazepam 2 Mg/Ml Vial IV 4 mg Q1HR PRN Administration CIWA-Ar 16-25 Lorazepam 4 mg 01/01/21 12:01 01/05/21 09:42 Lorazepam 2 Mg/Ml Vial IV 4 mg Q15MIN PRN Administration CIWA-Ar >25 Magnesium Oxide 400 mg 01/09/21 10:00 Magnesium Oxide 400 Mg Tab PO QDAY GRACIE Morphine Sulfate 2 mg 01/01/21 16:19 Morphine 4 Mg/1 Ml Inj IV Q6H PRN Pain , Severe (7-10) Oxycodone/Acetaminophen 1 tab 01/01/21 16:19 Oxycodone /Acetaminophen 5-325mg Tab PO Q12H PRN Pain, Moderate (4-6) Potassium Chloride 40 meq 01/09/21 08:36 Potassium Chloride 20 Meq Packet FEEDTUBE 01/09/21 08:37 ONCE ONE Sodium Chloride 10 ml 01/01/21 22:00 01/09/21 02:14 Sodium Chloride 0.9% 10 Ml Flush Syringe IV Not Given BID GRACIE Sodium Chloride 10 ml 01/01/21 16:19 Sodium Chloride 0.9% 10 Ml Flush Syringe IV PRN PRN LINE FLUSH Nutrition/Malnutrition Assess - Dietary Evaluation Nutrition/Malnutrition Findings: Nutrition Notes Start: 01/08/21 14:04 Freq: Status: Active Protocol: Document 01/08/21 14:04 STANFORD (Rec: 01/08/21 14:12 STANFORD [email or web address]) Nutrition Notes Need for Assessment generated from: LOS Initial or Follow up Assessment Current Diagnosis Diabetes,Hypertension Other Pertinent Diagnosis etoh dependence, acute pancreatitis Current Diet clear liquids Labs/Tests K 3 Pertinent Medications reviewed Height 6 ft Weight 66.1 kg Usual Body Weight 74.843 kg Williams Body Weight (kg) 80.90 BMI 19.8 Weight change and time frame 12% wt loss in 2 months Weight Status Appropriate Subjective/Other Information Screen for LOS. Pt drinking 75 % of clear liquid diet. Pt reports wt loss but is confused on how much he lost. Pt would like mech soft diet when it advances. Burn Absent Trauma Absent GI Symptoms None Current % PO Fair (50-74%) Minimum of two criteria Yes Energy Intake (non-severe) <75% Estimated Energy Requirement >7 days Interpretation of Weight Loss (severe) >7.5% in 3 months #1 Nutrition Diagnosis Malnutrition Etiology etoh dependence As Evidenced by Signs and Symptoms <75% of EER in >7 days, >7.5% wt loss in 3 months Is patient on ventilator? No Is Patient Ambulatory and/or Out of Bed No REE-([facility]-confined to bed) 6010.483 Calculation Used for Recommendations [facility] Additional Notes Protein: (1.2-1.5g/kg) 79-99g Fluid: 1 ml/kcal or per MD Nutrition Intervention Change Diet Order: advance as able Add Supplement/Snack (indicate name/kcal Ensure Clear BID /protein ) Provides kCal: 480 Provides Protein (gm) 16 Goal #1 Meet needs as best as possible on clear liquid diet Anticipated Discharge Needs: cardiac, consistent CHO Follow-Up By: 01/10/21 Additional Comments F/u: intakes and ONS tolerance
[2021-01-09] MEDS ORDERED: POTASSIUM CHLORIDE 20 MEQ PACKET FEEDTUBE NR ×2 (09:00→13:00)
[2021-01-09] MEDS: ASPIRIN EC 81 MG TAB PO SCH (11:13)
[2021-01-09] MEDS: MAGNESIUM OXIDE 400 MG TAB PO SCH (11:13)
--- NOTE | 2021-01-09 14:35 | Progress Note ---
Assessment and Plan Alcohol withdrawal with delirium tremens Seizures Acute Pancreatitis Nicotine dependence Dementia DM II Anemia Hypomagnesemia Hypophosphatemia Elevated serum transaminases - continue CIWA / EtOH withdrawal protocol - continue fall precautions - continue care as below otherwise; - supplemental oxygen to keep O2 sats > 90% - prn bronchodilators (KATE) with pulm hygiene per RT - avoid nephrotoxins, renally dose all medications - mobility protocols to prevent pressure ulcers - PT/OT as tolerated - Wound care per RN/WCT - accuchecks with glycemic control per SSI for target blood glucose < 180 mg/dL - tobacco & EtOH abstinence strongly counseled at the bedside - home oxygen evaluation at discharge - GI & VTE prophylaxis - Flu & pneumovax per protocol - Pulmonary out patient follow up for PFTs and optimization of respiratory status - prn analgesia per pain score - continue other care per attending / other consultants ... re-evaluate in am & prn Subjective Date of service: 01/09/21 Principal diagnosis: Alcohol withdrawal; Seizures; Acute Pancreatitis; DM II Interval history: Patient is seen today for: Alcohol withdrawal; Seizures; Acute Pancreatitis; DM II; Anemia; Elevated serum transaminases Seen and examined at bedside; 24hour events reviewed; nursing and respiratory care staff consulted; no adverse overnight events reported to me; resting peacefully in bed; sedated; no emesis or overt aspiration Objective Vital Signs - 12hr 01/09/21 01/09/21 04:37 12:15 Temperature 97.8 F 97.7 F Pulse Rate 87 87 Respiratory 20 22 Rate Blood Pressure 137/80 123/85 O2 Sat by Pulse 97 97 Oximetry Constitutional: no acute distress Eyes: non-icteric ENT: oropharynx moist Neck: supple, no lymphadenopathy, no JVD Effort: mildly labored Ascultation: Bilateral: clear, diminished breath sounds Percussion: Bilateral: not dull Cardiovascular: regular rate and rhythm Gastrointestinal: normoactive bowel sounds, soft, non-tender, non-distended Integumentary: normal Extremities: no cyanosis, no edema, pulses normal, no ischemia or petechiae Neurologic: non-focal exam (grossly), pupils equal and round, motor strength normal and, other (sedated) Psychiatric: other (delirious) CBC and BMP: 01/07/21 11:45 01/10/21 10:50 ABG, PT/INR, D-dimer: PT/INR, D-dimer PT 13.9 Sec. (12.2-14.9) 01/01/21 14:16 INR 1.02 (0.87-1.13) 01/01/21 14:16 Abnormal lab findings: Abnormal Labs 01/01/21 01/01/21 01/01/21 14:16 14:16 14:16 WBC RBC 3.20 L Hgb 9.9 L Hct 29.3 L Plt Count 74 L Lymph % (Auto) [place] % (Auto) 7.9 H Lymph # (Auto) 0.8 L Seg Neutrophils % 78.1 H APTT 24.1 L Sodium 135 L Potassium Chloride 93.1 L BUN 8 L Creatinine 0.6 L Glucose 106 H POC Glucose Phosphorus Magnesium 1.40 L Total Bilirubin 1.40 H Direct Bilirubin 0.4 H AST 230 H ALT 95 H Albumin Lipase Urine WBC (Auto) Salicylates Acetaminophen 01/01/21 01/01/21 01/01/21 14:16 14:16 14:16 WBC RBC Hgb Hct Plt Count Lymph % (Auto) [place] % (Auto) Lymph # (Auto) Seg Neutrophils % APTT Sodium Potassium Chloride BUN Creatinine Glucose POC Glucose Phosphorus Magnesium Total Bilirubin Direct Bilirubin AST ALT Albumin Lipase 279 H Urine WBC (Auto) Salicylates < 0.3 L Acetaminophen 5.0 L 01/01/21 01/01/21 01/02/21 14:16 20:37 07:10 WBC 3.9 L RBC Hgb 11.1 L Hct 32.7 L Plt Count 69 L Lymph % (Auto) 38.0 H [place] % (Auto) Lymph # (Auto) Seg Neutrophils % APTT Sodium Potassium Chloride BUN Creatinine Glucose POC Glucose Phosphorus 2.00 L Magnesium Total Bilirubin Direct Bilirubin AST ALT Albumin Lipase Urine WBC (Auto) 8.0 H Salicylates Acetaminophen 01/02/21 01/02/21 01/02/21 07:10 07:10 11:53 WBC RBC Hgb Hct Plt Count Lymph % (Auto) [place] % (Auto) Lymph # (Auto) Seg Neutrophils % APTT Sodium Potassium 3.3 L D Chloride BUN 4 L Creatinine 0.4 L Glucose POC Glucose 116 H Phosphorus 2.40 L Magnesium Total Bilirubin 1.30 H Direct Bilirubin AST 145 H ALT 73 H Albumin 3.5 L Lipase 213 H Urine WBC (Auto) Salicylates Acetaminophen 01/02/21 01/02/21 01/03/21 17:24 23:26 05:43 WBC RBC Hgb Hct Plt Count Lymph % (Auto) [place] % (Auto) Lymph # (Auto) Seg Neutrophils % APTT Sodium Potassium Chloride BUN 3 L Creatinine 0.4 L Glucose POC Glucose 126 H 108 H Phosphorus 2.20 L Magnesium Total Bilirubin Direct Bilirubin AST ALT Albumin Lipase Urine WBC (Auto) Salicylates Acetaminophen 01/03/21 01/05/21 01/05/21 12:52 04:31 17:48 WBC RBC Hgb Hct Plt Count Lymph % (Auto) [place] % (Auto) Lymph # (Auto) Seg Neutrophils % APTT Sodium Potassium Chloride 97.2 L BUN 2 L Creatinine 0.5 L Glucose 73 L POC Glucose 114 H 141 H Phosphorus Magnesium 1.00 L Total Bilirubin Direct Bilirubin AST 68 H ALT 59 H Albumin 3.8 L Lipase Urine WBC (Auto) Salicylates Acetaminophen 01/05/21 01/06/21 01/06/21 21:25 05:30 06:36 WBC RBC Hgb Hct 34.6 L Plt Count 71 L Lymph % (Auto) [place] % (Auto) Lymph # (Auto) Seg Neutrophils % APTT Sodium Potassium Chloride BUN Creatinine Glucose POC Glucose 108 H 188 H Phosphorus Magnesium Total Bilirubin Direct Bilirubin AST ALT Albumin Lipase Urine WBC (Auto) Salicylates Acetaminophen 01/06/21 01/06/21 01/06/21 06:36 11:20 16:25 WBC RBC Hgb Hct Plt Count Lymph % (Auto) [place] % (Auto) Lymph # (Auto) Seg Neutrophils % APTT Sodium Potassium 2.6 L* D Chloride BUN 2 L Creatinine 0.4 L Glucose 187 H POC Glucose 157 H 126 H Phosphorus Magnesium 1.40 L Total Bilirubin Direct Bilirubin AST ALT Albumin Lipase Urine WBC (Auto) Salicylates Acetaminophen 01/06/21 01/07/21 01/07/21 22:25 06:07 11:45 WBC RBC Hgb Hct Plt Count 72 L Lymph % (Auto) [place] % (Auto) Lymph # (Auto) Seg Neutrophils % APTT Sodium Potassium Chloride BUN Creatinine Glucose POC Glucose 116 H 152 H Phosphorus Magnesium Total Bilirubin Direct Bilirubin AST ALT Albumin Lipase Urine WBC (Auto) Salicylates Acetaminophen 01/07/21 01/07/21 01/07/21 11:45 11:51 16:37 WBC RBC Hgb Hct Plt Count Lymph % (Auto) [place] % (Auto) Lymph # (Auto) Seg Neutrophils % APTT Sodium Potassium Chloride BUN 2 L Creatinine 0.4 L Glucose 151 H POC Glucose 159 H 143 H Phosphorus Magnesium 1.40 L Total Bilirubin Direct Bilirubin AST ALT Albumin Lipase Urine WBC (Auto) Salicylates Acetaminophen 01/08/21 01/08/21 01/08/21 06:16 07:10 11:14 WBC RBC Hgb Hct Plt Count Lymph % (Auto) [place] % (Auto) Lymph # (Auto) Seg Neutrophils % APTT Sodium Potassium 3.0 L Chloride BUN 2 L Creatinine 0.5 L Glucose 121 H POC Glucose 138 H 177 H Phosphorus Magnesium Total Bilirubin Direct Bilirubin AST ALT Albumin Lipase Urine WBC (Auto) Salicylates Acetaminophen 01/08/21 01/08/21 01/09/21 17:10 21:48 07:08 WBC RBC Hgb Hct Plt Count Lymph % (Auto) [place] % (Auto) Lymph # (Auto) Seg Neutrophils % APTT Sodium Potassium 3.0 L Chloride BUN 3 L Creatinine 0.5 L Glucose 101 H POC Glucose 126 H 136 H Phosphorus Magnesium Total Bilirubin Direct Bilirubin AST ALT Albumin Lipase Urine WBC (Auto) Salicylates Acetaminophen Allied health notes reviewed: nursing
[2021-01-09] MEDS: LORazepam 2 MG/ML VIAL IV PRN (19:54)
[2021-01-10] MEDS: chlordiazePOXIDE 25 MG CAP PO SCH ×3 (02:53→18:32)
[2021-01-10] MEDS: LORazepam 2 MG/ML VIAL IV PRN ×3 (03:50→22:53)
[2021-01-10] MEDS: INSULIN LISPRO 100 UNIT/ML SUB-Q SCH ×4 (06:24→18:32)
--- NOTE | 2021-01-10 09:00 | Progress Note ---
Assessment and Plan Assessment and plan: 65 YO Male with DM, Nicotine Dependence, ETOH Dependence, HTN, Vascular Dementia, Cerebral Atherosclerosis, Malnutrition presents to ED for evaluation. Patient is confused with diminished cognition at the time of my evaluation is unable to provide history. The patient "had a seizure". EMS was notified and upon arrival the patient was found to be in distress and subsequently transported to [facility] for further care and evaluation of the aforementioned symptoms. The patient was seen and evaluated in the emergency department and was observed to have multiple witnessed seizures. Patient treated with b enzodiazepine therapy with recurrent seizures. Patient found to have alcohol withdrawal syndrome complicated by delirium, acute pancreatitis, malnutrition, hypomagnesemia. Patient admitted to ICU and initiated on Precedex as well as IV fluid resuscitation therapy. Patient treated in accordance with alcohol withdrawal protocol. No further history is obtainable. No reports of fever, chills, chest pain, palpitation, productive cough, skin rash, recent ill contacts, trauma, or known exposure to COVID-19. Prior admission on 02/06/2020 reviewed. All medication listed at time of admission has been reconciled. Advanced care planning conducted in ED. 01/02: Imaging studies including CT head, chest x-ray and cervical spine x-ray reviewed no acute pathology noted. Patient clinically stable for downgrade will start on Librium scheduled and try to wean off Precedex. Will transfer to [facility] at this time. When he is more awake we will do counseling on EtOH cessation. Will give additional magnesium due to hypomagnesemia 01/03: Continue management for EtOH withdrawal patient in DTs at this time. Also having hallucination. Continue CIWA protocol. Replace electrolytes as needed. Patient will continue taking IMCU care since level of CIWA scores is significantly high. 01/04: Discussed with nursing staff there is been documentation of taking oral intake so we will start patient on full liquid diet if his mental status is still precluding him taking p.o. we will tolerate NG tube and start him on some tube feeds. Otherwise continue current management continue thiamine. May start him on a banana bag to ensure adequate nutritional intake all vitamins and ant icipate improvement. We will renew restraints for safety. Repeat magnesium level to see if it has corrected. Also will plan to wean off Precedex and lieu of clonidine for agitation. 01/05: Wean off precedex, improving clinically, will transfer to [facility], continue restraints for Safety, Replace Electrolytes-Magnesium - Hypomagnesiemia. Continue re-orientation. Patient with mild hypoglycemia. Start D5NS at 75cc/hr. Monitor Blood glucose. Also able to start clear liquids as his orientation is improving some. 01/06: Patient still with alcohol induced encephalopathy. Continue current management for delirium tremens. Replace electrolytes including hypomagnesemia and hypokalemia. Reevaluate in a.m. for possible discharge. Rehab placement may be beneficial 01/07; patient was on restraints this morning. Patient was somnolent but was able to state his name and the year, his potassium was corrected this morning. We will continue inpatient care. 01/08; patient was on restraints. He was asking restraints to be taken off. Potassium level is very low and will be replete it. 01/09; patient is on restraints. Continue CIWA protocol. Potassium level is still low 3 this morning and I put 40 mEq of potassium x2 every 4 hours. Will check potassium at 2 PM. I put electrolyte replacement protocol. 01/10; continue CIWA protocol. Potassium level was normal. Hypomagnesemia and repleted. Patient still on restraints. Patient was evaluated by physical therapy and recommend subacute rehab, rolling walker. Patient was on restraints, patient was confused. He is not stable enough for discharge. (1) Alcohol withdrawal delirium tremens Current Visit: Yes Status: Acute Plan to address problem: Alcohol withdrawal protocol, patient treated with Precedex drip, critical care care team consulted, benzodiazepine therapy as clinically indicated, IV fluid resuscitation therapy, (2) Malnutrition Current Visit: Yes Status: Acute Qualifiers: Malnutrition type: protein-calorie malnutrition Plan to address problem: Increase protein intake, dietary supplementation when awake and alert only (3) Pancreatitis Current Visit: Yes Status: Acute Qualifiers: Chronicity: acute Pancreatitis type: alcohol induced Plan to address problem: Lipase level, repeat lipase level in a.m., bowel rest, IV fluid resuscitation therapy, supportive care, pain control. (4) Nicotine dependence Current Visit: Yes Status: Acute Qualifiers: Nicotine product type: cigarettes Substance use status: in withdrawal Qualified Code(s): F17.213 - Nicotine dependence, cigarettes, with withdrawal Plan to address problem: Smoking cessation, supportive care. (5) hypokalemia/hypomagnesemia (6) DVT prophylaxis Current Visit: Yes Status: Acute Plan to address problem: SCD to bilateral lower extremities while in bed, prophylactic anticoagulation (7) Advance care planning Current Visit: Yes Status: Acute Plan to address problem: Disease education conducted, care plan discussed, diagnosis discussed, prognosis discussed, patient acknowledges understanding and agreement with current care plan, +30 minutes. History Interval history: Patient was seen and evaluated this morning Patient was confused and was on soft wrist restraints Hospitalist Physical - Physical exam Narrative exam: Not in cardiopulmonary distress. The patient appeared well nourished and normally developed. Vital signs as documented. Head exam is unremarkable. No scleral icterus . Neck is without jugular venous distension, thyromegaly, or carotid bruits. Lungs are clear to auscultation. Cardiac exam reveals regular rate and Rhythm. Abdominal exam reveals normal bowel sounds, nontender, no organomegaly. Extremities are nonedematous and both femoral and pedal pulses are normal. [employer]: Patient was alert and awake - Constitutional Vitals: Temp Pulse Resp BP Pulse Ox 98.6 F 101 H 18 125/77 96 01/10/21 04:15 01/10/21 04:15 01/10/21 04:15 01/10/21 04:15 01/10/21 04:15 General appearance: Present: mild distress HEART Score - HEART Score Troponin: Troponin T < 0.010 ng/mL (0.00-0.029) 01/01/21 14:16 Results - Labs CBC & Chem 7: 01/07/21 11:45 01/10/21 10:50 Labs: Laboratory Last Values WBC 8.8 K/mm3 (4.5-11.0) 01/07/21 11:45 RBC 4.00 M/mm3 (3.65-5.03) 01/07/21 11:45 Hgb 12.3 gm/dl (11.8-15.2) 01/07/21 11:45 Hct 35.9 % (35.5-45.6) 01/07/21 11:45 MCV 90 fl (84-94) 01/07/21 11:45 MCH 31 pg (28-32) 01/07/21 11:45 MCHC 34 % (32-34) 01/07/21 11:45 RDW 13.6 % (13.2-15.2) 01/07/21 11:45 Plt Count 72 K/mm3 (140-440) L 01/07/21 11:45 Lymph % (Auto) 38.0 % (13.4-35.0) H 01/02/21 07:10 [place] % (Auto) 6.3 % (0.0-7.3) 01/02/21 07:10 Eos % (Auto) 1.2 % (0.0-4.3) 01/02/21 07:10 Baso % (Auto) 0.4 % (0.0-1.8) 01/02/21 07:10 Lymph # (Auto) 1.5 K/mm3 (1.2-5.4) 01/02/21 07:10 [place] # (Auto) 0.2 K/mm3 (0.0-0.8) 01/02/21 07:10 Eos # (Auto) 0.0 K/mm3 (0.0-0.4) 01/02/21 07:10 Baso # (Auto) 0.0 K/mm3 (0.0-0.1) 01/02/21 07:10 Seg Neutrophils % 54.1 % (40.0-70.0) 01/02/21 07:10 Seg Neutrophils # 2.1 K/mm3 (1.8-7.7) 01/02/21 07:10 PT 13.9 Sec. (12.2-14.9) 01/01/21 14:16 INR 1.02 (0.87-1.13) 01/01/21 14:16 APTT 24.1 Sec. (24.2-36.6) L 01/01/21 14:16 Sodium 141 mmol/L (137-145) 01/09/21 07:08 Potassium 4.1 mmol/L (3.6-5.0) D 01/09/21 23:11 Chloride 106.1 mmol/L (98-107) 01/09/21 07:08 Carbon Dioxide 24 mmol/L (22-30) 01/09/21 07:08 Anion Gap 14 mmol/L 01/09/21 07:08 BUN 3 mg/dL (9-20) L 01/09/21 07:08 Creatinine 0.5 mg/dL (0.8-1.3) L 01/09/21 07:08 Estimated GFR > 60 ml/min 01/09/21 07:08 BUN/Creatinine Ratio 6 % 01/09/21 07:08 Glucose 101 mg/dL (75-100) H 01/09/21 07:08 POC Glucose 109 mg/dL (70-105) H 01/10/21 05:43 Calcium 8.6 mg/dL (8.4-10.2) 01/09/21 07:08 Phosphorus 2.20 mg/dL (2.5-4.5) L 01/03/21 05:43 Magnesium 1.30 mg/dL (1.7-2.3) L 01/09/21 23:11 Total Bilirubin 0.50 mg/dL (0.1-1.2) 01/05/21 04:31 Direct Bilirubin 0.4 mg/dL (0-0.2) H 01/01/21 14:16 Indirect Bilirubin 1.0 mg/dL 01/01/21 14:16 AST 68 units/L (5-40) H 01/05/21 04:31 ALT 59 units/L (7-56) H 01/05/21 04:31 Alkaline Phosphatase 76 units/L (35-129) 01/05/21 04:31 Ammonia 46.0 umol/L (25-60) 01/01/21 14:16 Troponin T < 0.010 ng/mL (0.00-0.029) 01/01/21 14:16 Total Protein 7.7 g/dL (6.3-8.2) 01/05/21 04:31 Albumin 3.8 g/dL (3.9-5) L 01/05/21 04:31 Albumin/Globulin Ratio 1.0 % 01/05/21 04:31 Lipase 213 units/L (13-60) H 01/02/21 07:10 TSH 2.040 mlU/mL (0.270-4.200) 01/01/21 14:16 Urine Color Yellow (Yellow) 01/01/21 20:37 Urine Turbidity Hazy (Clear) 01/01/21 20:37 Urine pH 6.0 (5.0-7.0) 01/01/21 20:37 Ur Specific [place] 1.014 (1.003-1.030) 01/01/21 20:37 Urine Protein 30 mg/dl mg/dL (Negative) 01/01/21 20:37 Urine Glucose (UA) Neg mg/dL (Negative) 01/01/21 20:37 Urine Ketones 80 mg/dL (Negative) 01/01/21 20:37 Urine Blood Sm (Negative) 01/01/21 20:37 Urine Nitrite Neg (Negative) 01/01/21 20:37 Urine Bilirubin Neg (Negative) 01/01/21 20:37 Urine Urobilinogen < 2.0 mg/dL (<2.0) 01/01/21 20:37 Ur Leukocyte Esterase Tr (Negative) 01/01/21 20:37 Urine WBC (Auto) 8.0 /HPF (0.0-6.0) H 01/01/21 20:37 Urine RBC (Auto) 2.0 /HPF (0.0-6.0) 01/01/21 20:37 U Epithel Cells (Auto) 1.0 /HPF (0-13.0) 01/01/21 20:37 Hyaline Casts 1 /LPF 01/01/21 20:37 Urine Mucus Few /HPF 01/01/21 20:37 Salicylates < 0.3 mg/dL (2.8-20.0) L 01/01/21 14:16 Urine Opiates Screen Negative 01/01/21 20:37 Urine Methadone Screen Negative 01/01/21 20:37 Acetaminophen 5.0 ug/mL (10.0-30.0) L 01/01/21 14:16 Ur Barbiturates Screen Negative 01/01/21 20:37 Ur Phencyclidine Scrn Negative 01/01/21 20:37 Ur Amphetamines Screen Negative 01/01/21 20:37 U Benzodiazepines Scrn Positive 01/01/21 20:37 Urine Cocaine Screen Negative 01/01/21 20:37 U Marijuana (THC) Screen Negative 01/01/21 20:37 Drugs of Abuse Note Disclamer 01/01/21 20:37 Plasma/Serum Alcohol < 0.01 % (0-0.07) 01/01/21 16:10 Russell/IV: Voiding Method Incontinent Active Medications - Current Medications Current Medications: Generic Name Dose Route Start Last Admin Trade Name Freq PRN Reason Stop Dose Admin Albuterol 2.5 mg 01/01/21 16:19 Albuterol 2.5 Mg/3 Ml Nebu IH Q3HRT PRN Shortness Of Breath Aspirin 81 mg 01/02/21 10:00 01/09/21 11:13 Aspirin Ec 81 Mg Tab PO 81 mg DAILY GRACIE Administration Chlordiazepoxide HCl 25 mg 01/02/21 10:00 01/10/21 02:53 Chlordiazepoxide 25 Mg Cap PO 25 mg Q8H GRACIE Administration Clonidine HCl 0.1 mg 01/04/21 10:00 01/08/21 21:29 Clonidine 0.1 Mg Tab PO 0.1 mg Q4HR PRN Administration Agitation Dextrose 50 ml 01/01/21 16:33 Dextrose 50% In Water (25gm) 50 Ml Syringe IV Q30MIN PRN Hypoglycemia Protocol Heparin Sodium (Porcine) 5,000 unit 01/01/21 22:00 01/09/21 21:31 Heparin 5,000 Unit/1 Ml Vial SUB-Q 5,000 unit Q12HR GRACIE Administration Hydralazine HCl 10 mg 01/01/21 16:31 01/06/21 05:23 Hydralazine 20 Mg/1 Ml Inj IV 10 mg Q6HR PRN Administration Hypertension Dextrose/Sodium Chloride 1,000 mls @ 75 mls/hr 01/05/21 11:00 01/08/21 18:10 D5ns IV 75 mls/hr DIRECT GRACIE Administration Ibuprofen 600 mg 01/01/21 16:19 Ibuprofen 600 Mg Tab PO Q6H PRN Pain, Mild (1-3) Insulin Human Lispro 0 unit 01/01/21 18:00 01/10/21 06:24 Insulin Lispro 100 Unit/Ml SUB-Q Not Given Q6HR GRACIE Protocol Lorazepam 2 mg 01/01/21 12:01 01/08/21 13:48 Lorazepam 2 Mg/Ml Vial IV 2 mg Q1HR PRN Administration CIWA-Ar 8-15 Lorazepam 4 mg 01/01/21 12:01 01/10/21 03:50 Lorazepam 2 Mg/Ml Vial IV 4 mg Q1HR PRN Administration CIWA-Ar 16-25 Lorazepam 4 mg 01/01/21 12:01 01/05/21 09:42 Lorazepam 2 Mg/Ml Vial IV 4 mg Q15MIN PRN Administration CIWA-Ar >25 Magnesium Oxide 400 mg 01/09/21 10:00 01/09/21 11:13 Magnesium Oxide 400 Mg Tab PO 400 mg QDAY GRACIE Administration Morphine Sulfate 2 mg 01/01/21 16:19 Morphine 4 Mg/1 Ml Inj IV Q6H PRN Pain , Severe (7-10) Oxycodone/Acetaminophen 1 tab 01/01/21 16:19 Oxycodone /Acetaminophen 5-325mg Tab PO Q12H PRN Pain, Moderate (4-6) Sodium Chloride 10 ml 01/01/21 22:00 01/09/21 21:32 Sodium Chloride 0.9% 10 Ml Flush Syringe IV 10 ml BID GRACIE Administration Sodium Chloride 10 ml 01/01/21 16:19 Sodium Chloride 0.9% 10 Ml Flush Syringe IV PRN PRN LINE FLUSH Nutrition/Malnutrition Assess - Dietary Evaluation Nutrition/Malnutrition Findings: Nutrition Notes Start: 01/08/21 14:04 Freq: Status: Active Protocol: Document 01/08/21 14:04 [place] (Rec: 01/08/21 14:12 STANFORD [email or web address]) Nutrition Notes Need for Assessment generated from: LOS Initial or Follow up Assessment Current Diagnosis Diabetes,Hypertension Other Pertinent Diagnosis etoh dependence, acute pancreatitis Current Diet clear liquids Labs/Tests K 3 Pertinent Medications reviewed Height 6 ft Weight 66.1 kg Usual Body Weight 74.843 kg [place] Body Weight (kg) 80.90 BMI 19.8 Weight change and time frame 12% wt loss in 2 months Weight Status Appropriate Subjective/Other Information Screen for LOS. Pt drinking 75 % of clear liquid diet. Pt reports wt loss but is confused on how much he lost. Pt would like mech soft diet when it advances. Burn Absent Trauma Absent GI Symptoms None Current % PO Fair (50-74%) Minimum of two criteria Yes Energy Intake (non-severe) <75% Estimated Energy Requirement >7 days Interpretation of Weight Loss (severe) >7.5% in 3 months #1 Nutrition Diagnosis Malnutrition Etiology etoh dependence As Evidenced by Signs and Symptoms <75% of EER in >7 days, >7.5% wt loss in 3 months Is patient on ventilator? No Is Patient Ambulatory and/or Out of Bed No [facility] [phone] Calculation Used for Recommendations [facility] Additional Notes Protein: (1.2-1.5g/kg) 79-99g Fluid: 1 ml/kcal or per MD Nutrition Intervention Change Diet Order: advance as able Add Supplement/Snack (indicate name/kcal Ensure Clear BID /protein ) Provides kCal: 480 Provides Protein (gm) 16 Goal #1 Meet needs as best as possible on clear liquid diet Anticipated Discharge Needs: cardiac, consistent CHO Follow-Up By: 01/10/21 Additional Comments F/u: intakes and ONS tolerance
[2021-01-10] MEDS: MAGNESIUM OXIDE 400 MG TAB PO SCH (09:41)
[2021-01-10] MEDS: ASPIRIN EC 81 MG TAB PO SCH (09:41)
[2021-01-10] MEDS: HEPARIN 5,000 UNIT/1 ML VIAL SUB-Q SCH ×2 (09:41→22:41)
[2021-01-10] MEDS: D5W/0.9% NACL 1,000 ML IV SCH (10:03)
[2021-01-10 12:07] LABS: Blood Urea Nitrogen 6 mg/dL (9-20); Calcium 9.6 mg/dL (8.4-10.2); Hemolysis Index 6
[2021-01-10 12:11] LABS: BUN/Creatinine Ratio 12
--- NOTE | 2021-01-10 14:02 | Progress Note ---
Assessment and Plan Alcohol withdrawal with delirium tremens Seizures Acute Pancreatitis Nicotine dependence Dementia DM II Anemia Hypomagnesemia Hypophosphatemia Elevated serum transaminases - continue CIWA / EtOH withdrawal protocol - continue fall precautions - continue care as below otherwise; - supplemental oxygen to keep O2 sats > 90% - prn bronchodilators (KATE) with pulm hygiene per RT - avoid nephrotoxins, renally dose all medications - mobility protocols to prevent pressure ulcers - PT/OT as tolerated - Wound care per RN/WCT - accuchecks with glycemic control per SSI for target blood glucose < 180 mg/dL - tobacco & EtOH abstinence strongly counseled at the bedside - home oxygen evaluation at discharge - GI & VTE prophylaxis - Flu & pneumovax per protocol - Pulmonary out patient follow up for PFTs and optimization of respiratory status - prn analgesia per pain score - continue other care per attending / other consultants ... re-evaluate in am & prn Subjective Date of service: 01/10/21 Principal diagnosis: Alcohol withdrawal; Seizures; Acute Pancreatitis; DM II Interval history: Patient is seen today for: Alcohol withdrawal; Seizures; Acute Pancreatitis; DM II; Anemia; Elevated serum transaminases Seen and examined at bedside; 24hour events reviewed; nursing and respiratory care staff consulted; no adverse overnight events reported to me; resting peacefully in bed; Objective Vital Signs - 12hr 01/10/21 01/10/21 01/10/21 04:15 08:00 10:00 Temperature 98.6 F Pulse Rate 101 H 101 H Respiratory 18 Rate Blood Pressure 125/77 O2 Sat by Pulse 96 99 Oximetry 01/10/21 11:47 Temperature 99.0 F Pulse Rate 96 H Respiratory 22 Rate Blood Pressure 137/69 O2 Sat by Pulse 95 Oximetry Constitutional: no acute distress Eyes: non-icteric ENT: oropharynx moist Neck: supple, no lymphadenopathy, no JVD Effort: mildly labored Ascultation: Bilateral: clear, diminished breath sounds Percussion: Bilateral: not dull Cardiovascular: regular rate and rhythm Gastrointestinal: normoactive bowel sounds, soft, non-tender, non-distended Integumentary: normal Extremities: no cyanosis, no edema, pulses normal, no ischemia or petechiae Neurologic: non-focal exam (grossly), pupils equal and round, motor strength normal and, other (sedated) Psychiatric: other (delirious) CBC and BMP: 01/07/21 11:45 01/10/21 10:50 ABG, PT/INR, D-dimer: PT/INR, D-dimer PT 13.9 Sec. (12.2-14.9) 01/01/21 14:16 INR 1.02 (0.87-1.13) 01/01/21 14:16 Abnormal lab findings: Abnormal Labs 01/01/21 01/01/21 01/01/21 14:16 14:16 14:16 WBC RBC 3.20 L Hgb 9.9 L Hct 29.3 L Plt Count 74 L Lymph % (Auto) [place] % (Auto) 7.9 H Lymph # (Auto) 0.8 L Seg Neutrophils % 78.1 H APTT 24.1 L Sodium 135 L Potassium Chloride 93.1 L BUN 8 L Creatinine 0.6 L Glucose 106 H POC Glucose Phosphorus Magnesium 1.40 L Total Bilirubin 1.40 H Direct Bilirubin 0.4 H AST 230 H ALT 95 H Albumin Lipase Urine WBC (Auto) Salicylates Acetaminophen 01/01/21 01/01/21 01/01/21 14:16 14:16 14:16 WBC RBC Hgb Hct Plt Count Lymph % (Auto) [place] % (Auto) Lymph # (Auto) Seg Neutrophils % APTT Sodium Potassium Chloride BUN Creatinine Glucose POC Glucose Phosphorus Magnesium Total Bilirubin Direct Bilirubin AST ALT Albumin Lipase 279 H Urine WBC (Auto) Salicylates < 0.3 L Acetaminophen 5.0 L 01/01/21 01/01/21 01/02/21 14:16 20:37 07:10 WBC 3.9 L RBC Hgb 11.1 L Hct 32.7 L Plt Count 69 L Lymph % (Auto) 38.0 H [place] % (Auto) Lymph # (Auto) Seg Neutrophils % APTT Sodium Potassium Chloride BUN Creatinine Glucose POC Glucose Phosphorus 2.00 L Magnesium Total Bilirubin Direct Bilirubin AST ALT Albumin Lipase Urine WBC (Auto) 8.0 H Salicylates Acetaminophen 01/02/21 01/02/21 01/02/21 07:10 07:10 11:53 WBC RBC Hgb Hct Plt Count Lymph % (Auto) [place] % (Auto) Lymph # (Auto) Seg Neutrophils % APTT Sodium Potassium 3.3 L D Chloride BUN 4 L Creatinine 0.4 L Glucose POC Glucose 116 H Phosphorus 2.40 L Magnesium Total Bilirubin 1.30 H Direct Bilirubin AST 145 H ALT 73 H Albumin 3.5 L Lipase 213 H Urine WBC (Auto) Salicylates Acetaminophen 01/02/21 01/02/21 01/03/21 17:24 23:26 05:43 WBC RBC Hgb Hct Plt Count Lymph % (Auto) [place] % (Auto) Lymph # (Auto) Seg Neutrophils % APTT Sodium Potassium Chloride BUN 3 L Creatinine 0.4 L Glucose POC Glucose 126 H 108 H Phosphorus 2.20 L Magnesium Total Bilirubin Direct Bilirubin AST ALT Albumin Lipase Urine WBC (Auto) Salicylates Acetaminophen 01/03/21 01/05/21 01/05/21 12:52 04:31 17:48 WBC RBC Hgb Hct Plt Count Lymph % (Auto) [place] % (Auto) Lymph # (Auto) Seg Neutrophils % APTT Sodium Potassium Chloride 97.2 L BUN 2 L Creatinine 0.5 L Glucose 73 L POC Glucose 114 H 141 H Phosphorus Magnesium 1.00 L Total Bilirubin Direct Bilirubin AST 68 H ALT 59 H Albumin 3.8 L Lipase Urine WBC (Auto) Salicylates Acetaminophen 01/05/21 01/06/21 01/06/21 21:25 05:30 06:36 WBC RBC Hgb Hct 34.6 L Plt Count 71 L Lymph % (Auto) [place] % (Auto) Lymph # (Auto) Seg Neutrophils % APTT Sodium Potassium Chloride BUN Creatinine Glucose POC Glucose 108 H 188 H Phosphorus Magnesium Total Bilirubin Direct Bilirubin AST ALT Albumin Lipase Urine WBC (Auto) Salicylates Acetaminophen 01/06/21 01/06/21 01/06/21 06:36 11:20 16:25 WBC RBC Hgb Hct Plt Count Lymph % (Auto) [place] % (Auto) Lymph # (Auto) Seg Neutrophils % APTT Sodium Potassium 2.6 L* D Chloride BUN 2 L Creatinine 0.4 L Glucose 187 H POC Glucose 157 H 126 H Phosphorus Magnesium 1.40 L Total Bilirubin Direct Bilirubin AST ALT Albumin Lipase Urine WBC (Auto) Salicylates Acetaminophen 01/06/21 01/07/21 01/07/21 22:25 06:07 11:45 WBC RBC Hgb Hct Plt Count 72 L Lymph % (Auto) [place] % (Auto) Lymph # (Auto) Seg Neutrophils % APTT Sodium Potassium Chloride BUN Creatinine Glucose POC Glucose 116 H 152 H Phosphorus Magnesium Total Bilirubin Direct Bilirubin AST ALT Albumin Lipase Urine WBC (Auto) Salicylates Acetaminophen 01/07/21 01/07/21 01/07/21 11:45 11:51 16:37 WBC RBC Hgb Hct Plt Count Lymph % (Auto) [place] % (Auto) Lymph # (Auto) Seg Neutrophils % APTT Sodium Potassium Chloride BUN 2 L Creatinine 0.4 L Glucose 151 H POC Glucose 159 H 143 H Phosphorus Magnesium 1.40 L Total Bilirubin Direct Bilirubin AST ALT Albumin Lipase Urine WBC (Auto) Salicylates Acetaminophen 01/08/21 01/08/21 01/08/21 06:16 07:10 11:14 WBC RBC Hgb Hct Plt Count Lymph % (Auto) [place] % (Auto) Lymph # (Auto) Seg Neutrophils % APTT Sodium Potassium 3.0 L Chloride BUN 2 L Creatinine 0.5 L Glucose 121 H POC Glucose 138 H 177 H Phosphorus Magnesium Total Bilirubin Direct Bilirubin AST ALT Albumin Lipase Urine WBC (Auto) Salicylates Acetaminophen 01/08/21 01/08/21 01/09/21 17:10 21:48 07:08 WBC RBC Hgb Hct Plt Count Lymph % (Auto) [place] % (Auto) Lymph # (Auto) Seg Neutrophils % APTT Sodium Potassium 3.0 L Chloride BUN 3 L Creatinine 0.5 L Glucose 101 H POC Glucose 126 H 136 H Phosphorus Magnesium Total Bilirubin Direct Bilirubin AST ALT Albumin Lipase Urine WBC (Auto) Salicylates Acetaminophen 01/09/21 01/09/21 01/10/21 23:11 23:11 05:43 WBC RBC Hgb Hct Plt Count Lymph % (Auto) [place] % (Auto) Lymph # (Auto) Seg Neutrophils % APTT Sodium Potassium Chloride BUN Creatinine Glucose POC Glucose 112 H 109 H Phosphorus Magnesium 1.30 L Total Bilirubin Direct Bilirubin AST ALT Albumin Lipase Urine WBC (Auto) Salicylates Acetaminophen 01/10/21 01/10/21 10:50 11:44 WBC RBC Hgb Hct Plt Count Lymph % (Auto) [place] % (Auto) Lymph # (Auto) Seg Neutrophils % APTT Sodium Potassium 3.4 L Chloride BUN 6 L Creatinine 0.5 L Glucose 167 H POC Glucose 120 H Phosphorus Magnesium Total Bilirubin Direct Bilirubin AST ALT Albumin Lipase Urine WBC (Auto) Salicylates Acetaminophen Allied health notes reviewed: nursing
[2021-01-11] MEDS: cloNIDine 0.1 MG TAB PO PRN (00:22)
[2021-01-11] MEDS: INSULIN LISPRO 100 UNIT/ML SUB-Q SCH ×4 (00:32→18:16)
[2021-01-11] MEDS: chlordiazePOXIDE 25 MG CAP PO SCH ×3 (02:13→18:16)
[2021-01-11] MEDS ORDERED: ZIPRASIDONE MESYLATE 20 MG VIAL IM ONE (04:30)
[2021-01-11 06:31] LABS: Blood Urea Nitrogen 7 mg/dL (9-20); Calcium 9.3 mg/dL (8.4-10.2); Hemolysis Index 3
[2021-01-11 06:38] LABS: BUN/Creatinine Ratio 14
--- NOTE | 2021-01-11 08:42 | Progress Note ---
Assessment and Plan Alcohol withdrawal with delirium tremens Seizures Acute Pancreatitis Nicotine dependence/Tobacco use disorder Dementia DM II Anemia Hypomagnesemia Hypophosphatemia Elevated serum transaminases - continue CIWA / EtOH withdrawal protocol - continue fall precautions - replace potassium - supplemental oxygen to keep O2 sats > 90% - PT/OT as tolerated - accuchecks with glycemic control per SSI for target blood glucose < 180 mg/dL - on going substance abuse counselling -VTE prophylaxis - Influenza and pneumonia vaccination per protocol - prn analgesia per pain score - continue other care per attending / other consultants Subjective Date of service: 01/11/21 Principal diagnosis: Alcohol withdrawal; Seizures; Acute Pancreatitis; DM II Interval history: Patient is seen today for: Alcohol withdrawal; Seizures; Acute Pancreatitis; DM II; Anemia; Elevated serum transaminases Seen and examined at bedside; 24hour events reviewed; nursing and respiratory care staff consulted; no adverse overnight events reported to me; resting peacefully in bed; sleeping; no emesis or overt aspiration. No reported fevers, no diarrhea Objective Vital Signs - 12hr 01/10/21 01/11/21 01/11/21 23:03 00:22 04:36 Temperature 97.9 F 98.3 F Pulse Rate 85 85 89 Respiratory 18 18 Rate Blood Pressure 125/66 125/66 124/78 O2 Sat by Pulse 98 98 Oximetry Constitutional: no acute distress, other (sleeping but rousable) Eyes: non-icteric ENT: oropharynx moist Neck: supple, no lymphadenopathy, no JVD Effort: normal Ascultation: Bilateral: clear, diminished breath sounds Percussion: Bilateral: not dull Cardiovascular: regular rate and rhythm, other (S1,S2) Gastrointestinal: normoactive bowel sounds, soft, non-tender, non-distended Integumentary: normal Extremities: no cyanosis, no edema, pulses normal, no ischemia or petechiae Neurologic: non-focal exam (grossly), pupils equal and round, motor strength normal and CBC and BMP: 01/07/21 11:45 01/11/21 05:42 ABG, PT/INR, D-dimer: PT/INR, D-dimer PT 13.9 Sec. (12.2-14.9) 01/01/21 14:16 INR 1.02 (0.87-1.13) 01/01/21 14:16 Abnormal lab findings: Abnormal Labs 01/01/21 01/01/21 01/01/21 14:16 14:16 14:16 WBC RBC 3.20 L Hgb 9.9 L Hct 29.3 L Plt Count 74 L Lymph % (Auto) [place] % (Auto) 7.9 H Lymph # (Auto) 0.8 L Seg Neutrophils % 78.1 H APTT 24.1 L Sodium 135 L Potassium Chloride 93.1 L BUN 8 L Creatinine 0.6 L Glucose 106 H POC Glucose Phosphorus Magnesium 1.40 L Total Bilirubin 1.40 H Direct Bilirubin 0.4 H AST 230 H ALT 95 H Albumin Lipase Urine WBC (Auto) Salicylates Acetaminophen 01/01/21 01/01/21 01/01/21 14:16 14:16 14:16 WBC RBC Hgb Hct Plt Count Lymph % (Auto) [place] % (Auto) Lymph # (Auto) Seg Neutrophils % APTT Sodium Potassium Chloride BUN Creatinine Glucose POC Glucose Phosphorus Magnesium Total Bilirubin Direct Bilirubin AST ALT Albumin Lipase 279 H Urine WBC (Auto) Salicylates < 0.3 L Acetaminophen 5.0 L 01/01/21 01/01/21 01/02/21 14:16 20:37 07:10 WBC 3.9 L RBC Hgb 11.1 L Hct 32.7 L Plt Count 69 L Lymph % (Auto) 38.0 H [place] % (Auto) Lymph # (Auto) Seg Neutrophils % APTT Sodium Potassium Chloride BUN Creatinine Glucose POC Glucose Phosphorus 2.00 L Magnesium Total Bilirubin Direct Bilirubin AST ALT Albumin Lipase Urine WBC (Auto) 8.0 H Salicylates Acetaminophen 01/02/21 01/02/21 01/02/21 07:10 07:10 11:53 WBC RBC Hgb Hct Plt Count Lymph % (Auto) [place] % (Auto) Lymph # (Auto) Seg Neutrophils % APTT Sodium Potassium 3.3 L D Chloride BUN 4 L Creatinine 0.4 L Glucose POC Glucose 116 H Phosphorus 2.40 L Magnesium Total Bilirubin 1.30 H Direct Bilirubin AST 145 H ALT 73 H Albumin 3.5 L Lipase 213 H Urine WBC (Auto) Salicylates Acetaminophen 01/02/21 01/02/21 01/03/21 17:24 23:26 05:43 WBC RBC Hgb Hct Plt Count Lymph % (Auto) [place] % (Auto) Lymph # (Auto) Seg Neutrophils % APTT Sodium Potassium Chloride BUN 3 L Creatinine 0.4 L Glucose POC Glucose 126 H 108 H Phosphorus 2.20 L Magnesium Total Bilirubin Direct Bilirubin AST ALT Albumin Lipase Urine WBC (Auto) Salicylates Acetaminophen 01/03/21 01/05/21 01/05/21 12:52 04:31 17:48 WBC RBC Hgb Hct Plt Count Lymph % (Auto) [place] % (Auto) Lymph # (Auto) Seg Neutrophils % APTT Sodium Potassium Chloride 97.2 L BUN 2 L Creatinine 0.5 L Glucose 73 L POC Glucose 114 H 141 H Phosphorus Magnesium 1.00 L Total Bilirubin Direct Bilirubin AST 68 H ALT 59 H Albumin 3.8 L Lipase Urine WBC (Auto) Salicylates Acetaminophen 01/05/21 01/06/21 01/06/21 21:25 05:30 06:36 WBC RBC Hgb Hct 34.6 L Plt Count 71 L Lymph % (Auto) [place] % (Auto) Lymph # (Auto) Seg Neutrophils % APTT Sodium Potassium Chloride BUN Creatinine Glucose POC Glucose 108 H 188 H Phosphorus Magnesium Total Bilirubin Direct Bilirubin AST ALT Albumin Lipase Urine WBC (Auto) Salicylates Acetaminophen 01/06/21 01/06/21 01/06/21 06:36 11:20 16:25 WBC RBC Hgb Hct Plt Count Lymph % (Auto) [place] % (Auto) Lymph # (Auto) Seg Neutrophils % APTT Sodium Potassium 2.6 L* D Chloride BUN 2 L Creatinine 0.4 L Glucose 187 H POC Glucose 157 H 126 H Phosphorus Magnesium 1.40 L Total Bilirubin Direct Bilirubin AST ALT Albumin Lipase Urine WBC (Auto) Salicylates Acetaminophen 01/06/21 01/07/21 01/07/21 22:25 06:07 11:45 WBC RBC Hgb Hct Plt Count 72 L Lymph % (Auto) [place] % (Auto) Lymph # (Auto) Seg Neutrophils % APTT Sodium Potassium Chloride BUN Creatinine Glucose POC Glucose 116 H 152 H Phosphorus Magnesium Total Bilirubin Direct Bilirubin AST ALT Albumin Lipase Urine WBC (Auto) Salicylates Acetaminophen 01/07/21 01/07/21 01/07/21 11:45 11:51 16:37 WBC RBC Hgb Hct Plt Count Lymph % (Auto) [place] % (Auto) Lymph # (Auto) Seg Neutrophils % APTT Sodium Potassium Chloride BUN 2 L Creatinine 0.4 L Glucose 151 H POC Glucose 159 H 143 H Phosphorus Magnesium 1.40 L Total Bilirubin Direct Bilirubin AST ALT Albumin Lipase Urine WBC (Auto) Salicylates Acetaminophen 01/08/21 01/08/21 01/08/21 06:16 07:10 11:14 WBC RBC Hgb Hct Plt Count Lymph % (Auto) [place] % (Auto) Lymph # (Auto) Seg Neutrophils % APTT Sodium Potassium 3.0 L Chloride BUN 2 L Creatinine 0.5 L Glucose 121 H POC Glucose 138 H 177 H Phosphorus Magnesium Total Bilirubin Direct Bilirubin AST ALT Albumin Lipase Urine WBC (Auto) Salicylates Acetaminophen 01/08/21 01/08/21 01/09/21 17:10 21:48 07:08 WBC RBC Hgb Hct Plt Count Lymph % (Auto) [place] % (Auto) Lymph # (Auto) Seg Neutrophils % APTT Sodium Potassium 3.0 L Chloride BUN 3 L Creatinine 0.5 L Glucose 101 H POC Glucose 126 H 136 H Phosphorus Magnesium Total Bilirubin Direct Bilirubin AST ALT Albumin Lipase Urine WBC (Auto) Salicylates Acetaminophen 01/09/21 01/09/21 01/10/21 23:11 23:11 05:43 WBC RBC Hgb Hct Plt Count Lymph % (Auto) [place] % (Auto) Lymph # (Auto) Seg Neutrophils % APTT Sodium Potassium Chloride BUN Creatinine Glucose POC Glucose 112 H 109 H Phosphorus Magnesium 1.30 L Total Bilirubin Direct Bilirubin AST ALT Albumin Lipase Urine WBC (Auto) Salicylates Acetaminophen 01/10/21 01/10/21 01/10/21 10:50 11:44 23:02 WBC RBC Hgb Hct Plt Count Lymph % (Auto) [place] % (Auto) Lymph # (Auto) Seg Neutrophils % APTT Sodium Potassium 3.4 L Chloride BUN 6 L Creatinine 0.5 L Glucose 167 H POC Glucose 120 H 132 H Phosphorus Magnesium Total Bilirubin Direct Bilirubin AST ALT Albumin Lipase Urine WBC (Auto) Salicylates Acetaminophen 01/11/21 01/11/21 05:42 07:35 WBC RBC Hgb Hct Plt Count Lymph % (Auto) [place] % (Auto) Lymph # (Auto) Seg Neutrophils % APTT Sodium Potassium 3.1 L Chloride BUN 7 L Creatinine 0.5 L Glucose 110 H POC Glucose 116 H Phosphorus Magnesium Total Bilirubin Direct Bilirubin AST ALT Albumin Lipase Urine WBC (Auto) Salicylates Acetaminophen Allied health notes reviewed: nursing
[2021-01-11] MEDS: HEPARIN 5,000 UNIT/1 ML VIAL SUB-Q SCH (10:31)
[2021-01-11] MEDS: ASPIRIN EC 81 MG TAB PO SCH (10:31)
[2021-01-11] MEDS: MAGNESIUM OXIDE 400 MG TAB PO SCH (10:31)
[2021-01-11] MEDS: POTASSIUM CHLORIDE 20 MEQ PACKET PO SCH (10:34)
--- NOTE | 2021-01-11 12:09 | Progress Note ---
Assessment and Plan - Patient Problems (1) Alcohol withdrawal delirium Current Visit: Yes Status: Acute Plan to address problem: Alcohol withdrawal protocol: CIWA protocol, thiamine, folic acid, multivitamin, supportive care. (2) Malnutrition Current Visit: Yes Status: Acute Qualifiers: Malnutrition type: protein-calorie malnutrition Plan to address problem: Increase protein intake, dietary supplementation when awake and alert only (3) Pancreatitis Current Visit: Yes Status: Acute Qualifiers: Chronicity: acute Pancreatitis type: alcohol induced Plan to address problem: Lipase level, repeat lipase level in a.m., bowel rest, IV fluid resuscitation therapy, supportive care, pain control. (4) Nicotine dependence Current Visit: Yes Status: Acute Qualifiers: Nicotine product type: cigarettes Substance use status: in withdrawal Qualified Code(s): F17.213 - Nicotine dependence, cigarettes, with withdrawal Plan to address problem: Smoking cessation, supportive care. (5) DVT prophylaxis Current Visit: Yes Status: Acute Plan to address problem: SCD to bilateral lower extremities while in bed, prophylactic anticoagulation (6) Vascular dementia Current Visit: Yes Status: Acute Qualifiers: Dementia behavioral disturbance: with behavioral disturbance Qualified Code(s): F01.51 - Vascular dementia with behavioral disturbance Plan to address problem: Verbal prompting, verbal redirection, benzodiazepine therapy as clinical indicated. (7) Cerebral atherosclerosis Current Visit: Yes Status: Acute Plan to address problem: Supportive care, antiplatelet therapy, risk factor reduction. (8) Advance care planning Current Visit: Yes Status: Acute Plan to address problem: Disease education conducted, care plan discussed, diagnosis discussed, prognosis discussed, patient acknowledges understanding and agreement with current care plan, +30 minutes. History Interval history: 65 YO Male with Vascular Dementia, Cerebral Atherosclerosis, DM, Nicotine Dependence, ETOH Dependence with Withdrawl. Patient remains confused. Patient has episodes of confusion overnight which is consistent with sundowning. Patient has tangential thinking. No reports of pain. No clinical signs of pain. Patient has memory loss. Case management consulted for assistance with discharge planning/placement. Hospitalist Physical - Constitutional Vitals: Temp Pulse Resp BP Pulse Ox 98.3 F 89 18 124/78 98 01/11/21 04:36 01/11/21 04:36 01/11/21 04:36 01/11/21 04:36 01/11/21 04:36 General appearance: Present: mild distress - EENT Eyes: Present: PERRL ENT: hearing decreased - Neck Neck: Present: supple - Respiratory Respiratory effort: normal Respiratory: bilateral: diminished - Cardiovascular Rhythm: regular Heart Sounds: Present: S1 & S2 - Extremities Extremities: no ischemia Peripheral Pulses: within normal limits - Abdominal General gastrointestinal: soft, non-tender, non-distended - Integumentary Integumentary: Present: clear, dry - Psychiatric Psychiatric: no appropriate mood/affect, no intact judgment & insight, no memory intact, agitated - Neurologic Neurologic: CNII-XII intact, no focal deficits, moves all extremities, no gait normal HEART Score - HEART Score Troponin: Troponin T < 0.010 ng/mL (0.00-0.029) 01/01/21 14:16 Results - Labs CBC & Chem 7: 01/07/21 11:45 01/11/21 05:42 Labs: Laboratory Last Values WBC 8.8 K/mm3 (4.5-11.0) 01/07/21 11:45 RBC 4.00 M/mm3 (3.65-5.03) 01/07/21 11:45 Hgb 12.3 gm/dl (11.8-15.2) 01/07/21 11:45 Hct 35.9 % (35.5-45.6) 01/07/21 11:45 MCV 90 fl (84-94) 01/07/21 11:45 MCH 31 pg (28-32) 01/07/21 11:45 MCHC 34 % (32-34) 01/07/21 11:45 RDW 13.6 % (13.2-15.2) 01/07/21 11:45 Plt Count 72 K/mm3 (140-440) L 01/07/21 11:45 Lymph % (Auto) 38.0 % (13.4-35.0) H 01/02/21 07:10 [place] % (Auto) 6.3 % (0.0-7.3) 01/02/21 07:10 Eos % (Auto) 1.2 % (0.0-4.3) 01/02/21 07:10 Baso % (Auto) 0.4 % (0.0-1.8) 01/02/21 07:10 Lymph # (Auto) 1.5 K/mm3 (1.2-5.4) 01/02/21 07:10 [place] # (Auto) 0.2 K/mm3 (0.0-0.8) 01/02/21 07:10 Eos # (Auto) 0.0 K/mm3 (0.0-0.4) 01/02/21 07:10 Baso # (Auto) 0.0 K/mm3 (0.0-0.1) 01/02/21 07:10 Seg Neutrophils % 54.1 % (40.0-70.0) 01/02/21 07:10 Seg Neutrophils # 2.1 K/mm3 (1.8-7.7) 01/02/21 07:10 PT 13.9 Sec. (12.2-14.9) 01/01/21 14:16 INR 1.02 (0.87-1.13) 01/01/21 14:16 APTT 24.1 Sec. (24.2-36.6) L 01/01/21 14:16 Sodium 142 mmol/L (137-145) 01/11/21 05:42 Potassium 3.1 mmol/L (3.6-5.0) L 01/11/21 05:42 Chloride 105.1 mmol/L (98-107) 01/11/21 05:42 Carbon Dioxide 26 mmol/L (22-30) 01/11/21 05:42 Anion Gap 14 mmol/L 01/11/21 05:42 BUN 7 mg/dL (9-20) L 01/11/21 05:42 Creatinine 0.5 mg/dL (0.8-1.3) L 01/11/21 05:42 Estimated GFR > 60 ml/min 01/11/21 05:42 BUN/Creatinine Ratio 14 % 01/11/21 05:42 Glucose 110 mg/dL (75-100) H 01/11/21 05:42 POC Glucose 108 mg/dL (70-105) H 01/11/21 11:20 Calcium 9.3 mg/dL (8.4-10.2) 01/11/21 05:42 Phosphorus 2.20 mg/dL (2.5-4.5) L 01/03/21 05:43 Magnesium 1.30 mg/dL (1.7-2.3) L 01/09/21 23:11 Total Bilirubin 0.50 mg/dL (0.1-1.2) 01/05/21 04:31 Direct Bilirubin 0.4 mg/dL (0-0.2) H 01/01/21 14:16 Indirect Bilirubin 1.0 mg/dL 01/01/21 14:16 AST 68 units/L (5-40) H 01/05/21 04:31 ALT 59 units/L (7-56) H 01/05/21 04:31 Alkaline Phosphatase 76 units/L (35-129) 01/05/21 04:31 Ammonia 46.0 umol/L (25-60) 01/01/21 14:16 Troponin T < 0.010 ng/mL (0.00-0.029) 01/01/21 14:16 Total Protein 7.7 g/dL (6.3-8.2) 01/05/21 04:31 Albumin 3.8 g/dL (3.9-5) L 01/05/21 04:31 Albumin/Globulin Ratio 1.0 % 01/05/21 04:31 Lipase 213 units/L (13-60) H 01/02/21 07:10 TSH 2.040 mlU/mL (0.270-4.200) 01/01/21 14:16 Urine Color Yellow (Yellow) 01/01/21 20:37 Urine Turbidity Hazy (Clear) 01/01/21 20:37 Urine pH 6.0 (5.0-7.0) 01/01/21 20:37 Ur Specific [place] 1.014 (1.003-1.030) 01/01/21 20:37 Urine Protein 30 mg/dl mg/dL (Negative) 01/01/21 20:37 Urine Glucose (UA) Neg mg/dL (Negative) 01/01/21 20:37 Urine Ketones 80 mg/dL (Negative) 01/01/21 20:37 Urine Blood Sm (Negative) 01/01/21 20:37 Urine Nitrite Neg (Negative) 01/01/21 20:37 Urine Bilirubin Neg (Negative) 01/01/21 20:37 Urine Urobilinogen < 2.0 mg/dL (<2.0) 01/01/21 20:37 Ur Leukocyte Esterase Tr (Negative) 01/01/21 20:37 Urine WBC (Auto) 8.0 /HPF (0.0-6.0) H 01/01/21 20:37 Urine RBC (Auto) 2.0 /HPF (0.0-6.0) 01/01/21 20:37 U Epithel Cells (Auto) 1.0 /HPF (0-13.0) 01/01/21 20:37 Hyaline Casts 1 /LPF 01/01/21 20:37 Urine Mucus Few /HPF 01/01/21 20:37 Salicylates < 0.3 mg/dL (2.8-20.0) L 01/01/21 14:16 Urine Opiates Screen Negative 01/01/21 20:37 Urine Methadone Screen Negative 01/01/21 20:37 Acetaminophen 5.0 ug/mL (10.0-30.0) L 01/01/21 14:16 Ur Barbiturates Screen Negative 01/01/21 20:37 Ur Phencyclidine Scrn Negative 01/01/21 20:37 Ur Amphetamines Screen Negative 01/01/21 20:37 U Benzodiazepines Scrn Positive 01/01/21 20:37 Urine Cocaine Screen Negative 01/01/21 20:37 U Marijuana (THC) Screen Negative 01/01/21 20:37 Drugs of Abuse Note Disclamer 01/01/21 20:37 Plasma/Serum Alcohol < 0.01 % (0-0.07) 01/01/21 16:10 [place]/IV: Voiding Method Incontinent Active Medications - Current Medications Current Medications: Generic Name Dose Route Start Last Admin Trade Name Freq PRN Reason Stop Dose Admin Albuterol 2.5 mg 01/01/21 16:19 Albuterol 2.5 Mg/3 Ml Nebu IH Q3HRT PRN Shortness Of Breath Aspirin 81 mg 01/02/21 10:00 01/11/21 10:31 Aspirin Ec 81 Mg Tab PO 81 mg DAILY GRACIE Administration Chlordiazepoxide HCl 25 mg 01/02/21 10:00 01/11/21 10:31 Chlordiazepoxide 25 Mg Cap PO 25 mg Q8H GRACIE Administration Clonidine HCl 0.1 mg 01/04/21 10:00 01/11/21 00:22 Clonidine 0.1 Mg Tab PO 0.1 mg Q4HR PRN Administration Agitation Dextrose 50 ml 01/01/21 16:33 Dextrose 50% In Water (25gm) 50 Ml Syringe IV Q30MIN PRN Hypoglycemia Protocol Heparin Sodium (Porcine) 5,000 unit 01/01/21 22:00 01/11/21 10:31 Heparin 5,000 Unit/1 Ml Vial SUB-Q 5,000 unit Q12HR GRACIE Administration Hydralazine HCl 10 mg 01/01/21 16:31 01/06/21 05:23 Hydralazine 20 Mg/1 Ml Inj IV 10 mg Q6HR PRN Administration Hypertension Dextrose/Sodium Chloride 1,000 mls @ 75 mls/hr 01/05/21 11:00 01/10/21 10:03 D5ns IV 75 mls/hr DIRECT GRACIE Administration Ibuprofen 600 mg 01/01/21 16:19 Ibuprofen 600 Mg Tab PO Q6H PRN Pain, Mild (1-3) Insulin Human Lispro 0 unit 01/01/21 18:00 01/11/21 07:17 Insulin Lispro 100 Unit/Ml SUB-Q Not Given Q6HR [facility] Protocol Lorazepam 2 mg 01/01/21 12:01 01/10/21 22:53 Lorazepam 2 Mg/Ml Vial IV 2 mg Q1HR PRN Administration CIWA-Ar 8-15 Lorazepam 4 mg 01/01/21 12:01 01/10/21 03:50 Lorazepam 2 Mg/Ml Vial IV 4 mg Q1HR PRN Administration CIWA-Ar 16-25 Lorazepam 4 mg 01/01/21 12:01 01/05/21 09:42 Lorazepam 2 Mg/Ml Vial IV 4 mg Q15MIN PRN Administration CIWA-Ar >25 Magnesium Oxide 400 mg 01/09/21 10:00 01/11/21 10:31 Magnesium Oxide 400 Mg Tab PO 400 mg QDAY GRACIE Administration Morphine Sulfate 2 mg 01/01/21 16:19 Morphine 4 Mg/1 Ml Inj IV Q6H PRN Pain , Severe (7-10) Oxycodone/Acetaminophen 1 tab 01/01/21 16:19 Oxycodone /Acetaminophen 5-325mg Tab PO Q12H PRN Pain, Moderate (4-6) Potassium Chloride 40 meq 01/11/21 10:00 01/11/21 10:34 Potassium Chloride 20 Meq Packet PO 01/12/21 23:59 40 meq QDAY GRACIE Administration Sodium Chloride 10 ml 01/01/21 22:00 01/11/21 10:30 Sodium Chloride 0.9% 10 Ml Flush Syringe IV 10 ml BID GRACIE Administration Sodium Chloride 10 ml 01/01/21 16:19 Sodium Chloride 0.9% 10 Ml Flush Syringe IV PRN PRN LINE FLUSH Nutrition/Malnutrition Assess - Dietary Evaluation Nutrition/Malnutrition Findings: Nutrition Notes Start: 01/08/21 14:04 Freq: Status: Active Protocol: Document 01/10/21 13:28 (Rec: 01/10/21 13:31 [id number]) Nutrition Notes Initial or Follow up Reassessment Current Diagnosis Diabetes,Hypertension Other Pertinent Diagnosis etoh dependence, acute pancreatitis Current Diet [facility] soft Labs/Tests K 3.4 Pertinent Medications D5NS at 75 ml/hr Height 6 ft Weight 66.1 kg [place] Body Weight (kg) 80.90 BMI 19.8 Weight Status Appropriate Subjective/Other Information Pt eating 75% of pureed meals. Percent of energy/protein needs met: 75%/73% GI Symptoms None Current % PO Fair (50-74%) Minimum of two criteria Yes Energy Intake (non-severe) <75% Estimated Energy Requirement >7 days Interpretation of Weight Loss (severe) >7.5% in 3 months #1 Nutrition Diagnosis Malnutrition Diagnosis Progress(for reassessment Continues documentation) Is patient on ventilator? No Is Patient Ambulatory and/or Out of Bed No REE-([facility]-confined to bed) 4954.052 Calculation Used for Recommendations [facility] Additional Notes Protein: (1.2-1.5g/kg) 79-99g Fluid: 1 ml/kcal or per MD Nutrition Intervention Change Diet Order: continue Add Supplement/Snack (indicate name/kcal Ensure Enlive daily /protein ) Provides kCal: 350 Provides Protein (gm) 20 Goal #1 Meet at least 75% of energy and protein needs via PO and ONS Anticipated Discharge Needs: cardiac, consistent CHO Follow-Up By: 01/14/21 Additional Comments FU for intakes and ONS tolerance
[2021-01-12] MEDS: HEPARIN 5,000 UNIT/1 ML VIAL SUB-Q SCH ×3 (02:05→21:33)
[2021-01-12] MEDS: INSULIN LISPRO 100 UNIT/ML SUB-Q SCH ×4 (02:31→17:29)
[2021-01-12] MEDS: LORazepam 2 MG/ML VIAL IV PRN ×3 (02:44→09:41)
[2021-01-12] MEDS: chlordiazePOXIDE 25 MG CAP PO SCH ×3 (02:44→17:45)
[2021-01-12] MEDS: ASPIRIN EC 81 MG TAB PO SCH (09:36)
[2021-01-12] MEDS: MAGNESIUM OXIDE 400 MG TAB PO SCH (09:36)
[2021-01-12] MEDS: POTASSIUM CHLORIDE 20 MEQ PACKET PO SCH (09:36)
[2021-01-12] MEDS ORDERED: ZIPRASIDONE MESYLATE 20 MG VIAL IM PRN (13:00)
--- NOTE | 2021-01-12 13:15 | Progress Note ---
Assessment and Plan - Patient Problems (1) Alcohol withdrawal delirium Current Visit: Yes Status: Acute Plan to address problem: Alcohol withdrawal protocol: CIWA protocol, thiamine, folic acid, multivitamin, supportive care. (2) Malnutrition Current Visit: Yes Status: Acute Qualifiers: Malnutrition type: protein-calorie malnutrition Plan to address problem: Increase protein intake, dietary supplementation when awake and alert only (3) Pancreatitis Current Visit: Yes Status: Acute Qualifiers: Chronicity: acute Pancreatitis type: alcohol induced Plan to address problem: Lipase level, repeat lipase level in a.m., bowel rest, IV fluid resuscitation therapy, supportive care, pain control. (4) Nicotine dependence Current Visit: Yes Status: Acute Qualifiers: Nicotine product type: cigarettes Substance use status: in withdrawal Qualified Code(s): F17.213 - Nicotine dependence, cigarettes, with withdrawal Plan to address problem: Smoking cessation, supportive care. (5) DVT prophylaxis Current Visit: Yes Status: Acute Plan to address problem: SCD to bilateral lower extremities while in bed, prophylactic anticoagulation (6) Vascular dementia Current Visit: Yes Status: Acute Qualifiers: Dementia behavioral disturbance: with behavioral disturbance Qualified Code(s): F01.51 - Vascular dementia with behavioral disturbance Plan to address problem: Verbal prompting, verbal redirection, benzodiazepine therapy as clinical indicated. (7) Cerebral atherosclerosis Current Visit: Yes Status: Acute Plan to address problem: Supportive care, antiplatelet therapy, risk factor reduction. (8) Advance care planning Current Visit: Yes Status: Acute Plan to address problem: Disease education conducted, care plan discussed, diagnosis discussed, prognosis discussed, patient acknowledges understanding and agreement with current care plan, +30 minutes. History Interval history: 65 YO Male with Vascular Dementia, Cerebral Atherosclerosis, DM, Nicotine Dependence, ETOH Dependence with Withdrawl. Patient remains confused. Patient has episodes of confusion overnight which is consistent with sundowning. Patient has tangential thinking. No reports of pain. No clinical signs of pain. Patient has memory loss. Case management consulted for assistance with discharge planning/placement. Hospitalist Physical - Constitutional Vitals: Temp Pulse Resp BP Pulse Ox 98.4 F 81 18 157/90 98 01/12/21 11:31 01/12/21 11:31 01/12/21 11:31 01/12/21 11:31 01/12/21 11:31 General appearance: Present: mild distress - EENT Eyes: Present: PERRL ENT: hearing decreased - Neck Neck: Present: supple - Respiratory Respiratory effort: normal Respiratory: bilateral: diminished - Cardiovascular Rhythm: regular Heart Sounds: Present: S1 & S2 - Extremities Extremities: no ischemia Peripheral Pulses: within normal limits - Abdominal General gastrointestinal: soft, non-tender, non-distended - Integumentary Integumentary: Present: clear, dry - Psychiatric Psychiatric: no appropriate mood/affect, no intact judgment & insight, no memory intact - Neurologic Neurologic: CNII-XII intact, no focal deficits, moves all extremities, no gait normal HEART Score - HEART Score Troponin: Troponin T < 0.010 ng/mL (0.00-0.029) 01/01/21 14:16 Results - Labs CBC & Chem 7: 01/07/21 11:45 01/11/21 05:42 Labs: Laboratory Last Values WBC 8.8 K/mm3 (4.5-11.0) 01/07/21 11:45 RBC 4.00 M/mm3 (3.65-5.03) 01/07/21 11:45 Hgb 12.3 gm/dl (11.8-15.2) 01/07/21 11:45 Hct 35.9 % (35.5-45.6) 01/07/21 11:45 MCV 90 fl (84-94) 01/07/21 11:45 MCH 31 pg (28-32) 01/07/21 11:45 MCHC 34 % (32-34) 01/07/21 11:45 RDW 13.6 % (13.2-15.2) 01/07/21 11:45 Plt Count 72 K/mm3 (140-440) L 01/07/21 11:45 Lymph % (Auto) 38.0 % (13.4-35.0) H 01/02/21 07:10 [place] % (Auto) 6.3 % (0.0-7.3) 01/02/21 07:10 Eos % (Auto) 1.2 % (0.0-4.3) 01/02/21 07:10 Baso % (Auto) 0.4 % (0.0-1.8) 01/02/21 07:10 Lymph # (Auto) 1.5 K/mm3 (1.2-5.4) 01/02/21 07:10 [place] # (Auto) 0.2 K/mm3 (0.0-0.8) 01/02/21 07:10 Eos # (Auto) 0.0 K/mm3 (0.0-0.4) 01/02/21 07:10 Baso # (Auto) 0.0 K/mm3 (0.0-0.1) 01/02/21 07:10 Seg Neutrophils % 54.1 % (40.0-70.0) 01/02/21 07:10 Seg Neutrophils # 2.1 K/mm3 (1.8-7.7) 01/02/21 07:10 PT 13.9 Sec. (12.2-14.9) 01/01/21 14:16 INR 1.02 (0.87-1.13) 01/01/21 14:16 APTT 24.1 Sec. (24.2-36.6) L 01/01/21 14:16 Sodium 142 mmol/L (137-145) 01/11/21 05:42 Potassium 3.1 mmol/L (3.6-5.0) L 01/11/21 05:42 Chloride 105.1 mmol/L (98-107) 01/11/21 05:42 Carbon Dioxide 26 mmol/L (22-30) 01/11/21 05:42 Anion Gap 14 mmol/L 01/11/21 05:42 BUN 7 mg/dL (9-20) L 01/11/21 05:42 Creatinine 0.5 mg/dL (0.8-1.3) L 01/11/21 05:42 Estimated GFR > 60 ml/min 01/11/21 05:42 BUN/Creatinine Ratio 14 % 01/11/21 05:42 Glucose 110 mg/dL (75-100) H 01/11/21 05:42 POC Glucose 129 mg/dL (70-105) H 01/12/21 11:30 Calcium 9.3 mg/dL (8.4-10.2) 01/11/21 05:42 Phosphorus 2.20 mg/dL (2.5-4.5) L 01/03/21 05:43 Magnesium 1.30 mg/dL (1.7-2.3) L 01/09/21 23:11 Total Bilirubin 0.50 mg/dL (0.1-1.2) 01/05/21 04:31 Direct Bilirubin 0.4 mg/dL (0-0.2) H 01/01/21 14:16 Indirect Bilirubin 1.0 mg/dL 01/01/21 14:16 AST 68 units/L (5-40) H 01/05/21 04:31 ALT 59 units/L (7-56) H 01/05/21 04:31 Alkaline Phosphatase 76 units/L (35-129) 01/05/21 04:31 Ammonia 46.0 umol/L (25-60) 01/01/21 14:16 Troponin T < 0.010 ng/mL (0.00-0.029) 01/01/21 14:16 Total Protein 7.7 g/dL (6.3-8.2) 01/05/21 04:31 Albumin 3.8 g/dL (3.9-5) L 01/05/21 04:31 Albumin/Globulin Ratio 1.0 % 01/05/21 04:31 Lipase 213 units/L (13-60) H 01/02/21 07:10 TSH 2.040 mlU/mL (0.270-4.200) 01/01/21 14:16 Urine Color Yellow (Yellow) 01/01/21 20:37 Urine Turbidity Hazy (Clear) 01/01/21 20:37 Urine pH 6.0 (5.0-7.0) 01/01/21 20:37 Ur Specific [place] 1.014 (1.003-1.030) 01/01/21 20:37 Urine Protein 30 mg/dl mg/dL (Negative) 01/01/21 20:37 Urine Glucose (UA) Neg mg/dL (Negative) 01/01/21 20:37 Urine Ketones 80 mg/dL (Negative) 01/01/21 20:37 Urine Blood Sm (Negative) 01/01/21 20:37 Urine Nitrite Neg (Negative) 01/01/21 20:37 Urine Bilirubin Neg (Negative) 01/01/21 20:37 Urine Urobilinogen < 2.0 mg/dL (<2.0) 01/01/21 20:37 Ur Leukocyte Esterase Tr (Negative) 01/01/21 20:37 Urine WBC (Auto) 8.0 /HPF (0.0-6.0) H 01/01/21 20:37 Urine RBC (Auto) 2.0 /HPF (0.0-6.0) 01/01/21 20:37 U Epithel Cells (Auto) 1.0 /HPF (0-13.0) 01/01/21 20:37 Hyaline Casts 1 /LPF 01/01/21 20:37 Urine Mucus Few /HPF 01/01/21 20:37 Salicylates < 0.3 mg/dL (2.8-20.0) L 01/01/21 14:16 Urine Opiates Screen Negative 01/01/21 20:37 Urine Methadone Screen Negative 01/01/21 20:37 Acetaminophen 5.0 ug/mL (10.0-30.0) L 01/01/21 14:16 Ur Barbiturates Screen Negative 01/01/21 20:37 Ur Phencyclidine Scrn Negative 01/01/21 20:37 Ur Amphetamines Screen Negative 01/01/21 20:37 U Benzodiazepines Scrn Positive 01/01/21 20:37 Urine Cocaine Screen Negative 01/01/21 20:37 U Marijuana (THC) Screen Negative 01/01/21 20:37 Drugs of Abuse Note Disclamer 01/01/21 20:37 Plasma/Serum Alcohol < 0.01 % (0-0.07) 01/01/21 16:10 [place]/IV: Voiding Method Incontinent Active Medications - Current Medications Current Medications: Generic Name Dose Route Start Last Admin Trade Name Freq PRN Reason Stop Dose Admin Albuterol 2.5 mg 01/01/21 16:19 Albuterol 2.5 Mg/3 Ml Nebu IH Q3HRT PRN Shortness Of Breath Aspirin 81 mg 01/02/21 10:00 01/12/21 09:36 Aspirin Ec 81 Mg Tab PO 81 mg DAILY GRACIE Administration Chlordiazepoxide HCl 25 mg 01/02/21 10:00 01/12/21 09:41 Chlordiazepoxide 25 Mg Cap PO 25 mg Q8H GRACIE Administration Clonidine HCl 0.1 mg 01/04/21 10:00 01/11/21 00:22 Clonidine 0.1 Mg Tab PO 0.1 mg Q4HR PRN Administration Agitation Dextrose 50 ml 01/01/21 16:33 Dextrose 50% In Water (25gm) 50 Ml Syringe IV Q30MIN PRN Hypoglycemia Protocol Heparin Sodium (Porcine) 5,000 unit 01/01/21 22:00 01/12/21 10:00 Heparin 5,000 Unit/1 Ml Vial SUB-Q 5,000 unit Q12HR GRACIE Administration Hydralazine HCl 10 mg 01/01/21 16:31 01/06/21 05:23 Hydralazine 20 Mg/1 Ml Inj IV 10 mg Q6HR PRN Administration Hypertension Dextrose/Sodium Chloride 1,000 mls @ 75 mls/hr 01/05/21 11:00 01/10/21 10:03 D5ns IV 75 mls/hr DIRECT GRACIE Administration Ibuprofen 600 mg 01/01/21 16:19 Ibuprofen 600 Mg Tab PO Q6H PRN Pain, Mild (1-3) Insulin Human Lispro 0 unit 01/01/21 18:00 01/12/21 07:20 Insulin Lispro 100 Unit/Ml SUB-Q Not Given Q6HR GRACIE Protocol Lorazepam 2 mg 01/01/21 12:01 01/12/21 09:41 Lorazepam 2 Mg/Ml Vial IV 2 mg Q1HR PRN Administration CIWA-Ar 8-15 Lorazepam 4 mg 01/01/21 12:01 01/12/21 05:39 Lorazepam 2 Mg/Ml Vial IV 4 mg Q1HR PRN Administration CIWA-Ar 16-25 Lorazepam 4 mg 01/01/21 12:01 01/05/21 09:42 Lorazepam 2 Mg/Ml Vial IV 4 mg Q15MIN PRN Administration CIWA-Ar >25 Magnesium Oxide 400 mg 01/09/21 10:00 01/12/21 09:36 Magnesium Oxide 400 Mg Tab PO 400 mg QDAY GRACIE Administration Morphine Sulfate 2 mg 01/01/21 16:19 Morphine 4 Mg/1 Ml Inj IV Q6H PRN Pain , Severe (7-10) Oxycodone/Acetaminophen 1 tab 01/01/21 16:19 Oxycodone /Acetaminophen 5-325mg Tab PO Q12H PRN Pain, Moderate (4-6) Potassium Chloride 40 meq 01/11/21 10:00 01/12/21 09:36 Potassium Chloride 20 Meq Packet PO 01/12/21 23:59 40 meq QDAY GRACIE Administration Sodium Chloride 10 ml 01/01/21 22:00 01/12/21 09:36 Sodium Chloride 0.9% 10 Ml Flush Syringe IV 10 ml BID GRACIE Administration Sodium Chloride 10 ml 01/01/21 16:19 Sodium Chloride 0.9% 10 Ml Flush Syringe IV PRN PRN LINE FLUSH Ziprasidone 10 mg 01/12/21 13:00 Ziprasidone Mesylate 20 Mg Vial IM Q4H PRN Agitation Nutrition/Malnutrition Assess - Dietary Evaluation Nutrition/Malnutrition Findings: Nutrition Notes Start: 01/08/21 14:04 Freq: Status: Active Protocol: Document 01/10/21 13:28 (Rec: 01/10/21 13:31 [email or web address]) Nutrition Notes Initial or Follow up Reassessment Current Diagnosis Diabetes,Hypertension Other Pertinent Diagnosis etoh dependence, acute pancreatitis Current Diet mech soft Labs/Tests K 3.4 Pertinent Medications D5NS at 75 ml/hr Height 6 ft Weight 66.1 kg [place] Body Weight (kg) 80.90 BMI 19.8 Weight Status Appropriate Subjective/Other Information Pt eating 75% of pureed meals. Percent of energy/protein needs met: 75%/73% GI Symptoms None Current % PO Fair (50-74%) Minimum of two criteria Yes Energy Intake (non-severe) <75% Estimated Energy Requirement >7 days Interpretation of Weight Loss (severe) >7.5% in 3 months #1 Nutrition Diagnosis Malnutrition Diagnosis Progress(for reassessment Continues documentation) Is patient on ventilator? No Is Patient Ambulatory and/or Out of Bed No REE-([facility]-confined to bed) [phone] Calculation Used for Recommendations [facility] Additional Notes Protein: (1.2-1.5g/kg) 79-99g Fluid: 1 ml/kcal or per MD Nutrition Intervention Change Diet Order: continue Add Supplement/Snack (indicate name/kcal Ensure Enlive daily /protein ) Provides kCal: 350 Provides Protein (gm) 20 Goal #1 Meet at least 75% of energy and protein needs via PO and ONS Anticipated Discharge Needs: cardiac, consistent CHO Follow-Up By: 01/14/21 Additional Comments FU for intakes and ONS tolerance
--- NOTE | 2021-01-12 13:15 | Progress Note ---
Assessment and Plan Alcohol withdrawal with delirium tremens Seizures Acute Pancreatitis Nicotine dependence/Tobacco use disorder Dementia DM II Anemia Hypomagnesemia Hypophosphatemia Elevated serum transaminases - continue CIWA / EtOH withdrawal protocol - continue fall precautions - replace potassium - supplemental oxygen to keep O2 sats > 90% - PT/OT as tolerated - accuchecks with glycemic control per SSI for target blood glucose < 180 mg/dL - on going substance abuse counselling -VTE prophylaxis - Influenza and pneumonia vaccination per protocol - prn analgesia per pain score - continue other care per attending / other consultants Subjective Date of service: 01/12/21 Principal diagnosis: Alcohol withdrawal; Seizures; Acute Pancreatitis; DM II Interval history: Patient is seen today for: Alcohol withdrawal; Seizures; Acute Pancreatitis; DM II; Anemia; Elevated serum transaminases Seen and examined at bedside; 24hour events reviewed; nursing and respiratory care staff consulted; no adverse overnight events reported to me; resting peacefully in bed; sleeping; no emesis or overt aspiration. No reported fevers, no diarrhea. No adverse overnight events Objective Vital Signs - 12hr 01/12/21 01/12/21 03:35 11:31 Temperature 98.0 F 98.4 F Pulse Rate 84 81 Respiratory 18 18 Rate Blood Pressure 132/80 157/90 O2 Sat by Pulse 100 98 Oximetry Constitutional: no acute distress, other (sleeping but rousable) Eyes: non-icteric ENT: oropharynx moist Neck: supple, no lymphadenopathy, no JVD Effort: normal Ascultation: Bilateral: clear, diminished breath sounds Percussion: Bilateral: not dull Cardiovascular: regular rate and rhythm, other (S1,S2) Gastrointestinal: normoactive bowel sounds, soft, non-tender, non-distended Integumentary: normal Extremities: no cyanosis, no edema, pulses normal, no ischemia or petechiae Neurologic: non-focal exam (grossly), pupils equal and round, motor strength normal and Psychiatric: other (delirious) CBC and BMP: 01/07/21 11:45 01/11/21 05:42 ABG, PT/INR, D-dimer: PT/INR, D-dimer PT 13.9 Sec. (12.2-14.9) 01/01/21 14:16 INR 1.02 (0.87-1.13) 01/01/21 14:16 Abnormal lab findings: Abnormal Labs 01/01/21 01/01/21 01/01/21 14:16 14:16 14:16 WBC RBC 3.20 L Hgb 9.9 L Hct 29.3 L Plt Count 74 L Lymph % (Auto) [place] % (Auto) 7.9 H Lymph # (Auto) 0.8 L Seg Neutrophils % 78.1 H APTT 24.1 L Sodium 135 L Potassium Chloride 93.1 L BUN 8 L Creatinine 0.6 L Glucose 106 H POC Glucose Phosphorus Magnesium 1.40 L Total Bilirubin 1.40 H Direct Bilirubin 0.4 H AST 230 H ALT 95 H Albumin Lipase Urine WBC (Auto) Salicylates Acetaminophen 01/01/21 01/01/21 01/01/21 14:16 14:16 14:16 WBC RBC Hgb Hct Plt Count Lymph % (Auto) [place] % (Auto) Lymph # (Auto) Seg Neutrophils % APTT Sodium Potassium Chloride BUN Creatinine Glucose POC Glucose Phosphorus Magnesium Total Bilirubin Direct Bilirubin AST ALT Albumin Lipase 279 H Urine WBC (Auto) Salicylates < 0.3 L Acetaminophen 5.0 L 01/01/21 01/01/21 01/02/21 14:16 20:37 07:10 WBC 3.9 L RBC Hgb 11.1 L Hct 32.7 L Plt Count 69 L Lymph % (Auto) 38.0 H [place] % (Auto) Lymph # (Auto) Seg Neutrophils % APTT Sodium Potassium Chloride BUN Creatinine Glucose POC Glucose Phosphorus 2.00 L Magnesium Total Bilirubin Direct Bilirubin AST ALT Albumin Lipase Urine WBC (Auto) 8.0 H Salicylates Acetaminophen 01/02/21 01/02/21 01/02/21 07:10 07:10 11:53 WBC RBC Hgb Hct Plt Count Lymph % (Auto) [place] % (Auto) Lymph # (Auto) Seg Neutrophils % APTT Sodium Potassium 3.3 L D Chloride BUN 4 L Creatinine 0.4 L Glucose POC Glucose 116 H Phosphorus 2.40 L Magnesium Total Bilirubin 1.30 H Direct Bilirubin AST 145 H ALT 73 H Albumin 3.5 L Lipase 213 H Urine WBC (Auto) Salicylates Acetaminophen 01/02/21 01/02/21 01/03/21 17:24 23:26 05:43 WBC RBC Hgb Hct Plt Count Lymph % (Auto) [place] % (Auto) Lymph # (Auto) Seg Neutrophils % APTT Sodium Potassium Chloride BUN 3 L Creatinine 0.4 L Glucose POC Glucose 126 H 108 H Phosphorus 2.20 L Magnesium Total Bilirubin Direct Bilirubin AST ALT Albumin Lipase Urine WBC (Auto) Salicylates Acetaminophen 01/03/21 01/05/21 01/05/21 12:52 04:31 17:48 WBC RBC Hgb Hct Plt Count Lymph % (Auto) [place] % (Auto) Lymph # (Auto) Seg Neutrophils % APTT Sodium Potassium Chloride 97.2 L BUN 2 L Creatinine 0.5 L Glucose 73 L POC Glucose 114 H 141 H Phosphorus Magnesium 1.00 L Total Bilirubin Direct Bilirubin AST 68 H ALT 59 H Albumin 3.8 L Lipase Urine WBC (Auto) Salicylates Acetaminophen 01/05/21 01/06/21 01/06/21 21:25 05:30 06:36 WBC RBC Hgb Hct 34.6 L Plt Count 71 L Lymph % (Auto) [place] % (Auto) Lymph # (Auto) Seg Neutrophils % APTT Sodium Potassium Chloride BUN Creatinine Glucose POC Glucose 108 H 188 H Phosphorus Magnesium Total Bilirubin Direct Bilirubin AST ALT Albumin Lipase Urine WBC (Auto) Salicylates Acetaminophen 01/06/21 01/06/21 01/06/21 06:36 11:20 16:25 WBC RBC Hgb Hct Plt Count Lymph % (Auto) [place] % (Auto) Lymph # (Auto) Seg Neutrophils % APTT Sodium Potassium 2.6 L* D Chloride BUN 2 L Creatinine 0.4 L Glucose 187 H POC Glucose 157 H 126 H Phosphorus Magnesium 1.40 L Total Bilirubin Direct Bilirubin AST ALT Albumin Lipase Urine WBC (Auto) Salicylates Acetaminophen 01/06/21 01/07/21 01/07/21 22:25 06:07 11:45 WBC RBC Hgb Hct Plt Count 72 L Lymph % (Auto) [place] % (Auto) Lymph # (Auto) Seg Neutrophils % APTT Sodium Potassium Chloride BUN Creatinine Glucose POC Glucose 116 H 152 H Phosphorus Magnesium Total Bilirubin Direct Bilirubin AST ALT Albumin Lipase Urine WBC (Auto) Salicylates Acetaminophen 01/07/21 01/07/21 01/07/21 11:45 11:51 16:37 WBC RBC Hgb Hct Plt Count Lymph % (Auto) [place] % (Auto) Lymph # (Auto) Seg Neutrophils % APTT Sodium Potassium Chloride BUN 2 L Creatinine 0.4 L Glucose 151 H POC Glucose 159 H 143 H Phosphorus Magnesium 1.40 L Total Bilirubin Direct Bilirubin AST ALT Albumin Lipase Urine WBC (Auto) Salicylates Acetaminophen 01/08/21 01/08/21 01/08/21 06:16 07:10 11:14 WBC RBC Hgb Hct Plt Count Lymph % (Auto) [place] % (Auto) Lymph # (Auto) Seg Neutrophils % APTT Sodium Potassium 3.0 L Chloride BUN 2 L Creatinine 0.5 L Glucose 121 H POC Glucose 138 H 177 H Phosphorus Magnesium Total Bilirubin Direct Bilirubin AST ALT Albumin Lipase Urine WBC (Auto) Salicylates Acetaminophen 01/08/21 01/08/21 01/09/21 17:10 21:48 07:08 WBC RBC Hgb Hct Plt Count Lymph % (Auto) [place] % (Auto) Lymph # (Auto) Seg Neutrophils % APTT Sodium Potassium 3.0 L Chloride BUN 3 L Creatinine 0.5 L Glucose 101 H POC Glucose 126 H 136 H Phosphorus Magnesium Total Bilirubin Direct Bilirubin AST ALT Albumin Lipase Urine WBC (Auto) Salicylates Acetaminophen 01/09/21 01/09/21 01/10/21 23:11 23:11 05:43 WBC RBC Hgb Hct Plt Count Lymph % (Auto) [place] % (Auto) Lymph # (Auto) Seg Neutrophils % APTT Sodium Potassium Chloride BUN Creatinine Glucose POC Glucose 112 H 109 H Phosphorus Magnesium 1.30 L Total Bilirubin Direct Bilirubin AST ALT Albumin Lipase Urine WBC (Auto) Salicylates Acetaminophen 01/10/21 01/10/21 01/10/21 10:50 11:44 23:02 WBC RBC Hgb Hct Plt Count Lymph % (Auto) [place] % (Auto) Lymph # (Auto) Seg Neutrophils % APTT Sodium Potassium 3.4 L Chloride BUN 6 L Creatinine 0.5 L Glucose 167 H POC Glucose 120 H 132 H Phosphorus Magnesium Total Bilirubin Direct Bilirubin AST ALT Albumin Lipase Urine WBC (Auto) Salicylates Acetaminophen 01/11/21 01/11/21 01/11/21 05:42 07:35 11:20 WBC RBC Hgb Hct Plt Count Lymph % (Auto) [place] % (Auto) Lymph # (Auto) Seg Neutrophils % APTT Sodium Potassium 3.1 L Chloride BUN 7 L Creatinine 0.5 L Glucose 110 H POC Glucose 116 H 108 H Phosphorus Magnesium Total Bilirubin Direct Bilirubin AST ALT Albumin Lipase Urine WBC (Auto) Salicylates Acetaminophen 01/11/21 01/12/21 01/12/21 16:22 07:23 11:30 WBC RBC Hgb Hct Plt Count Lymph % (Auto) [place] % (Auto) Lymph # (Auto) Seg Neutrophils % APTT Sodium Potassium Chloride BUN Creatinine Glucose POC Glucose 146 H 129 H 129 H Phosphorus Magnesium Total Bilirubin Direct Bilirubin AST ALT Albumin Lipase Urine WBC (Auto) Salicylates Acetaminophen Allied health notes reviewed: nursing
--- NOTE | 2021-01-12 13:26 | Discharge Summary ---
Providers - Providers Date of Admission: 01/01/21 16:22 Attending physician: TRENA ALDANA 01/01/21 14:34 Consult to Physician [CONS] Stat Comment: Consulting Provider: NOEMY ROBINS Physician Instructions: Reason For Exam: Delirium tremens 01/04/21 16:51 Speech Therapy Evaluation and Treat [CONS] Urgent Reason For Exam: failed swallow screen 01/05/21 18:11 Physical Therapy Evaluation and Treat [CONS] Routine Comment: Reason For Exam: generalized weakness Primary care physician: [employer] Hospitalization Condition: Serious Hospital course: 65 YO Male with DM, Nicotine Dependence, ETOH Dependence, HTN, Vascular Dementia, Cerebral Atherosclerosis, Malnutrition presented to ED for evaluation. Patient is confused with diminished cognition at the time of my evaluation is unable to provide history. The patient "had a seizure". EMS was notified and upon arrival the patient was found to be in distress and subsequently transported to [facility] for further care and evaluation of the aforementioned symptoms. The patient was seen and evaluated in the emergency department and was observed to have multiple witnessed seizures. Patient treated with benzodiazepine therapy with recurrent seizures. Patient found to have alcohol withdrawal syndrome complicated by delirium, acute pancreatitis, malnutrition, hypomagnesemia. Patient admitted to ICU and initiated on Precedex as well as IV fluid resuscitation therapy. Patient treated in accordance with alcohol withdrawal protocol. No further history is obtainable. No reports of fever, chills, chest pain, palpitation, productive cough, skin rash, recent ill contacts, trauma, or known exposure to COVID-19. Prior admission on 02/06/2020 reviewed. All medication listed at time of admission has been reconciled. Advanced care planning conducted in ED. Patient treated with supportive care with gradual improvement in symptoms. Patient downgraded from ICU care and transferred to medical floor. Patient medically optimized. Patient symptoms at this time suspected secondary to vascular dementia. Patient found to have overall poor prognosis. Advanced care planning conducted. Patient request discharge home under hospice care. Patient seen and evaluated prior to discharge but no significant physical exam findings. 35 minutes dedicated to patient discharge and coordination of care. Disposition: DC-50 TO HOSPICE (HOME) Final Discharge Diagnosis (Prints w/discharge instructions): Vascular dementia, cerebral atherosclerosis, - Discharge Diagnoses (1) Alcohol withdrawal delirium Status: Acute (2) Malnutrition Status: Acute Qualifiers: Malnutrition type: protein-calorie malnutrition (3) Pancreatitis Status: Acute Qualifiers: Chronicity: acute Pancreatitis type: alcohol induced (4) Nicotine dependence Status: Acute Qualifiers: Nicotine product type: cigarettes Substance use status: in withdrawal Qualified Code(s): F17.213 - Nicotine dependence, cigarettes, with withdrawal (5) DVT prophylaxis Status: Acute (6) Vascular dementia Status: Acute Qualifiers: Dementia behavioral disturbance: with behavioral disturbance Qualified Code(s): F01.51 - Vascular dementia with behavioral disturbance (7) Cerebral atherosclerosis Status: Acute (8) Advance care planning Status: Acute Core Measure Documentation - Palliative Care Palliative Care/ Comfort Measures: Hospice Care - Core Measures Any of the following diagnoses?: none Exam - Constitutional Vitals: Temp Pulse Resp BP Pulse Ox 98.4 F 81 18 157/90 98 01/12/21 11:31 01/12/21 11:31 01/12/21 11:31 01/12/21 11:31 01/12/21 11:31 General appearance: Present: no acute distress, cachectic - EENT Eyes: Present: PERRL ENT: hearing decreased - Neck Neck: Present: supple, normal ROM - Respiratory Respiratory effort: normal Respiratory: bilateral: diminished - Cardiovascular Heart Sounds: Present: S1 & S2. Absent: rub, click - Extremities Extremities: pulses symmetrical, No edema - Abdominal General gastrointestinal: Present: soft, non-tender, non-distended, normal bowel sounds Male genitourinary: Present: normal - Integumentary Integumentary: Present: clear, warm, dry - Musculoskeletal Musculoskeletal: generalized weakness - Psychiatric Psychiatric: no appropriate mood/affect, no intact judgment & insight, no memory intact - Neurologic Neurologic: CNII-XII intact, no focal deficits, moves all extremities, no gait normal Plan Activity: advance as tolerated, fall precautions Diet: advance as tolerated Special Instructions: home hospice Follow up with: PRIMARY CARE, [Primary Care Provider] - 3-5 Days Prescriptions: LORazepam [Ativan] 1 mg PO TID #90 tablet Morphine Concentrate [MORPHINE Conc 20 MG/ML ORAL LIQ] 10 mg PO Q4HR PRN #30 ml PRN Reason: Pain , Severe (7-10)
[2021-01-13] MEDS: INSULIN LISPRO 100 UNIT/ML SUB-Q SCH ×4 (00:47→18:13)
[2021-01-13] MEDS: chlordiazePOXIDE 25 MG CAP PO SCH ×3 (02:08→18:13)
--- NOTE | 2021-01-13 10:21 | Progress Note ---
Assessment and Plan Assessment and plan: (1) Alcohol withdrawal delirium Current Visit: Yes Status: Acute Plan to address problem: Alcohol withdrawal protocol: CIWA protocol, thiamine, folic acid, multivitamin, supportive care. (2) Malnutrition Current Visit: Yes Status: Acute Qualifiers: Malnutrition type: protein-calorie malnutrition Plan to address problem: Increase protein intake, dietary supplementation when awake and alert only (3) Pancreatitis Current Visit: Yes Status: Acute Qualifiers: Chronicity: acute Pancreatitis type: alcohol induced Plan to address problem: Lipase level, repeat lipase level in a.m., bowel rest, IV fluid resuscitation therapy, supportive care, pain control. (4) Nicotine dependence Current Visit: Yes Status: Acute Qualifiers: Nicotine product type: cigarettes Substance use status: in withdrawal Qualified Code(s): F17.213 - Nicotine dependence, cigarettes, with withdrawal Plan to address problem: Smoking cessation, supportive care. (5) DVT prophylaxis Current Visit: Yes Status: Acute Plan to address problem: SCD to bilateral lower extremities while in bed, prophylactic anticoagulation (6) Vascular dementia Current Visit: Yes Status: Acute Qualifiers: Dementia behavioral disturbance: with behavioral disturbance Qualified Code(s): F01.51 - Vascular dementia with behavioral disturbance Plan to address problem: Verbal prompting, verbal redirection, benzodiazepine therapy as clinical indicated. (7) Cerebral atherosclerosis Current Visit: Yes Status: Acute Plan to address problem: Supportive care, antiplatelet therapy, risk factor reduction. (8) Advance care planning Current Visit: Yes Status: Acute Plan to address problem: Dr. Trenton jade conducted advanced care planning. Discussed care plan with patient's Sarahi Melendez. Patient request patient discharged home due to her preference to have trial of care patient's home. Patient elects to have home hospice care. Home hospice appointment scheduled and patient is currently pending admission to hospice care. History Interval history: No new issues overnight. Hospitalist Physical - Constitutional Vitals: Temp Pulse Resp BP Pulse Ox 97.4 F L 83 16 151/82 98 01/13/21 04:44 01/12/21 22:07 01/13/21 04:44 01/13/21 04:44 01/12/21 22:07 General appearance: Present: no acute distress, cachectic - EENT Eyes: Present: PERRL, EOM intact ENT: hearing intact, clear oral mucosa, dentition normal - Neck Neck: Present: supple, normal ROM - Respiratory Respiratory effort: normal Respiratory: bilateral: CTA - Cardiovascular Rhythm: regular Heart Sounds: Present: S1 & S2. Absent: gallop, rub - Extremities Extremities: no ischemia, No edema, Full ROM - Abdominal General gastrointestinal: soft, non-tender, non-distended, normal bowel sounds - Integumentary Integumentary: Present: clear, warm, dry - Neurologic Neurologic: CNII-XII intact, moves all extremities HEART Score - HEART Score Troponin: Troponin T < 0.010 ng/mL (0.00-0.029) 01/01/21 14:16 Results - Labs CBC & Chem 7: 01/07/21 11:45 01/11/21 05:42 Labs: Laboratory Last Values WBC 8.8 K/mm3 (4.5-11.0) 01/07/21 11:45 RBC 4.00 M/mm3 (3.65-5.03) 01/07/21 11:45 Hgb 12.3 gm/dl (11.8-15.2) 01/07/21 11:45 Hct 35.9 % (35.5-45.6) 01/07/21 11:45 MCV 90 fl (84-94) 01/07/21 11:45 MCH 31 pg (28-32) 01/07/21 11:45 MCHC 34 % (32-34) 01/07/21 11:45 RDW 13.6 % (13.2-15.2) 01/07/21 11:45 Plt Count 72 K/mm3 (140-440) L 01/07/21 11:45 Lymph % (Auto) 38.0 % (13.4-35.0) H 01/02/21 07:10 [place] % (Auto) 6.3 % (0.0-7.3) 01/02/21 07:10 Eos % (Auto) 1.2 % (0.0-4.3) 01/02/21 07:10 Baso % (Auto) 0.4 % (0.0-1.8) 01/02/21 07:10 Lymph # (Auto) 1.5 K/mm3 (1.2-5.4) 01/02/21 07:10 [place] # (Auto) 0.2 K/mm3 (0.0-0.8) 01/02/21 07:10 Eos # (Auto) 0.0 K/mm3 (0.0-0.4) 01/02/21 07:10 Baso # (Auto) 0.0 K/mm3 (0.0-0.1) 01/02/21 07:10 Seg Neutrophils % 54.1 % (40.0-70.0) 01/02/21 07:10 Seg Neutrophils # 2.1 K/mm3 (1.8-7.7) 01/02/21 07:10 PT 13.9 Sec. (12.2-14.9) 01/01/21 14:16 INR 1.02 (0.87-1.13) 01/01/21 14:16 APTT 24.1 Sec. (24.2-36.6) L 01/01/21 14:16 Sodium 142 mmol/L (137-145) 01/11/21 05:42 Potassium 3.1 mmol/L (3.6-5.0) L 01/11/21 05:42 Chloride 105.1 mmol/L (98-107) 01/11/21 05:42 Carbon Dioxide 26 mmol/L (22-30) 01/11/21 05:42 Anion Gap 14 mmol/L 01/11/21 05:42 BUN 7 mg/dL (9-20) L 01/11/21 05:42 Creatinine 0.5 mg/dL (0.8-1.3) L 01/11/21 05:42 Estimated GFR > 60 ml/min 01/11/21 05:42 BUN/Creatinine Ratio 14 % 01/11/21 05:42 Glucose 110 mg/dL (75-100) H 01/11/21 05:42 POC Glucose 125 mg/dL (70-105) H 01/13/21 08:01 Calcium 9.3 mg/dL (8.4-10.2) 01/11/21 05:42 Phosphorus 2.20 mg/dL (2.5-4.5) L 01/03/21 05:43 Magnesium 1.30 mg/dL (1.7-2.3) L 01/09/21 23:11 Total Bilirubin 0.50 mg/dL (0.1-1.2) 01/05/21 04:31 Direct Bilirubin 0.4 mg/dL (0-0.2) H 01/01/21 14:16 Indirect Bilirubin 1.0 mg/dL 01/01/21 14:16 AST 68 units/L (5-40) H 01/05/21 04:31 ALT 59 units/L (7-56) H 01/05/21 04:31 Alkaline Phosphatase 76 units/L (35-129) 01/05/21 04:31 Ammonia 46.0 umol/L (25-60) 01/01/21 14:16 Troponin T < 0.010 ng/mL (0.00-0.029) 01/01/21 14:16 Total Protein 7.7 g/dL (6.3-8.2) 01/05/21 04:31 Albumin 3.8 g/dL (3.9-5) L 01/05/21 04:31 Albumin/Globulin Ratio 1.0 % 01/05/21 04:31 Lipase 213 units/L (13-60) H 01/02/21 07:10 TSH 2.040 mlU/mL (0.270-4.200) 01/01/21 14:16 Urine Color Yellow (Yellow) 01/01/21 20:37 Urine Turbidity Hazy (Clear) 01/01/21 20:37 Urine pH 6.0 (5.0-7.0) 01/01/21 20:37 Ur Specific [place] 1.014 (1.003-1.030) 01/01/21 20:37 Urine Protein 30 mg/dl mg/dL (Negative) 01/01/21 20:37 Urine Glucose (UA) Neg mg/dL (Negative) 01/01/21 20:37 Urine Ketones 80 mg/dL (Negative) 01/01/21 20:37 Urine Blood Sm (Negative) 01/01/21 20:37 Urine Nitrite Neg (Negative) 01/01/21 20:37 Urine Bilirubin Neg (Negative) 01/01/21 20:37 Urine Urobilinogen < 2.0 mg/dL (<2.0) 01/01/21 20:37 Ur Leukocyte Esterase Tr (Negative) 01/01/21 20:37 Urine WBC (Auto) 8.0 /HPF (0.0-6.0) H 01/01/21 20:37 Urine RBC (Auto) 2.0 /HPF (0.0-6.0) 01/01/21 20:37 U Epithel Cells (Auto) 1.0 /HPF (0-13.0) 01/01/21 20:37 Hyaline Casts 1 /LPF 01/01/21 20:37 Urine Mucus Few /HPF 01/01/21 20:37 Salicylates < 0.3 mg/dL (2.8-20.0) L 01/01/21 14:16 Urine Opiates Screen Negative 01/01/21 20:37 Urine Methadone Screen Negative 01/01/21 20:37 Acetaminophen 5.0 ug/mL (10.0-30.0) L 01/01/21 14:16 Ur Barbiturates Screen Negative 01/01/21 20:37 Ur Phencyclidine Scrn Negative 01/01/21 20:37 Ur Amphetamines Screen Negative 01/01/21 20:37 U Benzodiazepines Scrn Positive 01/01/21 20:37 Urine Cocaine Screen Negative 01/01/21 20:37 U Marijuana (THC) Screen Negative 01/01/21 20:37 Drugs of Abuse Note Disclamer 01/01/21 20:37 Plasma/Serum Alcohol < 0.01 % (0-0.07) 01/01/21 16:10 [place]/IV: Voiding Method Condom Catheter Active Medications - Current Medications Current Medications: Generic Name Dose Route Start Last Admin Trade Name Freq PRN Reason Stop Dose Admin Albuterol 2.5 mg 01/01/21 16:19 Albuterol 2.5 Mg/3 Ml Nebu IH Q3HRT PRN Shortness Of Breath Aspirin 81 mg 01/02/21 10:00 01/12/21 09:36 Aspirin Ec 81 Mg Tab PO 81 mg DAILY GRACIE Administration Chlordiazepoxide HCl 25 mg 01/02/21 10:00 01/13/21 02:08 Chlordiazepoxide 25 Mg Cap PO 25 mg Q8H GRACIE Administration Clonidine HCl 0.1 mg 01/04/21 10:00 01/11/21 00:22 Clonidine 0.1 Mg Tab PO 0.1 mg Q4HR PRN Administration Agitation Dextrose 50 ml 01/01/21 16:33 Dextrose 50% In Water (25gm) 50 Ml Syringe IV Q30MIN PRN Hypoglycemia Protocol Heparin Sodium (Porcine) 5,000 unit 01/01/21 22:00 01/12/21 21:33 Heparin 5,000 Unit/1 Ml Vial SUB-Q 5,000 unit Q12HR GRACIE Administration Hydralazine HCl 10 mg 01/01/21 16:31 01/06/21 05:23 Hydralazine 20 Mg/1 Ml Inj IV 10 mg Q6HR PRN Administration Hypertension Dextrose/Sodium Chloride 1,000 mls @ 75 mls/hr 01/05/21 11:00 01/10/21 10:03 D5ns IV 75 mls/hr DIRECT GRACIE Administration Ibuprofen 600 mg 01/01/21 16:19 Ibuprofen 600 Mg Tab PO Q6H PRN Pain, Mild (1-3) Insulin Human Lispro 0 unit 01/01/21 18:00 01/13/21 06:26 Insulin Lispro 100 Unit/Ml SUB-Q Not Given Q6HR GRACIE Protocol Lorazepam 2 mg 01/01/21 12:01 01/12/21 09:41 Lorazepam 2 Mg/Ml Vial IV 2 mg Q1HR PRN Administration CIWA-Ar 8-15 Lorazepam 4 mg 01/01/21 12:01 01/12/21 05:39 Lorazepam 2 Mg/Ml Vial IV 4 mg Q1HR PRN Administration CIWA-Ar 16-25 Lorazepam 4 mg 01/01/21 12:01 01/05/21 09:42 Lorazepam 2 Mg/Ml Vial IV 4 mg Q15MIN PRN Administration CIWA-Ar >25 Magnesium Oxide 400 mg 01/09/21 10:00 01/12/21 09:36 Magnesium Oxide 400 Mg Tab PO 400 mg QDAY GRACIE Administration Morphine Sulfate 2 mg 01/01/21 16:19 Morphine 4 Mg/1 Ml Inj IV Q6H PRN Pain , Severe (7-10) Oxycodone/Acetaminophen 1 tab 01/01/21 16:19 Oxycodone /Acetaminophen 5-325mg Tab PO Q12H PRN Pain, Moderate (4-6) Sodium Chloride 10 ml 01/01/21 22:00 01/13/21 02:09 Sodium Chloride 0.9% 10 Ml Flush Syringe IV 10 ml BID GRACIE Administration Sodium Chloride 10 ml 01/01/21 16:19 Sodium Chloride 0.9% 10 Ml Flush Syringe IV PRN PRN LINE FLUSH Ziprasidone 10 mg 01/12/21 13:00 Ziprasidone Mesylate 20 Mg Vial IM Q4H PRN Agitation Nutrition/Malnutrition Assess - Dietary Evaluation Nutrition/Malnutrition Findings: Nutrition Notes Start: 01/08/21 14:04 Freq: Status: Active Protocol: Document 01/10/21 13:28 (Rec: 01/10/21 13:31 [email or web address]) Nutrition Notes Initial or Follow up Reassessment Current Diagnosis Diabetes,Hypertension Other Pertinent Diagnosis etoh dependence, acute pancreatitis Current Diet mech soft Labs/Tests K 3.4 Pertinent Medications D5NS at 75 ml/hr Height 6 ft Weight 66.1 kg [place] Body Weight (kg) 80.90 BMI 19.8 Weight Status Appropriate Subjective/Other Information Pt eating 75% of pureed meals. Percent of energy/protein needs met: 75%/73% GI Symptoms None Current % PO Fair (50-74%) Minimum of two criteria Yes Energy Intake (non-severe) <75% Estimated Energy Requirement >7 days Interpretation of Weight Loss (severe) >7.5% in 3 months #1 Nutrition Diagnosis Malnutrition Diagnosis Progress(for reassessment Continues documentation) Is patient on ventilator? No Is Patient Ambulatory and/or Out of Bed No REE-([place]. Jeor-confined to bed) 5435.056 Calculation Used for Recommendations [place] or Additional Notes Protein: (1.2-1.5g/kg) 79-99g Fluid: 1 ml/kcal or per MD Nutrition Intervention Change Diet Order: continue Add Supplement/Snack (indicate name/kcal Ensure Enlive daily /protein ) Provides kCal: 350 Provides Protein (gm) 20 Goal #1 Meet at least 75% of energy and protein needs via PO and ONS Anticipated Discharge Needs: cardiac, consistent CHO Follow-Up By: 01/14/21 Additional Comments FU for intakes and ONS tolerance
[2021-01-13] MEDS: D5W/0.9% NACL 1,000 ML IV SCH (11:31)
[2021-01-13] MEDS: ASPIRIN EC 81 MG TAB PO SCH (11:36)
[2021-01-13] MEDS: MAGNESIUM OXIDE 400 MG TAB PO SCH (11:36)
[2021-01-13] MEDS: HEPARIN 5,000 UNIT/1 ML VIAL SUB-Q SCH ×2 (11:36→21:15)
--- NOTE | 2021-01-13 13:48 | Progress Note ---
Assessment and Plan 65 YO Male with DM, Nicotine Dependence, ETOH Dependence, HTN, Vascular Dementia, Cerebral Atherosclerosis, Malnutrition presents to ED for evaluation. Patient is confused with diminished cognition at the time of my evaluation is unable to provide history. The patient "had a seizure". EMS was notified and upon arrival the patient was found to be in distress and subsequently transported to [facility] for further care and evaluation of the aforementioned symptoms. The patient was seen and evaluated in the emergency department and was observed to have multiple witnessed seizures. Patient treated with benzodiazepine therapy with recurrent seizures. Patient found to have alcohol withdrawal syndrome complicated by delirium, acute pancreatitis, malnutrition, hypomagnesemia. Patient admitted to ICU and initiated on Precedex as well as IV fluid resuscitation therapy. Patient treated in accordance with alcohol withdrawal protocol. No further history is obtainable. No reports of fever, chills, chest pain, palpitation, productive cough, skin rash, recent ill contacts, trauma, or known exposure to COVID-19. Prior admission on 02/06/2020. Patient presently sleeping. Not using his o2. Patient weak. No acute respiratory distress. Placed oxygen Back. On 5 litres o2. O2 saturation 100%. Patient afebrile. No leukocytosis. Chest xray done 01/01/21 reported No acute findings. Patient is on Albuterol inhaler and S/C Heparin - Patient Problems (1) Alcohol withdrawal seizure with delirium Current Visit: Yes Status: Acute Plan to address problem: Management as per primary care and neurology. (2) Hypomagnesemia Current Visit: Yes Status: Acute Plan to address problem: Magnesium level 1.3. Supplementing magnesium. Recommend to recheck Magnesium. (3) Nicotine dependence Current Visit: Yes Status: Acute Qualifiers: Nicotine product type: cigarettes Substance use status: in withdrawal Qualified Code(s): F17.213 - Nicotine dependence, cigarettes, with withdrawal Plan to address problem: Counseled to stop smoking. (4) Pancreatitis Current Visit: Yes Status: Acute Qualifiers: Chronicity: acute Pancreatitis type: alcohol induced Plan to address problem: Management as primary care. (5) CVA (cerebral vascular accident) Current Visit: No Status: Acute Plan to address problem: Management as per neurology. (6) Syncope Current Visit: No Status: Acute Plan to address problem: Management as per neulogy. (7) Diabetes Current Visit: No Status: Chronic Qualifiers: Diabetes mellitus type: type 2 Diabetes mellitus care home insulin use: without medical terminologist use Diabetes mellitus complication status: with hyperglycemia Qualified Code(s): E11.65 - Type 2 diabetes mellitus with hyperglycemia Plan to address problem: Management as per primary care. (8) Hypertension Current Visit: No Status: Chronic Plan to address problem: Management as per primary care. (9) Hypokalemia Current Visit: Yes Status: Acute Plan to address problem: Repeat K+ level 3.1. Recommend supplement KK+. Subjective Date of service: 01/13/21 Principal diagnosis: Alcohol withdrawal; Seizures; Acute Pancreatitis; DM II Interval history: 65 YO Male with DM, Nicotine Dependence, ETOH Dependence, HTN, Vascular Dementia, Cerebral Atherosclerosis, Malnutrition presents to ED for evaluation. Patient is confused with diminished cognition at the time of my evaluation is unable to provide history. The patient "had a seizure". EMS was notified and upon arrival the patient was found to be in distress and subsequently transported to [facility] for further care and evaluation of the aforementioned symptoms. The patient was seen and evaluated in the emergency department and was observed to have multiple witnessed seizures. Patient treated with benzodiazepine therapy with recurrent seizures. Patient found to have alcohol withdrawal syndrome complicated by delirium, acute pancreatitis, malnutrition, hypomagnesemia. Patient admitted to ICU and initiated on Precedex as well as IV fluid resuscitation therapy. Patient treated in accordance with alcohol withdrawal protocol. No further history is obtainable. No reports of fever, chills, chest pain, palpitation, productive cough, skin rash, recent ill contacts, trauma, or known exposure to COVID-19. Prior admission on 02/06/2020. Patient presently sleeping. Not using his o2. Patient weak. No acute respiratory distress. Placed oxygen Back. On 5 litres o2. O2 saturation 100%. Patient afebrile. No leukocytosis. Chest xray done 01/01/21 reported No acute findings. Patient is on Albuterol inhaler and S/C Heparin. Objective Vital Signs - 12hr 01/13/21 01/13/21 04:44 12:06 Temperature 97.4 F L 98.1 F Pulse Rate 96 H Respiratory 16 22 Rate Blood Pressure 151/82 136/81 O2 Sat by Pulse 100 Oximetry Constitutional: no acute distress, asleep, other (sleeping but arousable) Eyes: non-icteric ENT: oropharynx moist Neck: supple, no lymphadenopathy, no JVD Effort: normal Ascultation: Bilateral: diminished breath sounds Percussion: Bilateral: not dull Cardiovascular: regular rate and rhythm, other (S1,S2) Gastrointestinal: normoactive bowel sounds, soft, non-tender, non-distended Integumentary: normal Extremities: no cyanosis, no edema, pulses normal, no ischemia or petechiae Neurologic: non-focal exam (grossly), pupils equal and round, motor strength normal and Psychiatric: other (delirious) CBC and BMP: 01/07/21 11:45 01/11/21 05:42 ABG, PT/INR, D-dimer: PT/INR, D-dimer PT 13.9 Sec. (12.2-14.9) 01/01/21 14:16 INR 1.02 (0.87-1.13) 01/01/21 14:16 Abnormal lab findings: Abnormal Labs 01/01/21 01/01/21 01/01/21 14:16 14:16 14:16 WBC RBC 3.20 L Hgb 9.9 L Hct 29.3 L Plt Count 74 L Lymph % (Auto) [place] % (Auto) 7.9 H Lymph # (Auto) 0.8 L Seg Neutrophils % 78.1 H APTT 24.1 L Sodium 135 L Potassium Chloride 93.1 L BUN 8 L Creatinine 0.6 L Glucose 106 H POC Glucose Phosphorus Magnesium 1.40 L Total Bilirubin 1.40 H Direct Bilirubin 0.4 H AST 230 H ALT 95 H Albumin Lipase Urine WBC (Auto) Salicylates Acetaminophen 01/01/21 01/01/21 01/01/21 14:16 14:16 14:16 WBC RBC Hgb Hct Plt Count Lymph % (Auto) [place] % (Auto) Lymph # (Auto) Seg Neutrophils % APTT Sodium Potassium Chloride BUN Creatinine Glucose POC Glucose Phosphorus Magnesium Total Bilirubin Direct Bilirubin AST ALT Albumin Lipase 279 H Urine WBC (Auto) Salicylates < 0.3 L Acetaminophen 5.0 L 01/01/21 01/01/21 01/02/21 14:16 20:37 07:10 WBC 3.9 L RBC Hgb 11.1 L Hct 32.7 L Plt Count 69 L Lymph % (Auto) 38.0 H [place] % (Auto) Lymph # (Auto) Seg Neutrophils % APTT Sodium Potassium Chloride BUN Creatinine Glucose POC Glucose Phosphorus 2.00 L Magnesium Total Bilirubin Direct Bilirubin AST ALT Albumin Lipase Urine WBC (Auto) 8.0 H Salicylates Acetaminophen 01/02/21 01/02/21 01/02/21 07:10 07:10 11:53 WBC RBC Hgb Hct Plt Count Lymph % (Auto) [place] % (Auto) Lymph # (Auto) Seg Neutrophils % APTT Sodium Potassium 3.3 L D Chloride BUN 4 L Creatinine 0.4 L Glucose POC Glucose 116 H Phosphorus 2.40 L Magnesium Total Bilirubin 1.30 H Direct Bilirubin AST 145 H ALT 73 H Albumin 3.5 L Lipase 213 H Urine WBC (Auto) Salicylates Acetaminophen 01/02/21 01/02/21 01/03/21 17:24 23:26 05:43 WBC RBC Hgb Hct Plt Count Lymph % (Auto) [place] % (Auto) Lymph # (Auto) Seg Neutrophils % APTT Sodium Potassium Chloride BUN 3 L Creatinine 0.4 L Glucose POC Glucose 126 H 108 H Phosphorus 2.20 L Magnesium Total Bilirubin Direct Bilirubin AST ALT Albumin Lipase Urine WBC (Auto) Salicylates Acetaminophen 01/03/21 01/05/21 01/05/21 12:52 04:31 17:48 WBC RBC Hgb Hct Plt Count Lymph % (Auto) [place] % (Auto) Lymph # (Auto) Seg Neutrophils % APTT Sodium Potassium Chloride 97.2 L BUN 2 L Creatinine 0.5 L Glucose 73 L POC Glucose 114 H 141 H Phosphorus Magnesium 1.00 L Total Bilirubin Direct Bilirubin AST 68 H ALT 59 H Albumin 3.8 L Lipase Urine WBC (Auto) Salicylates Acetaminophen 01/05/21 01/06/21 01/06/21 21:25 05:30 06:36 WBC RBC Hgb Hct 34.6 L Plt Count 71 L Lymph % (Auto) [place] % (Auto) Lymph # (Auto) Seg Neutrophils % APTT Sodium Potassium Chloride BUN Creatinine Glucose POC Glucose 108 H 188 H Phosphorus Magnesium Total Bilirubin Direct Bilirubin AST ALT Albumin Lipase Urine WBC (Auto) Salicylates Acetaminophen 01/06/21 01/06/21 01/06/21 06:36 11:20 16:25 WBC RBC Hgb Hct Plt Count Lymph % (Auto) [place] % (Auto) Lymph # (Auto) Seg Neutrophils % APTT Sodium Potassium 2.6 L* D Chloride BUN 2 L Creatinine 0.4 L Glucose 187 H POC Glucose 157 H 126 H Phosphorus Magnesium 1.40 L Total Bilirubin Direct Bilirubin AST ALT Albumin Lipase Urine WBC (Auto) Salicylates Acetaminophen 01/06/21 01/07/21 01/07/21 22:25 06:07 11:45 WBC RBC Hgb Hct Plt Count 72 L Lymph % (Auto) [place] % (Auto) Lymph # (Auto) Seg Neutrophils % APTT Sodium Potassium Chloride BUN Creatinine Glucose POC Glucose 116 H 152 H Phosphorus Magnesium Total Bilirubin Direct Bilirubin AST ALT Albumin Lipase Urine WBC (Auto) Salicylates Acetaminophen 01/07/21 01/07/21 01/07/21 11:45 11:51 16:37 WBC RBC Hgb Hct Plt Count Lymph % (Auto) [place] % (Auto) Lymph # (Auto) Seg Neutrophils % APTT Sodium Potassium Chloride BUN 2 L Creatinine 0.4 L Glucose 151 H POC Glucose 159 H 143 H Phosphorus Magnesium 1.40 L Total Bilirubin Direct Bilirubin AST ALT Albumin Lipase Urine WBC (Auto) Salicylates Acetaminophen 01/08/21 01/08/21 01/08/21 06:16 07:10 11:14 WBC RBC Hgb Hct Plt Count Lymph % (Auto) [place] % (Auto) Lymph # (Auto) Seg Neutrophils % APTT Sodium Potassium 3.0 L Chloride BUN 2 L Creatinine 0.5 L Glucose 121 H POC Glucose 138 H 177 H Phosphorus Magnesium Total Bilirubin Direct Bilirubin AST ALT Albumin Lipase Urine WBC (Auto) Salicylates Acetaminophen 01/08/21 01/08/21 01/09/21 17:10 21:48 07:08 WBC RBC Hgb Hct Plt Count Lymph % (Auto) [place] % (Auto) Lymph # (Auto) Seg Neutrophils % APTT Sodium Potassium 3.0 L Chloride BUN 3 L Creatinine 0.5 L Glucose 101 H POC Glucose 126 H 136 H Phosphorus Magnesium Total Bilirubin Direct Bilirubin AST ALT Albumin Lipase Urine WBC (Auto) Salicylates Acetaminophen 01/09/21 01/09/21 01/10/21 23:11 23:11 05:43 WBC RBC Hgb Hct Plt Count Lymph % (Auto) [place] % (Auto) Lymph # (Auto) Seg Neutrophils % APTT Sodium Potassium Chloride BUN Creatinine Glucose POC Glucose 112 H 109 H Phosphorus Magnesium 1.30 L Total Bilirubin Direct Bilirubin AST ALT Albumin Lipase Urine WBC (Auto) Salicylates Acetaminophen 01/10/21 01/10/21 01/10/21 10:50 11:44 23:02 WBC RBC Hgb Hct Plt Count Lymph % (Auto) [place] % (Auto) Lymph # (Auto) Seg Neutrophils % APTT Sodium Potassium 3.4 L Chloride BUN 6 L Creatinine 0.5 L Glucose 167 H POC Glucose 120 H 132 H Phosphorus Magnesium Total Bilirubin Direct Bilirubin AST ALT Albumin Lipase Urine WBC (Auto) Salicylates Acetaminophen 01/11/21 01/11/21 01/11/21 05:42 07:35 11:20 WBC RBC Hgb Hct Plt Count Lymph % (Auto) [place] % (Auto) Lymph # (Auto) Seg Neutrophils % APTT Sodium Potassium 3.1 L Chloride BUN 7 L Creatinine 0.5 L Glucose 110 H POC Glucose 116 H 108 H Phosphorus Magnesium Total Bilirubin Direct Bilirubin AST ALT Albumin Lipase Urine WBC (Auto) Salicylates Acetaminophen 01/11/21 01/12/21 01/12/21 16:22 07:23 11:30 WBC RBC Hgb Hct Plt Count Lymph % (Auto) [place] % (Auto) Lymph # (Auto) Seg Neutrophils % APTT Sodium Potassium Chloride BUN Creatinine Glucose POC Glucose 146 H 129 H 129 H Phosphorus Magnesium Total Bilirubin Direct Bilirubin AST ALT Albumin Lipase Urine WBC (Auto) Salicylates Acetaminophen 01/12/21 01/13/21 01/13/21 21:32 06:11 08:01 WBC RBC Hgb Hct Plt Count Lymph % (Auto) [place] % (Auto) Lymph # (Auto) Seg Neutrophils % APTT Sodium Potassium Chloride BUN Creatinine Glucose POC Glucose 108 H 143 H 125 H Phosphorus Magnesium Total Bilirubin Direct Bilirubin AST ALT Albumin Lipase Urine WBC (Auto) Salicylates Acetaminophen Allied health notes reviewed: nursing
[2021-01-14] MEDS: INSULIN LISPRO 100 UNIT/ML SUB-Q SCH ×3 (01:26→13:02)
[2021-01-14] MEDS: chlordiazePOXIDE 25 MG CAP PO SCH ×2 (02:17→11:30)
--- NOTE | 2021-01-14 08:36 | Progress Note ---
Assessment and Plan 65 YO Male with DM, Nicotine Dependence, ETOH Dependence, HTN, Vascular Dementia, Cerebral Atherosclerosis, Malnutrition presents to ED for evaluation. Patient is confused with diminished cognition at the time of my evaluation is unable to provide history. The patient "had a seizure". EMS was notified and upon arrival the patient was found to be in distress and subsequently transported to [facility] for further care and evaluation of the aforementioned symptoms. The patient was seen and evaluated in the emergency department and was observed to have multiple witnessed seizures. Patient treated with benzodiazepine therapy with recurrent seizures. Patient found to have alcohol withdrawal syndrome complicated by delirium, acute pancreatitis, malnutrition, hypomagnesemia. Patient admitted to ICU and initiated on Precedex as well as IV fluid resuscitation therapy. Patient treated in accordance with alcohol withdrawal protocol. No further history is obtainable. No reports of fever, chills, chest pain, palpitation, productive cough, skin rash, recent ill contacts, trauma, or known exposure to COVID-19. Prior admission on 02/06/2020. Patient awake.. Not using his o2. Patient weak. No acute respiratory distress. O2 saturation recorded 98%. Patient afebrile. No leukocytosis. Chest xray done 01/01/21 reported No acute findings. Patient is on Albuterol inhaler and S/C Heparin. - Patient Problems (1) Alcohol withdrawal seizure with delirium Status: Acute Plan to address problem: Management as per primary care and neurology. (2) Hypomagnesemia Status: Acute Plan to address problem: Magnesium level 1.3. Supplementing magnesium. Recommend to recheck Magnesium. (3) Nicotine dependence Status: Acute Qualifiers: Nicotine product type: cigarettes Substance use status: in withdrawal Qualified Code(s): F17.213 - Nicotine dependence, cigarettes, with withdrawal Plan to address problem: Counseled to stop smoking. (4) Pancreatitis Status: Acute Qualifiers: Chronicity: acute Pancreatitis type: alcohol induced Plan to address problem: Management as primary care. (5) CVA (cerebral vascular accident) Status: Acute Plan to address problem: Management as per neurology. (6) Syncope Status: Acute Plan to address problem: Management as per neulogy. (7) Diabetes Status: Chronic Qualifiers: Diabetes mellitus type: type 2 Diabetes mellitus terminal makeup operator insulin use: without terminal makeup operator use Diabetes mellitus complication status: with hype rglycemia Qualified Code(s): E11.65 - Type 2 diabetes mellitus with hyper glycemia Plan to address problem: Management as per primary care. (8) Hypertension Status: Chronic Plan to address problem: Management as per primary care. (9) Hypokalemia Status: Acute Plan to address problem: Repeat K+ level 3.1. Recommend supplement KK+. Subjective Date of service: 01/14/21 Principal diagnosis: Alcohol withdrawal; Seizures; Acute Pancreatitis; DM II Interval history: 65 YO Male with DM, Nicotine Dependence, ETOH Dependence, HTN, Vascular Dementia, Cerebral Atherosclerosis, Malnutrition presents to ED for evaluation. Patient is confused with diminished cognition at the time of my evaluation is unable to provide history. The patient "had a seizure". EMS was notified and upon arrival the patient was found to be in distress and subsequently transported to [facility] for further care and evaluation of the aforementioned symptoms. The patient was seen and evaluated in the emergency department and was observed to have multiple witnessed seizures. Patient treated with benzodiazepine therapy with recurrent seizures. Patient found to have alcohol withdrawal syndrome complicated by delirium, acute pancreatitis, malnutrition, hypomagnesemia. Patient admitted to ICU and initiated on Precedex as well as IV fluid resuscitation therapy. Patient treated in accordance with alcohol withdrawal protocol. No further history is obtainable. No reports of fever, chills, chest pain, palpitation, productive cough, skin rash, recent ill contacts, trauma, or known exposure to COVID-19. Prior admission on 02/06/2020. Patient awake.. Not using his o2. Patient weak. No acute respiratory distress. O2 saturation recorded 98%. Patient afebrile. No leukocytosis. Chest xray done 01/01/21 reported No acute findings. Patient is on Albuterol inhaler and S/C Heparin. Objective Vital Signs - 12hr 01/13/21 01/13/21 21:29 22:00 Pulse Rate [ 72 Anterior Bilateral] Pulse Rate [ 73 From Monitor] Respiratory 16 Rate Respiratory 16 Rate [Anterior Bilateral] Respiratory 17 Rate [Head] O2 Sat by Pulse 98 Oximetry Constitutional: no acute distress, alert Eyes: non-icteric ENT: oropharynx moist Neck: supple, no lymphadenopathy, no JVD Effort: normal Ascultation: Bilateral: diminished breath sounds Percussion: Bilateral: not dull Cardiovascular: regular rate and rhythm, other (S1,S2) Gastrointestinal: normoactive bowel sounds, soft, non-tender, non-distended Integumentary: normal Extremities: no cyanosis, no edema, pulses normal, no ischemia or petechiae Neurologic: non-focal exam (grossly), pupils equal and round, motor strength normal and Psychiatric: other (delirious) CBC and BMP: 01/07/21 11:45 01/11/21 05:42 ABG, PT/INR, D-dimer: PT/INR, D-dimer PT 13.9 Sec. (12.2-14.9) 01/01/21 14:16 INR 1.02 (0.87-1.13) 01/01/21 14:16 Abnormal lab findings: Abnormal Labs 01/01/21 01/01/21 01/01/21 14:16 14:16 14:16 WBC RBC 3.20 L Hgb 9.9 L Hct 29.3 L Plt Count 74 L Lymph % (Auto) [place] % (Auto) 7.9 H Lymph # (Auto) 0.8 L Seg Neutrophils % 78.1 H APTT 24.1 L Sodium 135 L Potassium Chloride 93.1 L BUN 8 L Creatinine 0.6 L Glucose 106 H POC Glucose Phosphorus Magnesium 1.40 L Total Bilirubin 1.40 H Direct Bilirubin 0.4 H AST 230 H ALT 95 H Albumin Lipase Urine WBC (Auto) Salicylates Acetaminophen 01/01/21 01/01/21 01/01/21 14:16 14:16 14:16 WBC RBC Hgb Hct Plt Count Lymph % (Auto) [place] % (Auto) Lymph # (Auto) Seg Neutrophils % APTT Sodium Potassium Chloride BUN Creatinine Glucose POC Glucose Phosphorus Magnesium Total Bilirubin Direct Bilirubin AST ALT Albumin Lipase 279 H Urine WBC (Auto) Salicylates < 0.3 L Acetaminophen 5.0 L 01/01/21 01/01/21 01/02/21 14:16 20:37 07:10 WBC 3.9 L RBC Hgb 11.1 L Hct 32.7 L Plt Count 69 L Lymph % (Auto) 38.0 H [place] % (Auto) Lymph # (Auto) Seg Neutrophils % APTT Sodium Potassium Chloride BUN Creatinine Glucose POC Glucose Phosphorus 2.00 L Magnesium Total Bilirubin Direct Bilirubin AST ALT Albumin Lipase Urine WBC (Auto) 8.0 H Salicylates Acetaminophen 01/02/21 01/02/21 01/02/21 07:10 07:10 11:53 WBC RBC Hgb Hct Plt Count Lymph % (Auto) [place] % (Auto) Lymph # (Auto) Seg Neutrophils % APTT Sodium Potassium 3.3 L D Chloride BUN 4 L Creatinine 0.4 L Glucose POC Glucose 116 H Phosphorus 2.40 L Magnesium Total Bilirubin 1.30 H Direct Bilirubin AST 145 H ALT 73 H Albumin 3.5 L Lipase 213 H Urine WBC (Auto) Salicylates Acetaminophen 01/02/21 01/02/21 01/03/21 17:24 23:26 05:43 WBC RBC Hgb Hct Plt Count Lymph % (Auto) [place] % (Auto) Lymph # (Auto) Seg Neutrophils % APTT Sodium Potassium Chloride BUN 3 L Creatinine 0.4 L Glucose POC Glucose 126 H 108 H Phosphorus 2.20 L Magnesium Total Bilirubin Direct Bilirubin AST ALT Albumin Lipase Urine WBC (Auto) Salicylates Acetaminophen 01/03/21 01/05/21 01/05/21 12:52 04:31 17:48 WBC RBC Hgb Hct Plt Count Lymph % (Auto) [place] % (Auto) Lymph # (Auto) Seg Neutrophils % APTT Sodium Potassium Chloride 97.2 L BUN 2 L Creatinine 0.5 L Glucose 73 L POC Glucose 114 H 141 H Phosphorus Magnesium 1.00 L Total Bilirubin Direct Bilirubin AST 68 H ALT 59 H Albumin 3.8 L Lipase Urine WBC (Auto) Salicylates Acetaminophen 01/05/21 01/06/21 01/06/21 21:25 05:30 06:36 WBC RBC Hgb Hct 34.6 L Plt Count 71 L Lymph % (Auto) [place] % (Auto) Lymph # (Auto) Seg Neutrophils % APTT Sodium Potassium Chloride BUN Creatinine Glucose POC Glucose 108 H 188 H Phosphorus Magnesium Total Bilirubin Direct Bilirubin AST ALT Albumin Lipase Urine WBC (Auto) Salicylates Acetaminophen 01/06/21 01/06/21 01/06/21 06:36 11:20 16:25 WBC RBC Hgb Hct Plt Count Lymph % (Auto) [place] % (Auto) Lymph # (Auto) Seg Neutrophils % APTT Sodium Potassium 2.6 L* D Chloride BUN 2 L Creatinine 0.4 L Glucose 187 H POC Glucose 157 H 126 H Phosphorus Magnesium 1.40 L Total Bilirubin Direct Bilirubin AST ALT Albumin Lipase Urine WBC (Auto) Salicylates Acetaminophen 01/06/21 01/07/21 01/07/21 22:25 06:07 11:45 WBC RBC Hgb Hct Plt Count 72 L Lymph % (Auto) [place] % (Auto) Lymph # (Auto) Seg Neutrophils % APTT Sodium Potassium Chloride BUN Creatinine Glucose POC Glucose 116 H 152 H Phosphorus Magnesium Total Bilirubin Direct Bilirubin AST ALT Albumin Lipase Urine WBC (Auto) Salicylates Acetaminophen 01/07/21 01/07/21 01/07/21 11:45 11:51 16:37 WBC RBC Hgb Hct Plt Count Lymph % (Auto) [place] % (Auto) Lymph # (Auto) Seg Neutrophils % APTT Sodium Potassium Chloride BUN 2 L Creatinine 0.4 L Glucose 151 H POC Glucose 159 H 143 H Phosphorus Magnesium 1.40 L Total Bilirubin Direct Bilirubin AST ALT Albumin Lipase Urine WBC (Auto) Salicylates Acetaminophen 01/08/21 01/08/21 01/08/21 06:16 07:10 11:14 WBC RBC Hgb Hct Plt Count Lymph % (Auto) [place] % (Auto) Lymph # (Auto) Seg Neutrophils % APTT Sodium Potassium 3.0 L Chloride BUN 2 L Creatinine 0.5 L Glucose 121 H POC Glucose 138 H 177 H Phosphorus Magnesium Total Bilirubin Direct Bilirubin AST ALT Albumin Lipase Urine WBC (Auto) Salicylates Acetaminophen 01/08/21 01/08/21 01/09/21 17:10 21:48 07:08 WBC RBC Hgb Hct Plt Count Lymph % (Auto) [place] % (Auto) Lymph # (Auto) Seg Neutrophils % APTT Sodium Potassium 3.0 L Chloride BUN 3 L Creatinine 0.5 L Glucose 101 H POC Glucose 126 H 136 H Phosphorus Magnesium Total Bilirubin Direct Bilirubin AST ALT Albumin Lipase Urine WBC (Auto) Salicylates Acetaminophen 01/09/21 01/09/21 01/10/21 23:11 23:11 05:43 WBC RBC Hgb Hct Plt Count Lymph % (Auto) [place] % (Auto) Lymph # (Auto) Seg Neutrophils % APTT Sodium Potassium Chloride BUN Creatinine Glucose POC Glucose 112 H 109 H Phosphorus Magnesium 1.30 L Total Bilirubin Direct Bilirubin AST ALT Albumin Lipase Urine WBC (Auto) Salicylates Acetaminophen 01/10/21 01/10/21 01/10/21 10:50 11:44 23:02 WBC RBC Hgb Hct Plt Count Lymph % (Auto) [place] % (Auto) Lymph # (Auto) Seg Neutrophils % APTT Sodium Potassium 3.4 L Chloride BUN 6 L Creatinine 0.5 L Glucose 167 H POC Glucose 120 H 132 H Phosphorus Magnesium Total Bilirubin Direct Bilirubin AST ALT Albumin Lipase Urine WBC (Auto) Salicylates Acetaminophen 01/11/21 01/11/21 01/11/21 05:42 07:35 11:20 WBC RBC Hgb Hct Plt Count Lymph % (Auto) [place] % (Auto) Lymph # (Auto) Seg Neutrophils % APTT Sodium Potassium 3.1 L Chloride BUN 7 L Creatinine 0.5 L Glucose 110 H POC Glucose 116 H 108 H Phosphorus Magnesium Total Bilirubin Direct Bilirubin AST ALT Albumin Lipase Urine WBC (Auto) Salicylates Acetaminophen 01/11/21 01/12/21 01/12/21 16:22 07:23 11:30 WBC RBC Hgb Hct Plt Count Lymph % (Auto) [place] % (Auto) Lymph # (Auto) Seg Neutrophils % APTT Sodium Potassium Chloride BUN Creatinine Glucose POC Glucose 146 H 129 H 129 H Phosphorus Magnesium Total Bilirubin Direct Bilirubin AST ALT Albumin Lipase Urine WBC (Auto) Salicylates Acetaminophen 01/12/21 01/13/21 01/13/21 21:32 06:11 08:01 WBC RBC Hgb Hct Plt Count Lymph % (Auto) [place] % (Auto) Lymph # (Auto) Seg Neutrophils % APTT Sodium Potassium Chloride BUN Creatinine Glucose POC Glucose 108 H 143 H 125 H Phosphorus Magnesium Total Bilirubin Direct Bilirubin AST ALT Albumin Lipase Urine WBC (Auto) Salicylates Acetaminophen 01/13/21 01/13/21 17:06 21:55 WBC RBC Hgb Hct Plt Count Lymph % (Auto) [place] % (Auto) Lymph # (Auto) Seg Neutrophils % APTT Sodium Potassium Chloride BUN Creatinine Glucose POC Glucose 125 H 129 H Phosphorus Magnesium Total Bilirubin Direct Bilirubin AST ALT Albumin Lipase Urine WBC (Auto) Salicylates Acetaminophen Allied health notes reviewed: nursing
[2021-01-14] MEDS: HEPARIN 5,000 UNIT/1 ML VIAL SUB-Q SCH (11:26)
[2021-01-14] MEDS: MAGNESIUM OXIDE 400 MG TAB PO SCH (11:26)
[2021-01-14] MEDS: ASPIRIN EC 81 MG TAB PO SCH (11:26)
--- NOTE | 2021-01-14 13:15 | Discharge Summary ---
Providers - Providers Date of Admission: 01/01/21 16:22 Date of discharge: 01/14/21 Attending physician: ISABELLA KLEIN 01/01/21 14:34 Consult to Physician [CONS] Stat Comment: Consulting Provider: NOEMY ROBINS Physician Instructions: Reason For Exam: Delirium tremens 01/04/21 16:51 Speech Therapy Evaluation and Treat [CONS] Urgent Reason For Exam: failed swallow screen 01/05/21 18:11 Physical Therapy Evaluation and Treat [CONS] Routine Comment: Reason For Exam: generalized weakness Primary care physician: [employer] Hospitalization Condition: Serious Hospital course: 5 YO Male with DM, Nicotine Dependence, ETOH Dependence, HTN, Vascular Dementia, Cerebral Atherosclerosis, Malnutrition presented to ED for evaluation. Patient is confused with diminished cognition at the time of my evaluation is unable to provide history. The patient "had a seizure". EMS was notified and upon arrival the patient was found to be in distress and subsequently transported to [facility] for further care and evaluation of the aforementioned symptoms. The patient was seen and evaluated in the emergency department and was observed to have multiple witnessed seizures. Patient treated with benzodiazepine therapy with recurrent seizures. Patient found to have alcohol withdrawal syndrome complicated by delirium, acute pancreatitis, malnutrition, hypomagnesemia. Patient admitted to ICU and initiated on Precedex as well as IV fluid resuscitation therapy. Patient treated in accordance with alcohol withdrawal protocol. No further history is obtainable. No reports of fever, chills, chest pain, palpitation, productive cough, skin rash, recent ill contacts, trauma, or known exposure to COVID-19. Prior admission on 02/06/2020 reviewed. All medication listed at time of admission has been reconciled. Advanced care planning conducted in ED. Patient treated with supportive care with gradual improvement in symptoms. Patient downgraded from ICU care and transferred to medical floor. Patient medically optimized. Patient symptoms at this time suspected secondary to vascular dementia. Patient found to have overall poor prognosis. Advanced care planning conducted. Patient request discharge home under hospice care. Patient seen and evaluated prior to discharge but no significant physical exam findings. 35 minutes dedicated to patient discharge and coordination of care. Disposition: DC-50 TO HOSPICE (HOME) Disposition: DC-50 TO HOSPICE (HOME) Final Discharge Diagnosis (Prints w/discharge instructions): Alcohol withdrawal seizures. #2 delirium tremors - Discharge Diagnoses (1) Alcohol withdrawal delirium Status: Acute (2) Alcohol withdrawal seizure with delirium Status: Acute (3) Anemia Status: Acute (4) Cerebral atherosclerosis Status: Acute (5) Hypokalemia Status: Acute (6) Hypomagnesemia Status: Acute (7) History of CVA (cerebrovascular accident) Status: Chronic Core Measure Documentation - Palliative Care Palliative Care/ Comfort Measures: Hospice Care - Core Measures Any of the following diagnoses?: none Exam - Constitutional Vitals: Temp Pulse Resp BP Pulse Ox 98.0 F 73 17 142/85 98 01/13/21 17:08 01/13/21 22:00 01/13/21 22:00 01/13/21 17:08 01/13/21 22:00 General appearance: Present: no acute distress, well-nourished - EENT Eyes: Present: PERRL ENT: hearing intact, clear oral mucosa - Neck Neck: Present: supple, normal ROM - Respiratory Respiratory effort: normal Respiratory: bilateral: CTA - Cardiovascular Heart Sounds: Present: S1 & S2. Absent: rub, click - Extremities Extremities: pulses symmetrical, No edema Peripheral Pulses: within normal limits - Abdominal General gastrointestinal: Present: soft, non-tender, non-distended, normal bowel sounds Male genitourinary: Present: normal - Integumentary Integumentary: Present: clear, warm, dry - Musculoskeletal Musculoskeletal: strength equal bilaterally, generalized weakness - Psychiatric Psychiatric: other (Poor judgment and poor cognition. Cognitive impairment consistent with Warnicke's encephalopathy) - Neurologic Neurologic: moves all extremities, other (Cognitive impairment) Plan Activity: fall precautions Weight Bearing Status: Weight Bear as Tolerated Diet: low fat, diabetic Follow up with: PRIMARY CARE,MD [Primary Care Provider] - 3-5 Days Prescriptions: LORazepam [Ativan] 1 mg PO TID #90 tablet Morphine Concentrate [MORPHINE Conc 20 MG/ML ORAL LIQ] 10 mg PO Q4HR PRN #30 ml PRN Reason: Pain , Severe (7-10)
[2021-01-14 13:26] VITALS: BP 129/75
== END 2021-01-14 13:30 | disposition hospice, home (50) | DRG 439 ==
LOC: ED 11:16 → CC1 16:22 → IMCU 01-02 16:42 → 3A 01-05 08:55
PROVIDERS: ADMIT Internal Medicine; ATTEND Internal Medicine
DX: K85.20 Alcohol induced acute pancreatitis without necrosis or infection (principal); F10.231 Alcohol dependence with withdrawal delirium; Z68.1 Body mass index [BMI] 19.9 or less, adult; E51.2 Wernicke's encephalopathy; E44.1 Mild protein-calorie malnutrition; R56.9 Unspecified convulsions; F17.200 Nicotine dependence, unspecified, uncomplicated; E87.6 Hypokalemia; E83.42 Hypomagnesemia; F01.50 Vascular dementia, unspecified severity, without behavioral disturbance, psychotic disturbance, mood disturbance, and anxiety; I67.2 Cerebral atherosclerosis; Z86.73 Personal history of transient ischemic attack (TIA), and cerebral infarction without residual deficits; E83.39 Other disorders of phosphorus metabolism; D69.6 Thrombocytopenia, unspecified; D64.9 Anemia, unspecified; Z79.899 Other long term (current) drug therapy; Z79.891 Long term (current) use of opiate analgesic; Z79.01 Long term (current) use of anticoagulants
CPT/HCPCS: 36415; 70450; 71045; 72125; 80048; 80053; 80076; 80307; 80320; 81001; 82140; 82962; 83690; 83735; 84100; 84132; 84443; 84484; 85025; 85027; 85610; 85730; 93005; 94640; 96374; 99292; G0378; G0480; J0360; J0696; J1644; J1815; J2060; J3411; J3475; J3480; J3486; J3490; J7030; J7040; J7042

== ENCOUNTER 2021-10-06 22:33 | Emergency (ER) | payer OTHER ==
[2021-10-06 22:38] VITALS: BP 157/95
== END 2021-10-07 01:08 | disposition left against medical advice (07) ==
LOC: ED 22:33
DX: M25.441 Effusion, right hand (principal); Z53.21 Procedure and treatment not carried out due to patient leaving prior to being seen by health care provider